=== PATIENT | female | born 1955 | race Caucasian/White ===

== ENCOUNTER 2016-12-06 12:59 | Inpatient (IN) | payer OTHER ==
[2016-12-06] VITALS (16 sets, daily range): BP systolic 76–108; BP diastolic 55–70; PULSE 87–106; TEMP 36.8; O2SAT 99–100; Ht 157.5 cm; Wt 57.9 kg
[~2016-12-06] VITALS: Ht 157.5 cm; Wt 57.9 kg
[2016-12-06] MEDS ORDERED: METHYLPREDNISOLONE 125 MG VIAL IV STA (13:23)
[2016-12-06] MEDS ORDERED: SODIUM CHLORIDE 0.9% 500ML 500 ML IV STA (13:23)
--- NOTE | 2016-12-06 13:28 | EMERGENCY ROOM VISIT NOTE ---
History Report prepared by [facility] Under the Supervision of: Dr. Darci Francis M.D. First contact with patient: 13:02 Chief Complaint: CHEST PAIN Stated Complaint: CHEST PAIN / DIZZY History of Present Illness The patient is a 61 year old female who presents to the Emergency Room via ambulance with complaints of constant chest pain and shortness of breath for the past week. The patient has a history of COPD, and she is currently on oxygen at home. Source of History: patient Onset: a week ago Position: chest Timing: constant Associated Symptoms: + SOB Review of Systems See HPI for pertinent positives & negatives. A total of 10 systems reviewed and were otherwise negative. Past Medical & Surgical Medical Problems: (1) Acute respiratory failure with hypoxia and hypercapnia (2) COPD (chronic obstructive pulmonary disease) (3) Depression (4) Dyslipidemia (5) Hypotension (6) Hypothyroidism (7) Leg cramps (8) Pleuritic chest pain (9) Pneumonia of both lower lobes (10) Respiratory failure with hypercapnia (11) Shortness of breath (12) Tobacco abuse (13) Tobacco abuse counseling Surgical Problems: (1) History of hysterectomy (2) History of tonsillectomy (3) Hx of tubal ligation Social History Smoking Status: Current Every Day Smoker Marital Status: Occupation Status: retired Current/Historical Medications Scheduled Albuterol Hfa (Ventolin Hfa), 2-4 PUFFS INH Q6H Budesonide (Inhalation) (Pulmicort Respules 0.5MG/2ML), 2 ML INH Q12H Buspirone Hcl (Buspirone Hcl), 5 MG PO BID Ferrous Sulfate (Kp Ferrous Sulfate), 325 MG PO BID Formoterol Fumarate (Perforomist), 1 VIAL NEB Q12H Home O2 Therapy (Oxygen), 4 LITER NA DIRECTED Mirtazapine (Mirtazapine), 45 MG PO QPM Paroxetine (Paxil), 30 MG PO DAILY Risperidone (Risperdal), 1 MG PO HS Roflumilast (Daliresp), 500 MCG PO DAILY Simvastatin (Zocor), 40 MG PO DAILY Umeclidinium [place] (Incruse Ellipta), 1 PUFF INH DAILY Scheduled PRN Albuterol Sulf (Proventil 0.083% 2.5MG/3ML), 2.5 MG NEB Q4 PRN for Shortness of Breath Allergies Coded Allergies: No Known Allergies (Unverified , 12/06/16) Physical Exam Vital Signs Date Time Temp Pulse Resp B/P (MAP) Pulse Ox O2 Delivery O2 Flow Rate FiO2 12/06/16 15:45 100 BiPAP 10.0 40 12/06/16 15:25 109 24 99/74 100 BiPAP 12/06/16 14:46 108 22 93/62 100 BiPAP 12/06/16 13:55 99 24 115/83 100 BiPAP 12/06/16 13:38 100 12/06/16 13:35 98 BiPAP 12/06/16 13:20 106 100 40 12/06/16 13:20 Non-Rebreather 10.0 12/06/16 13:20 106 19 100 BiPAP/CPAP 40 12/06/16 13:12 37.2 100 24 140/81 96 Non-Rebreather 10.0 12/06/16 13:12 100 Non-Rebreather 15.0 Physical Exam GENERAL: Patient is a healthy-appearing well-nourished female falling asleep on exam. HEAD: Normocephalic atraumatic EYES: Ocular movements intact pupils equal and react to light OROPHARYNX mucous membranes are moist no exudates present no erythema or edema present NECK: Supple no nuchal rigidity CHEST: Good equal expansion LUNGS: Wheezing bilaterally CARDIAC: Normal S1 and S2 ABDOMEN: Soft nontender no guarding BACK: No CVA tenderness EXTREMITIES: No pain upon palpation normal muscle strength in all groups no clubbing cyanosis or edema NEURO: Patient is following commands and answering questions appropriately. Alert and oriented x3 Cranial Nerves 2-12 grossly intact Medical Decision & Procedures ER Provider Diagnostic Interpretation: Radiology results as stated below per my review and radiologist interpretation: CHEST ONE VIEW PORTABLE CLINICAL HISTORY: Shortness of breath and wheezing. COMPARISON STUDY: No previous studies for comparison. FINDINGS: A 1.3 cm nodular density projects over the left lower lung. A 1 cm nodular density projects over the right lower lung. There is minimal left basilar opacity. There is a possible 2.2 cm irregular left upper lobe opacity. Pulmonary vascularity is normal. Cardiac size is normal. Mediastinal contours are normal. There is no pneumothorax or pleural effusion. IMPRESSION: 1. Possible 2.2 cm left upper lobe irregular opacity. This could reflect artifact, minimal airspace disease or a pulmonary nodule. A nonemergent chest CT is recommended. 2. Minimal left basilar opacity which favors atelectasis. 3. A few nodular densities within the lower lungs which favor calcified nodules but can be assessed on chest CT. Electronically signed by: Meliton Umanzor M.D. 12/06/2016 2:17 PM Dictated Date/Time: 12/06/2016 2:12 PM CHEST CTA for PULMONARY ARTERIES CT DOSE: 201.75 mGy.cm HISTORY: Hypoxia. Atypical chest pain. Elevated d-dimer. TECHNIQUE: Multiaxial CT images of the chest were performed following the intravenous administration of contrast to evaluate the pulmonary arteries. Maximal intensity projection images were also obtained. A dose lowering technique was utilized adhering to the principles of ALARA. COMPARISON STUDY: Chest 12/06/2016. FINDINGS: Complete occlusion of the proximal left subclavian artery with reconstitution to to the left vertebral artery. This is consistent with a subclavian steal. Mild calcified plaque within the aortic arch. The heart is normal in size. No pleural or pericardial effusions. No evidence for an aortic dissection. Mild to moderate plaque within the distal descending thoracic aorta and proximal abdominal aorta. There is a 1.2 cm saccular aneurysm along the lateral aspect of the aortic arch. No filling defects within the pulmonary arteries to suggest pulmonary embolus. Calcified nodule within the left breast. Therefore, this is likely benign. The visualized liver, spleen, and adrenal glands are unremarkable. Questionable gastric wall thickening is likely due to underdistention. No mediastinal or hilar lymphadenopathy. Lipomatous hypertrophy involving the superior aspect of the intra-atrial septum. This measures up to 2.5 cm in thickness and results in mild narrowing of the distal SVC. No suspicious lytic or blastic osseous lesions. Small amount of mucoid material within the bilateral mainstem bronchi and partial opacification of the bilateral lower lobe bronchi. Small areas of consolidation within the bilateral lower lobes posteriorly. Moderate emphysema. No pneumothorax. Small scarlike density within the left lung apex. There are 2 focal irregular densities within the left upper lobe best seen on images 256 and 245. These measure 9 and 10 mm in size, respectively. This may account for the finding on the prior radiograph. There is also a 14 mm irregular density within the left upper lobe posteriorly on image 208. IMPRESSION: 1. No evidence for pulmonary embolus. 2. Emphysema. 3. There are 3 similar-appearing irregular densities within the left upper lobe as described above with the largest measuring 14 mm. These could be due to scarring, inflammatory/infectious change, or possibly primary bronchogenic neoplasms. A [address] follow-up is recommended to assess for stability/resolution. 4. A 1.2 cm saccular aneurysm along the lateral aspect of the aortic arch. 5. Left-sided subclavian steal as described above. 6. Partial opacification of the bilateral lower lobe bronchi with areas of consolidation within the lower lobes posteriorly. This could be due to atelectasis or pneumonia. Electronically signed by: Frederick Flynn M.D. 12/06/2016 3:36 PM Dictated Date/Time: 12/06/2016 3:24 PM Laboratory Results Test 12/06/16 13:25 12/06/16 13:41 12/06/16 13:51 Total Bilirubin 0.4 mg/dl (0.2-1) Aspartate Amino Transf (AST/SGOT) 19 U/L (15-37) Alanine Aminotransferase (ALT/SGPT) 15 U/L (12-78) Alkaline Phosphatase 134 U/L (45-117) Pro-B-Type Natriuretic Peptide 1427 pg/ml (0-900) Total Protein 5.7 gm/dl (6.4-8.2) Albumin 2.1 gm/dl (3.4-5.0) Globulin 3.6 gm/dl (2.5-4.0) Albumin/Globulin Ratio 0.6 (0.9-2) Bedside Lactic Acid Venous 1.20 mmol/L (0.90-1.70) Arterial Blood pH 7.38 (7.35-7.45) Arterial Blood Partial Pressure CO2 53 mmHg (35-46) Arterial Blood Partial Pressure O2 236 mm/Hg (80-95) Arterial Blood HCO3 30 mmol/L (19-24) Arterial Blood Oxygen Saturation 99.5 % (90-95) Arterial Blood Base Excess 4.3 mEq/L (-9-1.8) Arterial Blood Gas Delivery 40% Wale Test POS (POS) Labs reviewed by ED physician. Medications Administered Medications (Trade) Dose Ordered Sig/Marcus Route Start Time Stop Time Status Last Admin Dose Admin Albuterol/ Ipratropium (Duoneb) 12 ml ONE ONCE INH 12/06/16 13:30 12/06/16 13:31 DC 12/06/16 13:20 12 ML Methylprednisolone Sodium Succinate (Solu-Medrol IV) 125 mg NOW STAT IV 12/06/16 13:23 12/06/16 13:24 DC 12/06/16 13:37 125 MG Sodium Chloride 500 ml @ 999 mls/hr Q31M STAT IV 12/06/16 13:23 12/06/16 13:53 DC 12/06/16 13:37 999 MLS/HR Hydromorphone HCl (Dilaudid Inj) 0.5 mg NOW STAT IV 12/06/16 14:37 12/06/16 14:39 DC 12/06/16 14:49 0.5 MG Magnesium Sulfate 1 gm/Prmx 100 ml @ 100 mls/hr NOW STAT IV 12/06/16 14:37 12/06/16 15:36 DC 12/06/16 14:53 100 MLS/HR Acetaminophen (Tylenol Tab) 650 mg Q4H PRN PO 12/06/16 15:45 01/05/17 15:44 12/07/16 10:29 650 MG Procedure Central Venous Catheter Indication: access, hypotension Catheter type: arrow triple lumen Location: right fem Verbal consent was obtained after the risks and benefits were explained, including but not limited to pneumothorax, hemothorax, vessel injury, bleeding, scarring, infection, pain, and bone/joint/nerve damage. At this time, the risks of the procedure are less than the risks of NOT performing the procedure. A time out was taken and the correct patient and site identified. The patient was placed in the Trendelenburg position and the skin was prepped in the standard fashion with chlorhexidine and full sterile drapes applied. The proper landmarks were identified with ultrasound, anesthetized with 1% lidocaine without epinephrine, and the needle was inserted through the skin in the standard fashion. The needle was carefully advanced into blood vessel lumen under ultrasound guidance. The guidewire was placed uneventfully. The vessel is dilated and the catheter was placed. It was sutured into position. There was good blood return from all ports. The patient tolerated the procedure well and there were no complications. Post procedure x-ray was normal. ECG Indication: chest pain Rate (beats per minute): 98 Rhythm: sinus rhythm Findings: T-wave inversion (Lateral), no acute ischemic change ED Course 1302: Past medical records reviewed. The patient was evaluated in room A10. A complete history and physical examination was performed. 1323: Sodium Chloride 500 ml @ 999 mls/hr IV, Solu-Medrol 125mg IV 1330: DuoNeb 12ml INH 1347: I reevaluated the patient, and she was doing better. 1437: Magnesium Sulfate 1gm/Prmx 100ml @ 100mls/hr IV, Dilaudid Inj 0.5mg IV 1526: I discussed the patient's case with Dr. Perez, he has agreed to evaluate the patient for further management and care. Medical Decision Differential diagnosis: Etiologies such as infections, reactive airway disease, pneumonia, pneumothorax , COPD, CHF, cardiac ischemia, pulmonary embolism, musculoskeletal, gastrointestinal, as well as others were entertained. This is a 61-year-old female who presents emergency department hypoxic. The patient has been falling asleep on examination therefore I'm concerned that she is in CO2 retention. She was merely placed on BiPAP and given an hour-long breathing treatment and started on Solu-Medrol. I did start the patient on antibiotics and discussed the case with the hospitalist service. While in the emergency department the patient became hypotensive therefore a central line was placed in the right femoral area. I did discuss the case with the radiosonde specialist. Medication Reconcilliation Current Medication List: was personally reviewed by me Blood Pressure Screening Patient's blood pressure: Elevated blood pressure Blood pressure disposition: Referred to PCP Consults Time Called: 1435 Consulting Physician: Dr. Brandon Returned Call: [phone] I discussed the patient's case with Dr. Perez, he has agreed to evaluate the patient for further management and care. Impression Primary Impression: Hypoxia Additional Impression: COPD exacerbation Critical Care I have personally spent greater than 90 minutes of critical care time in the direct management of this patient. This includes bedside care, interpretation of diagnostic studies, and testing, discussion with consultants, patient, and family members, and other required patient management activities. This 90 minutes is in excess of all separately billable procedures. Scribe Attestation The scribe's documentation has been prepared under my direction and personally reviewed by me in its entirety. I confirm that the note above accurately reflects all work, treatment, procedures, and medical decision making performed by me. Departure Information Dispostion Being Evaluated By Hospitalist Referrals Julio Cesar Harrell (PCP) Patient Instructions My [facility] Problem Qualifiers
[2016-12-06] MEDS ORDERED: ALBUT/IPRATROP 3MG/0.5MG NEB 3 ML VIAL INH ONE (13:30)
[2016-12-06] MEDS ORDERED: RISP1TAB68 PO (13:49)
[2016-12-06] MEDS ORDERED: PARO1TAB27 PO (13:49)
[2016-12-06] MEDS ORDERED: VNTHFA/IN INH (13:49)
[2016-12-06] MEDS ORDERED: FERR1TAB13 PO (13:49)
[2016-12-06] MEDS ORDERED: FORM1NEB NEB (13:49)
[2016-12-06] MEDS ORDERED: SIMV40TA2 PO (13:49)
[2016-12-06] MEDS ORDERED: UMEC1INH INH (13:49)
[2016-12-06] MEDS ORDERED: OXGN (13:49)
[2016-12-06] MEDS ORDERED: PLMINS INH (13:49)
[2016-12-06] MEDS ORDERED: ROFL1TAB5 PO (13:49)
[2016-12-06] MEDS ORDERED: MIRT45TA3 PO (13:49)
[2016-12-06] MEDS ORDERED: BUSP5TAB59 PO (13:49)
[2016-12-06] MEDS ORDERED: ALBINS/ NEB (13:50)
[2016-12-06 13:57] LABS: BASO % 0.2 %; BASO ABS # 0.01 K/uL (0-0.2); COMPLETE YES; EOS % 0.5 %; HEMATOCRIT 33.9 % (37-47); IG% 0.3 %; LYMPH % 13.2 %; LYMPH ABS # 0.86 K/uL (1.2-3.4); MEAN CELL VOLUME 108.3 fL (80-100); MEAN CORPUSCULAR HEMOGLOBIN 36.1 pg (25-34); MEAN CORPUSCULAR HGB CONC 33.3 g/dl (32-36); MEAN PLATELET VOLUME 11.1 fL (7.4-10.4); MONO % 8.9 %; NEUT % 76.9 %; PLATELET COUNT 147 K/uL (130-400); RED BLOOD COUNT 3.13 M/uL (4.2-5.4)
[2016-12-06 14:00] LABS: ALLEN TEST POS (POS); ARTERIAL BLD GAS O2 SATURATION 99.5 % (90-95); ARTERIAL BLOOD GAS BASE EXCESS 4.3 mEq/L (-9-1.8); ARTERIAL BLOOD GAS HCO3 30 mmol/L (19-24); ARTERIAL BLOOD GAS PO2 236 mm/Hg (80-95); ARTERIAL BLOOD GAS pH 7.38 (7.35-7.45); O2 ADMINISTRATION 40%
[2016-12-06 14:06] LABS: BUN/CREATININE RATIO 13.4 (10-20); CALCIUM 7.9 mg/dl (8.5-10.1); CREATININE 0.61 mg/dl (0.60-1.20); POTASSIUM 3.3 mmol/L (3.5-5.1)
[2016-12-06 14:11] LABS: ALB/GLOB RATIO 0.6 (0.9-2); CKMB/CK RATIO 6.1 (0-3.0)
--- NOTE | 2016-12-06 14:18 | DIAGNOSTIC IMAGING REPORT ---
CHEST ONE VIEW PORTABLE CLINICAL HISTORY: Shortness of breath and wheezing. COMPARISON STUDY: No previous studies for comparison. FINDINGS: A 1.3 cm nodular density projects over the left lower lung. A 1 cm nodular density projects over the right lower lung. There is minimal left basilar opacity. There is a possible 2.2 cm irregular left upper lobe opacity. Pulmonary vascularity is normal. Cardiac size is normal. Mediastinal contours are normal. There is no pneumothorax or pleural effusion. IMPRESSION: 1. Possible 2.2 cm left upper lobe irregular opacity. This could reflect artifact, minimal airspace disease or a pulmonary nodule. A nonemergent chest CT is recommended. 2. Minimal left basilar opacity which favors atelectasis. 3. A few nodular densities within the lower lungs which favor calcified nodules but can be assessed on chest CT. Electronically signed by: Meliton Umanzor M.D. 12/06/2016 2:17 PM Dictated Date/Time: 12/06/2016 2:12 PM
[2016-12-06] MEDS ORDERED: HYDROmorphone INJ 0.5 MG/0.5 ML SYR IV STA (14:37)
[2016-12-06] MEDS ORDERED: MAGNESIUM SULFATE 1GM / D5W 1 GM in PREMIXED IN D5W 100 ML IV STA (14:37)
[2016-12-06] MEDS ORDERED: OPTIRAY 320 IV PRN (14:45)
--- NOTE | 2016-12-06 15:37 | DIAGNOSTIC IMAGING REPORT ---
CHEST CTA for PULMONARY ARTERIES CT DOSE: 201.75 mGy.cm HISTORY: Hypoxia. Atypical chest pain. Elevated d-dimer. TECHNIQUE: Multiaxial CT images of the chest were performed following the intravenous administration of contrast to evaluate the pulmonary arteries. Maximal intensity projection images were also obtained. A dose lowering technique was utilized adhering to the principles of ALARA. COMPARISON STUDY: Chest 12/06/2016. FINDINGS: Complete occlusion of the proximal left subclavian artery with reconstitution to to the left vertebral artery. This is consistent with a subclavian steal. Mild calcified plaque within the aortic arch. The heart is normal in size. No pleural or pericardial effusions. No evidence for an aortic dissection. Mild to moderate plaque within the distal descending thoracic aorta and proximal abdominal aorta. There is a 1.2 cm saccular aneurysm along the lateral aspect of the aortic arch. No filling defects within the pulmonary arteries to suggest pulmonary embolus. Calcified nodule within the left breast. Therefore, this is likely benign. The visualized liver, spleen, and adrenal glands are unremarkable. Questionable gastric wall thickening is likely due to underdistention. No mediastinal or hilar lymphadenopathy. Lipomatous hypertrophy involving the superior aspect of the intra-atrial septum. This measures up to 2.5 cm in thickness and results in mild narrowing of the distal SVC. No suspicious lytic or blastic osseous lesions. Small amount of mucoid material within the bilateral mainstem bronchi and partial opacification of the bilateral lower lobe bronchi. Small areas of consolidation within the bilateral lower lobes posteriorly. Moderate emphysema. No pneumothorax. Small scarlike density within the left lung apex. There are 2 focal irregular densities within the left upper lobe best seen on images 256 and 245. These measure 9 and 10 mm in size, respectively. This may account for the finding on the prior radiograph. There is also a 14 mm irregular density within the left upper lobe posteriorly on image 208. IMPRESSION: 1. No evidence for pulmonary embolus. 2. Emphysema. 3. There are 3 similar-appearing irregular densities within the left upper lobe as described above with the largest measuring 14 mm. These could be due to scarring, inflammatory/infectious change, or possibly primary bronchogenic neoplasms. A [address] follow-up is recommended to assess for stability/resolution. 4. A 1.2 cm saccular aneurysm along the lateral aspect of the aortic arch. 5. Left-sided subclavian steal as described above. 6. Partial opacification of the bilateral lower lobe bronchi with areas of consolidation within the lower lobes posteriorly. This could be due to atelectasis or pneumonia. Electronically signed by: Frederick Flynn M.D. 12/06/2016 3:36 PM Dictated Date/Time: 12/06/2016 3:24 PM
[2016-12-06] MEDS ORDERED: GLUCAGON FOR INJ 1 MG VIAL SQ PRN (15:45)
[2016-12-06] MEDS ORDERED: GLUCOSE 10 TABS/TUBE PO PRN (15:45)
[2016-12-06] MEDS ORDERED: DEXTROSE 50% 50 ML SYR IV PRN (15:45)
[2016-12-06] MEDS ORDERED: GLUCOSE 40% GEL 15 GM TUBE PO PRN (15:45)
[2016-12-06] MEDS ORDERED: LEVOFLOXACIN / D5W 500 MG in PREMIXED IN D5W 100 ML IV SCH (15:45)
[2016-12-06] MEDS ORDERED: ONDANSETRON INJ 2 MG/ML 2 ML VIAL IV PRN (15:45)
[2016-12-06] MEDS ORDERED: ALBUMIN HUMAN 25% 12.5 GM/50 ML VIAL IV ONE ×2 (16:15→16:16)
[2016-12-06] MEDS ORDERED: NOREPINEPHRINE BIT INJ 8 MG in DEXTROSE 5% 500ML 500 ML IV PRN (16:15)
[2016-12-06] MEDS: DEXTROSE 5% IV PRN (16:36)
[2016-12-06] MEDS: NOREPINEPHRINE BIT IV PRN (16:36)
[2016-12-06] MEDS: FERROUS SULFATE 325 MG TAB PO SCH (18:00)
--- NOTE | 2016-12-06 18:22 | History and Physical ---
History & Physical Date & Time of Service: Dec 06, 2016 at 17:50 Chief Complaint: Chest Pain / Dizzy Primary Care Physician: See Starr M.D. History of Present Illness Source: patient, spouse The patient is a 61-year-old female who presents to the emergency department via ambulance due to constant chest pain, chronic cough that has worsened, and shortness of breath worsening over the past week. She has a history of severe COPD, is on nasal cannula oxygen up to 4 L at home, has been intubated in the past during a month-long stay in the ICU at [facility] several years ago, and has had multiple numbers of admissions for pneumonia there as well. She has not had any recent travels, she does not have any known sick exposures. She unfortunately does continue to smoke tobacco. Family History Noncontributory Social History Smoking Status: Current Every Day Smoker Smokeless Tobacco Use: No Alcohol Use: none Drug Use: none Marital Status: Housing status: lives with family Occupational Status: retired Immunizations History of Influenza Vaccine: Unknown History of Tetanus Vaccine?: Unknown History of Pneumococcal: Unknown History of Hepatitis B Vaccine: Unknown Multi-Drug Resistant Organisms History of MDRO: No Allergies Coded Allergies: No Known Allergies (Unverified , 12/06/16) Home Medications Scheduled Albuterol Hfa (Ventolin Hfa), 2-4 PUFFS INH Q6H Budesonide (Inhalation) (Pulmicort Respules 0.5MG/2ML), 2 ML INH Q12H Buspirone Hcl (Buspirone Hcl), 5 MG PO BID Ferrous Sulfate (Kp Ferrous Sulfate), 325 MG PO BID Formoterol Fumarate (Perforomist), 1 VIAL NEB Q12H Home O2 Therapy (Oxygen), 4 LITER NA DIRECTED Mirtazapine (Mirtazapine), 45 MG PO QPM Paroxetine (Paxil), 30 MG PO DAILY Risperidone (Risperdal), 1 MG PO HS Roflumilast (Daliresp), 500 MCG PO DAILY Simvastatin (Zocor), 40 MG PO DAILY Umeclidinium [place] (Incruse Ellipta), 1 PUFF INH DAILY Scheduled PRN Albuterol Sulf (Proventil 0.083% 2.5MG/3ML), 2.5 MG NEB Q4 PRN for Shortness of Breath Review of Systems The patient denies chest pain, palpitations, vision change, hearing change, sore throat, fevers, chills, sweats, nausea, vomiting, diarrhea or constipation , abdominal pain, pelvic pain, blood in urine or stool, dysuria, urinary frequency or urgency, lightheadedness, dizziness, headache, memory loss, rash, abnormal bruising or bleeding, imbalance, focal weakness, numbness or tingling in arms or legs, generalized arthralgias or myalgias, back or neck pain, night sweats. The review of systems is otherwise negative other than for that already noted above, and at least 10 systems have been reviewed. Physical Exam Vital Signs Date Time Temp Pulse Resp B/P (MAP) Pulse Ox O2 Delivery O2 Flow Rate FiO2 12/06/16 17:26 110 16 93/61 100 Room Air 12/06/16 17:15 103 16 89/59 99 Room Air 12/06/16 17:10 109 16 98/81 100 BiPAP 12/06/16 17:05 103 16 100/81 99 Room Air 12/06/16 17:00 72 16 97/89 99 BiPAP 12/06/16 16:56 72 16 93/69 98 Room Air 12/06/16 16:50 86 16 86/66 97 Room Air 12/06/16 16:45 101 14 92/68 98 Room Air 12/06/16 16:40 102 16 94/60 98 12/06/16 16:35 96 16 93/60 97 Room Air 12/06/16 16:30 106 20 85/62 97 Room Air 12/06/16 16:26 102 16 93/61 100 Room Air 12/06/16 16:24 101 16 93/56 97 Room Air 12/06/16 16:10 102 16 77/58 98 BiPAP 78/61 12/06/16 15:45 100 BiPAP 10.0 40 12/06/16 15:25 109 24 99/74 100 BiPAP 12/06/16 14:46 108 22 93/62 100 BiPAP 12/06/16 13:55 99 24 115/83 100 BiPAP 12/06/16 13:38 100 12/06/16 13:35 98 BiPAP 12/06/16 13:20 106 100 40 12/06/16 13:20 Non-Rebreather 10.0 12/06/16 13:20 106 19 100 BiPAP/CPAP 40 12/06/16 13:12 37.2 100 24 140/81 96 Non-Rebreather 10.0 12/06/16 13:12 100 Non-Rebreather 15.0 The patient is awake, well-developed and adequately nourished, alert and oriented 3, normocephalic and atraumatic, lying in bed and in mild to moderate acute respiratory distress, with BiPAP mask on. HEENT--PERRL, EOMI, mucous membranes and oropharynx dry. Neck--supple, no JVD or bruits, thyroid normal, trachea midline, no adenopathy. Heart--normal S1 and S2, no extra beats, no murmurs, rubs or gallops. Lungs--coarse breath sounds bilaterally, diffuse wheezing, mild to moderate respiratory distress with accessory muscle use. Abdomen--normal bowel sounds and soft, nontender and nondistended, no hernias or masses, no organomegaly. Extremities--right lower extremity no cyanosis, clubbing or edema. Left lower extremity generally enlarged circumference compared to right, and mild tenderness. There are good distal pulses b/l. Dermatologic--normal skin turgor, normal color, warm and dry, no abnormal lymph nodes, no rash. Neurologic--cranial nerves II through XII grossly intact. Rheumatologic--normal range of motion. Psychiatric--normal affect. Diagnostics Laboratory Results Results Past 24 Hours Test 12/06/16 13:25 12/06/16 13:41 12/06/16 13:51 12/06/16 16:06 Range/Units White Blood Count 6.50 4.8-10.8 K/uL Red Blood Count 3.13 4.2-5.4 M/uL Hemoglobin 11.3 12.0-16.0 g/dL Hematocrit 33.9 37-47 % Mean Corpuscular Volume 108.3 80-100 fL Mean Corpuscular Hemoglobin 36.1 25-34 pg Mean Corpuscular Hemoglobin Concent 33.3 32-36 g/dl Platelet Count 147 130-400 K/uL Mean Platelet Volume 11.1 7.4-10.4 fL Neutrophils (%) (Auto) 76.9 % Lymphocytes (%) (Auto) 13.2 % Monocytes (%) (Auto) 8.9 % Eosinophils (%) (Auto) 0.5 % Basophils (%) (Auto) 0.2 % Neutrophils # (Auto) 5.00 1.4-6.5 K/uL Lymphocytes # (Auto) 0.86 1.2-3.4 K/uL Monocytes # (Auto) 0.58 0.11-0.59 K/uL Eosinophils # (Auto) 0.03 0-0.5 K/uL Basophils # (Auto) 0.01 0-0.2 K/uL RDW Standard Deviation 71.0 36.4-46.3 fL RDW Coefficient of Variation 18.2 11.5-14.5 % Immature Granulocyte % (Auto) 0.3 % Immature Granulocyte # (Auto) 0.02 0.00-0.02 K/uL Sodium Level 141 136-145 mmol/L Potassium Level 3.3 3.5-5.1 mmol/L Chloride Level 102 98-107 mmol/L Carbon Dioxide Level 34 21-32 mmol/L Anion Gap 5.0 3-11 mmol/L Blood Urea Nitrogen 8 7-18 mg/dl Creatinine 0.61 0.60-1.20 mg/dl Est Creatinine Clear Calc Drug Dose 75.7 ml/min Estimated GFR () 112.6 Estimated GFR (Non- 97.2 BUN/Creatinine Ratio 13.4 10-20 Random Glucose 108 70-99 mg/dl Calcium Level 7.9 8.5-10.1 mg/dl Total Bilirubin 0.4 0.2-1 mg/dl Aspartate Amino Transf (AST/SGOT) 19 15-37 U/L Alanine Aminotransferase (ALT/SGPT) 15 12-78 U/L Alkaline Phosphatase 134 45-117 U/L Total Creatine Kinase 70 26-192 U/L Creatine Kinase MB 4.3 0.5-3.6 ng/ml Creatine Kinase MB Ratio 6.1 0-3.0 Troponin I 0.021 0-0.045 ng/ml Pro-B-Type Natriuretic Peptide 1427 0-900 pg/ml Total Protein 5.7 6.4-8.2 gm/dl Albumin 2.1 3.4-5.0 gm/dl Globulin 3.6 2.5-4.0 gm/dl Albumin/Globulin Ratio 0.6 0.9-2 Bedside Lactic Acid Venous 1.20 0.90-1.70 mmol/L Arterial Blood pH 7.38 7.35-7.45 Arterial Blood Partial Pressure CO2 53 35-46 mmHg Arterial Blood Partial Pressure O2 236 80-95 mm/Hg Arterial Blood HCO3 30 19-24 mmol/L Arterial Blood Oxygen Saturation 99.5 90-95 % Arterial Blood Base Excess 4.3 -9-1.8 mEq/L Arterial Blood Gas Delivery 40% Wale Test POS POS Diagnostic Radiology Patient Name: SHEELA MCMANUS Unit Number: [id number] Dictated: 12/06/161411 Transcribed: 12/06/161411 JA Printed Date/Time: [~ rep prt dt]/[~ rep prt tm] [~ rep ct labl] - [~ rep ct ivnm] [facility] [place] [address] Dictated: 12/06/161411 Transcribed: 12/06/161411 JA Printed Date/Time: [~ rep prt dt]/[~ rep prt tm] [~ rep ct labl] - [~ rep ct ivnm] [~ rep ct add3]] CHEST ONE VIEW PORTABLE CLINICAL HISTORY: Shortness of breath and wheezing. COMPARISON STUDY: No previous studies for comparison. FINDINGS: A 1.3 cm nodular density projects over the left lower lung. A 1 cm nodular density projects over the right lower lung. There is minimal left basilar opacity. There is a possible 2.2 cm irregular left upper lobe opacity. Pulmonary vascularity is normal. Cardiac size is normal. Mediastinal contours are normal. There is no pneumothorax or pleural effusion. IMPRESSION: 1. Possible 2.2 cm left upper lobe irregular opacity. This could reflect artifact, minimal airspace disease or a pulmonary nodule. A nonemergent chest CT is recommended. 2. Minimal left basilar opacity which favors atelectasis. 3. A few nodular densities within the lower lungs which favor calcified nodules but can be assessed on chest CT. Electronically signed by: Meliton Umanzor M.D. 12/06/2016 2:17 PM Dictated Date/Time: 12/06/2016 2:12 PM The status of this report is Signed. Draft = Not yet reviewed or approved by Radiologist. Signed = Reviewed and approved by Radiologist. <AttendingPhy></AttendingPhy> <FamilyPhy>Yanick Canales D.O.</FamilyPhy> < PrimaryPhy>See Starr M.D.</PrimaryPhy> <UnitNumber>[id number]</UnitNumber > <VisitNumber>[id number]</VisitNumber> <PatientName>SHEELA MCMANUS</ PatientName> <DateOfBirth>1955</DateOfBirth> <Location>[facility]</Location> < ServiceDate>12/06/16</ServiceDate> <MNE>ESINDI</MNE> <OrderingPhy>Darci Francis MD</OrderingPhy> <OrderingPhyMNE>f rep ord dr gonzalez</OrderingPhyMNE> < DictatingPhyMNE>f rep dict dr gonzalez</DictatingPhyMNE> <CCListMNE>f rep ct mne</ CCListMNE> <AdmittingPhyMNE>f pt admit dr gonzalez</AdmittingPhyMNE> <AttendingPhyMNE >f pt attend dr gonzalez</AttendingPhyMNE> <ConsultingPhyMNE>f pt consult dr gonzalez</ConsultingPhyMNE> <FamilyPhyMNE>f pt fam dr gonzalez</FamilyPhyMNE> <OtherPhyMNE>f pt other dr gonzalez</OtherPhyMNE> < PrimaryPhyMNE>f pt prim care dr gonzalez</PrimaryPhyMNE> <ReferringPhyMNE>f pt referring dr gonzalez</ReferringPhyMNE> Patient Name: SHEELA MCMANUS Unit Number: [id number] Dictated: 12/06/161523 Transcribed: 12/06/161523 [facility] Printed Date/Time: [~ rep prt dt]/[~ rep prt tm] [~ rep ct labl] - [~ rep ct ivnm] [facility] [place] [address] Dictated: 12/06/161523 Transcribed: 12/06/161523 PA Printed Date/Time: [~ rep prt dt]/[~ rep prt tm] [~ rep ct labl] - [~ rep ct ivnm] [~ rep ct add3]] CHEST CTA for PULMONARY ARTERIES CT DOSE: 201.75 mGy.cm HISTORY: Hypoxia. Atypical chest pain. Elevated d-dimer. TECHNIQUE: Multiaxial CT images of the chest were performed following the intravenous administration of contrast to evaluate the pulmonary arteries. Maximal intensity projection images were also obtained. A dose lowering technique was utilized adhering to the principles of ALARA. COMPARISON STUDY: Chest 12/06/2016. FINDINGS: Complete occlusion of the proximal left subclavian artery with reconstitution to to the left vertebral artery. This is consistent with a subclavian steal. Mild calcified plaque within the aortic arch. The heart is normal in size. No pleural or pericardial effusions. No evidence for an aortic dissection. Mild to moderate plaque within the distal descending thoracic aorta and proximal abdominal aorta. There is a 1.2 cm saccular aneurysm along the lateral aspect of the aortic arch. No filling defects within the pulmonary arteries to suggest pulmonary embolus. Calcified nodule within the left breast. Therefore, this is likely benign. The visualized liver, spleen, and adrenal glands are unremarkable. Questionable gastric wall thickening is likely due to underdistention. No mediastinal or hilar lymphadenopathy. Lipomatous hypertrophy involving the superior aspect of the intra-atrial septum. This measures up to 2.5 cm in thickness and results in mild narrowing of the distal SVC. No suspicious lytic or blastic osseous lesions. Small amount of mucoid material within the bilateral mainstem bronchi and partial opacification of the bilateral lower lobe bronchi. Small areas of consolidation within the bilateral lower lobes posteriorly. Moderate emphysema. No pneumothorax. Small scarlike density within the left lung apex. There are 2 focal irregular densities within the left upper lobe best seen on images 256 and 245. These measure 9 and 10 mm in size, respectively. This may account for the finding on the prior radiograph. There is also a 14 mm irregular density within the left upper lobe posteriorly on image 208. IMPRESSION: 1. No evidence for pulmonary embolus. 2. Emphysema. 3. There are 3 similar-appearing irregular densities within the left upper lobe as described above with the largest measuring 14 mm. These could be due to scarring, inflammatory/infectious change, or possibly primary bronchogenic neoplasms. A [address] follow-up is recommended to assess for stability/resolution. 4. A 1.2 cm saccular aneurysm along the lateral aspect of the aortic arch. 5. Left-sided subclavian steal as described above. 6. Partial opacification of the bilateral lower lobe bronchi with areas of consolidation within the lower lobes posteriorly. This could be due to atelectasis or pneumonia. Electronically signed by: Frederick Flynn M.D. 12/06/2016 3:36 PM Dictated Date/Time: 12/06/2016 3:24 PM The status of this report is Signed. Draft = Not yet reviewed or approved by Radiologist. Signed = Reviewed and approved by Radiologist. <AttendingPhy></AttendingPhy> <FamilyPhy>Yanick Canales D.O.</FamilyPhy> < PrimaryPhy>See Starr M.D.</PrimaryPhy> <UnitNumber>[id number]</UnitNumber > <VisitNumber>[id number]</VisitNumber> <PatientName>JAMELSHEELA ROCHA RUPALI</ PatientName> <DateOfBirth>1955</DateOfBirth> <Location>[facility]</Location> < ServiceDate>12/06/16</ServiceDate> <MNE>ESINDI</MNE> <OrderingPhy>Darci Francis MD</OrderingPhy> <OrderingPhyMNE>f rep ord dr gonzalez</OrderingPhyMNE> < DictatingPhyMNE>f rep dict dr gonzalez</DictatingPhyMNE> <CCListMNE>f rep ct lisa</ CCListMNE> <AdmittingPhyMNE>f pt admit dr gonzalez</AdmittingPhyMNE> <AttendingPhyMNE >f pt attend dr gonzalez</AttendingPhyMNE> <ConsultingPhyMNE>f pt consult dr gonzalez</ConsultingPhyMNE> <FamilyPhyMNE>f pt fam dr gonzalez</FamilyPhyMNE> <OtherPhyMNE>f pt other dr gonzalez</OtherPhyMNE> < PrimaryPhyMNE>f pt prim care dr gonzalez</PrimaryPhyMNE> <ReferringPhyMNE>f pt referring dr gonzalez</ReferringPhyMNE> EKG EKG shows normal sinus rhythm at 98 bpm, PVCs, nonspecific ST and T changes, baseline noise possibly affecting EKG interpretation. Impression Assessment and Plan Acute respiratory failure with hypoxia and hypercapnia/bilateral lower lobe pneumonia/septic shock-- The patient be admitted to the ICU. Started on levophed in the ED due to systolic blood pressure dropping to 64, with titration to MAP greater than or equal to 65. Place on vancomycin IV, Zosyn IV, Levaquin IV. Solu-Medrol 60 mg IV every 6 hours. Xopenex/Atrovent high flow nebulizer every 6 hours while awake and every 2 hours when necessary. Continue Daliresp 500 g by mouth daily Continue BiPAP with current settings. Repeat ABG in the morning. Consult nocturnist Dr. Esqueda for management while in the ICU. 3 Left upper lobe irregular densities with largest measuring 14 mm-- Differential is scarring, inflammatory/infectious change, or possibly primary bronchogenic neoplasm. She usually follows with in [place], and care in this regard may be coordinated with him. Left sided subclavian steal--noted on CT. 1.2 cm saccular aneurysm along the lateral aspect of aortic arch--noted on CT. Depression-- Buspirone 5 mg by mouth twice a day. Mirtazapine 45 mg by mouth at bedtime. Fluoxetine 30 mg by mouth daily. Risperdal 1 mg by mouth at bedtime. Hyperlipidemia-- Continue simvastatin 40 mg by mouth daily. Iron deficiency-- Continue ferrous sulfate 325 mg by mouth twice a day. Level of Care Critical Care Advanced Directives Existing Advance Directive: No Existing Living Will: No Existing Power of Senior Net Programmer: No Resuscitation Status FULL RESUSCITATION VTE Prophylaxis VTE Risk Assessment Done? Y/N: Yes Risk Level: High Given or contraindicated: Enoxaparin (Lovenox)SQ, SCD's
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
[2016-12-06] MEDS ORDERED: PIPERACILL/TAZOBAC IV 4.5 GM in DEXTROSE 5% 100ML 100 ML IV ONE (19:19)
[2016-12-06] MEDS ORDERED: VANCOMYCIN INJ 1,250 MG in SODIUM CHLORIDE 0.9% 250ML 250 ML IV STA (19:23)
[2016-12-06] MEDS ORDERED: ENOXAPARIN 60 MG/0.6 ML SYR SQ ONE (19:30)
[2016-12-06] MEDS ORDERED: CEFTRIAXONE SOD INJ 1 GM in DEXTROSE 5% ADD-VANTAGE 50ML 50 ML IV SCH (20:00)
[2016-12-06 20:05] LABS: PROTHROMBIN TIME (PATIENT) 10.5 SECONDS (9.0-12.0)
[2016-12-06] MEDS: METHYLPREDNISOLONE IV 60 MG in SYRINGE 0 ML IV SCH (20:25)
[2016-12-06] MEDS: NSS + 20MEQ KCL 1000ML 1,000 ML IV SCH (20:26)
[2016-12-06] MEDS: DOXYCYCLINE IV 100 MG in DEXTROSE 5% 100ML 100 ML IV SCH (20:27)
[2016-12-06] MEDS ORDERED: MoRPHine SULFATE 2 MG/ML CARP IV STA (20:29)
[2016-12-06] MEDS: BUDESONIDE 0.5 MG/2 ML VIAL (PULMICORT) INH SCH (20:45)
[2016-12-06] MEDS: LEVALBUTEROL 1.25MG/0.5ML NEB INH SCH (20:47)
[2016-12-06] MEDS: IPRATROPIUM BROMIDE NEB SOLN 0.02% 2.5 ML VIAL INH SCH (20:47)
[2016-12-06] MEDS: GUAIFENESIN 600 MG TABCR PO SCH (20:57)
[2016-12-06] MEDS: RISPERIDONE 1 MG TAB PO SCH (20:58)
[2016-12-06] MEDS: MIRTAZAPINE TAB 15 MG TAB PO SCH (20:58)
[2016-12-06] MEDS ORDERED: INSULIN ASPART 100 UNITS/ML 3 ML PEN SC SCH (21:00)
[2016-12-06] MEDS ORDERED: LEVALBUTEROL/IPRATROPIUM NEB INH SCH (21:00)
[2016-12-06 21:18] LABS: MANUAL MICROSCOPIC REQUIRED? NO; REVIEW REQ? NO; URINE APPEARANCE CLEAR (CLEAR); URINE BILIRUBIN NEG (NEG); URINE COLOR YELLOW; URINE NITRITE NEG (NEG); URINE SPECIFIC GRAVITY > 1.045 (1.000-1.030); UROBILINOGEN NEG (NEG)
[2016-12-06 22:50] LABS: INFLUENZA A PCR Neg for Influ A (NEG); INFLUENZA B PCR Neg for Influ B (NEG)
[2016-12-07] VITALS (125 sets, daily range): BP systolic 70–149; BP diastolic 41–235; PULSE 83–137; TEMP 36.4–36.5; O2SAT 81–100
[2016-12-07 00:56] LABS: CKMB/CK RATIO 4.7 (0-3.0)
[2016-12-07] MEDS: LEVALBUTEROL 1.25MG/0.5ML NEB INH SCH ×4 (02:16→19:13)
[2016-12-07] MEDS: IPRATROPIUM BROMIDE NEB SOLN 0.02% 2.5 ML VIAL INH SCH ×4 (02:16→19:13)
[2016-12-07] MEDS: METHYLPREDNISOLONE IV 60 MG in SYRINGE 0 ML IV SCH ×4 (02:57→22:09)
[2016-12-07] MEDS ORDERED: MoRPHine SULFATE 2 MG/ML CARP IV ONE (04:15)
[2016-12-07] MEDS ORDERED: NURSING VERBAL MED ORDER ONE ×2 (04:15→16:30)
[2016-12-07] MEDS: NOREPINEPHRINE BIT IV PRN (04:57)
[2016-12-07] MEDS: DEXTROSE 5% IV PRN (04:57)
[2016-12-07] MEDS: NSS + 20MEQ KCL 1000ML 1,000 ML IV SCH ×2 (04:58→15:22)
[2016-12-07 05:49] LABS: COMPLETE YES; HEMATOCRIT 30.5 % (37-47); IG% 0.4 %; LYMPH % 3.7 %; LYMPH ABS # 0.26 K/uL (1.2-3.4); MEAN CELL VOLUME 106.6 fL (80-100); MEAN CORPUSCULAR HEMOGLOBIN 35.3 pg (25-34); MEAN CORPUSCULAR HGB CONC 33.1 g/dl (32-36); MEAN PLATELET VOLUME 10.8 fL (7.4-10.4); MONO % 1.3 %; NEUT % 94.6 %; PLATELET COUNT 183 K/uL (130-400); RED BLOOD COUNT 2.86 M/uL (4.2-5.4); WHITE BLOOD COUNT 7.11 K/uL (4.8-10.8)
--- NOTE | 2016-12-07 06:01 | DIAGNOSTIC IMAGING REPORT ---
BILATERAL LOWER EXTREMITY VENOUS DOPPLER HISTORY: Acute left lower extremity pain and swelling. swelling and pain LLE COMPARISON STUDY: None. FINDINGS: There is normal compressibility, flow, and augmentation within the left lower extremity deep venous system. IMPRESSION: No sonographic evidence of deep venous thrombosis within the left lower extremity. Electronically signed by: Wolfgang Terry M.D. 12/07/2016 5:59 AM Dictated Date/Time: 12/07/2016 5:58 AM
[2016-12-07 06:09] LABS: BUN/CREATININE RATIO 10.1 (10-20); CALCIUM 7.8 mg/dl (8.5-10.1); CREATININE 0.54 mg/dl (0.60-1.20); PHOSPHORUS 2.7 mg/dl (2.5-4.9); POTASSIUM 3.8 mmol/L (3.5-5.1)
[2016-12-07 06:16] LABS: CKMB/CK RATIO 4.3 (0-3.0)
[2016-12-07] MEDS: FERROUS SULFATE 325 MG TAB PO SCH ×2 (07:47→16:23)
[2016-12-07] MEDS: ATORVASTATIN 40 MG TAB PO SCH (07:50)
[2016-12-07] MEDS: GUAIFENESIN 600 MG TABCR PO SCH ×2 (07:50→20:48)
[2016-12-07] MEDS: ROFLUMILAST 500 MCG TAB PO SCH (07:51)
[2016-12-07] MEDS: PAROXETINE 30 MG TAB PO SCH (07:51)
[2016-12-07] MEDS: BUDESONIDE 0.5 MG/2 ML VIAL (PULMICORT) INH SCH (07:55)
[2016-12-07] MEDS: INSULIN ASPART 100 UNITS/ML 3 ML PEN SC SCH ×4 (07:58→21:00)
--- NOTE | 2016-12-07 07:58 | DIAGNOSTIC IMAGING REPORT ---
CHEST ONE VIEW PORTABLE HISTORY: 61 years-old Female pneumonia acute shortness of breath and wheezing. Follow-up of possible pneumonia. COMPARISON: Chest radiograph 12/06/2016 TECHNIQUE: Portable upright AP view of the chest FINDINGS: Cardiac silhouette is within normal limits. Irregular lateral left upper lobe and patchy bibasilar airspace opacities are again noted on a background of emphysema and hyperinflation. There is no significant change from comparison. Biapical pleural-parenchymal scarring is noted without pneumothorax or pleural effusion. Mild bronchial wall thickening of the lung bases suggest bronchitis. There is atherosclerosis of the aorta. Bones are grossly intact. IMPRESSION: Stable exam with persistent irregular left upper lobe and bibasilar opacities. Please refer to chest CT 12/06/2016 for further details. The above report was generated using voice recognition software. It may contain grammatical, syntax or spelling errors. Electronically signed by: Wolfgang Terry M.D. 12/07/2016 7:57 AM Dictated Date/Time: 12/07/2016 7:53 AM
[2016-12-07] MEDS ORDERED: RANITIDINE IV 50 MG in DEXTROSE 5% 100ML 100 ML IV PRN (08:30)
[2016-12-07] MEDS ORDERED: SIMVASTATIN 40 MG TAB PO SCH (09:00)
[2016-12-07] MEDS: DOXYCYCLINE IV 100 MG in DEXTROSE 5% 100ML 100 ML IV SCH ×2 (09:30→20:46)
--- NOTE | 2016-12-07 10:17 | Critical Care Progress Note ---
Critical Care Progress Note Date of Service Dec 07, 2016. ICU Day ICU Day Number: [address] Matson Subjective Patient only feeling mildly short of breath at rest and is still coughing up white sputum Patient feeling nauseated this morning Describes some mild chest pain that she has had for the past week. She describes it as a heavy feeling. She rates it as a 7/10. Morphine helped before. She has seen a cardiology in the past and was told everything was fine. Patient denies any palpitations, dizziness or pre-syncope She denies any abdominal pain, vomiting, or diarrhea She denies any leg weakness, arm weakness or facial droop She denies any swelling, or pain of her legs She denies any visual changes, swallowing difficulty or difficulty hearing Objective Physical Exam: General - NAD, Talking in complete sentence, Appears disheveled and fatigued Eyes - No icterus ENT - Mucosa dry, no lesions or candidiasis Neck - Supple, trachea midline, no masses or lymphadenopathy, no JVD or bruits Lungs - Coarse breath sounds bilaterally, no wheezes crackles or rhonchi bilaterally. No accessory muscle use noted Heart -, No murmur, rubs, clicks, or gallops appreciated, Pain to palpation of chest wall and ribs Abdomen - BS present, soft, nontender, mildly distended, no organomegaly Extremities - No edema, pedal pulses intact, very dry skin bilaterally Neuro - A&O X 4 Current SOFA Score SOFA Score Response (Comments) Value Platelets (x10) > 150 0 Bilirubin (mg/dL) < 1.2 0 Edin Coma Score 15 0 Level of Hypotension Dopamine > 5 mcq or Epi < 0.1 mcq 3 Creatinine (mg/dL) < 1.2 0 Total 3 Assessment & Plan 61 year old female presented to [facility] with a COPD exacerbation and possible pneumonia. She has required vasopressors and therefore has been admitted to the ICU for further management. Resp: * Supplemental oxygen as required * ABG: PH 7.38/83/236/30 * COPD exacerbation complicated by possible bilateral lower lobe pneumonia * Procalcitonin <.05 and lactic acid 1.2 * Will discontinue rocephin and continue patient with doxycyline as patient with prolonged Qtc * Continue steroids 60mg q8 hrs * Respiratory regimen including levalbuterol and Atrovent * BiPAP will remain in room if patient's respiratory status declines. Otherwise patient has stated her CODE STATUS is do not include mechanical ventilation * Goal saturation 88-92% * Continue home Rofimulast, switch from budesonide to symbicort CV: * Hypotension * Goal map greater than 60; SBP greater than 90 * Decrease levophed to 0.05 and continue to watch pressures, considers stopping later today * Lactic acid as stated above * Monitor renal function * Monitor on telemetry * Patient with chest pain but tender to palpation on exam and troponins negative. Will continue to monitor Fluids/Renal: * Cr 0.54 Currently, Monitor for LOGAN 2/2 hypotension * PRP Daily * Fluids Currently NSS + 20 K @ 100mL/hr, will monitor fluid status----> will decrease to 50ml/hr * No lopez currently, will likely insert secondary to hypotension ID: * Abx * Started on broad spectrum antibiotics, will stop rocephin and keep on doxycycline due to Qtc prolongation * Lactic acid: 1.2 * Pro calcitonin <.05 * WBC: 6.5, Will trend daily GI/Nutrition: * Can start patient with regular diet * Patient feeling nauseated and will give zantac IV. hold off on zofran as patient with prolonged QtC * Will also start patient on pantoprazole Heme: * H&H: 11.7 Will Trend daily * Plts: 177 * Coags WNL Endocrine: * Accu-Cheks every 6 hours * No current diagnosis of diabetes; however patient is receiving large doses of steroids and levophed * We'll monitor closely * Accu-Checks per protocol, started insulin infusion for 2 blood sugars greater than 180 * Outpatient meds indicate hypothyroidism; however not currently treated * Will obtain TSH Neuro: * Will monitor pain level and treat as blood pressure allows * Monitor for neurologic changes * Continue home medications for depression, anxiety and sleep DVT prophylaxis with lovenox Access: Left AC PIV, Right Femoral Triple Lumen Central Line ------> will remove central line when latest tomorrow to make sure central line in for less than 48hrs I saw and evaluated the patient with Dr Davis and I agree with the stated findings and plan. In addition she seemed to drop her BP when the levophed was reduced. The patient has shock and has a low random cortisol. However, she is on solumedrol. The echocardiogram failed to show wall motion abnormality and the EF is >60%. This goes against cardiogenic shock. Although there was bronchiectasis and some infiltrates atelectasis on the basal lung crawford. The procalcitonin was totally normal. She has pleuritic chest pain but the CTA ruled out PE. She does report her son has URI symptoms. This could be a viral syndrome but we will repeat procalcitonin. There does not seem to be Right sided ventricular hypertension (pulm hypertension) per the echocardiogram. The nature of her shock is unusuall. Will perform an IVC sonography to check volume status. In addition we will control her pain. Consults & Procedures Consultants: Huyen Procedures: CTA CXR x2 Lower extremity US Data Medications: Current Inpatient Medications Medications (Trade) Dose Ordered Sig/Marcus Route Start Time Stop Time Status Last Admin Dose Admin Ioversol (Optiray 320) 125 ml UD PRN IV 12/06/16 14:45 12/10/16 14:44 Potassium Chloride/Sodium Chloride 1,000 ml @ 100 mls/hr Q10H IV 12/06/16 19:00 01/05/17 18:59 12/07/16 04:58 100 MLS/HR Acetaminophen (Tylenol Tab) 650 mg Q4H PRN PO 12/06/16 15:45 01/05/17 15:44 Budesonide (Pulmicort Respules 0.5MG/ 2ML Neb Soln) 1 mg Q12R INH 12/06/16 20:00 01/05/17 19:59 12/07/16 07:55 1 MG Buspirone HCl (Buspar Tab) 5 mg BID PO 12/06/16 21:00 01/05/17 20:59 12/07/16 07:50 5 MG Paroxetine HCl (pAXil) 30 mg DAILY PO 12/07/16 09:00 01/06/17 08:59 12/07/16 07:51 30 MG Risperidone (Risperdal Tab) 1 mg HS PO 12/06/16 21:00 01/05/17 20:59 12/06/16 20:58 1 MG Roflumilast (Daliresp Tab) 500 mcg DAILY PO 12/07/16 09:00 01/06/17 08:59 12/07/16 07:51 500 MCG Ferrous Sulfate (Feosol Tab) 325 mg BIDM PO 12/06/16 18:00 01/05/17 17:59 12/07/16 07:47 325 MG Mirtazapine (Remeron Tab) 45 mg HS PO 12/06/16 21:00 01/05/17 20:59 12/06/16 20:58 45 MG Methylprednisolone Sodium Succinate 60 mg/Syringe 0.96 ml @ 1.5 mls/min Q6H IV 12/06/16 20:00 01/05/17 19:59 12/07/16 07:51 1.5 MLS/MIN Guaifenesin (Mucinex Contr Rel Tab) 600 mg BID PO 12/06/16 21:00 01/05/17 20:59 12/07/16 07:50 600 MG Glucose (Glucose 40% Gel) UD PRN PO 12/06/16 15:45 01/05/17 15:44 Glucose (Glucose Chew Tab) 1 tabs UD PRN PO 12/06/16 15:45 01/05/17 15:44 Dextrose (Dextrose 50% 50ML Syringe) 50 ml UD PRN IV 12/06/16 15:45 01/05/17 15:44 Glucagon (Glucagon Inj) 1 mg UD PRN SQ 12/06/16 15:45 01/05/17 15:44 Ipratropium Yale (Atrovent 0.02% 0.5MG/2.5ML Neb) 0.5 mg Q6R INH 12/06/16 21:00 01/05/17 20:59 12/07/16 07:55 0.5 MG Levalbuterol (Xopenex 1.25MG/ 0.5ML Neb) 1.25 mg Q6R INH 12/06/16 21:00 01/05/17 20:59 12/07/16 07:54 1.25 MG Norepinephrine Bitartrate 8 mg/ Dextrose 500 ml @ 0 mls/hr Q0M PRN IV 12/06/16 16:30 01/05/17 16:29 12/07/16 04:57 47.3 MLS/HR Doxycycline Hyclate 100 mg/ Dextrose 110 ml @ 50 mls/hr BID IV 12/06/16 21:00 12/13/16 20:59 12/07/16 09:30 50 MLS/HR Atorvastatin Calcium (Lipitor Tab) 80 mg QAM PO 12/07/16 09:00 01/06/17 08:59 12/07/16 07:50 80 MG Insulin Aspart (novoLOG ASPART) SLIDING SCALE G... Q6 SC 12/07/16 06:45 01/06/17 06:44 12/07/16 07:58 1 UNITS Ranitidine HCl 50 mg/Dextrose 102 ml @ 200 mls/hr Q8H PRN IV 12/07/16 08:30 01/06/17 08:29 Vital Signs: Date Time Temp Pulse Resp B/P (MAP) Pulse Ox O2 Delivery O2 Flow Rate FiO2 12/07/16 09:01 113 22 96/56 (69) 93 Nasal Cannula 3.0 12/07/16 09:00 113 34 95 12/07/16 08:47 110 27 113/66 (82) 97 12/07/16 08:31 104 23 90/65 (73) 97 12/07/16 08:30 102 22 97 12/07/16 08:16 103 25 100/74 (83) 99 12/07/16 08:15 Nasal Cannula 3.0 12/07/16 08:02 104 19 107/45 (65) 100 12/07/16 08:00 101 28 100 12/07/16 07:57 101 18 98 Nasal Cannula 4.0 12/07/16 07:51 89 19 120/58 (78) 98 12/07/16 07:41 84 21 99/61 (74) 100 12/07/16 07:31 87 23 87/59 (68) 98 12/07/16 07:30 86 23 98 12/07/16 07:21 86 20 92/60 (71) 98 12/07/16 07:11 87 20 92/64 (73) 98 12/07/16 07:01 94 22 87/59 (68) 96 12/07/16 07:00 94 17 97 12/07/16 06:41 88 21 92/58 (69) 97 12/07/16 06:32 107 22 100/70 (80) 95 12/07/16 06:21 101 23 118/68 (85) 99 12/07/16 06:11 96 26 108/72 (84) 99 12/07/16 06:01 90 26 105/71 (82) 99 12/07/16 05:51 92 24 110/72 (85) 98 12/07/16 05:42 101 19 106/73 (84) 97 12/07/16 05:31 97 17 104/61 (75) 98 12/07/16 05:21 101 20 110/69 (83) 99 12/07/16 05:11 99 25 93/63 (73) 98 12/07/16 05:01 109 24 115/76 (89) 98 12/07/16 04:51 95 25 94/68 (77) 99 12/07/16 04:41 96 20 104/73 (83) 99 12/07/16 04:31 93 20 99/66 (77) 97 12/07/16 04:21 103 25 93/71 (78) 97 12/07/16 04:11 104 24 94/63 (73) 99 12/07/16 04:02 36.5 93 24 110/52 (71) 98 12/07/16 04:00 Nasal Cannula 3.0 12/07/16 03:51 96 21 90/57 (68) 99 12/07/16 03:41 101 22 95/69 (78) 96 12/07/16 03:32 105 22 90/48 (62) 97 12/07/16 03:22 96 22 90/59 (69) 96 12/07/16 03:11 96 23 94/66 (75) 98 12/07/16 03:01 108 26 94/65 (75) 96 12/07/16 02:51 100 21 100/73 (82) 94 12/07/16 02:42 104 22 97/62 (74) 97 12/07/16 02:31 113 23 87/66 (73) 97 12/07/16 02:22 100 23 101/42 (61) 100 12/07/16 02:16 103 18 96 Nasal Cannula 4.0 12/07/16 02:12 100 18 108/58 (75) 98 12/07/16 02:03 115 20 80/55 (63) 98 Nasal Cannula 3.0 12/07/16 00:51 93 22 108/71 (83) 100 12/07/16 00:41 91 29 94/63 (73) 100 12/07/16 00:31 90 24 89/63 (72) 100 12/07/16 00:21 88 24 95/65 (75) 99 12/07/16 00:11 92 23 98/63 (75) 100 12/07/16 00:01 36.4 94 25 91/65 (74) 100 Nasal Cannula 3.0 12/06/16 23:59 Nasal Cannula 3.0 12/06/16 23:51 87 28 88/65 (73) 100 12/06/16 23:41 87 30 86/65 (72) 100 12/06/16 23:31 89 21 88/55 (66) 100 12/06/16 23:21 101 21 108/69 (82) 100 12/06/16 23:11 97 23 99/68 (78) 100 12/06/16 23:01 89 28 93/61 (72) 100 12/06/16 22:51 97 28 93/70 (78) 100 12/06/16 22:41 91 25 91/64 (73) 100 12/06/16 22:31 92 27 97/65 (76) 100 12/06/16 22:21 102 27 77/60 (66) 100 12/06/16 22:11 97 29 93/62 (72) 100 12/06/16 22:01 93 29 83/65 (71) 100 Nasal Cannula 4.0 12/06/16 20:47 98 20 99 Nasal Cannula 4.0 12/06/16 20:01 36.8 95 21 76/58 (64) 99 Nasal Cannula 4.0 12/06/16 20:00 Nasal Cannula 4.0 12/06/16 17:50 104 16 83/61 100 BiPAP 12/06/16 17:45 105 16 70/57 100 BiPAP 12/06/16 17:41 101 16 85/68 100 BiPAP 12/06/16 17:37 110 18 104/53 100 BiPAP 12/06/16 17:30 112 16 80/68 100 BiPAP 12/06/16 17:26 110 16 93/61 100 Room Air 12/06/16 17:15 103 16 89/59 99 Room Air 12/06/16 17:10 109 16 98/81 100 BiPAP 12/06/16 17:05 103 16 100/81 99 Room Air 12/06/16 17:00 72 16 97/89 99 BiPAP 12/06/16 16:56 72 16 93/69 98 Room Air 12/06/16 16:50 86 16 86/66 97 Room Air 12/06/16 16:45 101 14 92/68 98 Room Air 12/06/16 16:40 102 16 94/60 98 12/06/16 16:35 96 16 93/60 97 Room Air 12/06/16 16:30 106 20 85/62 97 Room Air 12/06/16 16:26 102 16 93/61 100 Room Air 12/06/16 16:24 101 16 93/56 97 Room Air 12/06/16 16:10 102 16 77/58 98 BiPAP 78/61 12/06/16 15:45 100 BiPAP 10.0 40 12/06/16 15:25 109 24 99/74 100 BiPAP 12/06/16 14:46 108 22 93/62 100 BiPAP 12/06/16 13:55 99 24 115/83 100 BiPAP 12/06/16 13:38 100 12/06/16 13:35 98 BiPAP 12/06/16 13:20 106 100 40 12/06/16 13:20 Non-Rebreather 10.0 12/06/16 13:20 106 19 100 BiPAP/CPAP 40 12/06/16 13:12 37.2 100 24 140/81 96 Non-Rebreather 10.0 12/06/16 13:12 100 Non-Rebreather 15.0 Laboratory Results: Last 24 Hours Test 12/06/16 13:25 12/06/16 13:41 12/06/16 13:51 12/06/16 19:43 White Blood Count 6.50 K/uL Red Blood Count 3.13 M/uL Hemoglobin 11.3 g/dL Hematocrit 33.9 % Mean Corpuscular Volume 108.3 fL Mean Corpuscular Hemoglobin 36.1 pg Mean Corpuscular Hemoglobin Concent 33.3 g/dl Platelet Count 147 K/uL Mean Platelet Volume 11.1 fL Neutrophils (%) (Auto) 76.9 % Lymphocytes (%) (Auto) 13.2 % Monocytes (%) (Auto) 8.9 % Eosinophils (%) (Auto) 0.5 % Basophils (%) (Auto) 0.2 % Neutrophils # (Auto) 5.00 K/uL Lymphocytes # (Auto) 0.86 K/uL Monocytes # (Auto) 0.58 K/uL Eosinophils # (Auto) 0.03 K/uL Basophils # (Auto) 0.01 K/uL RDW Standard Deviation 71.0 fL RDW Coefficient of Variation 18.2 % Immature Granulocyte % (Auto) 0.3 % Immature Granulocyte # (Auto) 0.02 K/uL Sodium Level 141 mmol/L Potassium Level 3.3 mmol/L Chloride Level 102 mmol/L Carbon Dioxide Level 34 mmol/L Anion Gap 5.0 mmol/L Blood Urea Nitrogen 8 mg/dl Creatinine 0.61 mg/dl Est Creatinine Clear Calc Drug Dose 75.7 ml/min Estimated GFR () 112.6 Estimated GFR (Non- 97.2 BUN/Creatinine Ratio 13.4 Random Glucose 108 mg/dl Calcium Level 7.9 mg/dl Total Bilirubin 0.4 mg/dl Aspartate Amino Transf (AST/SGOT) 19 U/L Alanine Aminotransferase (ALT/SGPT) 15 U/L Alkaline Phosphatase 134 U/L Total Creatine Kinase 70 U/L Creatine Kinase MB 4.3 ng/ml Creatine Kinase MB Ratio 6.1 Troponin I 0.021 ng/ml Pro-B-Type Natriuretic Peptide 1427 pg/ml Total Protein 5.7 gm/dl Albumin 2.1 gm/dl Globulin 3.6 gm/dl Albumin/Globulin Ratio 0.6 Bedside Lactic Acid Venous 1.20 mmol/L Arterial Blood pH 7.38 Arterial Blood Partial Pressure CO2 53 mmHg Arterial Blood Partial Pressure O2 236 mm/Hg Arterial Blood HCO3 30 mmol/L Arterial Blood Oxygen Saturation 99.5 % Arterial Blood Base Excess 4.3 mEq/L Arterial Blood Gas Delivery 40% Wale Test POS Prothrombin Time 10.5 SECONDS Prothromb Time International Ratio 1.0 Vitamin B12 Level 526 pg/mL Folate 4.04 ng/mL Procalcitonin < 0.05 ng/ml Random Cortisol 15.76 mcg/dl Test 12/06/16 21:00 12/06/16 21:27 12/07/16 00:13 12/07/16 05:25 Urine Color YELLOW Urine Appearance CLEAR Urine pH 7.0 Urine Specific [place] > 1.045 Urine Protein NEG Urine Glucose (UA) NEG Urine Ketones TRACE Urine Occult Blood NEG Urine Nitrite NEG Urine Bilirubin NEG Urine Urobilinogen NEG Urine Leukocyte Esterase NEG Bedside Glucose 158 mg/dl Influenza Type A (RT-PCR) Neg for Influ A Influenza Type B (RT-PCR) Neg for Influ B Total Creatine Kinase 76 U/L 87 U/L Creatine Kinase MB 3.6 ng/ml 3.7 ng/ml Creatine Kinase MB Ratio 4.7 4.3 Troponin I 0.023 ng/ml 0.030 ng/ml White Blood Count 7.11 K/uL Red Blood Count 2.86 M/uL Hemoglobin 10.1 g/dL Hematocrit 30.5 % Mean Corpuscular Volume 106.6 fL Mean Corpuscular Hemoglobin 35.3 pg Mean Corpuscular Hemoglobin Concent 33.1 g/dl Platelet Count 183 K/uL Mean Platelet Volume 10.8 fL Neutrophils (%) (Auto) 94.6 % Lymphocytes (%) (Auto) 3.7 % Monocytes (%) (Auto) 1.3 % Eosinophils (%) (Auto) 0.0 % Basophils (%) (Auto) 0.0 % Neutrophils # (Auto) 6.73 K/uL Lymphocytes # (Auto) 0.26 K/uL Monocytes # (Auto) 0.09 K/uL Eosinophils # (Auto) 0.00 K/uL Basophils # (Auto) 0.00 K/uL RDW Standard Deviation 68.9 fL RDW Coefficient of Variation 17.8 % Immature Granulocyte % (Auto) 0.4 % Immature Granulocyte # (Auto) 0.03 K/uL Sodium Level 140 mmol/L Potassium Level 3.8 mmol/L Chloride Level 105 mmol/L Carbon Dioxide Level 29 mmol/L Anion Gap 6.0 mmol/L Blood Urea Nitrogen 5 mg/dl Creatinine 0.54 mg/dl Est Creatinine Clear Calc Drug Dose 85.5 ml/min Estimated GFR () 117.2 Estimated GFR (Non- 101.1 BUN/Creatinine Ratio 10.1 Random Glucose 160 mg/dl Calcium Level 7.8 mg/dl Phosphorus Level 2.7 mg/dl Magnesium Level 2.0 mg/dl Test 12/07/16 06:27 Bedside Glucose 166 mg/dl
[2016-12-07] MEDS: ACETAMINOPHEN 325 MG TAB PO PRN (10:29)
[2016-12-07] MEDS ORDERED: PANTOprazole SOD 40 MG TAB PO ONE (10:30)
--- NOTE | 2016-12-07 11:30 | ECHOCARDIOGRAM REPORT ---
*NOTICE TO RECEIVING DEMOCRAT AGENCY This information is strictly Confidential and protected under [place] law. [place] law prohibits you from making any further disclosure of this information unless further disclosure is expressly permitted by the written consent of the person to whom it pertains or is authorized by law. A general authorization for the release of medical or other information is not sufficient for this purpose. Hospital accepts no responsibility if the information is made available to any other person, INCLUDING THE PATIENT. Interpretation Summary * Name: SHEELA MCMANUS Study Date: 12/07/2016 07:02 AM BP: 90/57 mmHg * Patient Location: .MSICU\[id number]\E106\S\1 HR: 97 * : 1955 (M/d/yyyy) Gender: Female Height: 62 in * Age: 61 yrs Ethnicity: [place] Weight: 112 lb * Ordering Physician: Zenon Perez * Referring Physician: Self, Referred * Performed By: Stephanie Wylie RCS * * Reason For Study: CHEST PAIN * BSA: 1.5 m2 * -- Conclusions -- * 1. Normal LV size and wall thickness. * 2. Normal LV systolic function. LVEF 55-60%. No regional wall motion abnormalities. * 3. Borderline RV enlargement. Normal RV function. * 4. No significant valvular pathology. * 5. Large echodense mass involving the right atrial aspect of the interatrial septum. Suspect profound lipomatous hypertrophy, less likely myxoma or thrombus. * 6. Small posterior pericardial effusion. No signs of tamponade. * 7. No prior studies for comparison. Procedure Details * A complete two-dimensional transthoracic echocardiogram was performed (2D, M-mode, Doppler and color flow Doppler). Left Ventricle * The left ventricle is grossly normal size. * There is normal left ventricular wall thickness. * Ejection Fraction = 55-60%. * No regional wall motion abnormalities noted. Right Ventricle * Borderline right ventricular enlargement. * The right ventricular systolic function is normal as assessed by tricuspid annular plane systolic excursion (TAPSE) (normal >1.5 cm). Atria * The left atrial size is normal. * Borderline right atrial enlargement. * Large echodense mass involving the right atrial aspect of the interatrial septum. Suspect profound lipomatous hypertrophy, less likely myxoma or thrombus. Mitral Valve * The mitral valve is grossly normal. * There is no mitral valve stenosis. * Significant mitral regurgitation is absent. Tricuspid Valve * The tricuspid valve is not well visualized, but is grossly normal. * Significant tricuspid regurgitation is absent. Aortic Valve * The aortic valve is not well visualized. * No hemodynamically significant valvular aortic stenosis. * There is no significant aortic regurgitation. Pulmonic Valve * The pulmonic valve is not well seen, but is grossly normal. * There is no pulmonic valvular stenosis. * There is no pulmonic valvular regurgitation. Great Vessels * The aortic root and proximal ascending aorta are normal sized. Pericardium/Pleural * Small pericardial effusion. Great Vessels * IVC < 2.1, <50% change with respiration. Est RA 8 mmHg. MMode 2D Measurements and Calculations IVSd 1.1 cm IVSs 1.3 cm LVIDd 5.1 cm LVIDs 3.8 cm LVPWd 1.1 cm LVPWs 1.2 cm IVS/LVPW 1.0 FS 25.5 % EDV(Teich) 122.9 ml ESV(Teich) 61.5 ml EF(Teich) 49.9 % EDV(cubed) 131.4 ml ESV(cubed) 54.4 ml EF(cubed) 58.6 % % IVS thick 14.8 % % LVPW thick 11.1 % LV mass(C)d 214.9 grams LV mass(C)dI 143.8 grams/m\S\2 LV mass(C)s 162.5 grams LV mass(C)sI 108.8 grams/m\S\2 SV(Teich) 61.4 ml SI(Teich) 41.1 ml/m\S\2 SV(cubed) 77.0 ml SI(cubed) 51.5 ml/m\S\2 LVOT diam 2.0 cm LVOT area 3.0 cm\S\2 Doppler Measurements and Calculations MV E max prosper 65.2 cm/sec MV A max prosper 48.5 cm/sec MV E/A 1.3 MV P1/2t max prosper 103.6 cm/sec MV P1/2t 60.3 msec MVA(P1/2t) 3.6 cm\S\2 MV dec slope 502.7 cm/sec\S\2 MV dec time 0.22 sec Ao V2 max 118.9 cm/sec Ao max PG 5.7 mmHg Ao max PG (full) 3.6 mmHg FERMÍN(V,A) 1.8 cm\S\2 FERMÍN(V,D) 1.8 cm\S\2 LV V1 max PG 2.1 mmHg LV V1 max 72.3 cm/sec PA V2 max 97.7 cm/sec PA max PG 3.8 mmHg
[2016-12-07 12:55] LABS: ISTAT ARTERIAL BLOOD GAS HCO3 27 meq/L (19-24); ISTAT ARTERIAL BLOOD GAS PCO2 37 mmHg (35-46); ISTAT ARTERIAL BLOOD GAS PO2 64 mmHg (80-95); ISTAT ARTERIAL BLOOD GAS pH 7.46 (7.35-7.45); ISTAT CARBON DIOXIDE 28 mEq/l (24-31); ISTAT HEMATOCRIT 27 % (37-47); ISTAT HEMOGLOBIN 9.2 g/dl (12.0-16.0); ISTAT SODIUM 135 mEq/L (135-144)
[2016-12-07] MEDS: MoRPHine SULFATE 2 MG/ML CARP IV PRN ×3 (13:51→23:04)
[2016-12-07] MEDS: ALBUMIN HUMAN 25% 12.5 GM/50 ML VIAL IV SCH ×2 (13:59→22:08)
--- NOTE | 2016-12-07 16:36 | Progress Note ---
Subjective Date of Service: Dec 07, 2016. Subjective Pt evaluation today including: conversation w/ patient, physical exam, chart review, lab review, review of studies, review of inpatient medication list Resting comfortably in bed States sob improved No acute events overnight Problem List Medical Problems: (1) COPD exacerbation Status: Acute (2) Hypoxia Status: Acute Review of Systems Constitutional: No fever, No chills, No sweats, No weakness ENT: No hearing loss, No unusual epistaxis, No nasal symptoms, No sore throat Respiratory: + cough, + sputum, + dyspnea at rest, No wheezing, No shortness of breath Cardiac: No chest pain, No orthopnea, No PND, No edema Abdomen: No pain, No nausea, No vomiting, No diarrhea Musculoskeletal: No joint pain, No muscle pain, No swelling, No calf pain Female : No dysuria, No urinary frequency, No hematuria, No incontinence Neurologic: No memory loss, No paralysis, No weakness, No numbness/tingling Psychiatric: No depression symptoms, No anhedonism, No anxiety, No insomnia Endo: No fatigue, No excessive thirst Skin: No rash, No itch Objective Vital Signs Date Time Temp Pulse Resp B/P (MAP) Pulse Ox O2 Delivery O2 Flow Rate FiO2 12/07/16 14:37 106 20 92 Nasal Cannula 3.0 12/07/16 12:07 Nasal Cannula 3.0 12/07/16 09:01 113 22 96/56 (69) 93 Nasal Cannula 3.0 12/07/16 09:00 113 34 95 12/07/16 08:47 110 27 113/66 (82) 97 12/07/16 08:31 104 23 90/65 (73) 97 12/07/16 08:30 102 22 97 12/07/16 08:16 103 25 100/74 (83) 99 12/07/16 08:15 Nasal Cannula 3.0 12/07/16 08:02 104 19 107/45 (65) 100 12/07/16 08:00 101 28 100 12/07/16 07:57 101 18 98 Nasal Cannula 4.0 12/07/16 07:51 89 19 120/58 (78) 98 12/07/16 07:41 84 21 99/61 (74) 100 12/07/16 07:31 87 23 87/59 (68) 98 12/07/16 07:30 86 23 98 12/07/16 07:21 86 20 92/60 (71) 98 12/07/16 07:11 87 20 92/64 (73) 98 12/07/16 07:01 94 22 87/59 (68) 96 12/07/16 07:00 94 17 97 12/07/16 06:41 88 21 92/58 (69) 97 12/07/16 06:32 107 22 100/70 (80) 95 12/07/16 06:21 101 23 118/68 (85) 99 12/07/16 06:11 96 26 108/72 (84) 99 12/07/16 06:01 90 26 105/71 (82) 99 12/07/16 05:51 92 24 110/72 (85) 98 12/07/16 05:42 101 19 106/73 (84) 97 12/07/16 05:31 97 17 104/61 (75) 98 12/07/16 05:21 101 20 110/69 (83) 99 12/07/16 05:11 99 25 93/63 (73) 98 12/07/16 05:01 109 24 115/76 (89) 98 12/07/16 04:51 95 25 94/68 (77) 99 12/07/16 04:41 96 20 104/73 (83) 99 12/07/16 04:31 93 20 99/66 (77) 97 12/07/16 04:21 103 25 93/71 (78) 97 12/07/16 04:11 104 24 94/63 (73) 99 12/07/16 04:02 36.5 93 24 110/52 (71) 98 12/07/16 04:00 Nasal Cannula 3.0 12/07/16 03:51 96 21 90/57 (68) 99 12/07/16 03:41 101 22 95/69 (78) 96 12/07/16 03:32 105 22 90/48 (62) 97 12/07/16 03:22 96 22 90/59 (69) 96 12/07/16 03:11 96 23 94/66 (75) 98 12/07/16 03:01 108 26 94/65 (75) 96 12/07/16 02:51 100 21 100/73 (82) 94 12/07/16 02:42 104 22 97/62 (74) 97 12/07/16 02:31 113 23 87/66 (73) 97 12/07/16 02:22 100 23 101/42 (61) 100 12/07/16 02:16 103 18 96 Nasal Cannula 4.0 12/07/16 02:12 100 18 108/58 (75) 98 12/07/16 02:03 115 20 80/55 (63) 98 Nasal Cannula 3.0 12/07/16 00:51 93 22 108/71 (83) 100 12/07/16 00:41 91 29 94/63 (73) 100 12/07/16 00:31 90 24 89/63 (72) 100 12/07/16 00:21 88 24 95/65 (75) 99 12/07/16 00:11 92 23 98/63 (75) 100 12/07/16 00:01 36.4 94 25 91/65 (74) 100 Nasal Cannula 3.0 12/06/16 23:59 Nasal Cannula 3.0 12/06/16 23:51 87 28 88/65 (73) 100 12/06/16 23:41 87 30 86/65 (72) 100 12/06/16 23:31 89 21 88/55 (66) 100 12/06/16 23:21 101 21 108/69 (82) 100 12/06/16 23:11 97 23 99/68 (78) 100 12/06/16 23:01 89 28 93/61 (72) 100 12/06/16 22:51 97 28 93/70 (78) 100 12/06/16 22:41 91 25 91/64 (73) 100 12/06/16 22:31 92 27 97/65 (76) 100 12/06/16 22:21 102 27 77/60 (66) 100 12/06/16 22:11 97 29 93/62 (72) 100 12/06/16 22:01 93 29 83/65 (71) 100 Nasal Cannula 4.0 12/06/16 20:47 98 20 99 Nasal Cannula 4.0 12/06/16 20:01 36.8 95 21 76/58 (64) 99 Nasal Cannula 4.0 12/06/16 20:00 Nasal Cannula 4.0 12/06/16 17:50 104 16 83/61 100 BiPAP 12/06/16 17:45 105 16 70/57 100 BiPAP 12/06/16 17:41 101 16 85/68 100 BiPAP 12/06/16 17:37 110 18 104/53 100 BiPAP 12/06/16 17:30 112 16 80/68 100 BiPAP 12/06/16 17:26 110 16 93/61 100 Room Air 12/06/16 17:15 103 16 89/59 99 Room Air 12/06/16 17:10 109 16 98/81 100 BiPAP 12/06/16 17:05 103 16 100/81 99 Room Air 12/06/16 17:00 72 16 97/89 99 BiPAP 12/06/16 16:56 72 16 93/69 98 Room Air 12/06/16 16:50 86 16 86/66 97 Room Air 12/06/16 16:45 101 14 92/68 98 Room Air 12/06/16 16:40 102 16 94/60 98 12/06/16 16:35 96 16 93/60 97 Room Air Physical Exam General Appearance: WD/WN, no apparent distress Eyes: normal inspection, PERRL, EOMI, sclerae normal Neck: supple, no adenopathy, thyroid normal, no JVD Respiratory/Chest: chest non-tender, lungs clear, normal breath sounds, no respiratory distress Cardiovascular: regular rate, rhythm, no gallop, no JVD, no murmur Abdomen: normal bowel sounds, non tender, soft, no organomegaly Extremities: normal range of motion, non-tender, normal inspection, no pedal edema Neurologic/Psychiatric: no motor/sensory deficits, alert, normal mood/affect, oriented x 3 Laboratory Results Last 24 Hours Test 12/06/16 19:43 12/06/16 21:00 12/06/16 21:27 12/07/16 00:13 Prothrombin Time 10.5 SECONDS Prothromb Time International Ratio 1.0 Vitamin B12 Level 526 pg/mL Folate 4.04 ng/mL Procalcitonin < 0.05 ng/ml Random Cortisol 15.76 mcg/dl Urine Color YELLOW Urine Appearance CLEAR Urine pH 7.0 Urine Specific Trinity > 1.045 Urine Protein NEG Urine Glucose (UA) NEG Urine Ketones TRACE Urine Occult Blood NEG Urine Nitrite NEG Urine Bilirubin NEG Urine Urobilinogen NEG Urine Leukocyte Esterase NEG Bedside Glucose 158 mg/dl Influenza Type A (RT-PCR) Neg for Influ A Influenza Type B (RT-PCR) Neg for Influ B Total Creatine Kinase 76 U/L Creatine Kinase MB 3.6 ng/ml Creatine Kinase MB Ratio 4.7 Troponin I 0.023 ng/ml Test 12/07/16 05:25 12/07/16 06:27 12/07/16 11:43 12/07/16 12:25 White Blood Count 7.11 K/uL Red Blood Count 2.86 M/uL Hemoglobin 10.1 g/dL Hematocrit 30.5 % Mean Corpuscular Volume 106.6 fL Mean Corpuscular Hemoglobin 35.3 pg Mean Corpuscular Hemoglobin Concent 33.1 g/dl Platelet Count 183 K/uL Mean Platelet Volume 10.8 fL Neutrophils (%) (Auto) 94.6 % Lymphocytes (%) (Auto) 3.7 % Monocytes (%) (Auto) 1.3 % Eosinophils (%) (Auto) 0.0 % Basophils (%) (Auto) 0.0 % Neutrophils # (Auto) 6.73 K/uL Lymphocytes # (Auto) 0.26 K/uL Monocytes # (Auto) 0.09 K/uL Eosinophils # (Auto) 0.00 K/uL Basophils # (Auto) 0.00 K/uL RDW Standard Deviation 68.9 fL RDW Coefficient of Variation 17.8 % Immature Granulocyte % (Auto) 0.4 % Immature Granulocyte # (Auto) 0.03 K/uL Sodium Level 140 mmol/L Potassium Level 3.8 mmol/L Chloride Level 105 mmol/L Carbon Dioxide Level 29 mmol/L Anion Gap 6.0 mmol/L Blood Urea Nitrogen 5 mg/dl Creatinine 0.54 mg/dl Est Creatinine Clear Calc Drug Dose 85.5 ml/min Estimated GFR () 117.2 Estimated GFR (Non- 101.1 BUN/Creatinine Ratio 10.1 Random Glucose 160 mg/dl Calcium Level 7.8 mg/dl Phosphorus Level 2.7 mg/dl Magnesium Level 2.0 mg/dl Total Creatine Kinase 87 U/L Creatine Kinase MB 3.7 ng/ml Creatine Kinase MB Ratio 4.3 Troponin I 0.030 ng/ml Bedside Glucose 166 mg/dl 126 mg/dl Procalcitonin 0.07 ng/ml Test 12/07/16 12:43 Bedside Hemoglobin 9.2 g/dl Bedside Hematocrit 27 % Bedside Blood Gas pH (LAB) 7.46 Bedside Blood Gas pCO2 (LAB) 37 mmHg Bedside Blood Gas pO2 (LAB) 64 mmHg Bedside Blood Gas HCO3 (LAB) 27 meq/L Bedside Blood Gas Total CO2 28 mEq/l Bedside Blood Gas Base Excess (LAB) 3.0 meq/L Bedside Blood Gas O2 Saturation 93.0 % Bedside Sodium 135 mEq/L Bedside Potassium 4.0 mEq/L Assessment and Plan Acute respiratory failure with hypoxia and hypercapnia/bilateral lower lobe pneumonia/septic shock-- Admitted to the ICU. Started on levophed in the ED due to systolic blood pressure dropping to 64, with titration to MAP greater than or equal to 65, weaning at this time Place on vancomycin IV, Zosyn IV, Levaquin IV then transitioned to rocephin and osxyxyline Solu-Medrol 60 mg IV every 6 hours. Xopenex/Atrovent high flow nebulizer every 6 hours while awake and every 2 hours when necessary. ECHO EF 55-60%, no WMA Continue Daliresp 500 g by mouth daily Consult grinding machine operator portable Dr. Esqueda for management while in the ICU. 3 Left upper lobe irregular densities with largest measuring 14 mm-- Differential is scarring, inflammatory/infectious change, or possibly primary bronchogenic neoplasm. She usually follows with in [place], and care in this regard may be coordinated with him. Left sided subclavian steal--noted on CT. 1.2 cm saccular aneurysm along the lateral aspect of aortic arch--noted on CT. Depression-- Buspirone 5 mg by mouth twice a day. Mirtazapine 45 mg by mouth at bedtime. Fluoxetine 30 mg by mouth daily. Risperdal 1 mg by mouth at bedtime. Hyperlipidemia-- Continue simvastatin 40 mg by mouth daily. Iron deficiency-- Continue ferrous sulfate 325 mg by mouth twice a day.
[2016-12-07] MEDS: RANITIDINE IV 50 MG in DEXTROSE 5% 100ML 100 ML IV SCH (17:07)
[2016-12-07] MEDS ORDERED: CEFTRIAXONE SOD INJ 1000 MG in DEXTROSE 5% 50ML IV SCH (20:00)
[2016-12-07] MEDS: BUDESONIDE/FORMOTEROL FUMARATE 160/4.5 60 PUFFS/INHALER INH SCH (20:46)
[2016-12-07] MEDS: MIRTAZAPINE TAB 15 MG TAB PO SCH (20:47)
[2016-12-07] MEDS: RISPERIDONE 1 MG TAB PO SCH (20:49)
[2016-12-08] VITALS (39 sets, daily range): BP systolic 71–124; BP diastolic 51–81; PULSE 78–120; TEMP 36.4–36.9; O2SAT 92–100
[2016-12-08] MEDS: RANITIDINE IV 50 MG in DEXTROSE 5% 100ML 100 ML IV SCH (02:06)
[2016-12-08] MEDS: NSS + 20MEQ KCL 1000ML 1,000 ML IV SCH ×2 (03:15→11:32)
[2016-12-08] MEDS: MoRPHine SULFATE 2 MG/ML CARP IV PRN ×5 (03:16→20:18)
[2016-12-08] MEDS: METHYLPREDNISOLONE IV 60 MG in SYRINGE 0 ML IV SCH ×3 (06:00→22:01)
[2016-12-08] MEDS: ALBUMIN HUMAN 25% 12.5 GM/50 ML VIAL IV SCH (06:01)
[2016-12-08 06:04] LABS: IG% 0.5 %; LYMPH % 4.5 %; LYMPH ABS # 0.26 K/uL (1.2-3.4); MEAN CORPUSCULAR HEMOGLOBIN 34.4 pg (25-34); MEAN CORPUSCULAR HGB CONC 31.9 g/dl (32-36); MEAN PLATELET VOLUME 10.3 fL (7.4-10.4); MONO % 5.2 %; NEUT % 89.8 %; PLATELET COUNT 136 K/uL (130-400); WHITE BLOOD COUNT 5.75 K/uL (4.8-10.8)
[2016-12-08 06:34] LABS: ANISOCYTOSIS PRESENT; COMPLETE YES
[2016-12-08 06:40] LABS: BUN/CREATININE RATIO 9.7 (10-20); CALCIUM 8.5 mg/dl (8.5-10.1); CREATININE 0.73 mg/dl (0.60-1.20); MAGNESIUM 1.9 mg/dl (1.8-2.4); POTASSIUM 4.3 mmol/L (3.5-5.1)
[2016-12-08 06:50] LABS: THYROID STIMULATING HORMONE 0.702 uIu/ml (0.300-4.500)
[2016-12-08] MEDS: INSULIN ASPART 100 UNITS/ML 3 ML PEN SC SCH ×4 (07:23→21:00)
--- NOTE | 2016-12-08 07:23 | DIAGNOSTIC IMAGING REPORT ---
SINGLE VIEW CHEST CLINICAL HISTORY: Pneumonia. FINDINGS: An AP, portable, upright chest radiograph is compared to study dated 12/07/2016 and correlated with chest CT dated 12/06/2016. The examination is degraded by portable technique and patient rotation. The cardiomediastinal silhouette is unremarkable. There is atherosclerotic calcification of the thoracic aorta. Advanced emphysema and chronic interstitial thickening are similar to previous. There is bibasilar consolidation, right greater than left. Trace pleural effusions are suspected. No pneumothorax is seen. The skeletal structures are osteopenic. The bony thorax is grossly intact. IMPRESSION: 1. There is bibasilar airspace consolidation, right greater than left. This has increased from previous and radiographic follow-up to resolution is recommended. 2. Suspect trace pleural effusions. 3. Emphysema. Electronically signed by: Michael Torres M.D. 12/08/2016 7:22 AM Dictated Date/Time: 12/08/2016 7:20 AM
[2016-12-08] MEDS: PANTOprazole SOD 40 MG TAB PO SCH (07:27)
[2016-12-08] MEDS: GUAIFENESIN 600 MG TABCR PO SCH ×2 (07:27→21:07)
[2016-12-08] MEDS: PAROXETINE 30 MG TAB PO SCH (07:27)
[2016-12-08] MEDS: DOXYCYCLINE IV 100 MG in DEXTROSE 5% 100ML 100 ML IV SCH ×2 (07:28→21:07)
[2016-12-08] MEDS: BUDESONIDE/FORMOTEROL FUMARATE 160/4.5 60 PUFFS/INHALER INH SCH ×2 (07:28→21:07)
[2016-12-08] MEDS: ROFLUMILAST 500 MCG TAB PO SCH (07:28)
[2016-12-08] MEDS: FERROUS SULFATE 325 MG TAB PO SCH ×2 (07:28→16:45)
[2016-12-08] MEDS: ATORVASTATIN 40 MG TAB PO SCH (07:28)
[2016-12-08] MEDS: LEVALBUTEROL 1.25MG/0.5ML NEB INH SCH ×4 (07:43→19:51)
[2016-12-08] MEDS: IPRATROPIUM BROMIDE NEB SOLN 0.02% 2.5 ML VIAL INH SCH ×4 (07:43→19:51)
[2016-12-08] MEDS ORDERED: CEFTRIAXONE SOD INJ 1,000 MG in PEDIATRIC DILUENT 0 ML IV SCH (09:00)
[2016-12-08] MEDS: ENOXAPARIN 40 MG/0.4 ML SYR SQ SCH (10:01)
--- NOTE | 2016-12-08 10:41 | Critical Care Progress Note ---
Critical Care Progress Note Date of Service Dec 08, 2016. ICU Day ICU Day Number: [address] Matson Subjective Patient no longer feeling short of breath, but still with productive cough with white sputum. Still having pleuritic chest pain with deep breath, rates it a 7-8/10 in severity (similar to yesterday) Her blood pressure continues to remain low when decreasing her levophed She denies any fevers, chills or night sweats Denies any abdominal pain, nausea, vomiting or diarrhea Denies any palpitations, weakness in arms or legs Denies any new rashes or joint pain Denies any loss of appetite or muscular pain Melvin any dysuria, or hematuria Objective Physical Exam: General - NAD, Talking in complete sentence, Appears disheveled and fatigued Eyes - No icterus ENT - Mucosa dry, no lesions or candidiasis Neck - Supple, trachea midline, no masses or lymphadenopathy, no JVD or bruits Lungs - Coarse breath sounds bilaterally with mild expiratory wheezes, no crackles or rhonchi bilaterally. No accessory muscle use noted Heart -, No murmur, rubs, clicks, or gallops appreciated, Pain to palpation of chest wall and ribs Abdomen - BS present, soft, nontender, mildly distended, no organomegaly Extremities - No edema, pedal pulses intact, very dry skin bilaterally Neuro - A&O X 4 Current SOFA Score SOFA Score Response (Comments) Value Platelets (x10) < 150 1 Bilirubin (mg/dL) < 1.2 0 Edin Coma Score 15 0 Level of Hypotension Dopamine > 5 mcq or Epi < 0.1 mcq 3 Creatinine (mg/dL) < 1.2 0 Total 4 Assessment & Plan 61 year old female presented to [facility] with a COPD exacerbation and possible pneumonia. She has required vasopressors and therefore has been admitted to the ICU for further management. Patient is still requiring pressors after trial of decreasing pressors patients blood pressures systolically go into 70's. Patient had Ultrasound of IVC yesterday which showed IVC with collapsibility of 55%. Patient had her fluids increased yesterday to 100ml/hr and was started on albumin; however pressures still remain decreased. Her CXR showed interval progression of bibasilar consolidation; however patient has remained afebrile without elevated WCC. Echo did not show any increased right sided heart pressures so unlikely to have significant pulmonary pathology causing hypotension. Echo showed normal EF without any wall motion abnormalities so this is also unlikely to be causing increased need for pressure. Likely to be dehydration as well as pneumonia that is causing continued pressure support; however patient without overt sepsis picture as procalcitonin is only .07. We will order a lactate now and continue to assess patients blood pressure with albumin administration and the increase in fluid support. Of note patient continues to have decreasing Hgb without evidence of overt bleeding (no coughing of blood, no blood in stool). Will order CT of abdomen and pelvis to assess for retroperitoneal bleed. Resp: * Supplemental oxygen as required * COPD exacerbation complicated by possible bilateral lower lobe pneumonia * Procalcitonin with slight elevation today to .07 * Will continue rocephin and continue patient with doxycyline as patient with prolonged Qtc * Continue steroids 60mg q8 hrs * Respiratory regimen including levalbuterol and Atrovent * Goal saturation 88-92% * Continue home Rofimulast, switch from budesonide to symbicort CV: * Hypotension * Goal map greater than 60; SBP greater than 90 * Decrease levophed to 0.03 and pressures still continue remain in 80's systolic. patient mentating well with good cap refill, will order lactic acid to assess end organ perfusion * Monitor renal function * Monitor on telemetry * Patient with chest pain but tender to palpation on exam and troponins negative. Likely to be from osteoporosis (hx of steroid use for COPD vs costochondritis due to viral prodrome) * Echo with normal EF, mild R ventricular hypertrophy and without elevated right sided pressures. No wall motion abnormalities noted Fluids/Renal: * Cr 0.54 Currently, Monitor for LOGAN 2/2 hypotension * PRP Daily * Fluids Currently NSS + 20 K @ 100mL/hr, will monitor fluid status * Patricia in place and patient continues to be making urine ID: * Abx * Started on broad spectrum antibiotics, rocephin and doxy * Pro calcitonin was <.05 and now .07 (indicative of local infection but not sepsis) CXR with increase bibasilar consolidation in RLL. * WBC: 5.75, Will trend daily GI/Nutrition: * Patient with regular diet * Patient nausea improved and patient no longer needing zantac as it had helped originally * Will also start patient on pantoprazole Heme: * H&H: 8.6 today, patient with no evidence of bleeding from GI or coughing up blood * MCV elevated therefore folic acid or B12 deficiency may be likely culprits. B12 normal at last check and folate decreased. Will supplement PO and patient receiving ferrous sulfate * With decreased pressures and decreasing Hgb will order CT abdomen/pelvis to assess for retroperitoneal bleed * Plts: 177-->136 * Coags WNL Endocrine: * Accu-Cheks every 6 hours * No current diagnosis of diabetes; however patient is receiving large doses of steroids and levophed * We'll monitor closely * Accu-Checks per protocol, started insulin infusion for 2 blood sugars greater than 180 * Outpatient meds indicate hypothyroidism; however not currently treated * TSH wnl Neuro: * Will monitor pain level and is receiving morphine 2mg q2 prn * Monitor for neurologic changes * Continue home medications for depression, anxiety and sleep DVT prophylaxis with lovenox Access: Left AC PIV, Right Femoral Triple Lumen Central Line ------> will remove central line when latest tomorrow to make sure central line in for less than 48hrs Consults & Procedures Consultants: Huyen Procedures: CTA CXR x2 Lower extremity US Data Medications: Current Inpatient Medications Medications (Trade) Dose Ordered Sig/Marcus Route Start Time Stop Time Status Last Admin Dose Admin Ioversol (Optiray 320) 125 ml UD PRN IV 12/06/16 14:45 12/10/16 14:44 Potassium Chloride/Sodium Chloride 1,000 ml @ 100 mls/hr Q10H IV 12/06/16 19:00 01/05/17 18:59 12/08/16 03:15 100 MLS/HR Acetaminophen (Tylenol Tab) 650 mg Q4H PRN PO 12/06/16 15:45 01/05/17 15:44 12/07/16 10:29 650 MG Buspirone HCl (Buspar Tab) 5 mg BID PO 12/06/16 21:00 01/05/17 20:59 12/08/16 07:28 5 MG Paroxetine HCl (pAXil) 30 mg DAILY PO 12/07/16 09:00 01/06/17 08:59 12/08/16 07:27 30 MG Risperidone (Risperdal Tab) 1 mg HS PO 12/06/16 21:00 01/05/17 20:59 12/07/16 20:49 1 MG Roflumilast (Daliresp Tab) 500 mcg DAILY PO 12/07/16 09:00 01/06/17 08:59 12/08/16 07:28 500 MCG Ferrous Sulfate (Feosol Tab) 325 mg BIDM PO 12/06/16 18:00 01/05/17 17:59 12/08/16 07:28 325 MG Mirtazapine (Remeron Tab) 45 mg HS PO 12/06/16 21:00 01/05/17 20:59 12/07/16 20:47 45 MG Guaifenesin (Mucinex Contr Rel Tab) 600 mg BID PO 12/06/16 21:00 01/05/17 20:59 12/08/16 07:27 600 MG Glucose (Glucose 40% Gel) UD PRN PO 12/06/16 15:45 01/05/17 15:44 Glucose (Glucose Chew Tab) 1 tabs UD PRN PO 12/06/16 15:45 01/05/17 15:44 Dextrose (Dextrose 50% 50ML Syringe) 50 ml UD PRN IV 12/06/16 15:45 01/05/17 15:44 Glucagon (Glucagon Inj) 1 mg UD PRN SQ 12/06/16 15:45 01/05/17 15:44 Ipratropium Dennison (Atrovent 0.02% 0.5MG/2.5ML Neb) 0.5 mg Q6R INH 12/06/16 21:00 01/05/17 20:59 12/08/16 07:43 0.5 MG Levalbuterol (Xopenex 1.25MG/ 0.5ML Neb) 1.25 mg Q6R INH 12/06/16 21:00 01/05/17 20:59 12/08/16 07:43 1.25 MG Norepinephrine Bitartrate 8 mg/ Dextrose 500 ml @ 0 mls/hr Q0M PRN IV 12/06/16 16:30 01/05/17 16:29 12/07/16 04:57 47.3 MLS/HR Doxycycline Hyclate 100 mg/ Dextrose 110 ml @ 50 mls/hr BID IV 12/06/16 21:00 12/13/16 20:59 12/08/16 07:28 50 MLS/HR Atorvastatin Calcium (Lipitor Tab) 80 mg QAM PO 12/07/16 09:00 01/06/17 08:59 12/08/16 07:28 80 MG Budesonide/ Formoterol Fumarate (Symbicort 160/ 4.5 Inh) 2 puffs BID INH 12/07/16 21:00 01/06/17 20:59 12/08/16 07:28 2 PUFFS Methylprednisolone Sodium Succinate 60 mg/Syringe 0.96 ml @ 1.5 mls/min Q8 IV 12/07/16 14:00 01/05/17 19:59 12/08/16 06:00 1.5 MLS/MIN Pantoprazole Sodium (Protonix Tab) 40 mg QAM PO 12/08/16 09:00 01/07/17 08:59 12/08/16 07:27 40 MG Enoxaparin Sodium (Lovenox Inj) 40 mg QAM SQ 12/08/16 09:00 01/07/17 08:59 12/08/16 10:01 40 MG Morphine Sulfate (MoRPHine SULFATE INJ) 2 mg Q4H PRN IV 12/07/16 12:15 12/21/16 12:14 12/08/16 07:49 2 MG Albumin Human (Albumin 25%) 25 gm Q8 IV 12/07/16 14:00 12/08/16 13:00 12/08/16 06:01 25 GM Ceftriaxone Sodium 1000 mg/ Dextrose 60 ml @ 120 mls/hr Q24H IV 12/07/16 20:00 12/14/16 19:59 12/07/16 19:49 120 MLS/HR Insulin Aspart (novoLOG ASPART) SLIDING SCALE G... ACHS SC 12/07/16 21:00 01/06/17 20:59 12/08/16 07:23 2 UNITS Vital Signs: Date Time Temp Pulse Resp B/P (MAP) Pulse Ox O2 Delivery O2 Flow Rate FiO2 12/08/16 10:01 110 26 90/57 (68) 97 Nasal Cannula 3.0 12/08/16 08:00 105 31 85/55 (65) 96 Nasal Cannula 3.0 12/08/16 08:00 Nasal Cannula 3.0 12/08/16 07:43 103 31 94 Nasal Cannula 3.0 12/08/16 05:02 79 25 90/58 (69) 97 12/08/16 04:00 36.4 85 27 94 12/08/16 04:00 Nasal Cannula 3.0 12/08/16 03:47 89 24 89/51 (64) 95 12/08/16 03:33 99 23 107/71 (83) 95 12/08/16 03:02 111 23 106/57 (73) 92 12/08/16 02:32 117 26 93/70 (78) 95 12/08/16 02:16 116 24 120/81 (94) 92 12/08/16 02:02 90 28 94 Nasal Cannula 3.0 12/08/16 02:01 83 21 102/64 (77) 95 12/08/16 01:46 94 22 106/72 (83) 100 12/08/16 01:32 82 33 71/52 (58) 97 12/08/16 01:17 92 23 90/58 (69) 94 12/08/16 01:01 78 24 94/58 (70) 97 12/08/16 00:46 86 31 87/53 (64) 96 12/08/16 00:31 88 21 82/51 (61) 95 12/08/16 00:16 80 24 85/56 (66) 94 12/08/16 00:01 36.9 87 23 83/54 (64) 94 12/07/16 23:59 Nasal Cannula 3.0 12/07/16 23:47 118 39 90/56 (67) 93 12/07/16 23:32 90 23 78/53 (61) 94 12/07/16 23:17 109 22 149/113 (125) 95 12/07/16 23:01 83 29 81/55 (64) 97 12/07/16 22:46 92 22 81/55 (64) 95 12/07/16 22:31 97 26 83/59 (67) 95 12/07/16 22:17 95 24 90/60 (70) 96 12/07/16 22:03 117 22 139/89 (106) 81 12/07/16 22:01 116 37 /57 (38) 90 12/07/16 21:46 117 27 70/55 (60) 91 12/07/16 21:31 108 29 88/58 (68) 90 12/07/16 21:16 94 26 92/62 (72) 96 12/07/16 21:02 119 26 88/65 (73) 92 12/07/16 20:46 97 24 76/59 (65) 93 12/07/16 20:31 100 23 89/59 (69) 92 12/07/16 20:17 125 23 88/67 (74) 93 12/07/16 20:02 36.5 111 27 88 12/07/16 20:00 Nasal Cannula 2.0 12/07/16 19:15 97 20 94 Nasal Cannula 3.0 12/07/16 18:01 103 24 80/58 (65) 93 Nasal Cannula 3.0 12/07/16 18:00 98 25 93 12/07/16 17:47 106 31 78/49 (59) 91 12/07/16 17:31 105 25 88/58 (68) 92 12/07/16 17:30 107 25 92 12/07/16 17:16 108 28 85/58 (67) 92 12/07/16 17:01 107 21 111/70 (84) 85 12/07/16 17:00 113 23 89 12/07/16 16:46 120 25 102/49 (66) 93 Nasal Cannula 3.0 12/07/16 16:32 137 29 96/77 (83) 89 12/07/16 16:30 111 34 89 12/07/16 16:21 108 29 85/59 (68) 95 12/07/16 16:16 104 23 90/57 (68) 92 12/07/16 16:10 Nasal Cannula 4.0 12/07/16 16:01 104 23 93/55 (68) 94 12/07/16 16:00 99 22 93 12/07/16 15:31 36.5 101 23 90/59 (69) 94 Nasal Cannula 3.0 12/07/16 15:30 102 25 94 12/07/16 15:16 104 25 95/64 (74) 94 12/07/16 15:14 103 25 80/41 (54) 95 12/07/16 15:00 100 19 97 12/07/16 14:49 106 24 72/56 (61) 99 12/07/16 14:46 100 24 78/56 (63) 100 12/07/16 14:37 106 20 92 Nasal Cannula 3.0 12/07/16 14:31 99 24 107/59 (75) 95 12/07/16 14:30 98 24 92 12/07/16 14:17 102 25 92/58 (69) 96 12/07/16 14:02 105 23 88/46 (60) 98 12/07/16 14:00 102 22 97 12/07/16 13:46 115 28 89/59 (69) 96 12/07/16 13:31 106 24 78/49 (59) 96 12/07/16 13:30 99 28 97 12/07/16 13:27 108 32 70/56 (61) 95 12/07/16 13:16 100 28 76/51 (59) 96 12/07/16 13:02 101 22 81/68 (72) 96 12/07/16 13:00 102 20 96 12/07/16 12:33 115 25 /235 (157) 92 12/07/16 12:30 109 23 91 12/07/16 12:07 Nasal Cannula 3.0 12/07/16 12:01 36.5 106 27 79/61 (67) 96 Nasal Cannula 3.0 12/07/16 12:00 101 26 96 12/07/16 11:46 102 23 74/55 (61) 97 12/07/16 11:31 93 24 89/63 (72) 99 12/07/16 11:30 95 26 97 12/07/16 11:17 104 28 87/51 (63) 97 12/07/16 11:01 84 22 81/55 (64) 100 12/07/16 11:00 85 20 100 12/07/16 10:47 89 24 89/63 (72) 99 12/07/16 10:32 107 29 87/67 (74) 95 12/07/16 10:30 111 26 93 12/07/16 10:16 87 23 73/55 (61) 96 Laboratory Results: Last 24 Hours Test 12/07/16 11:43 12/07/16 12:25 12/07/16 12:43 12/07/16 16:26 Bedside Glucose 126 mg/dl 161 mg/dl Procalcitonin 0.07 ng/ml Bedside Hemoglobin 9.2 g/dl Bedside Hematocrit 27 % Bedside Blood Gas pH (LAB) 7.46 Bedside Blood Gas pCO2 (LAB) 37 mmHg Bedside Blood Gas pO2 (LAB) 64 mmHg Bedside Blood Gas HCO3 (LAB) 27 meq/L Bedside Blood Gas Total CO2 28 mEq/l Bedside Blood Gas Base Excess (LAB) 3.0 meq/L Bedside Blood Gas O2 Saturation 93.0 % Bedside Sodium 135 mEq/L Bedside Potassium 4.0 mEq/L Test 12/07/16 21:03 12/08/16 05:42 Bedside Glucose 130 mg/dl White Blood Count 5.75 K/uL Red Blood Count 2.50 M/uL Hemoglobin 8.6 g/dL Hematocrit 27.0 % Mean Corpuscular Volume 108.0 fL Mean Corpuscular Hemoglobin 34.4 pg Mean Corpuscular Hemoglobin Concent 31.9 g/dl Platelet Count 136 K/uL Mean Platelet Volume 10.3 fL Neutrophils (%) (Auto) 89.8 % Lymphocytes (%) (Auto) 4.5 % Monocytes (%) (Auto) 5.2 % Eosinophils (%) (Auto) 0.0 % Basophils (%) (Auto) 0.0 % Neutrophils # (Auto) 5.16 K/uL Lymphocytes # (Auto) 0.26 K/uL Monocytes # (Auto) 0.30 K/uL Eosinophils # (Auto) 0.00 K/uL Basophils # (Auto) 0.00 K/uL RDW Standard Deviation 72.1 fL RDW Coefficient of Variation 18.4 % Immature Granulocyte % (Auto) 0.5 % Immature Granulocyte # (Auto) 0.03 K/uL Anisocytosis PRESENT Macrocytosis PRESENT Sodium Level 144 mmol/L Potassium Level 4.3 mmol/L Chloride Level 112 mmol/L Carbon Dioxide Level 28 mmol/L Anion Gap 4.0 mmol/L Blood Urea Nitrogen 7 mg/dl Creatinine 0.73 mg/dl Est Creatinine Clear Calc Drug Dose 63.2 ml/min Estimated GFR () 102.3 Estimated GFR (Non- 88.3 BUN/Creatinine Ratio 9.7 Random Glucose 124 mg/dl Calcium Level 8.5 mg/dl Magnesium Level 1.9 mg/dl Thyroid Stimulating Hormone (TSH) 0.702 uIu/ml
[2016-12-08] MEDS ORDERED: OPTIRAY 320 IV PRN (11:15)
[2016-12-08] MEDS ORDERED: NURSING VERBAL MED ORDER ONE (11:45)
--- NOTE | 2016-12-08 13:03 | DIAGNOSTIC IMAGING REPORT ---
CT SCAN OF THE ABDOMEN AND PELVIS WITH IV CONTRAST CLINICAL HISTORY: Drop in hemoglobin. COMPARISON STUDY: No priors. TECHNIQUE: Following the IV administration of 91 cc of Optiray 320, CT scan of the abdomen and pelvis is performed from the lung bases to the proximal femora. Images are reviewed in the axial, sagittal, and coronal planes. IV contrast was administered without complication. The examination is degraded by streak artifact and the patient's arms which could not be elevated above the abdomen. The examination is also degraded by motion artifact. A dose lowering technique was utilized adhering to the principles of ALARA. CT DOSE: 680.94 mGycm FINDINGS: Lung bases: The heart is normal in size and without pericardial effusion. There is lipomatous hypertrophy of the interatrial septum. Coronary artery calcifications are identified. Advanced emphysema is noted at the lung bases. There is dependent bibasilar airspace consolidation and trace pleural effusions. Liver: The contrast-enhanced liver is normal in size, contour, and attenuation. There is no intrahepatic biliary ductal dilatation. The hepatic veins and portal veins are patent. Hepatic periportal edema is identified. Gallbladder: Calcified gallstones are observed. There is gallbladder wall thickening end edema. Adenomyomatosis is suggested in the fundal region. Spleen: Normal in size and attenuation. Pancreas: Moderately atrophic and grossly unremarkable. Adrenal glands: Unremarkable. Kidneys: The contrast enhanced kidneys demonstrate mild cortical atrophy and are without hydronephrosis. The kidneys enhance symmetrically. Numerous renal cortical hypodensities measure up to 2.2 cm. These likely represent cysts but cannot be definitively characterized due to streak and motion artifact. Abdominal vasculature: There is advanced atherosclerotic calcification and ectasia of the abdominal aorta. There is a right femoral central venous catheter. Bowel: No bowel obstruction is seen. There is sigmoid diverticulosis without CT evidence of acute diverticulitis. The appendix is not identified and reported surgically absent. Peritoneum: There is trace abdominopelvic ascites. No intraperitoneal free air is seen. There is no evidence of intraperitoneal or retroperitoneal hemorrhage. Lymphadenopathy: None. Pelvic viscera: The bladder is decompressed around a Patricia catheter. Foci of intraluminal gas are noted. The uterus is surgically absent. No adnexal lesion is seen. Findings suggest pelvic floor prolapse. Skeletal structures: The skeletal structures are osteopenic. There is mild lumbosacral spondylosis. No lytic or blastic lesions are seen. Soft tissues: There is edema of the body wall. IMPRESSION: 1. There are trace pleural effusions with dependent bibasilar airspace consolidation. This could represent atelectasis versus an infectious/inflammatory pneumonitis. Clinical correlation will be required. 2. There is evidence of fluid overload including hepatic periportal edema, body wall edema, and trace abdominopelvic ascites. 3. Cholelithiasis. Mild gallbladder wall thickening is likely related to adjacent hepatic edema and adenomyomatosis is suggested in the fundal region. If there is clinical concern for acute cholecystitis ultrasound could be considered. 4. Sigmoid diverticulosis without CT evidence of acute diverticulitis. 5. The bladder is partially decompressed around a Patricia catheter. Foci of intraluminal gas are likely related to instrumentation. Correlation with clinical findings and urinalysis will be required. 6. Additional findings as above. Electronically signed by: Michael Torres M.D. 12/08/2016 12:41 PM Dictated Date/Time: 12/08/2016 12:33 PM
[2016-12-08] MEDS ORDERED: VANCOMYCIN CONSULT ACTIVE PRN (14:45)
[2016-12-08] MEDS ORDERED: VANCOMYCIN INJ 1,250 MG in SODIUM CHLORIDE 0.9% 250ML 250 ML IV ONE (15:00)
--- NOTE | 2016-12-08 15:01 | Pharmacy Progress Note ---
Pharmacy Antibiotic Consult Date of Service: Dec 08, 2016. Pharmacy Dosing Scope Pharmacy is consulted to initiate Vancomycin IV dosing therapy, order appropriate labs and adjust drug dose/frequency. Subjective The patient is a 61 year old female admitted on Dec 06, 2016 at 16:03. Objective Height (Feet): 5 Height (Inches): 2.00 Weight (Kilograms): 50.900 Lab Results (24hrs): Test 12/07/16 21:03 12/08/16 05:42 12/08/16 10:22 12/08/16 11:19 Bedside Glucose 130 mg/dl (70-90) 169 mg/dl (70-90) White Blood Count 5.75 K/uL (4.8-10.8) Red Blood Count 2.50 M/uL (4.2-5.4) Hemoglobin 8.6 g/dL (12.0-16.0) Hematocrit 27.0 % (37-47) Mean Corpuscular Volume 108.0 fL (80-100) Mean Corpuscular Hemoglobin 34.4 pg (25-34) Mean Corpuscular Hemoglobin Concent 31.9 g/dl (32-36) Platelet Count 136 K/uL (130-400) Mean Platelet Volume 10.3 fL (7.4-10.4) Neutrophils (%) (Auto) 89.8 % Lymphocytes (%) (Auto) 4.5 % Monocytes (%) (Auto) 5.2 % Eosinophils (%) (Auto) 0.0 % Basophils (%) (Auto) 0.0 % Neutrophils # (Auto) 5.16 K/uL (1.4-6.5) Lymphocytes # (Auto) 0.26 K/uL (1.2-3.4) Monocytes # (Auto) 0.30 K/uL (0.11-0.59) Eosinophils # (Auto) 0.00 K/uL (0-0.5) Basophils # (Auto) 0.00 K/uL (0-0.2) RDW Standard Deviation 72.1 fL (36.4-46.3) RDW Coefficient of Variation 18.4 % (11.5-14.5) Immature Granulocyte % (Auto) 0.5 % Immature Granulocyte # (Auto) 0.03 K/uL (0.00-0.02) Anisocytosis PRESENT Macrocytosis PRESENT Sodium Level 144 mmol/L (136-145) Potassium Level 4.3 mmol/L (3.5-5.1) Chloride Level 112 mmol/L (98-107) Carbon Dioxide Level 28 mmol/L (21-32) Anion Gap 4.0 mmol/L (3-11) Blood Urea Nitrogen 7 mg/dl (7-18) Creatinine 0.73 mg/dl (0.60-1.20) Est Creatinine Clear Calc Drug Dose 63.2 ml/min Estimated GFR () 102.3 Estimated GFR (Non- 88.3 BUN/Creatinine Ratio 9.7 (10-20) Random Glucose 124 mg/dl (70-99) Calcium Level 8.5 mg/dl (8.5-10.1) Magnesium Level 1.9 mg/dl (1.8-2.4) Thyroid Stimulating Hormone (TSH) 0.702 uIu/ml (0.300-4.500) Lactic Acid Level 3.1 mmol/L (0.4-2.0) Test 12/08/16 14:08 Micro Results: Item Value Date Time MRSA DNA Surveillance Screen - Final Complete 12/06/16 1835 Nasal Specimen Negative for MRSA by DNA Probe Assessment & Plan ASSESSMENT: * Ms Ryder is a 61yo patient admitted w/ ?pneumonia. * PMH is significant for severe COPD and recurrent resp failure/pna. * MRSA swab negative on 12/06/16. Lactic Acid elevated today (3.1mmol/L). PLAN: Vancomycin * Loading dose: Vanc 1250 mg (~25mg/kg) IV X 1 dose then: * Vancomycin 750 mg IV every 14 hours. * Patient's estimated p'kinetic parameters (based on CrCl ~ 63mL/min): * Vd ~ 0.7L/kg Ke ~ 0.057/hr t 1/2 ~ 12.2hr * Goal trough level estimate: between 15 - 20 mcg/mL for respiratory infx. * Trough level has been ordered for: 12/10/16 prior to the 4th maintenance dose Ertapenem 1gm IV q24h Doxycycline 100mg IV q12h (day #3) patient rec'd Ceftriaxone 1gm IV daily 12/06-12/07 Pharmacy will continue to follow and will adjust dose/frequency as necessary. Thank you
--- NOTE | 2016-12-08 15:20 | Progress Note ---
Subjective Date of Service: Dec 08, 2016. Subjective Pt evaluation today including: conversation w/ patient, physical exam, chart review, lab review, review of studies, review of inpatient medication list Resting comfortably in bed No distress noted No acute events overnight Problem List Medical Problems: (1) COPD exacerbation Status: Acute (2) Hypoxia Status: Acute Review of Systems Constitutional: No fever, No chills, No sweats, No weakness Eyes: No worsening of vision, No eye pain, No redness, No discharge Respiratory: No cough, No sputum, No wheezing, No shortness of breath, No dyspnea on exertion Cardiac: No chest pain, No orthopnea, No PND, No edema Abdomen: No pain, No nausea, No vomiting, No diarrhea Musculoskeletal: No joint pain, No muscle pain, No swelling, No calf pain Female : No dysuria, No urinary frequency, No hematuria, No incontinence Neurologic: No memory loss, No paralysis, No weakness, No numbness/tingling Psychiatric: No depression symptoms, No anhedonism, No anxiety, No insomnia Endo: No fatigue, No excessive thirst Skin: No rash, No itch Objective Vital Signs Date Time Temp Pulse Resp B/P (MAP) Pulse Ox O2 Delivery O2 Flow Rate FiO2 12/08/16 14:04 108 24 95/58 (70) 97 Nasal Cannula 3.0 12/08/16 12:45 112 20 94/56 (69) 97 Nasal Cannula 3.0 12/08/16 12:00 Nasal Cannula 3.0 12/08/16 11:54 120 34 93 Nasal Cannula 3.0 12/08/16 10:01 36.5 110 26 90/57 (68) 97 Nasal Cannula 3.0 12/08/16 08:00 105 31 85/55 (65) 96 Nasal Cannula 3.0 12/08/16 08:00 Nasal Cannula 3.0 12/08/16 07:43 103 31 94 Nasal Cannula 3.0 12/08/16 05:02 79 25 90/58 (69) 97 12/08/16 04:00 36.4 85 27 94 12/08/16 04:00 Nasal Cannula 3.0 12/08/16 03:47 89 24 89/51 (64) 95 12/08/16 03:33 99 23 107/71 (83) 95 12/08/16 03:02 111 23 106/57 (73) 92 12/08/16 02:32 117 26 93/70 (78) 95 12/08/16 02:16 116 24 120/81 (94) 92 12/08/16 02:02 90 28 94 Nasal Cannula 3.0 12/08/16 02:01 83 21 102/64 (77) 95 12/08/16 01:46 94 22 106/72 (83) 100 12/08/16 01:32 82 33 71/52 (58) 97 12/08/16 01:17 92 23 90/58 (69) 94 12/08/16 01:01 78 24 94/58 (70) 97 12/08/16 00:46 86 31 87/53 (64) 96 12/08/16 00:31 88 21 82/51 (61) 95 12/08/16 00:16 80 24 85/56 (66) 94 12/08/16 00:01 36.9 87 23 83/54 (64) 94 12/07/16 23:59 Nasal Cannula 3.0 12/07/16 23:47 118 39 90/56 (67) 93 12/07/16 23:32 90 23 78/53 (61) 94 12/07/16 23:17 109 22 149/113 (125) 95 12/07/16 23:01 83 29 81/55 (64) 97 12/07/16 22:46 92 22 81/55 (64) 95 12/07/16 22:31 97 26 83/59 (67) 95 12/07/16 22:17 95 24 90/60 (70) 96 12/07/16 22:03 117 22 139/89 (106) 81 12/07/16 22:01 116 37 /57 (38) 90 12/07/16 21:46 117 27 70/55 (60) 91 12/07/16 21:31 108 29 88/58 (68) 90 12/07/16 21:16 94 26 92/62 (72) 96 12/07/16 21:02 119 26 88/65 (73) 92 12/07/16 20:46 97 24 76/59 (65) 93 12/07/16 20:31 100 23 89/59 (69) 92 12/07/16 20:17 125 23 88/67 (74) 93 12/07/16 20:02 36.5 111 27 88 12/07/16 20:00 Nasal Cannula 2.0 12/07/16 19:15 97 20 94 Nasal Cannula 3.0 12/07/16 18:01 103 24 80/58 (65) 93 Nasal Cannula 3.0 12/07/16 18:00 98 25 93 12/07/16 17:47 106 31 78/49 (59) 91 12/07/16 17:31 105 25 88/58 (68) 92 12/07/16 17:30 107 25 92 12/07/16 17:16 108 28 85/58 (67) 92 12/07/16 17:01 107 21 111/70 (84) 85 12/07/16 17:00 113 23 89 12/07/16 16:46 120 25 102/49 (66) 93 Nasal Cannula 3.0 12/07/16 16:32 137 29 96/77 (83) 89 12/07/16 16:30 111 34 89 12/07/16 16:21 108 29 85/59 (68) 95 12/07/16 16:16 104 23 90/57 (68) 92 12/07/16 16:10 Nasal Cannula 4.0 12/07/16 16:01 104 23 93/55 (68) 94 12/07/16 16:00 99 22 93 12/07/16 15:31 36.5 101 23 90/59 (69) 94 Nasal Cannula 3.0 12/07/16 15:30 102 25 94 Physical Exam General Appearance: WD/WN, no apparent distress Eyes: normal inspection, PERRL, EOMI, sclerae normal Neck: supple, no adenopathy, thyroid normal, no JVD Respiratory/Chest: chest non-tender, lungs clear, normal breath sounds, no respiratory distress Cardiovascular: no edema, no gallop, no JVD, + tachycardia Abdomen: normal bowel sounds, non tender, soft, no organomegaly Extremities: normal range of motion, non-tender, normal inspection, no pedal edema Neurologic/Psychiatric: no motor/sensory deficits, alert, normal mood/affect, oriented x 3 Laboratory Results Last 24 Hours Test 12/07/16 16:26 12/07/16 21:03 12/08/16 05:42 12/08/16 10:22 Bedside Glucose 161 mg/dl 130 mg/dl White Blood Count 5.75 K/uL Red Blood Count 2.50 M/uL Hemoglobin 8.6 g/dL Hematocrit 27.0 % Mean Corpuscular Volume 108.0 fL Mean Corpuscular Hemoglobin 34.4 pg Mean Corpuscular Hemoglobin Concent 31.9 g/dl Platelet Count 136 K/uL Mean Platelet Volume 10.3 fL Neutrophils (%) (Auto) 89.8 % Lymphocytes (%) (Auto) 4.5 % Monocytes (%) (Auto) 5.2 % Eosinophils (%) (Auto) 0.0 % Basophils (%) (Auto) 0.0 % Neutrophils # (Auto) 5.16 K/uL Lymphocytes # (Auto) 0.26 K/uL Monocytes # (Auto) 0.30 K/uL Eosinophils # (Auto) 0.00 K/uL Basophils # (Auto) 0.00 K/uL RDW Standard Deviation 72.1 fL RDW Coefficient of Variation 18.4 % Immature Granulocyte % (Auto) 0.5 % Immature Granulocyte # (Auto) 0.03 K/uL Anisocytosis PRESENT Macrocytosis PRESENT Sodium Level 144 mmol/L Potassium Level 4.3 mmol/L Chloride Level 112 mmol/L Carbon Dioxide Level 28 mmol/L Anion Gap 4.0 mmol/L Blood Urea Nitrogen 7 mg/dl Creatinine 0.73 mg/dl Est Creatinine Clear Calc Drug Dose 63.2 ml/min Estimated GFR () 102.3 Estimated GFR (Non- 88.3 BUN/Creatinine Ratio 9.7 Random Glucose 124 mg/dl Calcium Level 8.5 mg/dl Magnesium Level 1.9 mg/dl Thyroid Stimulating Hormone (TSH) 0.702 uIu/ml Lactic Acid Level 3.1 mmol/L Test 12/08/16 11:19 12/08/16 14:53 Bedside Glucose 169 mg/dl Assessment and Plan Acute respiratory failure with hypoxia and hypercapnia/bilateral lower lobe pneumonia/septic shock-- Admitted to the ICU. Started on levophed in the ED due to systolic blood pressure dropping to 64, with titration to MAP greater than or equal to 65, weaning at this time Cont aggressive IVF as bedside US 12/07 determined collapsable IVC Started on ertapenem at time in addition to continuation of vanc Solu-Medrol 60 mg IV every 6 hours, may be able to titrate soon Xopenex/Atrovent high flow nebulizer every 6 hours while awake and every 2 hours when necessary. ECHO EF 55-60%, no WMA Continue Daliresp 500 g by mouth daily 3 Left upper lobe irregular densities with largest measuring 14 mm-- Differential is scarring, inflammatory/infectious change, or possibly primary bronchogenic neoplasm. She usually follows with in [place], and care in this regard may be coordinated with him. Left sided subclavian steal--noted on CT. 1.2 cm saccular aneurysm along the lateral aspect of aortic arch--noted on CT. Depression-- Buspirone 5 mg by mouth twice a day. Mirtazapine 45 mg by mouth at bedtime. Fluoxetine 30 mg by mouth daily. Risperdal 1 mg by mouth at bedtime. Hyperlipidemia-- Continue simvastatin 40 mg by mouth daily. Iron deficiency-- Continue ferrous sulfate 325 mg by mouth twice a day.
[2016-12-08] MEDS: ERTAPENEM IV 1 GM in SODIUM CHLOR 0.9% AD-VAN 50ML 50 ML IV SCH (16:12)
--- NOTE | 2016-12-08 16:16 | Procedure Note ---
Procedure Note Procedure Date Dec 08, 2016. (Jeremy Colby PA-C) Central Line Procedure time out: side/site verified, patient ID confirmed, sterile procedure used Consent obtained: written Time of procedure: 15:30 Performed by: attending, physician associate professor of biblical studies Indications: poor venous access, central drug admin., long-term access Prep: chlorhexadine prep, sterile drape, sterile procedures used Anesthesia: lidocaine 1% without epi Volume anesthetic (ml's): 3 Central line lumen: triple Central line location: internal jugular (R) Additional details: percutaneous placement, ultrasound guidance, Selinger technique used, line sutured, good blood return CXR: appropriate position, no pneumothorax Complications: none Patient tolerated procedure: well Post-procedure vital signs: reviewed and stable Comments: Procedure: Procedural Ultrasound Procedure Date: 12/08/2016 Indication: Poor Access Attending: Dr. Matson Resident/Physician Project Asst: Jeremy Colby PA-C Artery AND Vein visualized: Yes Compressible Vein: Yes Guidewire or Short Catheter seen in vein prior to dilation: Yes Line confirmed in Vein with ultrasound: Yes Images obtained are saved for permanent record Initial attempt performed by myself utilizing the above-mentioned techniques demonstrated successful cannulation of the internal jugular vein on the RIGHT side. I was unsuccessful at threading the guidewire. At this point, attending physician did attempt from proximal location of vessel and successfully cannulated the vessel and was able to thread the guidewire. No complications were met. (Jeremy Colby PA-C)
--- NOTE | 2016-12-08 16:20 | DIAGNOSTIC IMAGING REPORT ---
CHEST ONE VIEW PORTABLE HISTORY: 61 years-old Female post RIGHT IJ placement status post right internal jugular central venous catheter placement. COMPARISON: Portable chest radiograph 12/08/2016 TECHNIQUE: Portable upright AP view of the chest FINDINGS: There is been placement of a right internal jugular central venous catheter with distal tip terminating in the region of the mid SVC. There is no definite postprocedural pneumothorax. Cardiac silhouette is within normal limits. There is atherosclerosis of the aorta. There is blunting of the bilateral costophrenic angles, unchanged. Patchy subsegmental bibasilar opacities are noted, with improved aeration on the right. Bones are grossly intact. IMPRESSION: 1. Status post placement of a right internal jugular central venous catheter terminating in the region of the mid SVC. No postprocedural pneumothorax. 2. Improved aeration of the right lung base. 3. Patchy subsegmental bibasilar opacities suggest atelectasis or pneumonia with trace pleural effusions. The above report was generated using voice recognition software. It may contain grammatical, syntax or spelling errors. Electronically signed by: Wolfgang Terry M.D. 12/08/2016 4:19 PM Dictated Date/Time: 12/08/2016 4:17 PM
[2016-12-08] MEDS: MIRTAZAPINE TAB 15 MG TAB PO SCH (21:08)
[2016-12-08] MEDS: RISPERIDONE 1 MG TAB PO SCH (22:01)
[2016-12-09] VITALS (30 sets, daily range): BP systolic 85–161; BP diastolic 53–88; PULSE 80–105; TEMP 36.5–36.6; O2SAT 90–100
[2016-12-09] MEDS: MoRPHine SULFATE 2 MG/ML CARP IV PRN ×2 (00:43→04:55)
[2016-12-09] MEDS: LEVALBUTEROL 1.25MG/0.5ML NEB INH SCH ×3 (02:08→19:56)
[2016-12-09] MEDS: IPRATROPIUM BROMIDE NEB SOLN 0.02% 2.5 ML VIAL INH SCH ×3 (02:08→19:56)
[2016-12-09] MEDS: VANCOMYCIN INJ 750 MG in SODIUM CHLORIDE 0.9% 250ML 250 ML IV SCH ×2 (04:56→17:22)
[2016-12-09 05:43] LABS: HEMATOCRIT 25.7 % (37-47); IG% 0.9 %; LYMPH % 3.3 %; LYMPH ABS # 0.18 K/uL (1.2-3.4); MEAN CORPUSCULAR HEMOGLOBIN 34.5 pg (25-34); MEAN CORPUSCULAR HGB CONC 31.9 g/dl (32-36); MEAN PLATELET VOLUME 10.7 fL (7.4-10.4); MONO % 4.8 %; PLATELET COUNT 126 K/uL (130-400); RED BLOOD COUNT 2.38 M/uL (4.2-5.4); WHITE BLOOD COUNT 5.41 K/uL (4.8-10.8)
[2016-12-09 06:09] LABS: BUN/CREATININE RATIO 14.9 (10-20); CALCIUM 8.2 mg/dl (8.5-10.1); CREATININE 0.53 mg/dl (0.60-1.20); MAGNESIUM 1.7 mg/dl (1.8-2.4)
[2016-12-09 06:19] LABS: COMPLETE YES
[2016-12-09] MEDS: METHYLPREDNISOLONE IV 60 MG in SYRINGE 0 ML IV SCH ×3 (06:41→21:04)
--- NOTE | 2016-12-09 07:02 | DIAGNOSTIC IMAGING REPORT ---
GALLBLADDER-ABD LIMITED HISTORY: 61 years-old Female per radiology cholelithiasis cholelithiasis with right upper quadrant abdominal pain. COMPARISON: CT 12/08/2016 TECHNIQUE: Multiple real-time sonographic images of the abdominal right upper quadrant were obtained assessing grayscale appearance and color flow FINDINGS: The imaged pancreas is unremarkable. There is a focal area of increased echogenicity involving the right lobe of the liver measuring up to 1.0 cm which does not demonstrate definite internal vascularity. The hepatic protocol is mildly heterogenous, nonspecific. Trace perihepatic ascites redemonstrated. Common bile duct is normal, 3.5 mm. Gallstones and layering sludge are seen within the gallbladder lumen and the gallbladder is mildly distended. Gallstones are seen within the region of the gallbladder neck. The wall is thickened measuring up to 1.2 cm with trace pericholecystic fluid. Sonographic Cormier sign cannot be assessed secondary to patient on pain medication. Multiple cysts are seen throughout the right kidney. Complex hypoechoic lesion measuring up to 2.1 cm involving the lateral interpolar right kidney suggests complex cyst. No internal vascularity. No right-sided hydronephrosis. Right pleural effusion is incidentally noted. IMPRESSION: 1. Cholelithiasis and gallbladder sludge with gallbladder wall thickening and pericholecystic fluid is noted which may reflect developing acute cholecystitis within the appropriate clinical setting. Sonographic Cormier sign could not be assessed secondary to patient on pain medication. 2. Nonspecific 1.0 cm area of increased echogenicity involving the right lobe of the liver is suspicious for lesion such as hemangioma. 3. Multiple renal cysts, some of which are mildly complex. 4. Small right pleural effusion redemonstrated as well as trace perihepatic ascites. The above report was generated using voice recognition software. It may contain grammatical, syntax or spelling errors. Electronically signed by: Wolfgang Terry M.D. 12/09/2016 7:01 AM Dictated Date/Time: 12/09/2016 6:54 AM
[2016-12-09] MEDS: FERROUS SULFATE 325 MG TAB PO SCH ×2 (07:42→15:54)
[2016-12-09] MEDS: INSULIN ASPART 100 UNITS/ML 3 ML PEN SC SCH ×4 (07:44→21:00)
[2016-12-09] MEDS: GUAIFENESIN 600 MG TABCR PO SCH ×2 (09:00→21:02)
[2016-12-09] MEDS: BUDESONIDE/FORMOTEROL FUMARATE 160/4.5 60 PUFFS/INHALER INH SCH ×2 (09:05→21:00)
[2016-12-09] MEDS: ENOXAPARIN 40 MG/0.4 ML SYR SQ SCH (09:05)
[2016-12-09] MEDS: DOXYCYCLINE IV 100 MG in DEXTROSE 5% 100ML 100 ML IV SCH ×2 (09:09→20:59)
[2016-12-09] MEDS ORDERED: FENTANYL CITRATE INJ 50 MCG/1 ML 2 ML VIAL IV ONE (09:15)
[2016-12-09] MEDS: MAGNESIUM SULFATE 1GM / D5W 1 GM in PREMIXED IN D5W 100 ML IV SCH ×2 (09:53→11:14)
--- NOTE | 2016-12-09 11:29 | Critical Care Progress Note ---
Critical Care Progress Note Date of Service Dec 09, 2016. ICU Day ICU Day Number: [address] Matson Subjective Patient with continued chest pain that is worse with deep inspiration. Rates it as a 7/10 in severity. Is also having abdominal pain and rates it a 5-6/10. She denies any nausea, vomiting, diarrhea Denies any palpitations, shortness of breath at rest, but she does have a productive cough Denies any new rashes or joint pain She denies any fevers, chills or night sweats Objective Physical Exam: General - NAD, Talking in complete sentence, Appears disheveled and fatigued Eyes - No icterus ENT - Mucosa dry, no lesions or candidiasis Neck - Supple, trachea midline, no masses or lymphadenopathy, no JVD or bruits Lungs - Coarse breath sounds bilaterally with mild expiratory wheezes, no crackles or rhonchi bilaterally. No accessory muscle use noted Heart -, No murmur, rubs, clicks, or gallops appreciated, Pain to palpation of chest wall and ribs Abdomen - BS present, tenderness throughout but most prominent in the RUQ. no rebound or guarding Extremities - No edema, pedal pulses intact, very dry skin bilaterally Neuro - A&O X 4 Current SOFA Score SOFA Score Response (Comments) Value Platelets (x10) < 150 1 Bilirubin (mg/dL) < 1.2 0 Edin Coma Score 15 0 Level of Hypotension No Hypotension 0 Creatinine (mg/dL) < 1.2 0 Total 1 Assessment & Plan 61 year old female presented to [facility] with a COPD exacerbation and possible pneumonia. She has required vasopressors and therefore has been admitted to the ICU for further management. On patients CT scan yesterday she had no retroperitoneal bleed. Her Hgb did drop again to 8.1 which can be attributed to blood loss during central line placement. She had an ultrasound of her gallbladder which showed gallbladder sludge, wall thickening and pericholecystic fluid. We widened antibiotic coverage to Ertapenem, Vanc and Doxycyline to cover ESBL and gram +cocci. She was able to come off of pressors overnight after this new antibiotic regimen was started and her blood pressure has remained in the 80's. General Surgery were consulted who suggested HIDA scan before deciding between surgery vs drain placement. Resp: * Supplemental oxygen as required * COPD exacerbation complicated by possible bilateral lower lobe pneumonia, CXR improving, patient has remained afebrile * Procalcitonin only mildly elevated at .07 * Antibiotic coverage widened to vanc, ertapenem and doxy * Continue steroids 60mg q8 hrs * Respiratory regimen including levalbuterol and Atrovent * Goal saturation 88-92% * Continue home Rofimulast, switch from budesonide to symbicort CV: * Hypotension * Goal map greater than 60; SBP greater than 90 * Levophed was stopped yesterday evening and patient has been able to remain off pressors * Monitor renal function * Monitor on telemetry * Patient with chest pain but tender to palpation on exam and troponins negative. Likely to be from osteoporosis (hx of steroid use for COPD vs costochondritis due to viral prodrome) * Echo with normal EF, mild R ventricular hypertrophy and without elevated right sided pressures. No wall motion abnormalities noted Fluids/Renal: * Cr 0.53 Currently, Monitor for LOGAN 2/2 hypotension * PRP Daily * Fluids and albumin stopped due to patients fluid overload on imaging * Patricia in place and patient continues to be making urine ID: * Abx * Widened coverage to ertapenem, doxy and vancomycin to cover ESBL and gram + cocci * Pro calcitonin was <.05 and now .07 (indicative of local infection but not sepsis) * US showed increased gallbladder wall thickening, sludge and pericholecystic fluid, general surgery consult ordered and they recommended HIDA scan with likely outcome of either surgery vs placing gallbladder drain and then surgery in 6 weeks if need be * WBC: 5.41, Will trend daily GI/Nutrition: * Patient NPO * Patient nausea improved and patient no longer needing zantac as it had helped originally * Will also start patient on pantoprazole Heme: * H&H: 8.2 today, patient with no evidence of bleeding from GI or coughing up blood * MCV elevated therefore folic acid or B12 deficiency may be likely culprits. B12 normal at last check and folate decreased. Will supplement PO and patient receiving ferrous sulfate * No evidence of retroperitoneal bleed on imaging * Patient had small amount of blood loss during IJ placement and femoral line placement which would account for decreased in Hgb overnight. Safe lock placed and will continue to monitor Hgb level * Plts: 177-->136--->126. Will continue to monitor * Coags WNL Endocrine: * Accu-Cheks every 6 hours * No current diagnosis of diabetes; however patient is receiving large doses of steroids and levophed * We'll monitor closely * Accu-Checks per protocol, started insulin infusion for 2 blood sugars greater than 180 * Outpatient meds indicate hypothyroidism; however not currently treated * TSH wnl Neuro: * Will monitor pain level and is receiving morphine 2mg q2 prn * Monitor for neurologic changes * Continue home medications for depression, anxiety and sleep DVT prophylaxis with lovenox Access: Left AC PIV, Right triple lumen IJ placed yesterday evening Consults & Procedures Consultants: Huyen Procedures: CTA CXR x2 Lower extremity US Data Medications: Current Inpatient Medications Medications (Trade) Dose Ordered Sig/Marcus Route Start Time Stop Time Status Last Admin Dose Admin Ioversol (Optiray 320) 125 ml UD PRN IV 12/06/16 14:45 12/10/16 14:44 Potassium Chloride/Sodium Chloride 1,000 ml @ 50 mls/hr Q20H IV 12/06/16 19:00 01/05/17 18:59 12/08/16 11:32 100 MLS/HR Acetaminophen (Tylenol Tab) 650 mg Q4H PRN PO 12/06/16 15:45 01/05/17 15:44 12/07/16 10:29 650 MG Buspirone HCl (Buspar Tab) 5 mg BID PO 12/06/16 21:00 01/05/17 20:59 12/08/16 21:08 5 MG Paroxetine HCl (pAXil) 30 mg DAILY PO 12/07/16 09:00 01/06/17 08:59 12/08/16 07:27 30 MG Risperidone (Risperdal Tab) 1 mg HS PO 12/06/16 21:00 01/05/17 20:59 12/08/16 22:01 1 MG Roflumilast (Daliresp Tab) 500 mcg DAILY PO 12/07/16 09:00 01/06/17 08:59 12/08/16 07:28 500 MCG Ferrous Sulfate (Feosol Tab) 325 mg BIDM PO 12/06/16 18:00 01/05/17 17:59 12/09/16 07:42 325 MG Mirtazapine (Remeron Tab) 45 mg HS PO 12/06/16 21:00 01/05/17 20:59 12/08/16 21:08 45 MG Guaifenesin (Mucinex Contr Rel Tab) 600 mg BID PO 12/06/16 21:00 01/05/17 20:59 12/08/16 21:07 600 MG Glucose (Glucose 40% Gel) UD PRN PO 12/06/16 15:45 01/05/17 15:44 Glucose (Glucose Chew Tab) 1 tabs UD PRN PO 12/06/16 15:45 01/05/17 15:44 Dextrose (Dextrose 50% 50ML Syringe) 50 ml UD PRN IV 12/06/16 15:45 01/05/17 15:44 Glucagon (Glucagon Inj) 1 mg UD PRN SQ 12/06/16 15:45 01/05/17 15:44 Ipratropium [place] (Atrovent 0.02% 0.5MG/2.5ML Neb) 0.5 mg Q6R INH 12/06/16 21:00 01/05/17 20:59 12/09/16 07:32 0.5 MG Levalbuterol (Xopenex 1.25MG/ 0.5ML Neb) 1.25 mg Q6R INH 12/06/16 21:00 01/05/17 20:59 12/09/16 07:32 1.25 MG Norepinephrine Bitartrate 8 mg/ Dextrose 500 ml @ 0 mls/hr Q0M PRN IV 12/06/16 16:30 01/05/17 16:29 12/07/16 04:57 47.3 MLS/HR Doxycycline Hyclate 100 mg/ Dextrose 110 ml @ 50 mls/hr BID IV 12/06/16 21:00 12/13/16 20:59 12/09/16 09:09 50 MLS/HR Atorvastatin Calcium (Lipitor Tab) 80 mg QAM PO 12/07/16 09:00 01/06/17 08:59 12/08/16 07:28 80 MG Budesonide/ Formoterol Fumarate (Symbicort 160/ 4.5 Inh) 2 puffs BID INH 12/07/16 21:00 01/06/17 20:59 12/09/16 09:05 2 PUFFS Methylprednisolone Sodium Succinate 60 mg/Syringe 0.96 ml @ 1.5 mls/min Q8 IV 12/07/16 14:00 01/05/17 19:59 12/09/16 06:41 1.5 MLS/MIN Pantoprazole Sodium (Protonix Tab) 40 mg QAM PO 12/08/16 09:00 01/07/17 08:59 12/08/16 07:27 40 MG Enoxaparin Sodium (Lovenox Inj) 40 mg QAM SQ 12/08/16 09:00 01/07/17 08:59 12/09/16 09:05 40 MG Morphine Sulfate (MoRPHine SULFATE INJ) 2 mg Q4H PRN IV 12/07/16 12:15 12/21/16 12:14 12/09/16 04:55 2 MG Insulin Aspart (novoLOG ASPART) SLIDING SCALE G... ACHS SC 12/07/16 21:00 01/06/17 20:59 12/09/16 07:44 2 UNITS Ioversol (Optiray 320) 100 ml UD PRN IV 12/08/16 11:15 12/12/16 11:14 Ertapenem 1 gm/ Sodium Chloride 50 ml @ 120 mls/hr Q24H IV 12/08/16 16:00 12/15/16 15:59 12/08/16 16:12 120 MLS/HR Vancomycin HCl (Consult) 1 ea UD PRN N/A 12/08/16 14:45 01/07/17 14:44 Vancomycin HCl 750 mg/Sodium Chloride 265 ml @ 125 mls/hr Q14H IV 12/09/16 04:00 12/16/16 03:59 12/09/16 04:56 125 MLS/HR Heparin Sodium (Porcine) (Heparin 10 Unit/ ml 5 ml Flush) 5 ml PRN PRN FLUSH 12/09/16 00:15 01/08/17 00:14 Folic Acid (Folvite Tab) 400 mcg QAM PO 12/09/16 09:00 01/08/17 08:59 Magnesium Sulfate 1 gm/Prmx 100 ml @ 100 mls/hr Q1H IV 12/09/16 10:00 12/09/16 11:59 12/09/16 09:53 100 MLS/HR Vital Signs: Date Time Temp Pulse Resp B/P (MAP) Pulse Ox O2 Delivery O2 Flow Rate FiO2 12/09/16 10:00 85 24 85/58 (67) 94 Nasal Cannula 3.0 12/09/16 08:00 96 Nasal Cannula 3.0 12/09/16 08:00 36.5 105 22 92/53 (66) 96 Nasal Cannula 3.0 12/09/16 07:32 81 24 100 Nasal Cannula 4.0 12/09/16 05:46 82 25 104/65 (78) 97 12/09/16 05:32 101 22 98/58 (71) 98 12/09/16 05:16 85 21 92/65 (74) 100 12/09/16 05:01 86 40 96/69 (78) 100 12/09/16 04:48 92 24 107/70 (82) 100 12/09/16 04:31 100 27 102/75 (84) 97 12/09/16 04:16 84 28 98/64 (75) 100 12/09/16 04:01 36.5 91 21 111/73 (86) 98 Nasal Cannula 3.0 12/09/16 04:00 Nasal Cannula 4.0 12/09/16 02:16 90 25 93/67 (76) 94 12/09/16 02:10 90 16 97 Nasal Cannula 4.0 12/09/16 02:02 80 25 105/66 (79) 94 12/09/16 01:46 80 33 85/59 (68) 100 12/09/16 01:31 80 25 85/57 (66) 100 12/09/16 01:16 86 26 96/60 (72) 100 12/09/16 01:01 90 23 118/56 (76) 100 12/09/16 00:46 105 34 101/67 (78) 93 12/09/16 00:32 84 20 95/57 (70) 100 12/09/16 00:17 89 25 99/68 (78) 100 12/09/16 00:01 36.5 101 23 114/79 (91) 90 12/08/16 23:59 Nasal Cannula 4.0 12/08/16 22:46 97 31 90/59 (69) 98 12/08/16 22:31 89 35 88/56 (67) 98 12/08/16 22:16 85 24 100/59 (73) 100 12/08/16 22:01 89 24 104/56 (72) 99 Nasal Cannula 4.0 12/08/16 21:46 95 24 90/58 (69) 97 12/08/16 21:31 93 22 84/60 (68) 100 12/08/16 21:17 103 17 81/59 (66) 97 12/08/16 21:01 86 22 99/58 (72) 100 12/08/16 20:46 93 20 91/60 (70) 100 12/08/16 20:31 95 24 81/59 (66) 98 12/08/16 20:17 100 25 99/63 (75) 98 12/08/16 20:02 36.5 102 28 96/73 (81) 100 Nasal Cannula 4.0 12/08/16 20:00 Nasal Cannula 4.0 12/08/16 19:54 100 18 98 Nasal Cannula 3.5 12/08/16 18:00 36.6 112 23 124/58 (80) 97 Nasal Cannula 4.0 12/08/16 16:00 96 Nasal Cannula 4.0 12/08/16 16:00 36.5 106 32 91/58 (69) 96 Nasal Cannula 4.0 12/08/16 15:27 91 22 94 Nasal Cannula 3.0 12/08/16 14:04 108 24 95/58 (70) 97 Nasal Cannula 3.0 12/08/16 12:45 112 20 94/56 (69) 97 Nasal Cannula 3.0 12/08/16 12:00 Nasal Cannula 3.0 12/08/16 11:54 120 34 93 Nasal Cannula 3.0 Laboratory Results: Last 24 Hours Test 12/08/16 11:19 12/08/16 14:53 12/08/16 16:00 12/08/16 16:10 Bedside Glucose 169 mg/dl 131 mg/dl Lipase 58 U/L Test 12/08/16 21:20 12/09/16 05:18 Bedside Glucose 132 mg/dl White Blood Count 5.41 K/uL Red Blood Count 2.38 M/uL Hemoglobin 8.2 g/dL Hematocrit 25.7 % Mean Corpuscular Volume 108.0 fL Mean Corpuscular Hemoglobin 34.5 pg Mean Corpuscular Hemoglobin Concent 31.9 g/dl Platelet Count 126 K/uL Mean Platelet Volume 10.7 fL Neutrophils (%) (Auto) 91.0 % Lymphocytes (%) (Auto) 3.3 % Monocytes (%) (Auto) 4.8 % Eosinophils (%) (Auto) 0.0 % Basophils (%) (Auto) 0.0 % Neutrophils # (Auto) 4.92 K/uL Lymphocytes # (Auto) 0.18 K/uL Monocytes # (Auto) 0.26 K/uL Eosinophils # (Auto) 0.00 K/uL Basophils # (Auto) 0.00 K/uL RDW Standard Deviation 72.2 fL RDW Coefficient of Variation 18.6 % Immature Granulocyte % (Auto) 0.9 % Immature Granulocyte # (Auto) 0.05 K/uL Nucleated RBC Absolute Count (auto) 0.03 K/uL Nucleated Red Blood Cells % 0.6 % Red Blood Cell Morphology Unremarkable Sodium Level 144 mmol/L Potassium Level 4.0 mmol/L Chloride Level 111 mmol/L Carbon Dioxide Level 29 mmol/L Anion Gap 4.0 mmol/L Blood Urea Nitrogen 8 mg/dl Creatinine 0.53 mg/dl Est Creatinine Clear Calc Drug Dose 87.1 ml/min Estimated GFR () 117.9 Estimated GFR (Non- 101.8 BUN/Creatinine Ratio 14.9 Random Glucose 124 mg/dl Calcium Level 8.2 mg/dl Magnesium Level 1.7 mg/dl
--- NOTE | 2016-12-09 12:16 | Medical Consult ---
Consultation Date of Consultation: Dec 09, 2016. Attending Physician: Yvan Holland D.O. History of Present Illness 61 y/o female with COPD presented to ED 3 days ago for cough, SOB, chest pain. Admitted to ICU with septic picture and treated with vasopressors for hypotension, and antibiotics for pneumonia. Work-up for anemia included CT scan which showed some periportal edema as well as gallbladder wall thickening and stones. U/S also suggests cholecystitis and we were therefore asked to see her. She c/o some lower chest pain and some mid abdominal pain. She had nausea at home but not currently. No history of biliary colic. She has been NPO today. Past Medical/Surgical History Medical Problems: (1) Acute respiratory failure with hypoxia and hypercapnia (2) COPD (chronic obstructive pulmonary disease) (3) Depression (4) Dyslipidemia (5) Hypotension (6) Hypothyroidism (7) Leg cramps (8) Pleuritic chest pain (9) Pneumonia of both lower lobes (10) Respiratory failure with hypercapnia (11) Shortness of breath (12) Tobacco abuse (13) Tobacco abuse counseling Surgical Problems: (1) History of hysterectomy (2) History of tonsillectomy (3) Hx of tubal ligation Social History Smoking Status: Current Every Day Smoker Smokeless Tobacco Use: No Alcohol Use: none Drug Use: none Marital Status: Occupation Status: retired Allergies Coded Allergies: No Known Allergies (Unverified , 12/06/16) Current Inpatient Medications Current Inpatient Medications Medications (Trade) Dose Ordered Sig/Marcus Route Start Time Stop Time Status Last Admin Dose Admin Ioversol (Optiray 320) 125 ml UD PRN IV 12/06/16 14:45 12/10/16 14:44 Potassium Chloride/Sodium Chloride 1,000 ml @ 50 mls/hr Q20H IV 12/06/16 19:00 01/05/17 18:59 12/08/16 11:32 100 MLS/HR Acetaminophen (Tylenol Tab) 650 mg Q4H PRN PO 12/06/16 15:45 01/05/17 15:44 12/07/16 10:29 650 MG Buspirone HCl (Buspar Tab) 5 mg BID PO 12/06/16 21:00 01/05/17 20:59 12/08/16 21:08 5 MG Paroxetine HCl (pAXil) 30 mg DAILY PO 12/07/16 09:00 01/06/17 08:59 12/08/16 07:27 30 MG Risperidone (Risperdal Tab) 1 mg HS PO 12/06/16 21:00 01/05/17 20:59 12/08/16 22:01 1 MG Roflumilast (Daliresp Tab) 500 mcg DAILY PO 12/07/16 09:00 01/06/17 08:59 12/08/16 07:28 500 MCG Ferrous Sulfate (Feosol Tab) 325 mg BIDM PO 12/06/16 18:00 01/05/17 17:59 12/09/16 07:42 325 MG Mirtazapine (Remeron Tab) 45 mg HS PO 12/06/16 21:00 01/05/17 20:59 12/08/16 21:08 45 MG Guaifenesin (Mucinex Contr Rel Tab) 600 mg BID PO 12/06/16 21:00 01/05/17 20:59 12/08/16 21:07 600 MG Glucose (Glucose 40% Gel) UD PRN PO 12/06/16 15:45 01/05/17 15:44 Glucose (Glucose Chew Tab) 1 tabs UD PRN PO 12/06/16 15:45 01/05/17 15:44 Dextrose (Dextrose 50% 50ML Syringe) 50 ml UD PRN IV 12/06/16 15:45 01/05/17 15:44 Glucagon (Glucagon Inj) 1 mg UD PRN SQ 12/06/16 15:45 01/05/17 15:44 Ipratropium Brilliant (Atrovent 0.02% 0.5MG/2.5ML Neb) 0.5 mg Q6R INH 12/06/16 21:00 01/05/17 20:59 12/09/16 07:32 0.5 MG Levalbuterol (Xopenex 1.25MG/ 0.5ML Neb) 1.25 mg Q6R INH 12/06/16 21:00 01/05/17 20:59 12/09/16 07:32 1.25 MG Norepinephrine Bitartrate 8 mg/ Dextrose 500 ml @ 0 mls/hr Q0M PRN IV 12/06/16 16:30 01/05/17 16:29 12/07/16 04:57 47.3 MLS/HR Doxycycline Hyclate 100 mg/ Dextrose 110 ml @ 50 mls/hr BID IV 12/06/16 21:00 12/13/16 20:59 12/09/16 09:09 50 MLS/HR Atorvastatin Calcium (Lipitor Tab) 80 mg QAM PO 12/07/16 09:00 01/06/17 08:59 12/08/16 07:28 80 MG Budesonide/ Formoterol Fumarate (Symbicort 160/ 4.5 Inh) 2 puffs BID INH 12/07/16 21:00 01/06/17 20:59 12/09/16 09:05 2 PUFFS Methylprednisolone Sodium Succinate 60 mg/Syringe 0.96 ml @ 1.5 mls/min Q8 IV 12/07/16 14:00 01/05/17 19:59 12/09/16 06:41 1.5 MLS/MIN Pantoprazole Sodium (Protonix Tab) 40 mg QAM PO 12/08/16 09:00 01/07/17 08:59 12/08/16 07:27 40 MG Enoxaparin Sodium (Lovenox Inj) 40 mg QAM SQ 12/08/16 09:00 01/07/17 08:59 12/09/16 09:05 40 MG Morphine Sulfate (MoRPHine SULFATE INJ) 2 mg Q4H PRN IV 12/07/16 12:15 12/21/16 12:14 12/09/16 04:55 2 MG Insulin Aspart (novoLOG ASPART) SLIDING SCALE G... ACHS SC 12/07/16 21:00 01/06/17 20:59 12/09/16 11:46 2 UNITS Ioversol (Optiray 320) 100 ml UD PRN IV 12/08/16 11:15 12/12/16 11:14 Ertapenem 1 gm/ Sodium Chloride 50 ml @ 120 mls/hr Q24H IV 12/08/16 16:00 12/15/16 15:59 12/08/16 16:12 120 MLS/HR Vancomycin HCl (Consult) 1 ea UD PRN N/A 12/08/16 14:45 01/07/17 14:44 Vancomycin HCl 750 mg/Sodium Chloride 265 ml @ 125 mls/hr Q14H IV 12/09/16 04:00 12/16/16 03:59 12/09/16 04:56 125 MLS/HR Heparin Sodium (Porcine) (Heparin 10 Unit/ ml 5 ml Flush) 5 ml PRN PRN FLUSH 12/09/16 00:15 01/08/17 00:14 Folic Acid (Folvite Tab) 400 mcg QAM PO 12/09/16 09:00 01/08/17 08:59 Magnesium Sulfate 1 gm/Prmx 100 ml @ 100 mls/hr Q1H IV 12/09/16 10:00 12/09/16 11:59 12/09/16 11:14 100 MLS/HR Review of Systems Constitutional: No fever, No chills Respiratory: + cough, + shortness of breath Cardiovascular: + chest pain Abdomen: + pain, + nausea, No vomiting Physical Exam Date Time Temp Pulse Resp B/P (MAP) Pulse Ox O2 Delivery O2 Flow Rate FiO2 12/09/16 10:00 85 24 85/58 (67) 94 Nasal Cannula 3.0 12/09/16 08:00 96 Nasal Cannula 3.0 12/09/16 08:00 36.5 105 22 92/53 (66) 96 Nasal Cannula 3.0 12/09/16 07:32 81 24 100 Nasal Cannula 4.0 12/09/16 05:46 82 25 104/65 (78) 97 12/09/16 05:32 101 22 98/58 (71) 98 12/09/16 05:16 85 21 92/65 (74) 100 12/09/16 05:01 86 40 96/69 (78) 100 12/09/16 04:48 92 24 107/70 (82) 100 12/09/16 04:31 100 27 102/75 (84) 97 12/09/16 04:16 84 28 98/64 (75) 100 12/09/16 04:01 36.5 91 21 111/73 (86) 98 Nasal Cannula 3.0 12/09/16 04:00 Nasal Cannula 4.0 12/09/16 02:16 90 25 93/67 (76) 94 12/09/16 02:10 90 16 97 Nasal Cannula 4.0 12/09/16 02:02 80 25 105/66 (79) 94 12/09/16 01:46 80 33 85/59 (68) 100 12/09/16 01:31 80 25 85/57 (66) 100 12/09/16 01:16 86 26 96/60 (72) 100 12/09/16 01:01 90 23 118/56 (76) 100 12/09/16 00:46 105 34 101/67 (78) 93 12/09/16 00:32 84 20 95/57 (70) 100 12/09/16 00:17 89 25 99/68 (78) 100 12/09/16 00:01 36.5 101 23 114/79 (91) 90 12/08/16 23:59 Nasal Cannula 4.0 12/08/16 22:46 97 31 90/59 (69) 98 12/08/16 22:31 89 35 88/56 (67) 98 12/08/16 22:16 85 24 100/59 (73) 100 12/08/16 22:01 89 24 104/56 (72) 99 Nasal Cannula 4.0 12/08/16 21:46 95 24 90/58 (69) 97 12/08/16 21:31 93 22 84/60 (68) 100 12/08/16 21:17 103 17 81/59 (66) 97 12/08/16 21:01 86 22 99/58 (72) 100 12/08/16 20:46 93 20 91/60 (70) 100 12/08/16 20:31 95 24 81/59 (66) 98 12/08/16 20:17 100 25 99/63 (75) 98 12/08/16 20:02 36.5 102 28 96/73 (81) 100 Nasal Cannula 4.0 12/08/16 20:00 Nasal Cannula 4.0 12/08/16 19:54 100 18 98 Nasal Cannula 3.5 12/08/16 18:00 36.6 112 23 124/58 (80) 97 Nasal Cannula 4.0 12/08/16 16:00 96 Nasal Cannula 4.0 12/08/16 16:00 36.5 106 32 91/58 (69) 96 Nasal Cannula 4.0 12/08/16 15:27 91 22 94 Nasal Cannula 3.0 12/08/16 14:04 108 24 95/58 (70) 97 Nasal Cannula 3.0 12/08/16 12:45 112 20 94/56 (69) 97 Nasal Cannula 3.0 12/08/16 12:00 Nasal Cannula 3.0 General Appearance: + mild distress, + thin ENT: normal ENT inspection Neck: supple Respiratory/Chest: + accessory muscle use, + wheezing, + pertinent finding ( some sternal tenderness) Cardiovascular: regular rate, rhythm, no edema Abdomen/GI: soft, no organomegaly, + tenderness (epigastric, RUQ/RMQ) Neurologic/Psych: alert, normal mood/affect Laboratory Results Last 24 Hours Test 12/08/16 14:53 12/08/16 16:00 12/08/16 16:10 12/08/16 21:20 Lipase 58 U/L Bedside Glucose 131 mg/dl 132 mg/dl Test 12/09/16 05:18 12/09/16 11:24 White Blood Count 5.41 K/uL Red Blood Count 2.38 M/uL Hemoglobin 8.2 g/dL Hematocrit 25.7 % Mean Corpuscular Volume 108.0 fL Mean Corpuscular Hemoglobin 34.5 pg Mean Corpuscular Hemoglobin Concent 31.9 g/dl Platelet Count 126 K/uL Mean Platelet Volume 10.7 fL Neutrophils (%) (Auto) 91.0 % Lymphocytes (%) (Auto) 3.3 % Monocytes (%) (Auto) 4.8 % Eosinophils (%) (Auto) 0.0 % Basophils (%) (Auto) 0.0 % Neutrophils # (Auto) 4.92 K/uL Lymphocytes # (Auto) 0.18 K/uL Monocytes # (Auto) 0.26 K/uL Eosinophils # (Auto) 0.00 K/uL Basophils # (Auto) 0.00 K/uL RDW Standard Deviation 72.2 fL RDW Coefficient of Variation 18.6 % Immature Granulocyte % (Auto) 0.9 % Immature Granulocyte # (Auto) 0.05 K/uL Nucleated RBC Absolute Count (auto) 0.03 K/uL Nucleated Red Blood Cells % 0.6 % Red Blood Cell Morphology Unremarkable Sodium Level 144 mmol/L Potassium Level 4.0 mmol/L Chloride Level 111 mmol/L Carbon Dioxide Level 29 mmol/L Anion Gap 4.0 mmol/L Blood Urea Nitrogen 8 mg/dl Creatinine 0.53 mg/dl Est Creatinine Clear Calc Drug Dose 87.1 ml/min Estimated GFR () 117.9 Estimated GFR (Non- 101.8 BUN/Creatinine Ratio 14.9 Random Glucose 124 mg/dl Calcium Level 8.2 mg/dl Magnesium Level 1.7 mg/dl Bedside Glucose 181 mg/dl U/S IMPRESSION: 1. Cholelithiasis and gallbladder sludge with gallbladder wall thickening and pericholecystic fluid is noted which may reflect developing acute cholecystitis within the appropriate clinical setting. Sonographic Cormier sign could not be assessed secondary to patient on pain medication. 2. Nonspecific 1.0 cm area of increased echogenicity involving the right lobe of the liver is suspicious for lesion such as hemangioma. 3. Multiple renal cysts, some of which are mildly complex. 4. Small right pleural effusion redemonstrated as well as trace perihepatic ascites. The above report was generated using voice recognition software. It may contain grammatical, syntax or spelling errors. Electronically signed by: Wolfgang Terry M.D. 12/09/2016 7:01 AM Dictated Date/Time: 12/09/2016 6:54 AM Assessment & Plan Cholelithiasis/possible cholecystitis Respiratory failure/Pneumonia/COPD Anemia, iron deficiency, + dilutional Seen with Dr. Rene. Will check HIDA, if positive we will then decide on cholecystectomy vs cholecystostomy. Discussed with Dr. Matson. Patient seen and examined, labs and imaging personally reviewed, agree with above. 61-year-old female with COPD admitted for respiratory failure, possible pneumonia and sepsis. She was treated with broad-spectrum antibiotics and vasopressors, and during her workup an Click ultrasound suggested cholecystitis. At this point I do not feel that cholecystitis was driving factor for sepsis and respiratory failure. We will obtain a HIDA, if this shows cholecystitis that most likely would recommend percutaneous cholecystostomy tube. Plan of care was discussed with the patient and the consulting service. Mercedes Rene, DO
[2016-12-09] MEDS ORDERED: NURSING VERBAL MED ORDER ONE ×2 (14:45→18:15)
--- NOTE | 2016-12-09 15:29 | DIAGNOSTIC IMAGING REPORT ---
NUCLEAR HEPATOBILIARY SCAN CLINICAL HISTORY: Right upper quadrant abdominal pain. COMPARISON STUDY: Abdominal ultrasound dated 12/08/2016. TECHNIQUE: Static images of the liver and anterior abdomen were obtained at 30 minutes, 60 minutes, and 75 minutes minutes following the IV administration of 5.5mCi of technetium 99m Choletec. The patient was unable to tolerate dynamic imaging. FINDINGS: The hepatobiliary scan shows prompt and homogeneous hepatic uptake. There is visualized activity within the intra and extrahepatic biliary tree as well as the gallbladder at 30 minutes. There is normal biliary to bowel transit, with small bowel visualized by 75 minutes. IMPRESSION: There is no scintigraphic evidence of acute cholecystitis. Electronically signed by: Michael Torres M.D. 12/09/2016 3:28 PM Dictated Date/Time: 12/09/2016 3:26 PM
[2016-12-09] MEDS: ERTAPENEM IV 1 GM in SODIUM CHLOR 0.9% AD-VAN 50ML 50 ML IV SCH (15:54)
[2016-12-09] MEDS: FENTANYL CITRATE INJ 50 MCG/1 ML 2 ML VIAL IV PRN ×3 (15:59→20:59)
--- NOTE | 2016-12-09 16:38 | Progress Note ---
Subjective Date of Service: Dec 09, 2016. Subjective Pt evaluation today including: conversation w/ patient, physical exam, chart review, lab review, review of studies, review of inpatient medication list Pt reports transient chest pain and abd pain with the chest pain being the worst No shortness of breath noted No other concerns at this time Levophed titrated off Problem List Medical Problems: (1) COPD exacerbation Status: Acute (2) Hypoxia Status: Acute Review of Systems Constitutional: + weakness, + fatigue, No fever, No chills, No sweats, No weight loss ENT: No hearing loss, No unusual epistaxis, No nasal symptoms Respiratory: + cough, + sputum, + shortness of breath, No wheezing, No dyspnea on exertion Cardiac: + chest pain, No orthopnea, No PND, No edema, No claudication Abdomen: + pain, No nausea, No vomiting, No diarrhea, No constipation Musculoskeletal: No joint pain, No muscle pain, No swelling, No calf pain Female : No dysuria, No urinary frequency, No hematuria, No incontinence Neurologic: No memory loss, No paralysis, No weakness, No numbness/tingling Psychiatric: No depression symptoms, No anhedonism, No anxiety, No insomnia Endo: No fatigue, No excessive thirst Skin: No rash, No itch Objective Vital Signs Date Time Temp Pulse Resp B/P (MAP) Pulse Ox O2 Delivery O2 Flow Rate FiO2 12/09/16 12:00 96 Nasal Cannula 3.0 12/09/16 12:00 36.5 80 22 95/59 (71) 96 Nasal Cannula 3.0 12/09/16 10:00 85 24 85/58 (67) 94 Nasal Cannula 3.0 12/09/16 08:00 96 Nasal Cannula 3.0 12/09/16 08:00 36.5 105 22 92/53 (66) 96 Nasal Cannula 3.0 12/09/16 07:32 81 24 100 Nasal Cannula 4.0 12/09/16 05:46 82 25 104/65 (78) 97 12/09/16 05:32 101 22 98/58 (71) 98 12/09/16 05:16 85 21 92/65 (74) 100 12/09/16 05:01 86 40 96/69 (78) 100 12/09/16 04:48 92 24 107/70 (82) 100 12/09/16 04:31 100 27 102/75 (84) 97 12/09/16 04:16 84 28 98/64 (75) 100 12/09/16 04:01 36.5 91 21 111/73 (86) 98 Nasal Cannula 3.0 12/09/16 04:00 Nasal Cannula 4.0 12/09/16 02:16 90 25 93/67 (76) 94 12/09/16 02:10 90 16 97 Nasal Cannula 4.0 12/09/16 02:02 80 25 105/66 (79) 94 12/09/16 01:46 80 33 85/59 (68) 100 12/09/16 01:31 80 25 85/57 (66) 100 12/09/16 01:16 86 26 96/60 (72) 100 12/09/16 01:01 90 23 118/56 (76) 100 12/09/16 00:46 105 34 101/67 (78) 93 12/09/16 00:32 84 20 95/57 (70) 100 12/09/16 00:17 89 25 99/68 (78) 100 12/09/16 00:01 36.5 101 23 114/79 (91) 90 12/08/16 23:59 Nasal Cannula 4.0 12/08/16 22:46 97 31 90/59 (69) 98 12/08/16 22:31 89 35 88/56 (67) 98 12/08/16 22:16 85 24 100/59 (73) 100 12/08/16 22:01 89 24 104/56 (72) 99 Nasal Cannula 4.0 12/08/16 21:46 95 24 90/58 (69) 97 12/08/16 21:31 93 22 84/60 (68) 100 12/08/16 21:17 103 17 81/59 (66) 97 12/08/16 21:01 86 22 99/58 (72) 100 12/08/16 20:46 93 20 91/60 (70) 100 12/08/16 20:31 95 24 81/59 (66) 98 12/08/16 20:17 100 25 99/63 (75) 98 12/08/16 20:02 36.5 102 28 96/73 (81) 100 Nasal Cannula 4.0 12/08/16 20:00 Nasal Cannula 4.0 12/08/16 19:54 100 18 98 Nasal Cannula 3.5 12/08/16 18:00 36.6 112 23 124/58 (80) 97 Nasal Cannula 4.0 Physical Exam General Appearance: WD/WN, + mild distress Eyes: normal inspection, PERRL, EOMI, sclerae normal Neck: supple, no adenopathy, thyroid normal, no JVD Respiratory/Chest: chest non-tender, no respiratory distress, no accessory muscle use, + decreased breath sounds Cardiovascular: no edema, no gallop, no JVD, no murmur, + tachycardia Abdomen: normal bowel sounds, soft, no organomegaly, + tenderness Extremities: normal range of motion, non-tender, normal inspection, no pedal edema Neurologic/Psychiatric: no motor/sensory deficits, alert, normal mood/affect, oriented x 3 Laboratory Results Last 24 Hours Test 12/08/16 21:20 12/09/16 05:18 12/09/16 11:24 Bedside Glucose 132 mg/dl 181 mg/dl White Blood Count 5.41 K/uL Red Blood Count 2.38 M/uL Hemoglobin 8.2 g/dL Hematocrit 25.7 % Mean Corpuscular Volume 108.0 fL Mean Corpuscular Hemoglobin 34.5 pg Mean Corpuscular Hemoglobin Concent 31.9 g/dl Platelet Count 126 K/uL Mean Platelet Volume 10.7 fL Neutrophils (%) (Auto) 91.0 % Lymphocytes (%) (Auto) 3.3 % Monocytes (%) (Auto) 4.8 % Eosinophils (%) (Auto) 0.0 % Basophils (%) (Auto) 0.0 % Neutrophils # (Auto) 4.92 K/uL Lymphocytes # (Auto) 0.18 K/uL Monocytes # (Auto) 0.26 K/uL Eosinophils # (Auto) 0.00 K/uL Basophils # (Auto) 0.00 K/uL RDW Standard Deviation 72.2 fL RDW Coefficient of Variation 18.6 % Immature Granulocyte % (Auto) 0.9 % Immature Granulocyte # (Auto) 0.05 K/uL Nucleated RBC Absolute Count (auto) 0.03 K/uL Nucleated Red Blood Cells % 0.6 % Red Blood Cell Morphology Unremarkable Sodium Level 144 mmol/L Potassium Level 4.0 mmol/L Chloride Level 111 mmol/L Carbon Dioxide Level 29 mmol/L Anion Gap 4.0 mmol/L Blood Urea Nitrogen 8 mg/dl Creatinine 0.53 mg/dl Est Creatinine Clear Calc Drug Dose 87.1 ml/min Estimated GFR () 117.9 Estimated GFR (Non- 101.8 BUN/Creatinine Ratio 14.9 Random Glucose 124 mg/dl Calcium Level 8.2 mg/dl Magnesium Level 1.7 mg/dl Assessment and Plan Acute respiratory failure with hypoxia and hypercapnia/bilateral lower lobe pneumonia/septic shock-- Admitted to the ICU. Started on levophed in the ED, tapered off on 12/09 Cont on ertapenem at time in addition to continuation of vanc Solu-Medrol 60 mg IV every 6 hours, may be able to titrate soon Xopenex/Atrovent high flow nebulizer every 6 hours while awake and every 2 hours when necessary. ECHO EF 55-60%, no WMA Continue Daliresp 500 g by mouth daily Abd pain, Gallbladder US suspicious for acute caro, HIDA determined this to be unlikely. Gen surg consulted, no intervention at this time 3 Left upper lobe irregular densities with largest measuring 14 mm-- Differential is scarring, inflammatory/infectious change, or possibly primary bronchogenic neoplasm. She usually follows with in [place], and care in this regard may be coordinated with him. Left sided subclavian steal--noted on CT. 1.2 cm saccular aneurysm along the lateral aspect of aortic arch--noted on CT. Depression-- Buspirone 5 mg by mouth twice a day. Mirtazapine 45 mg by mouth at bedtime. Fluoxetine 30 mg by mouth daily. Risperdal 1 mg by mouth at bedtime. Hyperlipidemia-- Continue simvastatin 40 mg by mouth daily. Iron deficiency-- Continue ferrous sulfate 325 mg by mouth twice a day.
[2016-12-09] MEDS: FoLIC ACID TAB 400 MCG TAB PO SCH (17:14)
[2016-12-09] MEDS: ROFLUMILAST 500 MCG TAB PO SCH (17:15)
[2016-12-09] MEDS: PANTOprazole SOD 40 MG TAB PO SCH (17:15)
[2016-12-09] MEDS: ATORVASTATIN 40 MG TAB PO SCH (17:15)
[2016-12-09] MEDS: PAROXETINE 30 MG TAB PO SCH (17:15)
[2016-12-09] MEDS ORDERED: FUROSEMIDE INJ 20 MG in SYRINGE 0 ML IV ONE (18:30)
[2016-12-09] MEDS: NSS + 20MEQ KCL 1000ML 1,000 ML IV SCH (21:01)
[2016-12-09] MEDS: RISPERIDONE 1 MG TAB PO SCH (21:02)
[2016-12-09] MEDS: MIRTAZAPINE TAB 15 MG TAB PO SCH (21:03)
[2016-12-10] VITALS (14 sets, daily range): BP systolic 101–134; BP diastolic 61–97; PULSE 70–104; TEMP 36.3–36.4; O2SAT 94–100
[2016-12-10] MEDS: FENTANYL CITRATE INJ 50 MCG/1 ML 2 ML VIAL IV PRN ×3 (00:15→06:24)
[2016-12-10] MEDS: IPRATROPIUM BROMIDE NEB SOLN 0.02% 2.5 ML VIAL INH SCH ×3 (01:49→20:17)
[2016-12-10] MEDS: LEVALBUTEROL 1.25MG/0.5ML NEB INH SCH ×3 (01:49→20:17)
[2016-12-10] MEDS: METHYLPREDNISOLONE IV 60 MG in SYRINGE 0 ML IV SCH ×3 (06:23→21:55)
[2016-12-10] MEDS ORDERED: NURSING VERBAL MED ORDER ONE (08:30)
--- NOTE | 2016-12-10 08:40 | Surgery Progress Note ---
Surgery Progress Note Date of Service Dec 10, 2016. Subjective 61-year-old female with COPD admitted with sepsis and respiratory distress secondary to COPD exacerbation and suspected pneumonia. During her workup she was diagnosed with cholelithiasis and there was a concern for cholecystitis as the driving factor for her sepsis. General surgery was consulted yesterday and HIDA scan was performed which was negative. This morning she denies any abdominal pain or nausea. Objective Vital Signs: Date Time Temp Pulse Resp B/P (MAP) Pulse Ox O2 Delivery O2 Flow Rate FiO2 12/10/16 06:01 82 22 134/80 (98) 97 12/10/16 04:01 36.3 70 18 101/61 (74) 100 Nasal Cannula 3.0 12/10/16 04:00 98 Nasal Cannula 3.0 12/10/16 02:01 79 26 132/81 (98) 100 12/10/16 01:51 80 20 100 Nasal Cannula 3.0 12/10/16 00:15 36.4 90 30 126/97 (107) 97 Nasal Cannula 3.0 12/09/16 23:59 98 Nasal Cannula 3.0 12/09/16 22:01 84 20 116/63 (80) 98 12/09/16 20:01 36.5 99 24 149/85 (106) 100 12/09/16 20:00 98 Nasal Cannula 3.0 12/09/16 19:57 89 24 98 Nasal Cannula 4.0 12/09/16 18:00 36.6 99 26 161/88 (112) 96 Nasal Cannula 3.0 12/09/16 16:00 96 Nasal Cannula 3.0 12/09/16 16:00 36.6 103 22 146/86 (106) 96 Nasal Cannula 3.0 12/09/16 12:00 96 Nasal Cannula 3.0 12/09/16 12:00 36.5 80 22 95/59 (71) 96 Nasal Cannula 3.0 12/09/16 10:00 85 24 85/58 (67) 94 Nasal Cannula 3.0 General Appearance: WD/WN, no apparent distress Head: normocephalic, atraumatic Neck: supple, no adenopathy, thyroid normal, no JVD, no carotid bruits, trachea midline Respiratory/Chest: no respiratory distress, no accessory muscle use Cardiovascular: regular rate, rhythm, no edema, no gallop, no JVD, no murmur Abdomen: normal bowel sounds, non tender, non distended, soft, no organomegaly , no pulsatile mass Extremities: normal range of motion, non-tender, normal inspection, no pedal edema, no calf tenderness, normal capillary refill, pelvis stable Laboratory Results: Results Past 24 Hours Test 12/09/16 11:24 12/09/16 16:26 12/09/16 20:57 12/10/16 08:05 Range/Units Bedside Glucose 181 103 122 70-90 mg/dl Diagnostic Interpretation: NUCLEAR HEPATOBILIARY SCAN CLINICAL HISTORY: Right upper quadrant abdominal pain. COMPARISON STUDY: Abdominal ultrasound dated 12/08/2016. TECHNIQUE: Static images of the liver and anterior abdomen were obtained at 30 minutes, 60 minutes, and 75 minutes minutes following the IV administration of 5.5mCi of technetium 99m Choletec. The patient was unable to tolerate dynamic imaging. FINDINGS: The hepatobiliary scan shows prompt and homogeneous hepatic uptake. There is visualized activity within the intra and extrahepatic biliary tree as well as the gallbladder at 30 minutes. There is normal biliary to bowel transit, with small bowel visualized by 75 minutes. IMPRESSION: There is no scintigraphic evidence of acute cholecystitis. Electronically signed by: Michael Torres M.D. 12/09/2016 3:28 PM Dictated Date/Time: 12/09/2016 3:26 PM Assessment & Plan 61-year-old female admitted with sepsis and respiratory failure secondary to COPD exacerbation and suspected pneumonia. General surgery was consulted for possible cholecystitis as an incidental finding during her workup. HIDA scan performed yesterday was negative for acute cholecystitis, and this morning she is nontender in the right upper quadrant. I do not feel that the gallbladder is the source recurrent condition, and do not recommend surgery at this time. The plan of care was discussed with the patient and with the primary team. General surgery will sign off, please call with any questions or concerns. [place] Rene D.O.
[2016-12-10 08:44] LABS: BASO % 0.1 %; BASO ABS # 0.01 K/uL (0-0.2); COMPLETE YES; HEMATOCRIT 27.5 % (37-47); IG% 1.3 %; LYMPH % 6.2 %; LYMPH ABS # 0.44 K/uL (1.2-3.4); MEAN CELL VOLUME 106.6 fL (80-100); MEAN CORPUSCULAR HEMOGLOBIN 35.7 pg (25-34); MEAN CORPUSCULAR HGB CONC 33.5 g/dl (32-36); NEUT % 87.4 %; PLATELET COUNT 146 K/uL (130-400); RED BLOOD COUNT 2.58 M/uL (4.2-5.4); WHITE BLOOD COUNT 7.05 K/uL (4.8-10.8)
[2016-12-10] MEDS: FoLIC ACID TAB 400 MCG TAB PO SCH (09:00)
[2016-12-10] MEDS: GUAIFENESIN 600 MG TABCR PO SCH ×2 (09:00→20:52)
[2016-12-10] MEDS: FERROUS SULFATE 325 MG TAB PO SCH ×2 (09:00→17:47)
[2016-12-10] MEDS: ENOXAPARIN 40 MG/0.4 ML SYR SQ SCH (09:01)
[2016-12-10] MEDS: BUDESONIDE/FORMOTEROL FUMARATE 160/4.5 60 PUFFS/INHALER INH SCH ×2 (09:01→20:51)
[2016-12-10] MEDS: OXYCODONE/ACETAMINOPHEN 5-325 TAB PO PRN ×4 (09:01→20:51)
[2016-12-10] MEDS: INSULIN ASPART 100 UNITS/ML 3 ML PEN SC SCH ×4 (09:04→20:50)
[2016-12-10] MEDS: DOXYCYCLINE IV 100 MG in DEXTROSE 5% 100ML 100 ML IV SCH ×2 (09:08→20:57)
[2016-12-10] MEDS: VANCOMYCIN INJ 750 MG in SODIUM CHLORIDE 0.9% 250ML 250 ML IV SCH ×2 (09:08→22:28)
[2016-12-10 09:13] LABS: BUN/CREATININE RATIO 14.8 (10-20); CREATININE 0.69 mg/dl (0.60-1.20); POTASSIUM 3.9 mmol/L (3.5-5.1)
[2016-12-10 09:16] LABS: ALB/GLOB RATIO 1.2 (0.9-2)
[2016-12-10] MEDS: PAROXETINE 30 MG TAB PO SCH (11:13)
[2016-12-10] MEDS: PANTOprazole SOD 40 MG TAB PO SCH (11:13)
[2016-12-10] MEDS: ATORVASTATIN 40 MG TAB PO SCH (11:13)
[2016-12-10] MEDS: ROFLUMILAST 500 MCG TAB PO SCH (11:13)
[2016-12-10 12:12] LABS: LEGIONELLA ANTIGEN NOT DETECTED (NOT DETECTED)
[2016-12-10] MEDS: NSS + 20MEQ KCL 1000ML 1,000 ML IV SCH ×2 (15:30→15:32)
[2016-12-10] MEDS: ERTAPENEM IV 1 GM in SODIUM CHLOR 0.9% AD-VAN 50ML 50 ML IV SCH (15:33)
--- NOTE | 2016-12-10 17:54 | Progress Note ---
Subjective Date of Service: Dec 10, 2016. Subjective Pt evaluation today including: conversation w/ patient, physical exam, chart review, lab review, review of studies, review of inpatient medication list REsting comfortably in bed States chest pain improved No concerns at this time Problem List Medical Problems: (1) COPD exacerbation Status: Acute (2) Hypoxia Status: Acute Review of Systems Constitutional: No fever, No chills, No sweats, No weakness ENT: No see HPI, No hearing loss, No unusual epistaxis, No nasal symptoms, No sore throat, No tinnitus, No dental problems, No trouble swallowing, No problem reported Respiratory: No see HPI, No cough, No sputum, No wheezing, No shortness of breath, No dyspnea on exertion, No dyspnea at rest, No hemoptysis, No problem reported Cardiac: No see HPI, No chest pain, No orthopnea, No PND, No edema, No claudication, No palpitations, No problem reported Abdomen: No see HPI, No pain, No nausea, No vomiting, No diarrhea, No constipation, No GI bleeding, No problem reported Musculoskeletal: + joint pain, + muscle pain Female : No see HPI, No dysuria, No urinary frequency, No hematuria, No incontinence, No abnormal vaginal bleeding, No vaginal discharge, No problem reported Psychiatric: No see HPI, No depression symptoms, No anhedonism, No anxiety, No insomnia, No substance abuse, No problem reported Skin: No see HPI, No rash, No itch, No new/changing skin lesions, No color change, No bleeding, No problem reported Objective Vital Signs Date Time Temp Pulse Resp B/P (MAP) Pulse Ox O2 Delivery O2 Flow Rate FiO2 12/10/16 16:00 98 Nasal Cannula 3.0 12/10/16 15:21 36.4 88 26 115/76 (89) 96 Nasal Cannula 3.0 12/10/16 13:58 36.4 96 20 110/67 (81) 94 Nasal Cannula 4.0 12/10/16 12:00 96 Nasal Cannula 3.0 12/10/16 12:00 36.3 102 24 131/75 (93) 99 Nasal Cannula 3.0 12/10/16 08:00 96 Nasal Cannula 3.0 12/10/16 08:00 36.3 104 18 129/89 (102) 96 Nasal Cannula 3.0 12/10/16 07:15 76 20 98 Nasal Cannula 3.0 12/10/16 06:01 82 22 134/80 (98) 97 12/10/16 04:01 36.3 70 18 101/61 (74) 100 Nasal Cannula 3.0 12/10/16 04:00 98 Nasal Cannula 3.0 12/10/16 02:01 79 26 132/81 (98) 100 12/10/16 01:51 80 20 100 Nasal Cannula 3.0 12/10/16 00:15 36.4 90 30 126/97 (107) 97 Nasal Cannula 3.0 12/09/16 23:59 98 Nasal Cannula 3.0 12/09/16 22:01 84 20 116/63 (80) 98 12/09/16 20:01 36.5 99 24 149/85 (106) 100 12/09/16 20:00 98 Nasal Cannula 3.0 12/09/16 19:57 89 24 98 Nasal Cannula 4.0 12/09/16 18:00 36.6 99 26 161/88 (112) 96 Nasal Cannula 3.0 Physical Exam General Appearance: WD/WN, no apparent distress Eyes: normal inspection, PERRL, EOMI, sclerae normal Neck: supple, no adenopathy, thyroid normal, no JVD Respiratory/Chest: chest non-tender, lungs clear, normal breath sounds, no respiratory distress Cardiovascular: no edema, no gallop, no JVD, no murmur Abdomen: normal bowel sounds, non tender, soft, no organomegaly Neurologic/Psychiatric: no motor/sensory deficits, alert, normal mood/affect, oriented x 3 Skin: normal color, warm/dry, no rash Lymphatic: no adenopathy Laboratory Results Last 24 Hours Test 12/09/16 20:57 12/10/16 06:32 12/10/16 08:05 12/10/16 11:40 Bedside Glucose 122 mg/dl 165 mg/dl 176 mg/dl White Blood Count 7.05 K/uL Red Blood Count 2.58 M/uL Hemoglobin 9.2 g/dL Hematocrit 27.5 % Mean Corpuscular Volume 106.6 fL Mean Corpuscular Hemoglobin 35.7 pg Mean Corpuscular Hemoglobin Concent 33.5 g/dl Platelet Count 146 K/uL Mean Platelet Volume 11.0 fL Neutrophils (%) (Auto) 87.4 % Lymphocytes (%) (Auto) 6.2 % Monocytes (%) (Auto) 5.0 % Eosinophils (%) (Auto) 0.0 % Basophils (%) (Auto) 0.1 % Neutrophils # (Auto) 6.16 K/uL Lymphocytes # (Auto) 0.44 K/uL Monocytes # (Auto) 0.35 K/uL Eosinophils # (Auto) 0.00 K/uL Basophils # (Auto) 0.01 K/uL RDW Standard Deviation 73.3 fL RDW Coefficient of Variation 18.8 % Immature Granulocyte % (Auto) 1.3 % Immature Granulocyte # (Auto) 0.09 K/uL Sodium Level 143 mmol/L Potassium Level 3.9 mmol/L Chloride Level 108 mmol/L Carbon Dioxide Level 29 mmol/L Anion Gap 6.0 mmol/L Blood Urea Nitrogen 10 mg/dl Creatinine 0.69 mg/dl Est Creatinine Clear Calc Drug Dose 66.9 ml/min Estimated GFR () 108.1 Estimated GFR (Non- 93.3 BUN/Creatinine Ratio 14.8 Random Glucose 152 mg/dl Calcium Level 8.0 mg/dl Total Bilirubin 0.3 mg/dl Aspartate Amino Transf (AST/SGOT) 17 U/L Alanine Aminotransferase (ALT/SGPT) 18 U/L Alkaline Phosphatase 74 U/L Total Protein 5.2 gm/dl Albumin 2.8 gm/dl Globulin 2.4 gm/dl Albumin/Globulin Ratio 1.2 Test 12/10/16 16:54 Bedside Glucose 160 mg/dl Assessment and Plan Acute respiratory failure with hypoxia and hypercapnia/bilateral lower lobe pneumonia/septic shock-- Admitted to the ICU. Started on levophed in the ED, tapered off on 12/09 Cont on ertapenem at time in addition to continuation of vanc Improving at this time Transfer to [facility] Solu-Medrol 60 mg IV every 6 hours, may be able to taper soon Xopenex/Atrovent high flow nebulizer every 6 hours while awake and every 2 hours when necessary. ECHO EF 55-60%, no WMA Continue Daliresp 500 g by mouth daily Abd pain, Gallbladder US suspicious for acute caro, HIDA determined this to be unlikely. Gen surg consulted, no intervention at this time 3 Left upper lobe irregular densities with largest measuring 14 mm-- Differential is scarring, inflammatory/infectious change, or possibly primary bronchogenic neoplasm. She usually follows with in [place], and care in this regard may be coordinated with him. Left sided subclavian steal--noted on CT. 1.2 cm saccular aneurysm along the lateral aspect of aortic arch--noted on CT. Depression-- Buspirone 5 mg by mouth twice a day. Mirtazapine 45 mg by mouth at bedtime. Fluoxetine 30 mg by mouth daily. Risperdal 1 mg by mouth at bedtime. Hyperlipidemia-- Continue simvastatin 40 mg by mouth daily. Iron deficiency-- Continue ferrous sulfate 325 mg by mouth twice a day.
[2016-12-10] MEDS: MIRTAZAPINE TAB 15 MG TAB PO SCH (20:52)
[2016-12-10] MEDS: RISPERIDONE 1 MG TAB PO SCH (20:52)
[2016-12-10] MEDS ORDERED: VANCOMYCIN TROUGH SCH (21:30)
[2016-12-10] MEDS: ACETAMINOPHEN 325 MG TAB PO PRN (23:22)
[2016-12-11] VITALS (15 sets, daily range): BP systolic 89–135; BP diastolic 54–67; PULSE 67–99; TEMP 36.4–36.7; O2SAT 90–99
[2016-12-11] MEDS: OXYCODONE/ACETAMINOPHEN 5-325 TAB PO PRN ×5 (00:50→20:09)
[2016-12-11] MEDS: IPRATROPIUM BROMIDE NEB SOLN 0.02% 2.5 ML VIAL INH SCH ×5 (01:35→19:39)
[2016-12-11] MEDS: LEVALBUTEROL 1.25MG/0.5ML NEB INH SCH ×5 (01:36→19:39)
[2016-12-11] MEDS: METHYLPREDNISOLONE IV 60 MG in SYRINGE 0 ML IV SCH ×2 (05:13→20:49)
[2016-12-11] MEDS: BUDESONIDE/FORMOTEROL FUMARATE 160/4.5 60 PUFFS/INHALER INH SCH ×2 (08:58→20:48)
[2016-12-11] MEDS: FERROUS SULFATE 325 MG TAB PO SCH ×2 (08:58→17:58)
[2016-12-11] MEDS: ROFLUMILAST 500 MCG TAB PO SCH (08:58)
[2016-12-11] MEDS: PAROXETINE 30 MG TAB PO SCH (08:58)
[2016-12-11] MEDS: FoLIC ACID TAB 400 MCG TAB PO SCH (08:59)
[2016-12-11] MEDS: ATORVASTATIN 40 MG TAB PO SCH (08:59)
[2016-12-11] MEDS: PANTOprazole SOD 40 MG TAB PO SCH (08:59)
[2016-12-11] MEDS: GUAIFENESIN 600 MG TABCR PO SCH ×2 (08:59→20:51)
[2016-12-11] MEDS: ENOXAPARIN 40 MG/0.4 ML SYR SQ SCH (09:00)
[2016-12-11] MEDS: INSULIN ASPART 100 UNITS/ML 3 ML PEN SC SCH ×4 (09:05→20:52)
[2016-12-11] MEDS: DOXYCYCLINE IV 100 MG in DEXTROSE 5% 100ML 100 ML IV SCH ×2 (09:06→20:49)
--- NOTE | 2016-12-11 11:04 | DIAGNOSTIC IMAGING REPORT ---
CHEST ONE VIEW PORTABLE HISTORY: 61 years-old Female shortness of breath acute shortness of breath with respiratory failure. COMPARISON: Chest radiograph 12/08/2016 TECHNIQUE: Portable upright AP view of the chest FINDINGS: Cardiac silhouette is within normal limits. Right internal jugular central venous catheter is again seen with distal tip in the region of the mid SVC. There is atherosclerosis of the aorta. There is no pneumothorax. Small right pleural effusion is noted. There are unchanged subsegmental left basilar opacities. Mildly progressive subsegmental right basilar and right perihilar opacities are present. Lungs are mildly hyperinflated. The bones are grossly intact. IMPRESSION: Small right pleural effusion with mildly worsened subsegmental bibasilar opacities suggesting associated atelectasis or pneumonia. The above report was generated using voice recognition software. It may contain grammatical, syntax or spelling errors. Electronically signed by: Wolfgang Terry M.D. 12/11/2016 11:02 AM Dictated Date/Time: 12/11/2016 10:15 AM
[2016-12-11 11:12] LABS: BUN/CREATININE RATIO 13.6 (10-20); CALCIUM 7.6 mg/dl (8.5-10.1); CREATININE 0.74 mg/dl (0.60-1.20); POTASSIUM 3.6 mmol/L (3.5-5.1)
--- NOTE | 2016-12-11 12:22 | Pharmacy Progress Note ---
Pharmacy Abx Dose Short Note Date of Service Dec 11, 2016. Assessment & Plan Assessment 61 year old female receiving vancomycin for treatment of pneumonia/sepsis with significant history of severe COPD and recurrent resp. failure/pna. MRSA swab negative. In ICU received levophed drip on 12/09 but was tapered off and patient transferred out of ICU 12/10. Day # 4 of antimicrobial therapy. PLAN: Vancomycin * Loading dose: Vanc 1250 mg (~25mg/kg) IV X 1 dose then: * Vancomycin 750 mg IV every 14 hours. * Patient's estimated p'kinetic parameters (based on CrCl ~ 63mL/min): * Vd ~ 0.7L/kg Ke ~ 0.057/hr t 1/2 ~ 12.2hr * Goal trough level estimate: between 15 - 20 mcg/mL for respiratory infx. * Trough level has been ordered for: 12/10/16 prior to the 4th maintenance dose Plan Vancomycin * Trough level of 17.6 mcg/mL is therapeutic * Continue dose of 750 mg q14H * Goal trough level 15-20 mcg/mL for respiratory infection * Patients pharmacokinetics Ke 0.059, T1/2~11.75 hours * Trough level ordered for 12/13 @ 0530 Ertapenem 1gm IV q24h Doxycycline 100mg IV q12h (day #6) patient rec'd Ceftriaxone 1gm IV daily 12/06-12/07 Pharmacy will continue to follow and will adjust dose/frequency as necessary. Thank you.
[2016-12-11] MEDS: VANCOMYCIN INJ 750 MG in SODIUM CHLORIDE 0.9% 250ML 250 ML IV SCH (12:24)
[2016-12-11] MEDS: NSS + 20MEQ KCL 1000ML 1,000 ML IV SCH ×2 (12:24→20:48)
[2016-12-11] MEDS: ERTAPENEM IV 1 GM in SODIUM CHLOR 0.9% AD-VAN 50ML 50 ML IV SCH (16:09)
--- NOTE | 2016-12-11 16:41 | Progress Note ---
Subjective Date of Service: Dec 11, 2016. Subjective Pt evaluation today including: conversation w/ patient, physical exam, chart review, lab review, review of studies, conversation w/ network security consultant, review of inpatient medication list Pt reports continued chest pain and abd pain Hypotensive with ambulation Mild distress noted Problem List Medical Problems: (1) COPD exacerbation Status: Acute (2) Hypoxia Status: Acute Review of Systems Constitutional: + weakness, + fatigue, No fever, No chills, No sweats, No weight loss Eyes: No worsening of vision, No eye pain, No redness, No discharge Respiratory: No cough, No sputum, No wheezing Cardiac: + chest pain, No orthopnea, No PND, No edema Abdomen: No pain, No nausea, No vomiting, No diarrhea, No constipation Musculoskeletal: No joint pain, No muscle pain, No swelling, No calf pain Female : No dysuria, No urinary frequency, No hematuria, No incontinence Neurologic: No memory loss, No paralysis, No weakness, No numbness/tingling Psychiatric: No depression symptoms, No anhedonism, No anxiety, No insomnia Endo: No fatigue, No excessive thirst Skin: No rash, No itch Objective Vital Signs Date Time Temp Pulse Resp B/P (MAP) Pulse Ox O2 Delivery O2 Flow Rate FiO2 12/11/16 16:17 67 91/61 (71) 12/11/16 15:14 36.4 88 18 89/54 (66) 90 Nasal Cannula 4.0 12/11/16 14:18 89 18 96 Room Air 12/11/16 12:00 99 Nasal Cannula 4.0 12/11/16 10:22 99 Nasal Cannula 4.0 12/11/16 07:48 36.7 87 20 135/66 (89) 99 12/11/16 07:35 85 20 99 Nasal Cannula 4.0 12/11/16 05:10 98 20 98 Nasal Cannula 4.0 12/11/16 04:00 Nasal Cannula 3.0 12/11/16 04:00 36.4 91 20 102/65 (77) 97 Nasal Cannula 3.0 12/11/16 01:36 78 20 97 Nasal Cannula 4.0 12/11/16 00:00 Nasal Cannula 3.0 12/11/16 00:00 36.5 91 18 93/58 (70) 99 3.0 12/10/16 20:18 88 24 96 Nasal Cannula 3.0 12/10/16 20:00 98 Nasal Cannula 3.0 Physical Exam General Appearance: WD/WN, + mild distress Neck: supple, no adenopathy, thyroid normal, no JVD Respiratory/Chest: chest non-tender, + decreased breath sounds, + wheezing Cardiovascular: no edema, no gallop, no JVD Abdomen: normal bowel sounds, non tender, soft, no organomegaly Extremities: normal range of motion, non-tender, normal inspection, no pedal edema Neurologic/Psychiatric: no motor/sensory deficits, alert, normal mood/affect, oriented x 3 Laboratory Results Last 24 Hours Test 12/10/16 16:54 12/10/16 19:56 12/10/16 21:31 12/11/16 05:57 Bedside Glucose 160 mg/dl 101 mg/dl Vancomycin Level Trough 17.6 mcg/ml Troponin I 0.030 ng/ml Test 12/11/16 06:57 12/11/16 10:31 12/11/16 11:01 12/11/16 16:14 Bedside Glucose 160 mg/dl 141 mg/dl 94 mg/dl Sodium Level 141 mmol/L Potassium Level 3.6 mmol/L Chloride Level 109 mmol/L Carbon Dioxide Level 26 mmol/L Anion Gap 6.0 mmol/L Blood Urea Nitrogen 10 mg/dl Creatinine 0.74 mg/dl Est Creatinine Clear Calc Drug Dose 62.4 ml/min Estimated GFR () 100.6 Estimated GFR (Non- 86.8 BUN/Creatinine Ratio 13.6 Random Glucose 159 mg/dl Calcium Level 7.6 mg/dl Assessment and Plan Acute respiratory failure with hypoxia and hypercapnia/bilateral lower lobe pneumonia/septic shock-- Admitted to the ICU. Started on levophed in the ED, tapered off on 12/09 Cont on ertapenem at time in addition to continuation of vanc Transfer to [facility] Solu-Medrol 60 mg IV BID Xopenex/Atrovent high flow nebulizer every 6 hours while awake and every 2 hours when necessary. ECHO EF 55-60%, no WMA Continue Daliresp 500 g by mouth daily Started on nystatin for thrush Pulm consulted for severe COPD, and persistent SOB Poor prognosis Abd pain, Gallbladder US suspicious for acute caro, HIDA determined this to be unlikely. Gen surg consulted, no intervention at this time 3 Left upper lobe irregular densities with largest measuring 14 mm-- Differential is scarring, inflammatory/infectious change, or possibly primary bronchogenic neoplasm. She usually follows with in [place], and care in this regard may be coordinated with him. Left sided subclavian steal--noted on CT. 1.2 cm saccular aneurysm along the lateral aspect of aortic arch--noted on CT. Depression-- Buspirone 5 mg by mouth twice a day. Mirtazapine 45 mg by mouth at bedtime. Fluoxetine 30 mg by mouth daily. Risperdal 1 mg by mouth at bedtime. Hyperlipidemia-- Continue simvastatin 40 mg by mouth daily. Iron deficiency-- Continue ferrous sulfate 325 mg by mouth twice a day.
[2016-12-11] MEDS ORDERED: NYSTATIN SUSP 500,000 U/5 ML UDC PO SCH (17:00)
[2016-12-11 18:37] LABS: 5-HIAA 6.5 mg/24 h (<=6.0)
--- NOTE | 2016-12-11 19:26 | PULMONARY CONSULTATION ---
DATE OF CONSULTATION: 12/11/2016 TIME: 4:05 p.m. HISTORY OF PRESENT ILLNESS: The patient was seen in room 276. She is a 61-year-old female with a longstanding history of severe COPD. She has been following with her regular varnish maker helper, Dr. Canales in [place]. She states she has moved closer to this area and the ambulance people brought her here rather than [place]. A few years ago, she had a 1 month stay in the intensive care unit and was on a ventilator for a period of time. She cannot recall the details of that admission. Her health status has been relatively poor. She does not get out of the house much at all except to go to doctor's appointment. She states she has not been going to a store or anything like that for about a year. She is too weak and too short of breath. She developed chest pain and shortness of breath approximately 1 week before admission. The chest pain was in the sternal region. It was worse with breathing. It would come and go for a while, but she states it is persistent now. No specific cause for the pain has been found. I believe, she has had this pain other times in the past. She states that her regular doctors did not know what it is. The patient wears oxygen 4 liters continuous at home. She is unable to do any significant exertion. She is quite short of breath, but she does not cough much. She does not bring up any sputum. She states she has had mild nausea. She has had no bowel movements for 5 days. As noted, she has been extremely weak. She states she was not able to walk in her house at all for about 4 days before coming to the hospital. Her appetite has markedly diminished. She thinks she has lost about 30 pounds in the past 1 year. The patient has been a long-term smoker. She admits to smoking 1 pack per day and she has smoked approximately 44 years. Alcohol use is denied. The patient states that she was last hospitalized for breathing about a year or two ago. She was not certain. PAST SURGICAL HISTORY: 1. Tonsillectomy. 2. Tubal ligation. 3. Hysterectomy. PAST MEDICAL HISTORY: 1. COPD. 2. Respiratory failure. 3. Hyperlipidemia. 4. Hypertension. 5. Hypothyroidism. 6. Depression. 7. Prior pneumonia. 8. Left subclavian steal syndrome. 9. Congestive heart failure. 10. Mini stroke. 11. Prolonged QTc. 12. Childbirth x3. ALLERGIES: PENICILLIN. FAMILY HISTORY: Mother at age 45, lymphoma. Father at age 58, alcohol induced heart disease. REVIEW OF SYSTEMS: Negative except for the above-mentioned complaints. Ten systems were reviewed. MEDICATIONS AT HOME: 1. Ventolin HFA p.r.n. 2. Nebs with albuterol which she usually takes 2 times per day. 3. Budesonide which she takes only once per day because she states that is all the insurance would pay. 4. Buspirone 5 mg b.i.d. 5. Ferrous sulfate 325 mg b.i.d. 6. Perforomist nebulizer solution once daily - She insists that is all the insurance would pay. 6. O2 4 liters continuous. 7. Mirtazapine 45 mg daily. 8. Paroxetine 30 mg daily. 9. Risperdal 1 mg at bedtime. 10. Roflumilast 500 mcg daily. 11. Simvastatin 40 mg daily. 12. Incruse Ellipta 1 puff daily. PHYSICAL EXAMINATION: GENERAL: The patient is a 61-year-old female who looks much older than her chronologic age. She appears weak and debilitated. She seems short of breath at rest. VITAL SIGNS: Temperature is 36.4. She has not had any fevers since admission. HEENT: Pupils were reactive to light. Nasal cannula is in place. Mouth exam showed some ulceration in the posterior soft palate and she appears to have oral candidiasis. She indicated she has had this in the past. NECK: Palpation of the neck reveals no lymph nodes. She has an internal jugular line on the right side. CHEST: Inspection of the chest reveals an area of ecchymosis in the right anterior chest fairly high up. She states it is from the chest leads that had been placed in that area. Her skin overall is extremely dry. HEART: Heart rate was 88 per minute. Blood pressure is only 89/54. This morning it had been 135/66. LUNGS: Lung crawford revealed musical rhonchi bilaterally posteriorly. Aeration was poor. Respiratory rate was 22 breaths per minute. Saturation was 90% on 4-liter nasal cannula. ABDOMEN: Soft. Bowel sounds were present and were normal. There was no focal tenderness to palpation. No masses were palpable. EXTREMITIES: Showed no cyanosis, clubbing or edema. SKIN: Very dry. IMAGING DATA: Chest x-ray on admission suggested a questionable left upper lobe irregular opacity. Left basilar opacity was noted. A CAT scan of the chest was done on December 06. This revealed emphysema. There was no evidence of pulmonary embolic disease. She had 3 irregular densities in the left upper lobe with the largest measuring 14 mm. She states that Dr. Canales was following these with frequent CAT scans. A 1.2 cm saccular aneurysm along the lateral aspect of the aortic arch was noted. Left subclavian steal was noted. There was partial opacification of the lower lung crawford bilaterally with consolidation suggesting atelectasis or pneumonia. Serial chest x-rays have been done. X-ray from today suggest a small right pleural effusion with mildly worsening subsegmental bibasilar opacities. CAT scan of the abdomen and pelvis showed trace pleural effusions. Cholelithiasis was seen. Sigmoid diverticulosis was seen without diverticulitis. Ultrasound of the gallbladder showed cholelithiasis and gallbladder sludge. Renal cysts were noted. HIDA scan did not show evidence of acute cholecystitis. EKG done on December 08 reported sinus rhythm with supraventricular premature contractions. Nonspecific ST and T-wave changes were seen. These have replaced the inverted T waves seen on a prior EKG. The EKG done on December 07 had shown prominent T-wave inversions in V1, V2, V3, V4 and V5. Anterior ischemia was suspected. Echocardiogram was done. This showed an ejection fraction of 55-60%. There was a large echo-dense mass involving the right atrial aspect of the interatrial septum. This was felt to be secondary to a lipomatous hypertrophy and less likely myxoma or thrombus. LABORATORY DATA: White count today is 7.05. This is similar to admission. Hemoglobin is 9.2. Platelets are 146,000. Urinalysis on admission was unremarkable. Blood gas arterially done on 12/06/2016 showed a pH of 7.38 with a pCO2 of 53 and a pO2 of 236 on 40% oxygen. Electrolytes show sodium 141, potassium 3.6, chloride 109, bicarbonate 26. BUN was 10 with a creatinine of 0.74. Blood sugar today was 159. Flu test was negative. Mycoplasma IgG was 1.48, which would be positive. This does not differentiate between acute and chronic infection; however. IgM. was normal. Blood cultures have been negative. IMPRESSION: 1. Respiratory failure - acute on chronic - with hypoxia and hypercarbia. 2. Chronic obstructive pulmonary disease exacerbation. 3. Emphysema. 4. Left upper lobe irregular densities x3 - etiology uncertain for oral candidiasis. 5. Bibasilar opacities - possible pneumonia. COMMENTS AND RECOMMENDATIONS: The patient's overall status seems poor. I believe many of her symptoms are chronic, but they have been worsened. She has a problem at home that she seemingly cannot get her nebulizer solutions in proper dosages. The Perforomist if continued, should be twice per day. She is not getting that here. She is getting Symbicort. However, she appears to have developed some thrush. I would treat the thrush with nystatin. She is still on methylprednisolone 60 mg b.i.d. She does not really seem well enough to taper it below that for right now. She is receiving vancomycin and ertapenem and I have no objections to them. She is on pantoprazole for any contributory reflux symptoms. She is still on doxycycline in addition to the other antibiotics. The patient's status seems very poor. I believe upon discharge, she will need some type of placement at least temporarily. Obviously, the patient needs to totally abstain from smoking. Clearly, she does not seem like she is going to do that considering she has already been on a ventilator and still continues to smoke a pack per day. We did speak about the need to totally abstain from smoking. Thank you for asking me to assist in her care. MAYA
[2016-12-11] MEDS: NYSTATIN SUSP 500,000 U/5 ML UDC PO SCH ×2 (20:09→23:32)
[2016-12-11] MEDS: MIRTAZAPINE TAB 15 MG TAB PO SCH (20:50)
[2016-12-11] MEDS: RISPERIDONE 1 MG TAB PO SCH (20:50)
[2016-12-12] VITALS (13 sets, daily range): BP systolic 90–130; BP diastolic 59–86; PULSE 72–99; TEMP 36.4–36.6; O2SAT 94–100
[2016-12-12] MEDS: OXYCODONE/ACETAMINOPHEN 5-325 TAB PO PRN ×6 (00:16→20:16)
[2016-12-12] MEDS: IPRATROPIUM BROMIDE NEB SOLN 0.02% 2.5 ML VIAL INH SCH ×5 (01:48→19:49)
[2016-12-12] MEDS: LEVALBUTEROL 1.25MG/0.5ML NEB INH SCH ×5 (01:48→19:49)
[2016-12-12] MEDS: VANCOMYCIN INJ 750 MG in SODIUM CHLORIDE 0.9% 250ML 250 ML IV SCH ×2 (02:17→16:37)
[2016-12-12 05:58] LABS: HEMATOCRIT 26.4 % (37-47); MEAN CELL VOLUME 106.5 fL (80-100); MEAN CORPUSCULAR HEMOGLOBIN 34.3 pg (25-34); MEAN CORPUSCULAR HGB CONC 32.2 g/dl (32-36); MEAN PLATELET VOLUME 10.7 fL (7.4-10.4); PLATELET COUNT 142 K/uL (130-400); RED BLOOD COUNT 2.48 M/uL (4.2-5.4)
[2016-12-12 06:24] LABS: CREATININE 0.66 mg/dl (0.60-1.20)
[2016-12-12] MEDS: NSS + 20MEQ KCL 1000ML 1,000 ML IV SCH ×2 (06:44→16:38)
[2016-12-12] MEDS: DOXYCYCLINE IV 100 MG in DEXTROSE 5% 100ML 100 ML IV SCH ×2 (07:55→21:18)
[2016-12-12] MEDS: METHYLPREDNISOLONE IV 60 MG in SYRINGE 0 ML IV SCH ×2 (07:56→21:01)
[2016-12-12] MEDS: ROFLUMILAST 500 MCG TAB PO SCH (07:56)
[2016-12-12] MEDS: BUDESONIDE/FORMOTEROL FUMARATE 160/4.5 60 PUFFS/INHALER INH SCH ×2 (07:56→21:01)
[2016-12-12] MEDS: NYSTATIN SUSP 500,000 U/5 ML UDC PO SCH ×4 (07:56→21:02)
[2016-12-12] MEDS: FERROUS SULFATE 325 MG TAB PO SCH ×2 (07:57→16:39)
[2016-12-12] MEDS: PAROXETINE 30 MG TAB PO SCH (07:57)
[2016-12-12] MEDS: ENOXAPARIN 30 MG/0.3 ML SYR SQ SCH (07:59)
[2016-12-12] MEDS: FoLIC ACID TAB 400 MCG TAB PO SCH (08:49)
[2016-12-12] MEDS: PANTOprazole SOD 40 MG TAB PO SCH (08:49)
[2016-12-12] MEDS: ATORVASTATIN 40 MG TAB PO SCH (08:50)
[2016-12-12] MEDS: GUAIFENESIN 600 MG TABCR PO SCH ×2 (08:50→21:04)
[2016-12-12] MEDS: INSULIN ASPART 100 UNITS/ML 3 ML PEN SC SCH ×4 (08:53→21:00)
--- NOTE | 2016-12-12 13:15 | Progress Note ---
Subjective Date of Service: Dec 12, 2016. Subjective Pt evaluation today including: conversation w/ patient, physical exam, chart review, lab review, review of studies, review of inpatient medication list Tremulous in bed States chest pain slightly improved No other concerns per pt Problem List Medical Problems: (1) COPD exacerbation Status: Acute (2) Hypoxia Status: Acute Review of Systems Constitutional: No fever, No chills, No sweats, No weight loss, No weakness Eyes: No worsening of vision, No eye pain, No redness, No discharge Respiratory: + dyspnea on exertion, No cough, No sputum, No wheezing, No shortness of breath Cardiac: + chest pain, No orthopnea, No PND, No edema Abdomen: No pain, No nausea, No vomiting, No diarrhea, No constipation Musculoskeletal: + joint pain, No muscle pain, No swelling, No calf pain Female : No dysuria, No urinary frequency, No hematuria, No incontinence Neurologic: No memory loss, No paralysis, No weakness, No numbness/tingling Psychiatric: No depression symptoms, No anhedonism, No anxiety, No insomnia Endo: No fatigue, No excessive thirst Skin: No rash, No itch Objective Vital Signs Date Time Temp Pulse Resp B/P (MAP) Pulse Ox O2 Delivery O2 Flow Rate FiO2 12/12/16 11:37 36.5 96 22 130/86 (101) 99 5.0 12/12/16 07:40 81 18 98 Nasal Cannula 4.0 12/12/16 07:11 36.6 86 18 115/76 (89) 100 4.0 12/12/16 04:31 36.5 99 18 108/73 (85) 96 Nasal Cannula 4.0 12/12/16 04:00 97 Nasal Cannula 4.0 12/12/16 01:48 99 14 99 Nasal Cannula 4.0 12/12/16 00:00 97 Nasal Cannula 4.0 12/11/16 23:43 36.5 98 18 97/65 (76) 97 Nasal Cannula 4.0 12/11/16 20:51 36.6 99 18 100/67 (78) 98 Nasal Cannula 4.0 12/11/16 20:00 Nasal Cannula 4.0 12/11/16 19:40 76 14 96 Nasal Cannula 4.0 12/11/16 16:17 67 91/61 (71) 12/11/16 16:00 90 Nasal Cannula 4.0 12/11/16 15:14 36.4 88 18 89/54 (66) 90 Nasal Cannula 4.0 12/11/16 14:18 89 18 96 Room Air Physical Exam General Appearance: WD/WN, + mild distress Eyes: PERRL, EOMI Neck: supple, no adenopathy, thyroid normal, no JVD Respiratory/Chest: chest non-tender, no respiratory distress, no accessory muscle use, + decreased breath sounds Cardiovascular: no edema, no gallop, no JVD, no murmur Abdomen: normal bowel sounds, non tender, soft, no organomegaly Extremities: normal range of motion, non-tender, normal inspection, no pedal edema Neurologic/Psychiatric: no motor/sensory deficits, alert, normal mood/affect, oriented x 3 Laboratory Results Last 24 Hours Test 12/11/16 16:14 12/11/16 20:12 12/12/16 05:20 12/12/16 07:23 Bedside Glucose 94 mg/dl 72 mg/dl 117 mg/dl White Blood Count 8.50 K/uL Red Blood Count 2.48 M/uL Hemoglobin 8.5 g/dL Hematocrit 26.4 % Mean Corpuscular Volume 106.5 fL Mean Corpuscular Hemoglobin 34.3 pg Mean Corpuscular Hemoglobin Concent 32.2 g/dl RDW Standard Deviation 71.9 fL RDW Coefficient of Variation 18.6 % Platelet Count 142 K/uL Mean Platelet Volume 10.7 fL Nucleated RBC Absolute Count (auto) 0.05 K/uL Nucleated Red Blood Cells % 0.5 % Creatinine 0.66 mg/dl Est Creatinine Clear Calc Drug Dose 69.9 ml/min Estimated GFR () 109.7 Estimated GFR (Non- 94.7 Test 12/12/16 11:20 Bedside Glucose 149 mg/dl Assessment and Plan Acute respiratory failure with hypoxia and hypercapnia/bilateral lower lobe pneumonia/septic shock-- Admitted to the ICU. Started on levophed in the ED, tapered off on 12/09 Cont on ertapenem at time in addition to continuation of vanc Transfer to [facility] Solu-Medrol 60 mg IV BID Xopenex/Atrovent high flow nebulizer every 6 hours while awake and every 2 hours when necessary. ECHO EF 55-60%, no WMA Continue Daliresp 500 g by mouth daily Started on nystatin for thrush Pulm consulted for severe COPD, and persistent SOB, likely progressing chronic issues Poor prognosis, PT/OT, likely will need SNF Abd pain, Gallbladder US suspicious for acute caro, STEVENA determined this to be unlikely. Gen surg consulted, no intervention at this time 3 Left upper lobe irregular densities with largest measuring 14 mm-- Differential is scarring, inflammatory/infectious change, or possibly primary bronchogenic neoplasm. She usually follows with in [place], and care in this regard may be coordinated with him. Left sided subclavian steal--noted on CT. 1.2 cm saccular aneurysm along the lateral aspect of aortic arch--noted on CT. Depression-- Buspirone 5 mg by mouth twice a day. Mirtazapine 45 mg by mouth at bedtime. Fluoxetine 30 mg by mouth daily. Risperdal 1 mg by mouth at bedtime. Hyperlipidemia-- Continue simvastatin 40 mg by mouth daily. Iron deficiency-- Continue ferrous sulfate 325 mg by mouth twice a day.
[2016-12-12] MEDS: ERTAPENEM IV 1 GM in SODIUM CHLOR 0.9% AD-VAN 50ML 50 ML IV SCH (16:37)
--- NOTE | 2016-12-12 17:06 | Pulmonology Progress Note ---
Pulmonary Progress Note Date of Service Dec 12, 2016. Attending Dr. Fonseca Subjective The patient notes her respiratory status is stable with no acute change in last 24 hours but still notes intermittent shortness of breath and chest pain: Objective Patient is able to speak to me but did become tachypneic during our conversation and did note chest pain which by history/clinically with suggestive of costochondritis/pleurisy: VS: I/O: +4.3L RR: 14-22 SaO2: 96-100% FiO2: 4-5L RESP: Decreased breath sounds bilaterally at the bases clear to auscultation at the apices/pain with palpation to the right sternum inferior costochondral region CARD: S1-S2 distant heart sounds unable to auscultate for murmurs rubs or gallops ABD: Positive bowel sounds soft no rebound noted EXT: 1+ pitting edema in the dependent regions Labs: WBC: 9K PLT: 142K Radiology: Chest x-ray 12/11/2016: Shows progressive right upper right lower lobe infiltrative pattern CT a 12/06/2016: No pulmonary emboli, emphysematous changes, 3 left upper lobe nodules largest 14 mm 1.2 saccular aneurysm along the lateral aspect of the aortic arch Bilateral lower lobe posterior subsegment bronchiectasis Pulmonary Medications: 1. Lovenox 30 mg subcu daily 2. Methylprednisolone 60 mg b.i.d. 3. Nystatin 5 mm 4 times daily (total of 10 days) 4. Vancomycin 7. Ertrapenem 8. Pantoprazole 9. Symbicort 160/4.52 puffs b.i.d. 10. Daliresp 500 mcg daily 11. Mucinex 600 mg p.o. b.i.d. 12. Xopenex/Atrovent nebulizers Q 6 13. Doxycycline 100 mg b.i.d. Assessment & Plan 61-year-old female with severe COPD admitted with acute on chronic respiratory insufficiency: 1. COPD: Patient is currently being treated with methylprednisolone 60 mg b.i.d. of continue at this time and if stable will slowly taper, Symbicort, Daliresp Mucinex and Xopenex/Atrovent nebulizer. At this time the patient is COPD does seem to be stable and she should continue on his current regimen as will slowly taper down her steroids. 2. Id: Patient currently treated with nystatin for oral thrush will require 10 day course, she is also on IV antibiotics with vancomycin and ertapenem. The patient is clinically improving at this time so I do not suggest we change her current antibiotic regimen but if she does note decompensation we are not covering for Pseudomonas and would add a pseudomonal antibiotic at that time. 3. Pulmonary nodules: Patient does have 3 left upper lobe spiculated nodules which per the records have been followed by her tower foreman in [place] Dr. Canales. 4. Tobacco: Per the records patient continues to smoke tobacco and is not interested in discontinuing. Today she was not interested in having this conversation with me. 5. Discharge: At the time of discharge patient will require 1-2 week follow-up with her primary tower foreman down in [place] Dr. Canales. Data Medications: Current Inpatient Medications Medications (Trade) Dose Ordered Sig/Marcus Route Start Time Stop Time Status Last Admin Dose Admin Potassium Chloride/Sodium Chloride 1,000 ml @ 100 mls/hr Q10H IV 12/06/16 19:00 01/05/17 18:59 12/12/16 16:38 100 MLS/HR Acetaminophen (Tylenol Tab) 650 mg Q4H PRN PO 12/06/16 15:45 01/05/17 15:44 12/10/16 23:22 650 MG Buspirone HCl (Buspar Tab) 5 mg BID PO 12/06/16 21:00 01/05/17 20:59 12/12/16 07:56 5 MG Paroxetine HCl (pAXil) 30 mg DAILY PO 12/07/16 09:00 01/06/17 08:59 12/12/16 07:57 30 MG Risperidone (Risperdal Tab) 1 mg HS PO 12/06/16 21:00 01/05/17 20:59 12/11/16 20:50 1 MG Roflumilast (Daliresp Tab) 500 mcg DAILY PO 12/07/16 09:00 01/06/17 08:59 12/12/16 07:56 500 MCG Ferrous Sulfate (Feosol Tab) 325 mg BIDM PO 12/06/16 18:00 01/05/17 17:59 12/12/16 16:39 325 MG Mirtazapine (Remeron Tab) 45 mg HS PO 12/06/16 21:00 01/05/17 20:59 12/11/16 20:50 45 MG Guaifenesin (Mucinex Contr Rel Tab) 600 mg BID PO 12/06/16 21:00 01/05/17 20:59 12/12/16 08:50 600 MG Glucose (Glucose 40% Gel) UD PRN PO 12/06/16 15:45 01/05/17 15:44 Glucose (Glucose Chew Tab) 1 tabs UD PRN PO 12/06/16 15:45 01/05/17 15:44 Dextrose (Dextrose 50% 50ML Syringe) 50 ml UD PRN IV 12/06/16 15:45 01/05/17 15:44 Glucagon (Glucagon Inj) 1 mg UD PRN SQ 12/06/16 15:45 01/05/17 15:44 Ipratropium Tyler (Atrovent 0.02% 0.5MG/2.5ML Neb) 0.5 mg Q6R INH 12/06/16 21:00 01/05/17 20:59 12/12/16 16:29 0.5 MG Levalbuterol (Xopenex 1.25MG/ 0.5ML Neb) 1.25 mg Q6R INH 12/06/16 21:00 01/05/17 20:59 12/12/16 16:29 1.25 MG Norepinephrine Bitartrate 8 mg/ Dextrose 500 ml @ 0 mls/hr Q0M PRN IV 12/06/16 16:30 01/05/17 16:29 12/07/16 04:57 47.3 MLS/HR Doxycycline Hyclate 100 mg/ Dextrose 110 ml @ 50 mls/hr BID IV 12/06/16 21:00 12/13/16 20:59 12/12/16 07:55 50 MLS/HR Atorvastatin Calcium (Lipitor Tab) 80 mg QAM PO 12/07/16 09:00 01/06/17 08:59 12/12/16 08:50 80 MG Budesonide/ Formoterol Fumarate (Symbicort 160/ 4.5 Inh) 2 puffs BID INH 12/07/16 21:00 01/06/17 20:59 12/12/16 07:56 2 PUFFS Pantoprazole Sodium (Protonix Tab) 40 mg QAM PO 12/08/16 09:00 01/07/17 08:59 12/12/16 08:49 40 MG Insulin Aspart (novoLOG ASPART) SLIDING SCALE G... ACHS SC 12/07/16 21:00 01/06/17 20:59 12/12/16 12:57 3 UNITS Ertapenem 1 gm/ Sodium Chloride 50 ml @ 120 mls/hr Q24H IV 12/08/16 16:00 12/15/16 15:59 12/12/16 16:37 120 MLS/HR Vancomycin HCl (Consult) 1 ea UD PRN N/A 12/08/16 14:45 01/07/17 14:44 Vancomycin HCl 750 mg/Sodium Chloride 265 ml @ 125 mls/hr Q14H IV 12/09/16 04:00 12/16/16 03:59 12/12/16 16:37 125 MLS/HR Heparin Sodium (Porcine) (Heparin 10 Unit/ ml 5 ml Flush) 5 ml PRN PRN FLUSH 12/09/16 00:15 01/08/17 00:14 12/12/16 05:18 10 ML Folic Acid (Folvite Tab) 400 mcg QAM PO 12/09/16 09:00 01/08/17 08:59 12/12/16 08:49 400 MCG Oxycodone/ Acetaminophen (Percocet 5-325mg Tab) 1 tab Q4H PRN PO 12/10/16 09:00 12/24/16 08:59 12/12/16 16:38 1 TAB Methylprednisolone Sodium Succinate 60 mg/Syringe 0.96 ml @ 1.5 mls/min BID IV 12/11/16 21:00 01/05/17 19:59 12/12/16 07:56 1.5 MLS/MIN Enoxaparin Sodium (Lovenox Inj) 30 mg QAM SQ 12/12/16 09:00 01/11/17 08:59 12/12/16 07:59 30 MG Nystatin (Mycostatin Susp) 5 ml QID PO 12/11/16 19:00 12/21/16 18:59 12/12/16 16:38 5 ML I & O: 24-Hour Column 12/13/16 08:00 Intake Total 1097 ml Output Total 650 ml Balance 447 ml Vital Signs: Date Time Temp Pulse Resp B/P (MAP) Pulse Ox O2 Delivery O2 Flow Rate FiO2 12/12/16 16:30 72 18 96 Nasal Cannula 4.0 12/12/16 15:40 36.4 96 20 115/65 (82) 98 4.0 12/12/16 14:27 85 18 97 Nasal Cannula 4.0 12/12/16 12:00 Nasal Cannula 4.0 12/12/16 11:37 36.5 96 22 130/86 (101) 99 5.0 12/12/16 08:00 Nasal Cannula 4.0 12/12/16 07:40 81 18 98 Nasal Cannula 4.0 12/12/16 07:11 36.6 86 18 115/76 (89) 100 4.0 12/12/16 04:31 36.5 99 18 108/73 (85) 96 Nasal Cannula 4.0 12/12/16 04:00 97 Nasal Cannula 4.0 12/12/16 01:48 99 14 99 Nasal Cannula 4.0 12/12/16 00:00 97 Nasal Cannula 4.0 12/11/16 23:43 36.5 98 18 97/65 (76) 97 Nasal Cannula 4.0 12/11/16 20:51 36.6 99 18 100/67 (78) 98 Nasal Cannula 4.0 12/11/16 20:00 Nasal Cannula 4.0 12/11/16 19:40 76 14 96 Nasal Cannula 4.0 Laboratory Results: Last 24 Hours Test 12/11/16 20:12 12/12/16 05:20 12/12/16 07:23 12/12/16 11:20 Bedside Glucose 72 mg/dl 117 mg/dl 149 mg/dl White Blood Count 8.50 K/uL Red Blood Count 2.48 M/uL Hemoglobin 8.5 g/dL Hematocrit 26.4 % Mean Corpuscular Volume 106.5 fL Mean Corpuscular Hemoglobin 34.3 pg Mean Corpuscular Hemoglobin Concent 32.2 g/dl RDW Standard Deviation 71.9 fL RDW Coefficient of Variation 18.6 % Platelet Count 142 K/uL Mean Platelet Volume 10.7 fL Nucleated RBC Absolute Count (auto) 0.05 K/uL Nucleated Red Blood Cells % 0.5 % Creatinine 0.66 mg/dl Est Creatinine Clear Calc Drug Dose 69.9 ml/min Estimated GFR () 109.7 Estimated GFR (Non- 94.7 Test 12/12/16 16:31 Bedside Glucose 111 mg/dl
[2016-12-12] MEDS: RISPERIDONE 1 MG TAB PO SCH (21:02)
[2016-12-12] MEDS: MIRTAZAPINE TAB 15 MG TAB PO SCH (21:02)
[2016-12-13] VITALS (9 sets, daily range): BP systolic 82–127; BP diastolic 50–73; PULSE 81–99; TEMP 36.4–36.8; O2SAT 85–100
[2016-12-13] MEDS: OXYCODONE/ACETAMINOPHEN 5-325 TAB PO PRN ×6 (00:12→21:29)
[2016-12-13] MEDS: LEVALBUTEROL 1.25MG/0.5ML NEB INH SCH ×4 (02:16→20:12)
[2016-12-13] MEDS: IPRATROPIUM BROMIDE NEB SOLN 0.02% 2.5 ML VIAL INH SCH ×4 (02:16→20:12)
[2016-12-13] MEDS: NSS + 20MEQ KCL 1000ML 1,000 ML IV SCH ×3 (03:26→22:47)
[2016-12-13] MEDS ORDERED: VANCOMYCIN TROUGH ONE (05:30)
[2016-12-13] MEDS: VANCOMYCIN INJ 750 MG in SODIUM CHLORIDE 0.9% 250ML 250 ML IV SCH ×2 (06:44→21:37)
[2016-12-13] MEDS: METHYLPREDNISOLONE IV 60 MG in SYRINGE 0 ML IV SCH ×2 (08:04→21:28)
[2016-12-13] MEDS: FERROUS SULFATE 325 MG TAB PO SCH ×2 (08:04→17:06)
[2016-12-13] MEDS: ROFLUMILAST 500 MCG TAB PO SCH (08:04)
[2016-12-13] MEDS: NYSTATIN SUSP 500,000 U/5 ML UDC PO SCH ×4 (08:04→21:29)
[2016-12-13] MEDS: ATORVASTATIN 40 MG TAB PO SCH (08:04)
[2016-12-13] MEDS: FoLIC ACID TAB 400 MCG TAB PO SCH (08:05)
[2016-12-13] MEDS: GUAIFENESIN 600 MG TABCR PO SCH ×2 (08:05→21:30)
[2016-12-13] MEDS: BUDESONIDE/FORMOTEROL FUMARATE 160/4.5 60 PUFFS/INHALER INH SCH ×2 (08:05→21:29)
[2016-12-13] MEDS: PANTOprazole SOD 40 MG TAB PO SCH (08:05)
[2016-12-13] MEDS: ENOXAPARIN 30 MG/0.3 ML SYR SQ SCH (08:05)
[2016-12-13] MEDS: PAROXETINE 30 MG TAB PO SCH (08:06)
[2016-12-13] MEDS: INSULIN ASPART 100 UNITS/ML 3 ML PEN SC SCH ×4 (08:12→21:32)
[2016-12-13] MEDS: DOXYCYCLINE IV 100 MG in DEXTROSE 5% 100ML 100 ML IV SCH (08:19)
--- NOTE | 2016-12-13 08:56 | Pharmacy Progress Note ---
Pharmacy Abx Dose Short Note Date of Service Dec 13, 2016. Assessment & Plan 61 year old female receiving vancomycin for treatment of pneumonia/sepsis with significant history of severe COPD and recurrent resp. failure/pna. MRSA swab negative. In ICU received levophed drip on 12/09 but was tapered off and patient transferred out of ICU 12/10. Day # 6 of antimicrobial therapy. Per physician notes- plan to keep current antibiotics as patient showing some improvements- add pseudomonal coverage if worsens Vancomycin * Trough level of 20.0 mcg/mL is therapeutic * Will adjust interval slightly as trough at upper limit * Change to 750 mg q16H * Goal trough level 15-20 mcg/mL * Trough ordered for 12/15 @ 2130 Ertapenem 1gm IV q24h Doxycycline 100mg IV q12h (day #8) patient rec'd Ceftriaxone 1gm IV daily 12/06-12/07 Pharmacy will continue to follow and will adjust dose/frequency as necessary. Thank you
--- NOTE | 2016-12-13 15:16 | Progress Note ---
Subjective Date of Service: Dec 13, 2016. Subjective Pt evaluation today including: conversation w/ patient, physical exam, chart review, lab review, review of studies, review of inpatient medication list Laying in bed States feeling weak Did not tolerate PT Still complaining of generalized chest pain No acute events overnight Problem List Medical Problems: (1) COPD exacerbation Status: Acute (2) Hypoxia Status: Acute Review of Systems Constitutional: No fever, No chills, No sweats, No weight loss Respiratory: No cough, No sputum, No wheezing, No shortness of breath, No dyspnea on exertion Cardiac: + chest pain, No orthopnea, No PND, No edema, No claudication Abdomen: No pain, No nausea, No vomiting, No diarrhea, No constipation Musculoskeletal: No joint pain, No muscle pain, No swelling, No calf pain Female : No dysuria, No urinary frequency, No hematuria, No incontinence Neurologic: No memory loss, No paralysis, No weakness, No numbness/tingling Psychiatric: No depression symptoms, No anhedonism, No anxiety, No insomnia Endo: No fatigue, No excessive thirst Skin: No rash, No itch Objective Vital Signs Date Time Temp Pulse Resp B/P (MAP) Pulse Ox O2 Delivery O2 Flow Rate FiO2 12/13/16 14:54 36.6 90 18 106/73 (84) 99 4.0 12/13/16 14:10 81 18 98 Nasal Cannula 4.0 12/13/16 12:00 Room Air 4.0 12/13/16 11:17 36.6 99 20 103/66 (78) 100 4.0 12/13/16 08:00 Room Air 4.0 12/13/16 07:12 36.5 91 18 122/70 (87) 90 4.0 12/13/16 07:10 81 18 85 Room Air 12/13/16 04:48 36.6 88 18 127/68 (87) 100 Nasal Cannula 4.0 12/13/16 04:00 Nasal Cannula 4.0 12/13/16 00:00 Nasal Cannula 4.0 12/12/16 22:56 36.5 98 18 90/59 (69) 94 4.0 12/12/16 20:00 Nasal Cannula 4.0 12/12/16 19:49 90 18 97 Nasal Cannula 4.0 12/12/16 19:06 36.4 99 20 100/73 (82) 97 Nasal Cannula 4.0 12/12/16 16:30 72 18 96 Nasal Cannula 4.0 12/12/16 16:00 Nasal Cannula 4.0 12/12/16 15:40 36.4 96 20 115/65 (82) 98 4.0 Physical Exam General Appearance: WD/WN, no apparent distress Eyes: normal inspection, PERRL, EOMI, sclerae normal Neck: supple, no adenopathy, thyroid normal, no JVD Respiratory/Chest: chest non-tender, + decreased breath sounds Cardiovascular: no edema, no gallop, no JVD, no murmur, + tachycardia Abdomen: normal bowel sounds, non tender, soft, no organomegaly Neurologic/Psychiatric: no motor/sensory deficits, alert, normal mood/affect, oriented x 3 Skin: normal color, warm/dry, no rash Lymphatic: no adenopathy Laboratory Results Last 24 Hours Test 12/12/16 16:31 12/12/16 19:49 12/13/16 05:37 12/13/16 07:02 Bedside Glucose 111 mg/dl 101 mg/dl 104 mg/dl Vancomycin Level Trough 20.0 mcg/ml Test 12/13/16 11:23 Bedside Glucose 126 mg/dl Assessment and Plan Acute respiratory failure with hypoxia and hypercapnia/bilateral lower lobe pneumonia/septic shock-- Admitted to the ICU. Started on levophed in the ED, tapered off on 12/09 Cont ertapenem and vancomycin Transfer to [facility] Solu-Medrol 60 mg IV BID Xopenex/Atrovent high flow nebulizer every 6 hours while awake and every 2 hours when necessary. ECHO EF 55-60%, no WMA Continue Daliresp 500 g by mouth daily Started on nystatin for thrush Pulm consulted for severe COPD, and persistent SOB, likely progressing chronic issues Poor prognosis, PT/OT, likely will need SNF, pt agreeable to this Abd pain, Gallbladder US suspicious for acute caro, HIDA determined this to be unlikely. Gen surg consulted, no intervention at this time 3 Left upper lobe irregular densities with largest measuring 14 mm-- Differential is scarring, inflammatory/infectious change, or possibly primary bronchogenic neoplasm. She usually follows with in [place], and care in this regard may be coordinated with him. Left sided subclavian steal--noted on CT. 1.2 cm saccular aneurysm along the lateral aspect of aortic arch--noted on CT. Depression-- Buspirone 5 mg by mouth twice a day. Mirtazapine 45 mg by mouth at bedtime. Fluoxetine 30 mg by mouth daily. Risperdal 1 mg by mouth at bedtime. Hyperlipidemia-- Continue simvastatin 40 mg by mouth daily. Iron deficiency-- Continue ferrous sulfate 325 mg by mouth twice a day.
[2016-12-13] MEDS: ERTAPENEM IV 1 GM in SODIUM CHLOR 0.9% AD-VAN 50ML 50 ML IV SCH (15:48)
[2016-12-13] MEDS: MIRTAZAPINE TAB 15 MG TAB PO SCH (21:29)
[2016-12-13] MEDS: RISPERIDONE 1 MG TAB PO SCH (21:31)
[2016-12-14] VITALS (17 sets, daily range): BP systolic 73–134; BP diastolic 45–71; PULSE 82–95; TEMP 36.4–36.9; O2SAT 92–100
[2016-12-14] MEDS: OXYCODONE/ACETAMINOPHEN 5-325 TAB PO PRN ×5 (01:37→22:37)
[2016-12-14] MEDS: LEVALBUTEROL 1.25MG/0.5ML NEB INH SCH ×4 (02:01→20:32)
[2016-12-14] MEDS: IPRATROPIUM BROMIDE NEB SOLN 0.02% 2.5 ML VIAL INH SCH ×4 (02:01→20:32)
[2016-12-14 04:56] LABS: BASO % 0.1 %; BASO ABS # 0.01 K/uL (0-0.2); HEMATOCRIT 26.4 % (37-47); LYMPH % 4.2 %; LYMPH ABS # 0.36 K/uL (1.2-3.4); MEAN CELL VOLUME 105.6 fL (80-100); MEAN CORPUSCULAR HEMOGLOBIN 35.6 pg (25-34); MEAN CORPUSCULAR HGB CONC 33.7 g/dl (32-36); MEAN PLATELET VOLUME 11.2 fL (7.4-10.4); MONO % 3.2 %; NEUT % 90.5 %; PLATELET COUNT 116 K/uL (130-400); WHITE BLOOD COUNT 8.54 K/uL (4.8-10.8)
[2016-12-14 05:14] LABS: BUN/CREATININE RATIO 20.6 (10-20); CALCIUM 7.1 mg/dl (8.5-10.1); CREATININE 0.51 mg/dl (0.60-1.20); POTASSIUM 4.2 mmol/L (3.5-5.1)
[2016-12-14 05:34] LABS: COMPLETE YES; HYPERSEGMENTED POLYS 1+
[2016-12-14] MEDS: ENOXAPARIN 30 MG/0.3 ML SYR SQ SCH (08:59)
[2016-12-14] MEDS: NSS + 20MEQ KCL 1000ML 1,000 ML IV SCH (08:59)
[2016-12-14] MEDS: INSULIN ASPART 100 UNITS/ML 3 ML PEN SC SCH ×4 (08:59→21:00)
[2016-12-14] MEDS: PAROXETINE 30 MG TAB PO SCH (08:59)
[2016-12-14] MEDS: FERROUS SULFATE 325 MG TAB PO SCH ×2 (09:00→16:33)
[2016-12-14] MEDS: ATORVASTATIN 40 MG TAB PO SCH (09:00)
[2016-12-14] MEDS: FoLIC ACID TAB 400 MCG TAB PO SCH (09:00)
[2016-12-14] MEDS: BUDESONIDE/FORMOTEROL FUMARATE 160/4.5 60 PUFFS/INHALER INH SCH ×2 (09:00→21:04)
[2016-12-14] MEDS: METHYLPREDNISOLONE IV 60 MG in SYRINGE 0 ML IV SCH ×2 (09:00→21:03)
[2016-12-14] MEDS: NYSTATIN SUSP 500,000 U/5 ML UDC PO SCH ×4 (09:01→21:04)
[2016-12-14] MEDS: ROFLUMILAST 500 MCG TAB PO SCH (09:01)
[2016-12-14] MEDS: PANTOprazole SOD 40 MG TAB PO SCH ×2 (09:01→21:05)
[2016-12-14] MEDS: GUAIFENESIN 600 MG TABCR PO SCH ×2 (09:01→21:05)
[2016-12-14] MEDS: VANCOMYCIN INJ 750 MG in SODIUM CHLORIDE 0.9% 250ML 250 ML IV SCH (13:37)
[2016-12-14] MEDS ORDERED: FLUCONAZOLE 100 MG TAB PO ONE (13:45)
[2016-12-14 15:14] LABS: CKMB/CK RATIO 1.7 (0-3.0)
[2016-12-14] MEDS ORDERED: SODIUM CHLORIDE 0.9% 500ML 500 ML IV SCH (16:00)
--- NOTE | 2016-12-14 16:06 | DIAGNOSTIC IMAGING REPORT ---
CHEST ONE VIEW PORTABLE CLINICAL HISTORY: Acute respiratory failure COMPARISON STUDY: 12/11/2016 FINDINGS: There is underlying emphysema. There is a right internal jugular central venous catheter unchanged in position. There is a small right pleural effusion with associated right basilar atelectasis. The left lung appears clear with stable left basilar calcifications likely postinflammatory[ IMPRESSION: Small right pleural effusion. Improving right basilar airspace opacities. Suspected underlying emphysema. No evidence of failure. Electronically signed by: Aman Tracy M.D. 12/14/2016 4:04 PM Dictated Date/Time: 12/14/2016 4:01 PM
[2016-12-14] MEDS: ERTAPENEM IV 1 GM in SODIUM CHLOR 0.9% AD-VAN 50ML 50 ML IV SCH (16:26)
[2016-12-14] MEDS: SUCRALFATE 1 GM/10 ML UDC PO SCH ×2 (16:31→21:03)
--- NOTE | 2016-12-14 20:20 | Progress Note ---
Subjective Date of Service: Dec 14, 2016. Subjective Pt evaluation today including: conversation w/ patient, conversation w/ family ( by phone), physical exam, chart review, lab review, review of studies ( cxr), review of inpatient medication list Pain: pleuritic chest pain - has had it "for years"; takes codeine prn at home PO Intake: fair at best Voiding: lopez catheter in place today has developed swelling of her arms, worse on left she reports "I feel lousy" mentions she has been depressed for a long time also mentions that for about 3-4 weeks before this admission she got so weak she "was being carried around the house" and could hardly walk he mentioned [facility] in [place] for rehab continues with cough and dyspnea had low BP this afternoon - resolved with 500cc of NS bolus patient also mentioned throat pain and dysphagia/odynophagia "since coming to the hospital" Problem List Medical Problems: (1) COPD exacerbation Status: Acute (2) Hypoxia Status: Acute Review of Systems Constitutional: No fever, No chills Respiratory: No shortness of breath Cardiac: + see HPI, + chest pain, No orthopnea, No PND Abdomen: + pain (upper abdomen) Neurologic: + weakness Objective Vital Signs Date Time Temp Pulse Resp B/P (MAP) Pulse Ox O2 Delivery O2 Flow Rate FiO2 12/14/16 19:02 36.7 82 20 90/56 (67) 98 Nasal Cannula 4.0 12/14/16 17:09 104/70 (81) 12/14/16 16:25 75/45 (55) 12/14/16 16:00 92 Nasal Cannula 4.0 12/14/16 15:38 36.8 86 18 73/53 (60) 98 73/53 (60) 12/14/16 13:49 90 18 98 Nasal Cannula 4.0 12/14/16 12:00 Nasal Cannula 4.0 12/14/16 11:32 36.4 90 16 95/57 (70) 100 Room Air 12/14/16 08:00 Nasal Cannula 4.0 12/14/16 07:21 36.6 89 16 93/70 (78) 100 Nasal Cannula 4.0 12/14/16 07:08 84 18 99 Nasal Cannula 4.0 12/14/16 04:13 36.5 92 20 89/50 (63) 95 Nasal Cannula 4.0 12/14/16 04:00 Nasal Cannula 4.0 12/14/16 02:01 89 18 99 Nasal Cannula 4.0 12/14/16 00:20 36.9 95 20 98/60 (73) 94 Nasal Cannula 4.0 12/14/16 00:00 Nasal Cannula 4.0 12/13/16 22:42 36.8 86 16 89/61 (70) 98 Nasal Cannula 4.0 12/13/16 20:12 89 20 98 Nasal Cannula 4.0 Physical Exam General Appearance: no apparent distress, + pertinent finding (looks much older than stated age) ENT: + pertinent finding (thrush in posterior throat, with erythema) Neck: no JVD Respiratory/Chest: + pertinent finding (course BS b/l with significant wheezing and rhonchi, scattered basilar rales; chest very tender to palpation along costal-sternal junction) Cardiovascular: regular rate, rhythm, no gallop, no murmur, + pertinent finding (heart tones distant) Abdomen: normal bowel sounds, soft, no organomegaly, + tenderness (high epigastric region ) Extremities: + swelling (left arm > right arm), + pertinent finding (no pedal edema) Neurologic/Psychiatric: alert, oriented x 3, + depressed affect Comments: central line, right neck - clean, no erythema Laboratory Results Last 24 Hours Test 12/13/16 20:11 12/14/16 04:36 12/14/16 06:54 12/14/16 11:02 Bedside Glucose 82 mg/dl 104 mg/dl 101 mg/dl White Blood Count 8.54 K/uL Red Blood Count 2.50 M/uL Hemoglobin 8.9 g/dL Hematocrit 26.4 % Mean Corpuscular Volume 105.6 fL Mean Corpuscular Hemoglobin 35.6 pg Mean Corpuscular Hemoglobin Concent 33.7 g/dl Platelet Count 116 K/uL Mean Platelet Volume 11.2 fL Neutrophils (%) (Auto) 90.5 % Lymphocytes (%) (Auto) 4.2 % Monocytes (%) (Auto) 3.2 % Eosinophils (%) (Auto) 0.0 % Basophils (%) (Auto) 0.1 % Neutrophils # (Auto) 7.73 K/uL Lymphocytes # (Auto) 0.36 K/uL Monocytes # (Auto) 0.27 K/uL Eosinophils # (Auto) 0.00 K/uL Basophils # (Auto) 0.01 K/uL RDW Standard Deviation 72.2 fL RDW Coefficient of Variation 18.8 % Immature Granulocyte % (Auto) 2.0 % Immature Granulocyte # (Auto) 0.17 K/uL Nucleated RBC Absolute Count (auto) 0.04 K/uL Nucleated Red Blood Cells % 0.4 % Hypersegmented Polys 1+ Sodium Level 141 mmol/L Potassium Level 4.2 mmol/L Chloride Level 110 mmol/L Carbon Dioxide Level 28 mmol/L Anion Gap 3.0 mmol/L Blood Urea Nitrogen 11 mg/dl Creatinine 0.51 mg/dl Est Creatinine Clear Calc Drug Dose 98.8 ml/min Estimated GFR () 119.4 Estimated GFR (Non- 103.1 BUN/Creatinine Ratio 20.6 Random Glucose 113 mg/dl Calcium Level 7.1 mg/dl Test 12/14/16 14:22 12/14/16 16:27 Total Creatine Kinase 172 U/L Creatine Kinase MB 2.9 ng/ml Creatine Kinase MB Ratio 1.7 Troponin I 0.031 ng/ml Bedside Glucose 133 mg/dl Assessment and Plan 61yo female: 1. acute/chronic hypoxic respiratory failure - acute component 2nd to COPD exacerbation & b/l pneumonia. Cont steroids/abx/supportive care/NC O2/nebs. 2. COPD exacerbation - ongoing. NO wean on steroids today; cont solumedrol 60mg q12h. CXR today w/o complicating pulmonary edema. 3. b/l basilar pneumonia - day #9 of abx. Cont 10 days in total. Has completed 9 days of vanco & ertapenem - simply finish those in light of how ill she was. 4. septic shock 2nd to #3 above - had transient low BP today. Responded quickly to 500cc of NS bolus. Most recent cortisol was satisfactory. She did not appear septic today by way of exam. CXR actually improved. Cause? due to pain meds? hypovolemic from poor oral intake? will need to follow her BPs carefully tonight. 5. b/l lung nodules - in light of significant smoking history will need CT surveillance as outpatient. 6. anemia 2nd to folic acid def - folic acid 1mg daily. 7. pleuritic chest pain - EKGs have been abnormal with inverted T waves in anterior leads. echo w/o wall motion abnormalities. poor candidate for ischemic work-up. she reports this complaint is chronic. etiology? CTA chest - neg for PE. has small pericardial effusion and "mass" in right atrium - pericardial ? due to mass? pulmonary? other? Troponin this afternoon negative. 8. depression - ongoing; increase paxil to 40mg daily. Cont remeron. 9. thrush with concern of esophageal candidiasis - nystatin george QID + diflucan 200mg daily. Speech consult for swallow eval. Increase PPI to twice daily. Add carafate qid. 10. severe deconditioning - PT, OT - will need rehab. 11. DVT proph - lovenox once daily. 12. atrial mass - etiology ?? will d/w cardiology. Continued [facility] stay due to: inadequate oral pain control, ambulation difficulties, multiple IV medications needed Discharge planning: other (rehab - probably at SNF )
[2016-12-14] MEDS: MIRTAZAPINE TAB 15 MG TAB PO SCH (21:05)
[2016-12-14] MEDS: RISPERIDONE 1 MG TAB PO SCH (21:08)
[2016-12-15] VITALS (13 sets, daily range): BP systolic 92–120; BP diastolic 47–70; PULSE 70–87; TEMP 36.2–36.7; O2SAT 95–100
[2016-12-15] MEDS: IPRATROPIUM BROMIDE NEB SOLN 0.02% 2.5 ML VIAL INH SCH ×4 (01:58→20:10)
[2016-12-15] MEDS: LEVALBUTEROL 1.25MG/0.5ML NEB INH SCH ×4 (01:59→20:10)
[2016-12-15] MEDS: OXYCODONE/ACETAMINOPHEN 5-325 TAB PO PRN ×4 (03:06→16:35)
[2016-12-15 05:37] LABS: HEMATOCRIT 25.6 % (37-47); MEAN CELL VOLUME 105.3 fL (80-100); MEAN CORPUSCULAR HEMOGLOBIN 35.8 pg (25-34); RED BLOOD COUNT 2.43 M/uL (4.2-5.4); WHITE BLOOD COUNT 5.79 K/uL (4.8-10.8)
[2016-12-15 06:02] LABS: MEAN PLATELET VOLUME 10.7 fL (7.4-10.4); PLATELET COUNT 97 K/uL (130-400)
[2016-12-15 06:03] LABS: COMPLETE YES; HYPERSEGMENTED POLYS 1+; IG% 1.7 %; LYMPH % 4.8 %; LYMPH ABS # 0.28 K/uL (1.2-3.4); MONO % 4.3 %; NEUT % 89.2 %; PLT ESTIMATE DECREASED
[2016-12-15 06:14] LABS: BUN/CREATININE RATIO 20.7 (10-20); CALCIUM 7.1 mg/dl (8.5-10.1); CREATININE 0.47 mg/dl (0.60-1.20); POTASSIUM 4.1 mmol/L (3.5-5.1)
[2016-12-15] MEDS: VANCOMYCIN INJ 750 MG in SODIUM CHLORIDE 0.9% 250ML 250 ML IV SCH (06:18)
[2016-12-15] MEDS: FERROUS SULFATE 325 MG TAB PO SCH ×2 (07:43→16:36)
[2016-12-15] MEDS: ATORVASTATIN 40 MG TAB PO SCH (07:44)
[2016-12-15] MEDS: PANTOprazole SOD 40 MG TAB PO SCH ×2 (07:44→20:57)
[2016-12-15] MEDS: PAROXETINE 20 MG TAB PO SCH (07:44)
[2016-12-15] MEDS: BUDESONIDE/FORMOTEROL FUMARATE 160/4.5 60 PUFFS/INHALER INH SCH ×2 (07:45→20:56)
[2016-12-15] MEDS: NYSTATIN SUSP 500,000 U/5 ML UDC PO SCH ×4 (07:45→20:59)
[2016-12-15] MEDS: METHYLPREDNISOLONE IV 60 MG in SYRINGE 0 ML IV SCH (07:45)
[2016-12-15] MEDS: FLUCONAZOLE 100 MG TAB PO SCH (07:45)
[2016-12-15] MEDS: SUCRALFATE 1 GM/10 ML UDC PO SCH ×4 (07:45→21:00)
[2016-12-15] MEDS: ROFLUMILAST 500 MCG TAB PO SCH (07:46)
[2016-12-15] MEDS: GUAIFENESIN 600 MG TABCR PO SCH ×2 (07:46→20:57)
[2016-12-15] MEDS: ENOXAPARIN 40 MG/0.4 ML SYR SQ SCH (08:09)
[2016-12-15] MEDS: INSULIN ASPART 100 UNITS/ML 3 ML PEN SC SCH ×4 (08:09→21:00)
[2016-12-15] MEDS: ERTAPENEM IV 1 GM in SODIUM CHLOR 0.9% AD-VAN 50ML 50 ML IV SCH (16:35)
[2016-12-15] MEDS: RISPERIDONE 1 MG TAB PO SCH (20:58)
[2016-12-15] MEDS: MIRTAZAPINE TAB 15 MG TAB PO SCH (20:59)
[2016-12-15] MEDS ORDERED: VANCOMYCIN TROUGH ONE (21:30)
--- NOTE | 2016-12-15 21:54 | Progress Note ---
Subjective Date of Service: Dec 15, 2016. Subjective Pt evaluation today including: conversation w/ patient, physical exam, chart review, lab review, review of inpatient medication list Pain: pleuritic pain - ongoing PO Intake: fair Voiding: lopez catheter in place no issues overnight BPs normalized she feels "a little better" less cough admits to depression very weak still Problem List Medical Problems: (1) COPD exacerbation Status: Acute (2) Hypoxia Status: Acute Review of Systems Constitutional: No fever Respiratory: + cough, + wheezing, No dyspnea at rest Cardiac: + see HPI, + chest pain, No orthopnea Abdomen: No pain Objective Vital Signs Date Time Temp Pulse Resp B/P (MAP) Pulse Ox O2 Delivery O2 Flow Rate FiO2 12/15/16 20:10 87 22 95 Nasal Cannula 4.0 12/15/16 19:36 36.6 82 20 112/62 (79) 97 Nasal Cannula 4.0 12/15/16 18:49 76 101/67 (78) 12/15/16 16:00 Nasal Cannula 4.0 12/15/16 15:07 36.7 74 18 93/55 (68) 98 Nasal Cannula 4.0 12/15/16 14:30 85 96 12/15/16 12:00 Nasal Cannula 4.0 12/15/16 11:33 103/65 (78) 12/15/16 11:11 36.2 86 18 107/47 (67) 100 Nasal Cannula 4.0 12/15/16 10:02 100 Nasal Cannula 4.0 12/15/16 08:00 Nasal Cannula 4.0 12/15/16 07:18 36.3 77 24 120/70 (87) 100 12/15/16 07:10 70 20 100 Nasal Cannula 4.0 12/15/16 04:00 Nasal Cannula 4.0 12/15/16 03:42 36.6 84 20 120/62 (81) 100 4.0 12/15/16 02:02 86 20 97 Nasal Cannula 4.0 12/15/16 00:00 Nasal Cannula 4.0 12/14/16 23:45 36.5 84 22 114/71 (85) 98 Nasal Cannula 4.0 12/14/16 23:06 76/56 (63) 134/68 (90) 12/14/16 22:32 76/46 (56) 134/68 (90) Physical Exam General Appearance: no apparent distress, + pertinent finding (looks much older than stated age ) ENT: + pertinent finding (thrush already improved; MMM) Neck: no JVD Respiratory/Chest: no respiratory distress, no accessory muscle use, + rales ( bases), + pertinent finding (wheezes present but much improved today) Cardiovascular: regular rate, rhythm, no gallop, no murmur Abdomen: normal bowel sounds, non tender, soft, no organomegaly Extremities: no pedal edema Neurologic/Psychiatric: alert, oriented x 3, + depressed affect, + pertinent finding (b/l foot drop; strength in legs - 5/5 on right, about 4/5 on left; LUE 4/5, RUE 5/5 ) Skin: + pallor Laboratory Results Last 24 Hours Test 12/15/16 05:30 12/15/16 07:39 12/15/16 11:29 12/15/16 16:17 White Blood Count 5.79 K/uL Red Blood Count 2.43 M/uL Hemoglobin 8.7 g/dL Hematocrit 25.6 % Mean Corpuscular Volume 105.3 fL Mean Corpuscular Hemoglobin 35.8 pg Mean Corpuscular Hemoglobin Concent 34.0 g/dl Platelet Count 97 K/uL Mean Platelet Volume 10.7 fL Neutrophils (%) (Auto) 89.2 % Lymphocytes (%) (Auto) 4.8 % Monocytes (%) (Auto) 4.3 % Eosinophils (%) (Auto) 0.0 % Basophils (%) (Auto) 0.0 % Neutrophils # (Auto) 5.16 K/uL Lymphocytes # (Auto) 0.28 K/uL Monocytes # (Auto) 0.25 K/uL Eosinophils # (Auto) 0.00 K/uL Basophils # (Auto) 0.00 K/uL RDW Standard Deviation 71.1 fL RDW Coefficient of Variation 18.7 % Immature Granulocyte % (Auto) 1.7 % Immature Granulocyte # (Auto) 0.10 K/uL Nucleated RBC Absolute Count (auto) 0.02 K/uL Nucleated Red Blood Cells % 0.3 % Hypersegmented Polys 1+ Platelet Estimate DECREASED Basophilic Stippling OCCASIONAL Sodium Level 142 mmol/L Potassium Level 4.1 mmol/L Chloride Level 108 mmol/L Carbon Dioxide Level 30 mmol/L Anion Gap 4.0 mmol/L Blood Urea Nitrogen 10 mg/dl Creatinine 0.47 mg/dl Est Creatinine Clear Calc Drug Dose 108.2 ml/min Estimated GFR () 122.7 Estimated GFR (Non- 105.9 BUN/Creatinine Ratio 20.7 Random Glucose 139 mg/dl Calcium Level 7.1 mg/dl Bedside Glucose 125 mg/dl 140 mg/dl 149 mg/dl Test 12/15/16 20:17 12/15/16 21:21 Bedside Glucose 124 mg/dl Assessment and Plan 61yo female: 1. acute/chronic hypoxic respiratory failure - improving albeit slowly. acute component 2nd to COPD exacerbation & b/l pneumonia. Cont steroids/supportive care/NC O2/nebs. d/c abx today wean steroids 2. COPD exacerbation - ongoing but improved. Wean solumedrol to 30mg q12h. 3. b/l basilar pneumonia - day #10 of abx. Stop abx after today's doses. 4. septic shock 2nd to #3 above - \\resolved. 5. b/l lung nodules - in light of significant smoking history will need CT surveillance as outpatient. High risk of malignancy. 6. anemia 2nd to folic acid def - folic acid 1mg daily. CBC stable today. 7. pleuritic chest pain - EKGs have been abnormal with inverted T waves in anterior leads. echo w/o wall motion abnormalities. Troponins have been negative. poor candidate for ischemic work-up. she reports this complaint is chronic. etiology? CTA chest - neg for PE. has small pericardial effusion and "mass" in right atrium - pericardial ? due to mass? pulmonary? other? if this was pericarditis there would be improvement with steroids. I am unclear of the etiology. will speak with cardiology about right atrial "mass" 8. depression - ongoing; increased paxil to 40mg daily. Cont remeron. 9. thrush with concern of esophageal candidiasis - nystatin george QID + diflucan 200mg daily. Day #2. Speech consult for swallow eval appreciated; diet changed to pureed. Increased PPI to twice daily. Added carafate qid. 10. severe deconditioning - PT, OT - will need rehab. [facility] in [place] perhaps. 11. DVT proph - lovenox once daily. 12. atrial mass - etiology ?? will d/w cardiology. stable today and slightly improved Continued [facility] stay due to: inadequate oral pain control, ambulation difficulties, multiple IV medications needed Discharge planning: long-term facility
[2016-12-15] MEDS: METHYLPREDNISOLONE IV 30 MG in SYRINGE 0 ML IV SCH (22:30)
[2016-12-16] VITALS (13 sets, daily range): BP systolic 82–130; BP diastolic 54–87; PULSE 74–97; TEMP 36.3–36.9; O2SAT 92–100
[2016-12-16] MEDS: OXYCODONE/ACETAMINOPHEN 5-325 TAB PO PRN ×6 (00:47→23:41)
[2016-12-16] MEDS: LEVALBUTEROL 1.25MG/0.5ML NEB INH SCH ×4 (02:02→19:50)
[2016-12-16] MEDS: IPRATROPIUM BROMIDE NEB SOLN 0.02% 2.5 ML VIAL INH SCH ×4 (02:02→19:50)
[2016-12-16 07:21] LABS: BASO % 0.1 %; BASO ABS # 0.01 K/uL (0-0.2); COMPLETE YES; HEMATOCRIT 30.9 % (37-47); IG% 1.3 %; LYMPH % 4.4 %; LYMPH ABS # 0.31 K/uL (1.2-3.4); MEAN CELL VOLUME 105.5 fL (80-100); MEAN CORPUSCULAR HEMOGLOBIN 34.8 pg (25-34); MEAN PLATELET VOLUME 11.7 fL (7.4-10.4); MONO % 6.5 %; NEUT % 87.7 %; PLATELET COUNT 104 K/uL (130-400); RED BLOOD COUNT 2.93 M/uL (4.2-5.4); WHITE BLOOD COUNT 7.08 K/uL (4.8-10.8)
[2016-12-16 07:58] LABS: BUN/CREATININE RATIO 18.4 (10-20); CALCIUM 7.9 mg/dl (8.5-10.1); CREATININE 0.55 mg/dl (0.60-1.20); POTASSIUM 4.3 mmol/L (3.5-5.1)
[2016-12-16] MEDS: INSULIN ASPART 100 UNITS/ML 3 ML PEN SC SCH ×4 (08:10→21:00)
[2016-12-16] MEDS: ROFLUMILAST 500 MCG TAB PO SCH (08:22)
[2016-12-16] MEDS: NYSTATIN SUSP 500,000 U/5 ML UDC PO SCH ×4 (08:22→21:14)
[2016-12-16] MEDS: FLUCONAZOLE 100 MG TAB PO SCH (08:22)
[2016-12-16] MEDS: ENOXAPARIN 40 MG/0.4 ML SYR SQ SCH (08:23)
[2016-12-16] MEDS: SUCRALFATE 1 GM/10 ML UDC PO SCH ×4 (08:23→21:12)
[2016-12-16] MEDS: FERROUS SULFATE 325 MG TAB PO SCH ×2 (08:23→18:10)
[2016-12-16] MEDS: GUAIFENESIN 600 MG TABCR PO SCH ×2 (08:23→21:14)
[2016-12-16] MEDS: PAROXETINE 20 MG TAB PO SCH (08:23)
[2016-12-16] MEDS: PANTOprazole SOD 40 MG TAB PO SCH ×2 (08:23→21:14)
[2016-12-16] MEDS: ATORVASTATIN 40 MG TAB PO SCH (08:23)
[2016-12-16] MEDS: BUDESONIDE/FORMOTEROL FUMARATE 160/4.5 60 PUFFS/INHALER INH SCH ×2 (08:24→21:13)
[2016-12-16] MEDS ORDERED: BISACODYL 5 MG TABEC PO ONE (09:30)
[2016-12-16] MEDS: POLYETHYLENE (MIRALAX) 17 GM PACK PO SCH (10:10)
[2016-12-16] MEDS: METHYLPREDNISOLONE IV 30 MG in SYRINGE 0 ML IV SCH (10:10)
--- NOTE | 2016-12-16 16:46 | DIAGNOSTIC IMAGING REPORT ---
ORBITS FOR MRI HISTORY: Pre-MRI pre-MRI screening. COMPARISON: None FINDINGS: Possible metallic foreign bodies overlying the left and to a lesser extent right orbits primarily in the AP projections. Lateral projection appear to be generally unremarkable. Although it is possible that this is artifact, I cannot exclude intraorbital metallic foreign bodies. IMPRESSION: Possible intraorbital metallic foreign bodies. The above report was generated using voice recognition software. It may contain grammatical, syntax or spelling errors. Electronically signed by: Mauro Martinez M.D. 12/16/2016 4:44 PM Dictated Date/Time: 12/16/2016 4:43 PM
--- NOTE | 2016-12-16 17:51 | DIAGNOSTIC IMAGING REPORT ---
CT OF THE HEAD WITHOUT CONTRAST CLINICAL HISTORY: Profound weakness. Evaluate for cerebrovascular accident. COMPARISON STUDY: No previous studies for comparison. CT DOSE: 537.48 mGy.cm TECHNIQUE: Helical axial images of the head were obtained without IV contrast. Automated exposure control was utilized for the study. A dose lowering technique was utilized adhering to the principles of ALARA. FINDINGS: No acute intracranial hemorrhage, midline shift or mass effect is present. Ventricular system is normal. Basilar cisterns are patent. There is a suspected small age indeterminate lacunar infarct within the right cerebellar hemisphere shown image 6 of 28. There are no CT findings to suggest acute dural sinus thrombosis or acute territorial infarct. There are postsurgical findings within the sinuses. There is mild mucosal thickening of the sinuses and a small amount of fluid within the left mastoid air cells. There are no significant calvarial abnormalities. IMPRESSION: 1. No acute intracranial hemorrhage or mass effect. 2. Suspected age indeterminate lacunar infarct within the right cerebellar hemisphere. Electronically signed by: Meliton Umanzor M.D. 12/16/2016 5:49 PM Dictated Date/Time: 12/16/2016 5:43 PM
[2016-12-16] MEDS ORDERED: ONDANSETRON INJ 2 MG/ML 2 ML VIAL ONE (18:09)
[2016-12-16] MEDS ORDERED: ONDANSETRON INJ 2 MG/ML 2 ML VIAL IV PRN (18:15)
[2016-12-16] MEDS ORDERED: NURSING VERBAL MED ORDER ONE ×2 (18:15→19:45)
[2016-12-16] MEDS ORDERED: BISACODYL 10 MG SUPP PR ONE (20:00)
[2016-12-16] MEDS ORDERED: ASPIRIN 81 MG ECTAB PO STA (20:20)
[2016-12-16] MEDS: MIRTAZAPINE TAB 15 MG TAB PO SCH (21:15)
[2016-12-16] MEDS: RISPERIDONE 1 MG TAB PO SCH (21:15)
--- NOTE | 2016-12-16 22:00 | Progress Note ---
Subjective Date of Service: Dec 16, 2016. Subjective Pt evaluation today including: conversation w/ patient, physical exam, chart review, lab review, review of studies (CT head), review of inpatient medication list Pain: chest pain - pleuritic - as previous PO Intake: poor Voiding: lopez catheter in place continues to remain quite weak has not been out of bed in days OT noticed today during her session with Ms. Ryder that her proprioceptive abilities were very poor particularly in the right arm patient verifies that when she was getting weak 3-4 weeks ago at home her right arm became clumbsy at the same time denies ANY visual field cuts denies any vertigo breathing is "about the same" as it is when she is at her home Problem List Medical Problems: (1) COPD exacerbation Status: Acute (2) Hypoxia Status: Acute Review of Systems Constitutional: + fatigue, No fever ENT: + sore throat Respiratory: + cough, No dyspnea at rest Cardiac: + see HPI, + chest pain, No orthopnea Abdomen: No pain Neurologic: + weakness Objective Vital Signs Date Time Temp Pulse Resp B/P (MAP) Pulse Ox O2 Delivery O2 Flow Rate FiO2 12/16/16 19:57 36.9 85 20 112/75 (87) 96 Nasal Cannula 4.0 12/16/16 19:55 36.9 85 20 112/75 (87) 96 Nasal Cannula 4.0 12/16/16 19:50 76 20 96 Nasal Cannula 4.0 12/16/16 16:00 97 Nasal Cannula 4.0 12/16/16 15:17 36.9 87 16 82/54 (63) 97 Nasal Cannula 4.0 12/16/16 14:12 88 20 92 Nasal Cannula 4.0 12/16/16 12:00 Nasal Cannula 4.0 12/16/16 11:29 36.4 82 16 90/58 (69) 100 Nasal Cannula 4.0 12/16/16 08:07 97 20 97 Nasal Cannula 4.0 12/16/16 07:41 Nasal Cannula 4.0 12/16/16 07:33 36.6 82 16 130/65 (86) 100 Nasal Cannula 12/16/16 04:05 Nasal Cannula 4.0 12/16/16 03:37 36.3 74 20 110/64 (79) 93 12/16/16 02:02 83 20 98 Nasal Cannula 4.0 12/16/16 00:05 Nasal Cannula 4.0 12/15/16 23:08 36.5 81 18 100/56 (71) 100 Nasal Cannula 4.0 Physical Exam General Appearance: no apparent distress, + pertinent finding (looks older than stated age and sickly) Eyes: + pertinent finding (visual crawford full by direct confrontation ) ENT: + pertinent finding (thrush posterior throat improved, MM slightly dry) Neck: no JVD Respiratory/Chest: no respiratory distress, no accessory muscle use, + wheezing (mild b/l) Cardiovascular: regular rate, rhythm, no gallop, no murmur Abdomen: normal bowel sounds, non tender, soft, no organomegaly, + distended ( mild) Extremities: no pedal edema, + pertinent finding (swelling in arms much improved) Neurologic/Psychiatric: alert, oriented x 3, + abnormal cerebellar tests ( right and left hands, finger/nose/finger), + pertinent finding (overall she is weak in all 4 extremities; her distal strength (ankle flexion/extension, handgrip) however is 5/5 b/l; mild proximal muscle weakness of shoulders/hips) Laboratory Results Last 24 Hours Test 12/16/16 06:38 12/16/16 07:00 12/16/16 11:12 12/16/16 17:17 White Blood Count 7.08 K/uL Red Blood Count 2.93 M/uL Hemoglobin 10.2 g/dL Hematocrit 30.9 % Mean Corpuscular Volume 105.5 fL Mean Corpuscular Hemoglobin 34.8 pg Mean Corpuscular Hemoglobin Concent 33.0 g/dl Platelet Count 104 K/uL Mean Platelet Volume 11.7 fL Neutrophils (%) (Auto) 87.7 % Lymphocytes (%) (Auto) 4.4 % Monocytes (%) (Auto) 6.5 % Eosinophils (%) (Auto) 0.0 % Basophils (%) (Auto) 0.1 % Neutrophils # (Auto) 6.21 K/uL Lymphocytes # (Auto) 0.31 K/uL Monocytes # (Auto) 0.46 K/uL Eosinophils # (Auto) 0.00 K/uL Basophils # (Auto) 0.01 K/uL RDW Standard Deviation 72.6 fL RDW Coefficient of Variation 18.8 % Immature Granulocyte % (Auto) 1.3 % Immature Granulocyte # (Auto) 0.09 K/uL Sodium Level 143 mmol/L Potassium Level 4.3 mmol/L Chloride Level 108 mmol/L Carbon Dioxide Level 29 mmol/L Anion Gap 6.0 mmol/L Blood Urea Nitrogen 10 mg/dl Creatinine 0.55 mg/dl Est Creatinine Clear Calc Drug Dose 92.0 ml/min Estimated GFR () 116.5 Estimated GFR (Non- 100.5 BUN/Creatinine Ratio 18.4 Random Glucose 122 mg/dl Calcium Level 7.9 mg/dl Chemistry Specimen Hemolysis Bedside Glucose 135 mg/dl 140 mg/dl 144 mg/dl Test 12/16/16 20:21 Bedside Glucose 138 mg/dl Assessment and Plan 61yo female: 1. acute/chronic hypoxic respiratory failure - improving. Is on baseline NC O2 amount. acute component 2nd to COPD exacerbation & b/l pneumonia. Cont steroids/supportive care/NC O2/nebs. wean steroids again today. 2. COPD exacerbation - improved. D/c solumedrol, change to prednisone 40mg once daily starting tomorrow. 3. b/l basilar pneumonia - resolved, all abx have been stopped. 4. septic shock 2nd to #3 above - resolved. 5. b/l lung nodules - in light of significant smoking history will need CT surveillance as outpatient. High risk of malignancy. 6. anemia 2nd to folic acid def - folic acid 1mg daily. CBC stable again. 7. pleuritic chest pain - EKGs have been abnormal with inverted T waves in anterior leads. echo w/o wall motion abnormalities. Troponins have been negative. poor candidate for ischemic work-up. she reports this complaint is chronic. etiology? CTA chest - neg for PE. has small pericardial effusion and "mass" in right atrium - pericardial ? due to mass? pulmonary? other? if this was pericarditis there would be improvement with steroids. I am unclear of the etiology. will speak with cardiology about right atrial "mass" 8. depression - ongoing; increased paxil to 40mg daily. Cont remeron. 9. thrush with concern of esophageal candidiasis - nystatin george QID + diflucan 200mg daily. Day #3. Speech consult for swallow eval appreciated; diet changed to pureed. Increased PPI to twice daily. Added carafate qid. 10. severe deconditioning - PT, OT - will need rehab. [facility] in [place]. 11. DVT proph - lovenox once daily. 12. atrial mass - etiology ?? will d/w cardiology. 13. dysmetria, proprioceptive loss - unable to obtain MRI as she has metal fragments on face. b12 level normal. CT head with probable right cerebellar lacune. this lacune is c/w with some of her neuro exam findings. I cannot exclude other areas of stroke. She was NOT taking aspirin prior to this hospital stay. Will start asa 81mg daily for secondary prevention. Check carotid duplex in am to look at posterior circulation. Check c-spine CT to exclude cord lesion causing significant weakness. consider neuro consult. prognosis is poor even with optimal recovery from this illness update when able dispo - [place] Continued [facility] stay due to: inadequate po fluid intake, inadequate oral pain control, voiding difficulties, ambulation difficulties, home environment unsafe for pt Discharge planning: senior care facility
[2016-12-17] VITALS (11 sets, daily range): BP systolic 71–154; BP diastolic 44–66; PULSE 42–91; TEMP 36.3–36.8; O2SAT 94–100
[2016-12-17] MEDS: LEVALBUTEROL 1.25MG/0.5ML NEB INH SCH ×4 (01:42→21:00)
[2016-12-17] MEDS: IPRATROPIUM BROMIDE NEB SOLN 0.02% 2.5 ML VIAL INH SCH ×4 (01:42→21:00)
[2016-12-17] MEDS ORDERED: MoRPHine SULFATE 2 MG/ML CARP IV STA (02:00)
[2016-12-17] MEDS: INSULIN ASPART 100 UNITS/ML 3 ML PEN SC SCH ×4 (06:30→20:56)
[2016-12-17] MEDS: SUCRALFATE 1 GM/10 ML UDC PO SCH ×4 (08:30→19:29)
[2016-12-17] MEDS: GUAIFENESIN 600 MG TABCR PO SCH ×2 (08:30→19:29)
[2016-12-17] MEDS: FERROUS SULFATE 325 MG TAB PO SCH ×2 (08:30→17:00)
[2016-12-17] MEDS: BUDESONIDE/FORMOTEROL FUMARATE 160/4.5 60 PUFFS/INHALER INH SCH ×2 (08:30→19:28)
[2016-12-17] MEDS: NYSTATIN SUSP 500,000 U/5 ML UDC PO SCH ×4 (08:31→19:30)
[2016-12-17] MEDS: PAROXETINE 20 MG TAB PO SCH (08:32)
[2016-12-17] MEDS: ATORVASTATIN 40 MG TAB PO SCH (08:32)
[2016-12-17] MEDS: ROFLUMILAST 500 MCG TAB PO SCH (08:32)
[2016-12-17] MEDS: ASPIRIN 81 MG ECTAB PO SCH (08:32)
[2016-12-17] MEDS: ENOXAPARIN 40 MG/0.4 ML SYR SQ SCH (08:33)
[2016-12-17] MEDS: FLUCONAZOLE 100 MG TAB PO SCH (08:33)
[2016-12-17] MEDS: PANTOprazole SOD 40 MG TAB PO SCH (08:33)
[2016-12-17] MEDS: OXYCODONE/ACETAMINOPHEN 5-325 TAB PO PRN ×4 (08:34→21:32)
[2016-12-17 08:37] LABS: COMPLETE YES; HEMATOCRIT 28.9 % (37-47); IG% 1.1 %; LYMPH % 12.5 %; LYMPH ABS # 1.27 K/uL (1.2-3.4); MEAN CELL VOLUME 106.6 fL (80-100); MEAN CORPUSCULAR HEMOGLOBIN 35.8 pg (25-34); MEAN CORPUSCULAR HGB CONC 33.6 g/dl (32-36); MEAN PLATELET VOLUME 11.4 fL (7.4-10.4); MONO % 9.3 %; NEUT % 77.1 %; PLATELET COUNT 112 K/uL (130-400); RED BLOOD COUNT 2.71 M/uL (4.2-5.4)
[2016-12-17] MEDS: POLYETHYLENE (MIRALAX) 17 GM PACK PO SCH (08:57)
[2016-12-17 09:09] LABS: BUN/CREATININE RATIO 25.1 (10-20); CALCIUM 8.2 mg/dl (8.5-10.1); CREATININE 0.41 mg/dl (0.60-1.20); MAGNESIUM 2.1 mg/dl (1.8-2.4); PHOSPHORUS 2.1 mg/dl (2.5-4.9); POTASSIUM 3.7 mmol/L (3.5-5.1)
--- NOTE | 2016-12-17 10:20 | DIAGNOSTIC IMAGING REPORT ---
BILATERAL CAROTID DOPPLER STUDY HISTORY: Weakness. suspected R cerebellar stroke; eval posterior circulation COMPARISON: None. TECHNIQUE: Real-time, grayscale, and color Doppler sonography of the carotid arteries was performed. Imaging reviewed in the transverse and longitudinal planes. All measurements were calculated based on NASCET criteria. FINDINGS: Antegrade flow is seen in the right vertebral artery with retrograde flow in the left vertebral artery. The left subclavian artery was unable to visualized on this study.. The brachial pressures are low measuring 80/60 on the right and 50/nonpalpable on the left. Mild calcified plaque within the bilateral carotid bifurcations. The peak systolic velocity within the right ICA is 90 cm/s. The right systolic ratio is 1.1. The peak systolic velocity within the left ICA is 98 cm/s. The left systolic ratio is 1.0. Elevated velocities within the bilateral external carotid arteries consistent with moderate stenosis. IMPRESSION: 1. No hemodynamically significant stenosis seen within the bilateral common or internal carotid arteries. 2. Retrograde flow within the left vertebral artery. 3. Low blood pressures as described above. Clinical correlation recommended to assess for hypotension. This was discussed discussed with Dr. Mattson at 10:25 AM on 12/17/2016. 4. Moderate stenosis within the bilateral external carotid arteries. Electronically signed by: Frederick Flynn M.D. 12/17/2016 10:18 AM Dictated Date/Time: 12/17/2016 10:13 AM
--- NOTE | 2016-12-17 10:30 | DIAGNOSTIC IMAGING REPORT ---
CERVICAL SPINE W/O CLINICAL HISTORY: 61 years-old Female presenting with weakness of all 4 extremities; eval for any c-spine pathology. TECHNIQUE: Multidetector CT of the cervical spine was performed without the use of intravenous contrast. IV contrast: None. A dose lowering technique was used consistent with the principles of ALARA (as low as reasonably achievable). COMPARISON: None. CT DOSE (mGy.cm): The estimated cumulative dose is 234.53 mGy.cm. FINDINGS: [employer] topogram: Unremarkable. Normal cervical lordosis. Vertebral body heights maintained. Intervertebral disc height loss at C5-6, where there is focal degenerative change. Multilevel facet arthropathy most prominently in the mid cervical region. Uncovertebral hypertrophy also noted at C5-6. Osseous neural foraminal narrowing noted bilaterally at C4-5 and more significantly at C5-6. No osseous spinal canal narrowing. No acute fracture or subluxation. Limited intracranial evaluation within normal limits. Paraspinal soft tissues normal. Lung apices demonstrate emphysema. IMPRESSION: 1. Multilevel degenerative changes most severe at C5-6 with osseous neural foraminal narrowing at C4-5 and C5-6. No osseous spinal canal narrowing. 2. Emphysema. Electronically signed by: Herson Renteria M.D. 12/17/2016 10:28 AM Dictated Date/Time: 12/17/2016 10:18 AM
--- NOTE | 2016-12-17 11:51 | Neurology Consultation ---
Neurology Consultation Date of Consultation: Dec 17, 2016. Attending Physician: Henrique Chavarria MD Primary Care Physician: See Starr M.D. Reason for Consultation: Patient is a 61-year-old, who was asked to see the request of Dr. Chavarria, for neurologic consultation regarding clumsiness and weakness. History of Present Illness Source: patient, caregiver, hospital records Patient tells me that she's had depression for many years. [facility]. She has a long-standing history of COPD. In 2000 she tells me that she had a "mini stroke" as noted by trouble talking. She has had no further strokes as far she is aware and this resolved. She believes she's had trouble walking for the last year. With closer questioning, after she goes a minute or 2 she gets very short of breath and that limits her walking ability. Traditionally she has not been weak or falling until more recently. Patient arrived to the emergency room on December 06 with chest pain and shortness of breath. She had bibasilar pneumonia diagnosis as well as acute respiratory failure with hypoxemia and exacerbation of COPD. She was given antibiotics and steroids. Patient tells me that prior to admission, for the previous 3-4 weeks, she has been weaker and not able to ambulate as well. She fell going to the bathroom 3 weeks ago and blames this on weakness in her legs. She doesn't think her arms became weak and so she's been in the hospital. She's never had incontinence of urine. Although she may get some calf pain from time to time she has not had any new pain. She denies clumsiness of her limbs. In the hospital, CK was 172, TSH 0.7, and B-12 526. She is very anemic and easily fatigued. She denies incontinence of urine, headache, new vision problems, or confusion. Past Medical/Surgical History Medical Problems: (1) COPD exacerbation Status: Acute (2) Hypoxia Status: Acute COPD Depression Dyslipidemia Hypotension Hypothyroidism Post hysterectomy, appendectomy, tonsillectomy Family History Mother age 54 of thyroid cancer Father age 58 of alcoholism and cardiac issues Social History Patient smokes a pack of cigarettes per day for over 40 years. She does not consume alcohol. 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 Smoking Status: Current every day smoker Smokeless Tobacco Use: No Alcohol Use: none Drug Use: none Marital Status: Housing Status: lives with significant other Occupation Status: retired Allergies Coded Allergies: No Known Allergies (Unverified , 12/06/16) Current Inpatient Medications Current Inpatient Medications Medications (Trade) Dose Ordered Sig/Marcus Route Start Time Stop Time Status Last Admin Dose Admin Acetaminophen (Tylenol Tab) 650 mg Q4H PRN PO 12/06/16 15:45 01/05/17 15:44 12/10/16 23:22 650 MG Buspirone HCl (Buspar Tab) 5 mg BID PO 12/06/16 21:00 01/05/17 20:59 12/17/16 08:31 5 MG Risperidone (Risperdal Tab) 1 mg HS PO 12/06/16 21:00 01/05/17 20:59 12/16/16 21:15 1 MG Roflumilast (Daliresp Tab) 500 mcg DAILY PO 12/07/16 09:00 01/06/17 08:59 12/17/16 08:32 500 MCG Ferrous Sulfate (Feosol Tab) 325 mg BIDM PO 12/06/16 18:00 01/05/17 17:59 12/17/16 08:30 325 MG Mirtazapine (Remeron Tab) 45 mg HS PO 12/06/16 21:00 01/05/17 20:59 12/16/16 21:15 45 MG Guaifenesin (Mucinex Contr Rel Tab) 600 mg BID PO 12/06/16 21:00 01/05/17 20:59 12/17/16 08:30 600 MG Glucose (Glucose 40% Gel) UD PRN PO 12/06/16 15:45 01/05/17 15:44 Glucose (Glucose Chew Tab) 1 tabs UD PRN PO 12/06/16 15:45 01/05/17 15:44 Dextrose (Dextrose 50% 50ML Syringe) 50 ml UD PRN IV 12/06/16 15:45 01/05/17 15:44 Glucagon (Glucagon Inj) 1 mg UD PRN SQ 12/06/16 15:45 01/05/17 15:44 Ipratropium [place] (Atrovent 0.02% 0.5MG/2.5ML Neb) 0.5 mg Q6R INH 12/06/16 21:00 01/05/17 20:59 12/17/16 08:14 0.5 MG Levalbuterol (Xopenex 1.25MG/ 0.5ML Neb) 1.25 mg Q6R INH 12/06/16 21:00 01/05/17 20:59 12/17/16 08:14 1.25 MG Atorvastatin Calcium (Lipitor Tab) 80 mg QAM PO 12/07/16 09:00 01/06/17 08:59 12/17/16 08:32 80 MG Budesonide/ Formoterol Fumarate (Symbicort 160/ 4.5 Inh) 2 puffs BID INH 12/07/16 21:00 01/06/17 20:59 12/17/16 08:30 2 PUFFS Insulin Aspart (novoLOG ASPART) SLIDING SCALE G... ACHS SC 12/07/16 21:00 01/06/17 20:59 12/16/16 18:17 1 UNITS Heparin Sodium (Porcine) (Heparin 10 Unit/ ml 5 ml Flush) 5 ml PRN PRN FLUSH 12/09/16 00:15 01/08/17 00:14 12/15/16 16:35 5 ML Oxycodone/ Acetaminophen (Percocet 5-325mg Tab) 1 tab Q4H PRN PO 12/10/16 09:00 12/24/16 08:59 12/17/16 08:34 1 TAB Nystatin (Mycostatin Susp) 5 ml QID PO 12/11/16 19:00 12/21/16 18:59 12/17/16 08:31 5 ML Folic Acid (Folvite Tab) 1 mg QAM PO 12/14/16 10:00 01/13/17 09:59 12/17/16 08:31 1 MG Enoxaparin Sodium (Lovenox Inj) 40 mg QAM SQ 12/15/16 09:00 01/14/17 08:59 12/17/16 08:33 40 MG Fluconazole (Diflucan Tab) 200 mg QAM PO 12/15/16 09:00 12/25/16 08:59 12/17/16 08:33 200 MG Sucralfate (Carafate Susp) 1 gm QID PO 12/14/16 17:00 01/13/17 16:59 12/17/16 08:30 1 GM Paroxetine HCl (pAXil TAB) 40 mg DAILY PO 12/15/16 09:00 01/06/17 08:59 12/17/16 08:32 40 MG Polyethylene (Miralax Powder Packet) 17 gm DAILY PO 12/16/16 10:00 01/15/17 09:59 12/17/16 08:57 17 GM Ondansetron HCl (Zofran Inj) 4 mg Q6H PRN IV 12/16/16 18:15 01/15/17 18:14 Prednisone (PredniSONE TAB) 40 mg QAM PO 12/17/16 09:00 01/16/17 08:59 12/17/16 08:32 40 MG Aspirin (Ecotrin Tab) 81 mg QAM PO 12/17/16 09:00 01/16/17 08:59 12/17/16 08:32 81 MG Pantoprazole Sodium (Protonix Tab) 40 mg QAM PO 12/17/16 09:00 01/07/17 08:59 12/17/16 08:33 40 MG Potassium/ Phosphorus/Sodium (Phospha 250 Neutral 155-852-130 Mg) 1 tab QID PO 12/17/16 10:30 01/16/17 10:29 Review of Systems Constitutional: + weakness, + fatigue Eyes: No worsening of vision, No diplopia ENT: No tinnitus, No trouble swallowing Respiratory: + shortness of breath, No cough Cardiovascular: + chest pain, No palpitations Abdomen: No pain, No nausea Musculoskeletal: No joint pain, No muscle pain Genitourinary - Female: No dysuria, No urinary incontinence Neurologic: + weakness, + numbness/tingling, + balance problems, No memory loss Psychiatric: + depression symptoms, No anxiety Endocrine: + fatigue Hematologic / Lymphatic: No abnormal bleeding/bruising Integumentary: No rash Allergic / Immunologic: No hives Physical Exam Vital Signs (Past 24 Hrs): Date Time Temp Pulse Resp B/P (MAP) Pulse Ox O2 Delivery O2 Flow Rate FiO2 12/17/16 11:23 36.6 91 20 91/55 (67) 98 Nasal Cannula 4.0 12/17/16 08:15 87 16 98 Nasal Cannula 4.0 12/17/16 07:35 36.7 81 18 71/44 (53) 97 Nasal Cannula 4.0 12/17/16 05:40 36.5 78 19 107/63 (78) 99 Nasal Cannula 4.0 12/17/16 04:00 Nasal Cannula 4.0 Humidified Air 12/17/16 01:44 87 16 98 Nasal Cannula 4.0 12/17/16 00:18 36.8 88 18 154/66 (95) 98 Nasal Cannula 4.0 12/17/16 00:00 Nasal Cannula 4.0 Humidified Air 12/16/16 20:00 97 Nasal Cannula 4.0 12/16/16 19:57 36.9 85 20 112/75 (87) 96 Nasal Cannula 4.0 12/16/16 19:55 36.9 85 20 112/75 (87) 96 Nasal Cannula 4.0 12/16/16 19:50 76 20 96 Nasal Cannula 4.0 12/16/16 16:00 97 Nasal Cannula 4.0 12/16/16 15:17 36.9 87 16 82/54 (63) 97 Nasal Cannula 4.0 12/16/16 14:12 88 20 92 Nasal Cannula 4.0 12/16/16 12:00 Nasal Cannula 4.0 Patient is right-handed. The patient is awake and alert. Speech is normal without aphasia or dysarthria. Mentation and thought processes seem intact with orientation and normal fund of knowledge. Mood and affect are normal and appropriate. Appearance and grooming are normal. The discs are sharp with positive venous pulsations. There are no exudates, hemorrhages, or blood vessel changes seen. Pupils are 3mm bilaterally and reactive to light. Extraocular eye muscles are intact without nystagmus. Visual acuity and visual crawford seem normal grossly to confrontation. There are no deficits to sensation of the face bilaterally. Corneal reflexes are positive bilaterally. Facial strength and symmetry is normal bilaterally. Hearing seems intact grossly to voice and finger rub. Palate moves well without asymmetry. There is normal sternocleidomastoid and trapezius strength bilaterally. Tongue is midline with good strength bilaterally. Neck is with full range of motion without discomfort. There are no cervical bruits. There are no cranial or ocular bruits. Heart is without murmur. Cervical, thoracic, and lumbar spine are nontender to palpation. Gait cannot be tested due to weakness and she cannot sit up in bed due to weakness. With outstretched arms there is no obvious drift. There are no resting, postural, or action tremors, however, there seems to be dysmetria/ataxia of both arms symmetrically, but this is compounded by proximal weakness. There is decreased facility in the hands, bilaterally and symmetrically. There are no abnormal involuntary movements noted. The patient has ataxia of the legs as well, but again, this is compounded by weakness Motor strength is 4-/5 proximally in the arms and closer to 4/5 distally in the arms. This is bilateral and symmetrical. Her tone is normal to slightly decreased. Leg strength is 4/5 proximally in the legs and closer to 5/5 distally in the legs. Again this is symmetrical in her tone is normal to slightly decreased. The limbs have good tone without rigidity or spasticity, and she is quite thin throughout particularly distally in the limbs. Sensory examination reveals decreased sensation to pin and touch in a stocking glove distribution being better more proximally. Reflexes are 1/4 in the biceps and triceps tendons bilaterally. Reflexes are 0/ 4 in the brachial radialis, quadriceps, and Achilles tendons bilaterally. Toes are downgoing with plantar stimulation bilaterally. Peripheral pulses are present and of normal quality distally in all four limbs. There is no peripheral edema noted. Laboratory Results Past 24 Hours: 12/17/16 07:50 Red Blood Count 2.71, Mean Corpuscular Volume 106.6, Mean Corpuscular Hemoglobin 35.8, Mean Corpuscular Hemoglobin Concent 33.6, Mean Platelet Volume 11.4, Neutrophils (%) (Auto) 77.1, Lymphocytes (%) (Auto) 12.5, Monocytes (%) ( Auto) 9.3, Eosinophils (%) (Auto) 0.0, Basophils (%) (Auto) 0.0, Neutrophils # ( Auto) 7.87, Lymphocytes # (Auto) 1.27, Monocytes # (Auto) 0.95, Eosinophils # ( Auto) 0.00, Basophils # (Auto) 0.00 12/17/16 07:50 Test 12/17/16 07:45 12/17/16 07:50 Bedside Glucose 86 mg/dl (70-90) White Blood Count 10.20 K/uL (4.8-10.8) Red Blood Count 2.71 M/uL (4.2-5.4) Hemoglobin 9.7 g/dL (12.0-16.0) Hematocrit 28.9 % (37-47) Mean Corpuscular Volume 106.6 fL (80-100) Mean Corpuscular Hemoglobin 35.8 pg (25-34) Mean Corpuscular Hemoglobin Concent 33.6 g/dl (32-36) Platelet Count 112 K/uL (130-400) Mean Platelet Volume 11.4 fL (7.4-10.4) Neutrophils (%) (Auto) 77.1 % Lymphocytes (%) (Auto) 12.5 % Monocytes (%) (Auto) 9.3 % Eosinophils (%) (Auto) 0.0 % Basophils (%) (Auto) 0.0 % Neutrophils # (Auto) 7.87 K/uL (1.4-6.5) Lymphocytes # (Auto) 1.27 K/uL (1.2-3.4) Monocytes # (Auto) 0.95 K/uL (0.11-0.59) Eosinophils # (Auto) 0.00 K/uL (0-0.5) Basophils # (Auto) 0.00 K/uL (0-0.2) RDW Standard Deviation 73.0 fL (36.4-46.3) RDW Coefficient of Variation 18.7 % (11.5-14.5) Immature Granulocyte % (Auto) 1.1 % Immature Granulocyte # (Auto) 0.11 K/uL (0.00-0.02) Anion Gap 4.0 mmol/L (3-11) Est Creatinine Clear Calc Drug Dose 122.2 ml/min Estimated GFR () 128.3 Estimated GFR (Non- 110.7 BUN/Creatinine Ratio 25.1 (10-20) Calcium Level 8.2 mg/dl (8.5-10.1) Phosphorus Level 2.1 mg/dl (2.5-4.9) Magnesium Level 2.1 mg/dl (1.8-2.4) Imaging CT OF THE HEAD WITHOUT CONTRAST CLINICAL HISTORY: Profound weakness. Evaluate for cerebrovascular accident. COMPARISON STUDY: No previous studies for comparison. CT DOSE: 537.48 mGy.cm TECHNIQUE: Helical axial images of the head were obtained without IV contrast. Automated exposure control was utilized for the study. A dose lowering technique was utilized adhering to the principles of ALARA. FINDINGS: No acute intracranial hemorrhage, midline shift or mass effect is present. Ventricular system is normal. Basilar cisterns are patent. There is a suspected small age indeterminate lacunar infarct within the right cerebellar hemisphere shown image 6 of 28. There are no CT findings to suggest acute dural sinus thrombosis or acute territorial infarct. There are postsurgical findings within the sinuses. There is mild mucosal thickening of the sinuses and a small amount of fluid within the left mastoid air cells. There are no significant calvarial abnormalities. IMPRESSION: 1. No acute intracranial hemorrhage or mass effect. 2. Suspected age indeterminate lacunar infarct within the right cerebellar hemisphere. Electronically signed by: Meliton Umanzor M.D. 12/16/2016 5:49 PM Impression 1. Diffuse weakness and clumsiness. She has proximal greater than distal weakness in all 4 limbs symmetrically most consistent with a myopathy. I note the clumsiness and possible ataxia of all 4 limbs, but the proximal weakness interferes with testing somewhat. Again, it is bilateral and symmetrical. She has diminished to absent reflexes and a stocking glove distribution sensory loss in the hands and feet. This would be consistent with a polyneuropathy. Etiology of these is not readily apparent but I suspect her overall condition is responsible. 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 However, steroid usage may be responsible for a steroid myopathy. Significant anemia could add to the sense of weakness and fatigue as well. The ataxia is too diffuse to be a stroke and the lesion seen on CT scan is tiny , old, and focal to the right cerebellar hemisphere. 2. Severe respiratory compromise/hypoxia/COPD with bibasilar pneumonia, improving. 3. History of depression, stable Plan 1. I would like to reevaluate this patient as outpatient after she has recovered from her acute hospital illness 2. Consider EMG and nerve conduction studies of the arms and legs as an outpatient again, once improved and able to be discharged from the hospital. 3. Consider rehabilitation hospital transfer, when stable, for intensive rehabilitation/strengthening I no further neurologic testing or treatment recommendations to make otherwise, at this time. I've spoken with Dr. Chavarria regarding differential diagnosis and treatment options.
[2016-12-17] MEDS: POT PHOSPHATE MONOBASIC W/ SOD TAB PO SCH ×4 (13:05→19:27)
[2016-12-17] MEDS: NSS + 20MEQ KCL 1000ML 1,000 ML IV SCH (17:30)
[2016-12-17] MEDS: MIRTAZAPINE TAB 15 MG TAB PO SCH (19:28)
[2016-12-17] MEDS: RISPERIDONE 1 MG TAB PO SCH (19:31)
--- NOTE | 2016-12-17 22:11 | Progress Note ---
Subjective Date of Service: Dec 17, 2016. Subjective Pt evaluation today including: conversation w/ patient, conversation w/ family ( by phone), physical exam, chart review, lab review, review of studies ( carotid duplex, CT neck), conversation w/ financial sales consultant (cardiology, neurology), review of inpatient medication list Pain: throat - "everything is swollen" PO Intake: no appetite and when she tries to eat there is difficulty & pain Voiding: lopez catheter in place continues to be very weak declines to get into the chair because she "can't sit in one" main complaints are appetite, dysphagia, and odynophagia does report she had some mild dysphagia at home pre-hospital but "not like this " no significant pulmonary complaints today Problem List Medical Problems: (1) COPD exacerbation Status: Acute (2) Hypoxia Status: Acute Review of Systems Constitutional: No fever Respiratory: + cough, No dyspnea at rest Cardiac: + chest pain (chronic, ongoing, pleuritic) Abdomen: + constipation, No pain, No nausea, No vomiting Neurologic: + weakness, + balance problems Objective Vital Signs Date Time Temp Pulse Resp B/P (MAP) Pulse Ox O2 Delivery O2 Flow Rate FiO2 12/17/16 21:41 89 16 98 Nasal Cannula 4.0 12/17/16 20:00 Nasal Cannula 4.0 12/17/16 19:48 36.5 42 22 97/63 (74) 98 Nasal Cannula 4.0 12/17/16 15:39 36.6 80 22 72/46 (55) 98 4.0 12/17/16 14:11 88 16 94 Nasal Cannula 4.0 12/17/16 11:23 36.6 91 20 91/55 (67) 98 Nasal Cannula 4.0 12/17/16 08:15 87 16 98 Nasal Cannula 4.0 12/17/16 07:35 36.7 81 18 71/44 (53) 97 Nasal Cannula 4.0 12/17/16 05:40 36.5 78 19 107/63 (78) 99 Nasal Cannula 4.0 12/17/16 04:00 Nasal Cannula 4.0 Humidified Air 12/17/16 01:44 87 16 98 Nasal Cannula 4.0 12/17/16 00:18 36.8 88 18 154/66 (95) 98 Nasal Cannula 4.0 12/17/16 00:00 Nasal Cannula 4.0 Humidified Air Physical Exam General Appearance: no apparent distress, + pertinent finding (looks ill and very weak) ENT: + pertinent finding (MM slightly dry; no thrush buccal mucosa, tongue, or posterior pharynx; angular cheilitis present) Neck: no JVD Respiratory/Chest: no respiratory distress, no accessory muscle use, + wheezing Cardiovascular: regular rate, rhythm, no gallop, no murmur Abdomen: normal bowel sounds, soft, no organomegaly, + distended Extremities: no pedal edema Neurologic/Psychiatric: alert, oriented x 3, + motor weakness (proximal muscles of shoulders/hips - continues), + depressed affect Laboratory Results Last 24 Hours Test 12/17/16 07:45 12/17/16 07:50 12/17/16 11:35 12/17/16 16:09 Bedside Glucose 86 mg/dl 112 mg/dl 118 mg/dl White Blood Count 10.20 K/uL Red Blood Count 2.71 M/uL Hemoglobin 9.7 g/dL Hematocrit 28.9 % Mean Corpuscular Volume 106.6 fL Mean Corpuscular Hemoglobin 35.8 pg Mean Corpuscular Hemoglobin Concent 33.6 g/dl Platelet Count 112 K/uL Mean Platelet Volume 11.4 fL Neutrophils (%) (Auto) 77.1 % Lymphocytes (%) (Auto) 12.5 % Monocytes (%) (Auto) 9.3 % Eosinophils (%) (Auto) 0.0 % Basophils (%) (Auto) 0.0 % Neutrophils # (Auto) 7.87 K/uL Lymphocytes # (Auto) 1.27 K/uL Monocytes # (Auto) 0.95 K/uL Eosinophils # (Auto) 0.00 K/uL Basophils # (Auto) 0.00 K/uL RDW Standard Deviation 73.0 fL RDW Coefficient of Variation 18.7 % Immature Granulocyte % (Auto) 1.1 % Immature Granulocyte # (Auto) 0.11 K/uL Sodium Level 142 mmol/L Potassium Level 3.7 mmol/L Chloride Level 106 mmol/L Carbon Dioxide Level 32 mmol/L Anion Gap 4.0 mmol/L Blood Urea Nitrogen 10 mg/dl Creatinine 0.41 mg/dl Est Creatinine Clear Calc Drug Dose 122.2 ml/min Estimated GFR () 128.3 Estimated GFR (Non- 110.7 BUN/Creatinine Ratio 25.1 Random Glucose 79 mg/dl Calcium Level 8.2 mg/dl Phosphorus Level 2.1 mg/dl Magnesium Level 2.1 mg/dl Test 12/17/16 20:38 Bedside Glucose 107 mg/dl Assessment and Plan 61yo female: 1. acute/chronic hypoxic respiratory failure - acute component resolved. Stable. Is on baseline NC O2 amount. acute component 2nd to COPD exacerbation & b/l pneumonia. Cont steroids/supportive care/NC O2/nebs. 2. COPD exacerbation - resolved. Day #1 of prednisone 40mg. Wean every 2-3 days. 3. b/l basilar pneumonia - resolved, all abx have been stopped. 4. septic shock 2nd to #3 above - resolved. 5. b/l lung nodules - in light of significant smoking history will need CT surveillance as outpatient. High risk of malignancy. 6. anemia 2nd to folic acid def - folic acid 1mg daily. CBC stable again. 7. pleuritic chest pain - EKGs have been abnormal with inverted T waves in anterior leads. echo w/o wall motion abnormalities. Troponins have been negative. poor candidate for ischemic work-up. she reports this complaint is chronic. etiology? CTA chest - neg for PE. has small pericardial effusion and "mass" in right atrium - pericardial ? due to mass? pulmonary? other? if this was pericarditis there would be improvement with steroids. I am unclear of the etiology. see below 8. depression - ongoing; increased paxil to 40mg daily. Cont remeron. 9. thrush with concern of esophageal candidiasis - nystatin george QID + diflucan 200mg daily. Day #4. Speech consult for swallow eval appreciated; diet changed to pureed. Despite carafate and increasing PPI she has had no improvement in dysphagia/ odynophagia. will obtain barium swallow defer to speech about video swallow if nondiagnostic - ENT? GI? 10. severe deconditioning - PT, OT - will need rehab. [facility] in [place]. 11. DVT proph - lovenox once daily. 12. atrial mass - spoke with cardiology today. The echo and CT chest are both c/w lipomatous hypertrophy. this is NOT a risk factor for stroke. does not require anticoagulation. does NOT cause pain. 13. ?myopathy +/- polyneuropathy - appreciate neuro consultation may have critical illness myopathy or polyneuropathy wean steroids B12, TSH, etc - normal no further testing for now will need outpatient EMGs, etc rehab CT neck without cord lesion carotid duplex w/o high grade stenosis 14. FEN - in light of severe anorexia restart IVF 15. old cerebellar stroke, right - on aspirin for secondary prevention Dr. Parks feels this is not the cause of her current neuro symptoms & signs - I agree hold off on discharge due to severe anorexia and dysphagia prognosis is poor even with optimal recovery from this illness updated this evening dispo - [place] [facility] [place] total time today about 60 minutes including reviewing multiple studies, speaking with neuro/cardiology/speech, speaking with Continued [facility] stay due to: inadequate po fluid intake, inadequate oral pain control, voiding difficulties, ambulation difficulties, multiple IV medications needed, home environment unsafe for pt Discharge planning: senior living facility
[2016-12-18] VITALS (17 sets, daily range): BP systolic 70–148; BP diastolic 50–80; PULSE 63–103; TEMP 36.1–36.8; O2SAT 94–100
[2016-12-18] MEDS: NSS + 20MEQ KCL 1000ML 1,000 ML IV SCH (01:44)
[2016-12-18] MEDS: OXYCODONE/ACETAMINOPHEN 5-325 TAB PO PRN (01:44)
[2016-12-18] MEDS: LEVALBUTEROL 1.25MG/0.5ML NEB INH SCH ×4 (01:51→20:06)
[2016-12-18] MEDS: IPRATROPIUM BROMIDE NEB SOLN 0.02% 2.5 ML VIAL INH SCH ×4 (01:51→20:06)
[2016-12-18] MEDS ORDERED: MoRPHine SULFATE 2 MG/ML CARP IV PRN (04:45)
[2016-12-18 07:17] LABS: MEAN CELL VOLUME 107.1 fL (80-100); MEAN CORPUSCULAR HEMOGLOBIN 35.4 pg (25-34); WHITE BLOOD COUNT 12.34 K/uL (4.8-10.8)
[2016-12-18 07:29] LABS: MEAN PLATELET VOLUME 11.4 fL (7.4-10.4); PLATELET COUNT 98 K/uL (130-400)
[2016-12-18 07:48] LABS: ANISOCYTOSIS PRESENT; COMPLETE YES; EOS % 0.2 %; HYPERSEGMENTED POLYS 1+; IG% 0.7 %; LYMPH % 9.2 %; LYMPH ABS # 1.14 K/uL (1.2-3.4); MONO % 8.2 %; NEUT % 81.7 %
[2016-12-18 07:52] LABS: BUN/CREATININE RATIO 24.9 (10-20); CALCIUM 7.7 mg/dl (8.5-10.1); CREATININE 0.39 mg/dl (0.60-1.20); POTASSIUM 3.5 mmol/L (3.5-5.1)
[2016-12-18] MEDS: FERROUS SULFATE 325 MG TAB PO SCH ×2 (08:00→17:31)
--- NOTE | 2016-12-18 08:10 | DIAGNOSTIC IMAGING REPORT ---
(BARIUM SWALLOW) ESOPHAGUS CLINICAL HISTORY: dysphagia, odynophagiadysphagia COMPARISON STUDY: None FLUOROSCOPY TIME: 1.2 minutes. FINDINGS: Patient initiated swallowing function well. There is persistent prominence of the cricopharyngeus. There is moderate esophageal irritability and/or spasm. Gastroesophageal junction is unremarkable. IMPRESSION: 1. Moderate cricopharyngeal achalasia. 2. Moderate generalized esophageal spasm and/or irritability. The above report was generated using voice recognition software. It may contain grammatical, syntax or spelling errors. Electronically signed by: Mauro Martinez M.D. 12/18/2016 8:08 AM Dictated Date/Time: 12/18/2016 8:07 AM
[2016-12-18] MEDS: ENOXAPARIN 40 MG/0.4 ML SYR SQ SCH (08:23)
[2016-12-18] MEDS: BUDESONIDE/FORMOTEROL FUMARATE 160/4.5 60 PUFFS/INHALER INH SCH ×2 (08:23→20:55)
[2016-12-18] MEDS: INSULIN ASPART 100 UNITS/ML 3 ML PEN SC SCH ×4 (08:34→21:44)
[2016-12-18] MEDS: SUCRALFATE 1 GM/10 ML UDC PO SCH ×4 (10:04→20:49)
[2016-12-18] MEDS: ROFLUMILAST 500 MCG TAB PO SCH (10:04)
[2016-12-18] MEDS: ASPIRIN 81 MG ECTAB PO SCH (10:05)
[2016-12-18] MEDS: POLYETHYLENE (MIRALAX) 17 GM PACK PO SCH (10:05)
[2016-12-18] MEDS: FLUCONAZOLE 100 MG TAB PO SCH (10:05)
[2016-12-18] MEDS: ATORVASTATIN 40 MG TAB PO SCH (10:05)
[2016-12-18] MEDS: PAROXETINE 20 MG TAB PO SCH (10:06)
[2016-12-18] MEDS: POT PHOSPHATE MONOBASIC W/ SOD TAB PO SCH ×4 (10:06→20:50)
[2016-12-18] MEDS: NYSTATIN SUSP 500,000 U/5 ML UDC PO SCH ×4 (10:06→20:50)
[2016-12-18] MEDS: PANTOprazole SOD 40 MG TAB PO SCH (10:06)
[2016-12-18] MEDS: GUAIFENESIN 600 MG TABCR PO SCH ×2 (10:06→20:49)
[2016-12-18] MEDS: D5NSS + 20MEQ KCL 1,000 ML IV SCH ×2 (10:30→20:51)
--- NOTE | 2016-12-18 10:45 | Gastrointestinal Consultation ---
Gastrointestinal Consultation Date of Consultation: Dec 18, 2016 Attending Physician: Dr. Mattson Consulting Physician: Dr. Dee/SUSAN Oruorke Reason for Consultation: Odynophagia History of Present Illness Patient is a 61 year old female with a history of COPD admitted with respiratory failure as well as pneumonia with sepsis with a prolonged hospital course which has been worsened due to worsening symptoms of dysphagia and poor oral intake. The patient does have a history of dysphagia prior to hospitalization but symptoms have been progressively worsening and she is now having reports of odynophagia as well. She is tolerating liquids but having difficulty with swallowing solids. She is now NPO. Patient did undergo a barium swallow study which demonstrated oropharyngeal achalasia as well as moderate esophageal dysmotility. She has been empirically treated with Nystatin, Carafate and Diflucan with minimal symptom improvement. The only associated symptom is of mild nausea. Denies any vomiting, hematemesis, abdominal pain, melena or hematochezia. Past Medical/Surgical History Medical Problems: (1) COPD exacerbation Status: Acute (2) Hypoxia Status: Acute Past Medical History: (1) Acute respiratory failure with hypoxia and hypercapnia (2) COPD (chronic obstructive pulmonary disease) (3) Depression (4) Dyslipidemia (5) Hypotension (6) Hypothyroidism (7) Leg cramps (8) Pleuritic chest pain (9) Pneumonia of both lower lobes (10) Respiratory failure with hypercapnia (11) Shortness of breath (12) Tobacco abuse (13) Tobacco abuse counseling Past Surgical History: 1. Tonsillectomy 2. Tubal ligation 3. Hysterectomy Family History Negative for GI malignancy Social History Smoking Status: Current Every Day Smoker Drug Use: none Marital Status: Housing Status: lives with significant other Occupation Status: retired Allergies Coded Allergies: No Known Allergies (Unverified , 12/06/16) Current Medications Home Meds and Scripts Medications Dose Route/Sig Max Daily Dose Days Date Category Dose Instructions Proventil 0.083% 2.5MG/3ML (Albuterol Sulf) 2.5 Mg/3 Ml Nebu 2.5 Mg NEB Q4 PRN 12/06/16 Reported Ventolin Hfa (Albuterol) 200 Puffs/41662 Mcg Aers 2-4 Puffs INH Q6H 12/06/16 Reported Daliresp (Roflumilast) 500 Mcg Tab 500 Mcg PO DAILY 30 12/06/16 Reported Incruse Ellipta (Umeclidinium Herculaneum) 62.5 Mcg/Inh Inh 1 Puff INH DAILY 12/06/16 Reported Pulmicort Respules 0.5MG/2ML (Budesonide (Inhalation)) 0.5 Mg/2 Ml Leia 2 Ml INH Q12H 12/06/16 Reported Perforomist (Formoterol Fumarate) 20 Mcg/2 Ml Neb 1 Vial NEB Q12H 12/06/16 Reported Kp Ferrous Sulfate (Ferrous Sulfate) 325 Mg Tab 325 Mg PO BID 30 12/06/16 Reported Oxygen Gas 4 Liter NA DIRECTED 12/06/16 Reported 18-24 HOURS DAILY Buspirone Hcl 5 Mg Tab 5 Mg PO BID 30 12/06/16 Reported Risperdal (Risperidone) 1 Mg Tab 1 Mg PO HS 12/06/16 Reported Zocor (Simvastatin) 40 Mg Tab 40 Mg PO DAILY 12/06/16 Reported Paxil (Paroxetine HCl) 20 Mg Tab 30 Mg PO DAILY 12/06/16 Reported Mirtazapine 45 Mg Tab 45 Mg PO QPM 30 12/06/16 Reported Review of Systems Constitutional: + fatigue, No fever, No chills Eyes: No problem reported ENT: + see HPI Respiratory: + cough, + wheezing, + shortness of breath, + dyspnea on exertion Cardiac: No chest pain, No palpitations Abdomen: + see HPI Musculoskeletal: No problem reported Neuro: + weakness Psych: No problem reported Physical Exam Date Time Temp Pulse Resp B/P (MAP) Pulse Ox O2 Delivery O2 Flow Rate FiO2 12/18/16 08:00 96 Nasal Cannula 4.0 12/18/16 07:38 70 18 96 Nasal Cannula 4.0 12/18/16 07:35 36.7 88 16 103/80 (88) 100 4.0 12/18/16 04:28 36.1 103 17 107/68 (81) 99 Nasal Cannula 4.0 12/18/16 04:00 Nasal Cannula 4.0 12/18/16 01:51 89 16 97 Nasal Cannula 4.0 12/18/16 00:00 Nasal Cannula 4.0 12/17/16 23:38 36.3 81 18 118/59 (78) 100 Nasal Cannula 4.0 12/17/16 21:41 89 16 98 Nasal Cannula 4.0 12/17/16 20:00 Nasal Cannula 4.0 12/17/16 19:48 36.5 42 22 97/63 (74) 98 Nasal Cannula 4.0 12/17/16 15:39 36.6 80 22 72/46 (55) 98 4.0 12/17/16 14:11 88 16 94 Nasal Cannula 4.0 12/17/16 11:23 36.6 91 20 91/55 (67) 98 Nasal Cannula 4.0 General Appearance: no apparent distress Eyes: EOMI ENT: hearing grossly normal Neck: supple Respiratory/Chest: + decreased breath sounds (bases), + wheezing Cardiovascular: regular rate, rhythm, no gallop, no murmur Abdomen: normal bowel sounds, soft, + tenderness (mild upper abdomen) Extremities: no pedal edema Neurologic/Psych: alert, normal mood/affect, oriented x 3 Skin: warm/dry Laboratory Results Last 24 Hours Test 12/17/16 11:35 12/17/16 16:09 12/17/16 20:38 12/18/16 00:09 Bedside Glucose 112 mg/dl 118 mg/dl 107 mg/dl 92 mg/dl Test 12/18/16 06:04 12/18/16 06:49 Bedside Glucose 84 mg/dl White Blood Count 12.34 K/uL Red Blood Count 2.80 M/uL Hemoglobin 9.9 g/dL Hematocrit 30.0 % Mean Corpuscular Volume 107.1 fL Mean Corpuscular Hemoglobin 35.4 pg Mean Corpuscular Hemoglobin Concent 33.0 g/dl Platelet Count 98 K/uL Mean Platelet Volume 11.4 fL Neutrophils (%) (Auto) 81.7 % Lymphocytes (%) (Auto) 9.2 % Monocytes (%) (Auto) 8.2 % Eosinophils (%) (Auto) 0.2 % Basophils (%) (Auto) 0.0 % Neutrophils # (Auto) 10.08 K/uL Lymphocytes # (Auto) 1.14 K/uL Monocytes # (Auto) 1.01 K/uL Eosinophils # (Auto) 0.02 K/uL Basophils # (Auto) 0.00 K/uL RDW Standard Deviation 74.4 fL RDW Coefficient of Variation 19.2 % Immature Granulocyte % (Auto) 0.7 % Immature Granulocyte # (Auto) 0.09 K/uL Hypersegmented Polys 1+ Anisocytosis PRESENT Macrocytosis PRESENT Sodium Level 142 mmol/L Potassium Level 3.5 mmol/L Chloride Level 107 mmol/L Carbon Dioxide Level 30 mmol/L Anion Gap 5.0 mmol/L Blood Urea Nitrogen 10 mg/dl Creatinine 0.39 mg/dl Est Creatinine Clear Calc Drug Dose 118.3 ml/min Estimated GFR () 130.5 Estimated GFR (Non- 112.6 BUN/Creatinine Ratio 24.9 Random Glucose 76 mg/dl Calcium Level 7.7 mg/dl Impression Patient is a 61 year old female with a history of COPD admitted with pneumonia and sepsis now with progressive dysphagia and now with odynophagia and poor oral intake. Plan 1. Keep NPO for now. 2. EGD for further evaluation of symptoms. 3. Continue Nystatin, Diflucan and Carafate as prescribed. 4. Patient may need to be seen by ENT in regard to cricopharyngeal achalasia. 5. Additional recommendations pending results of testing. Thank you for allowing us to participate in the care of this pleasant patient. If you have any questions or concerns, please do not hesitate to contact us. Agree with SUSAN Orourke as above Patient unstable for EGD at this time, as she just received fluid bolus for BP of 70/50 with adequate response Gen: Chronic ill-appearing, Mild distress Lungs: Coarse Breath sounds throughout Abd: Soft, NT Consider EGD as outpatient for further evaluation of symptoms, when acute medical issues resolved Continue current therapy
[2016-12-18] MEDS ORDERED: NURSING VERBAL MED ORDER ONE (12:50)
[2016-12-18] MEDS ORDERED: SODIUM CHLORIDE 0.9% 1000ML 500 ML IV SCH (13:15)
--- NOTE | 2016-12-18 15:39 | DIAGNOSTIC IMAGING REPORT ---
CHEST ONE VIEW PORTABLE CLINICAL HISTORY: Severe COPD. Pneumonia. COMPARISON STUDY: 12/14/2016 FINDINGS: The heart is normal in size. There is radiographic evidence of emphysema. The right internal jugular central venous catheter has been removed. There is a small right pleural effusion with associated right basilar opacities likely atelectatic. Minor left basilar atelectatic changes are also evident.[ IMPRESSION: 1. Interval removal of the right internal jugular central venous catheter. No evidence of pneumothorax 2. Emphysema 3. Persistent small right pleural effusion 4. Linear bibasilar opacities likely atelectatic Electronically signed by: Aman Tracy M.D. 12/18/2016 3:38 PM Dictated Date/Time: 12/18/2016 3:37 PM
[2016-12-18] MEDS: NITROGLYCERIN 0.4 MG SL PER TAB CHARGE SL PRN ×2 (16:05→21:42)
[2016-12-18] MEDS: METHYLPREDNISOLONE IV 40 MG in SYRINGE 0 ML IV SCH ×2 (16:13→23:30)
[2016-12-18 20:37] LABS: CKMB/CK RATIO 3.8 (0-3.0)
[2016-12-18] MEDS: MIRTAZAPINE TAB 15 MG TAB PO SCH (20:50)
[2016-12-18] MEDS: RISPERIDONE 1 MG TAB PO SCH (20:50)
--- NOTE | 2016-12-18 22:05 | Progress Note ---
Subjective Date of Service: Dec 18, 2016. Subjective Pt evaluation today including: conversation w/ patient, physical exam, chart review, lab review, review of studies (cxr, EKG), conversation w/ [employer]ci security consultant ( speech, GI), review of inpatient medication list Pain: again pleuritic chest pain, unresponsive to nitro SL PO Intake: essentially npo Voiding: lopez catheter in place feels "terrible" c/o dyspnea, pleuritic chest pain and cough no appetite very weak had 1-2 hour long episode of pleuritic chest pain once again today - did not respond to SL nitro waxing/waning BPs seen by GI - EGD recommended Problem List Medical Problems: (1) COPD exacerbation Status: Acute (2) Hypoxia Status: Acute Review of Systems Constitutional: No fever Cardiac: + see HPI, No orthopnea Abdomen: + constipation, No pain, No nausea, No vomiting Psychiatric: + depression symptoms Objective Vital Signs Date Time Temp Pulse Resp B/P (MAP) Pulse Ox O2 Delivery O2 Flow Rate FiO2 12/18/16 21:42 84 20 105/50 (68) 12/18/16 20:14 94 Nasal Cannula 4.0 12/18/16 20:07 83 20 98 Nasal Cannula 4.0 12/18/16 19:21 36.8 92 18 117/76 (90) 96 Nasal Cannula 2.0 12/18/16 17:08 126/73 (90) 12/18/16 16:04 63 20 90/50 (63) 94 Nasal Cannula 4.5 12/18/16 16:00 94 Nasal Cannula 4.0 12/18/16 14:26 95 18 98 Nasal Cannula 4.0 12/18/16 13:35 90 90/50 (63) 12/18/16 13:19 BiPAP 12/18/16 12:02 36.6 93 16 70/50 (57) 100 4.0 12/18/16 12:00 Nasal Cannula 4.0 12/18/16 08:33 90 148/69 (95) 12/18/16 08:00 96 Nasal Cannula 4.0 12/18/16 07:38 70 18 96 Nasal Cannula 4.0 12/18/16 07:35 36.7 88 16 103/80 (88) 100 4.0 12/18/16 04:28 36.1 103 17 107/68 (81) 99 Nasal Cannula 4.0 12/18/16 04:00 Nasal Cannula 4.0 12/18/16 01:51 89 16 97 Nasal Cannula 4.0 12/18/16 00:00 Nasal Cannula 4.0 12/17/16 23:38 36.3 81 18 118/59 (78) 100 Nasal Cannula 4.0 Physical Exam General Appearance: no apparent distress ENT: + pertinent finding (MM dry) Neck: no JVD Respiratory/Chest: no respiratory distress, no accessory muscle use, + rales ( slight - bases), + wheezing, + pertinent finding (course BS b/l - worse than yesterday) Cardiovascular: regular rate, rhythm, no gallop, no murmur, + pertinent finding (heart tones distant) Abdomen: normal bowel sounds, non tender, soft, no organomegaly Extremities: no pedal edema Neurologic/Psychiatric: alert, + pertinent finding (very weak x 4 extremities) Laboratory Results Last 24 Hours Test 12/18/16 00:09 12/18/16 06:04 12/18/16 06:49 12/18/16 10:27 Bedside Glucose 92 mg/dl 84 mg/dl 92 mg/dl White Blood Count 12.34 K/uL Red Blood Count 2.80 M/uL Hemoglobin 9.9 g/dL Hematocrit 30.0 % Mean Corpuscular Volume 107.1 fL Mean Corpuscular Hemoglobin 35.4 pg Mean Corpuscular Hemoglobin Concent 33.0 g/dl Platelet Count 98 K/uL Mean Platelet Volume 11.4 fL Neutrophils (%) (Auto) 81.7 % Lymphocytes (%) (Auto) 9.2 % Monocytes (%) (Auto) 8.2 % Eosinophils (%) (Auto) 0.2 % Basophils (%) (Auto) 0.0 % Neutrophils # (Auto) 10.08 K/uL Lymphocytes # (Auto) 1.14 K/uL Monocytes # (Auto) 1.01 K/uL Eosinophils # (Auto) 0.02 K/uL Basophils # (Auto) 0.00 K/uL RDW Standard Deviation 74.4 fL RDW Coefficient of Variation 19.2 % Immature Granulocyte % (Auto) 0.7 % Immature Granulocyte # (Auto) 0.09 K/uL Hypersegmented Polys 1+ Anisocytosis PRESENT Macrocytosis PRESENT Sodium Level 142 mmol/L Potassium Level 3.5 mmol/L Chloride Level 107 mmol/L Carbon Dioxide Level 30 mmol/L Anion Gap 5.0 mmol/L Blood Urea Nitrogen 10 mg/dl Creatinine 0.39 mg/dl Est Creatinine Clear Calc Drug Dose 118.3 ml/min Estimated GFR () 130.5 Estimated GFR (Non- 112.6 BUN/Creatinine Ratio 24.9 Random Glucose 76 mg/dl Calcium Level 7.7 mg/dl Test 12/18/16 12:51 12/18/16 17:29 12/18/16 19:30 Bedside Glucose 103 mg/dl 85 mg/dl Total Creatine Kinase 73 U/L Creatine Kinase MB 2.8 ng/ml Creatine Kinase MB Ratio 3.8 Troponin I 0.030 ng/ml Assessment and Plan 61yo female: 1. acute/chronic hypoxic respiratory failure - acute component had resolved - now worse today. Aspiration event during barium swallow evaluation? Restart IV steroids. d/c prednisone. defer on abx for now. cxr w/o pulmonary edema or new infiltrates. cont support care and o2, nebs, etc 2. COPD exacerbation - was resolved but recurrent today - see above. 3. b/l basilar pneumonia - resolved, all abx have been stopped. cxr free of infiltrates. 4. septic shock 2nd to #3 above - resolved. 5. b/l lung nodules - in light of significant smoking history will need CT surveillance as outpatient. High risk of malignancy. 6. anemia 2nd to folic acid def - folic acid 1mg daily. CBC stable. 7. pleuritic chest pain - numerous EKGs with anterior T wave inversions. Numerous troponins negative. Echo w/o wall motion abnormalities. she reports this complaint is chronic. etiology? CTA chest - neg for PE. has small pericardial effusion but if this was pericarditis there would be improvement with steroids. I am unclear of the etiology. did not respond to nitro SL today much of her pain is reproducible on exam some of her pain could be esophageal spasm continue to try and treat her pain may need narcotics 8. depression - ongoing; increased paxil to 40mg daily. Cont remeron. 9. thrush with concern of esophageal candidiasis - nystatin george QID + diflucan 200mg daily. Day #5. Speech consult for swallow eval appreciated; diet changed to pureed. Despite carafate and increasing PPI she has had no improvement in dysphagia/ odynophagia. barium swallow with dysmotility and cricopharyngeal achalasi GI consult obtained; EGD recommended, but then canceled today due to low BP cont supportive care in meantime 10. severe deconditioning - PT, OT - will need rehab. [facility] in [place]. 11. DVT proph - lovenox once daily. 12. atrial mass - spoke with cardiology. The echo and CT chest are both c/w lipomatous hypertrophy. this is NOT a risk factor for stroke. does not require anticoagulation. does NOT cause pain. 13. ?myopathy +/- polyneuropathy - appreciate neuro consultation may have critical illness myopathy or polyneuropathy wean steroids B12, TSH, etc - normal no further testing for now will need outpatient EMGs, etc rehab CT neck without cord lesion carotid duplex w/o high grade stenosis 14. FEN - lytes stable 15. old cerebellar stroke, right - on aspirin for secondary prevention Dr. Parks feels this is not the cause of her current neuro symptoms & signs - I agree prognosis is poor even with optimal recovery from this illness I tried calling today - I could not reach him need to speak to him about code status and plan of care as she is not improving and, if anything, has continued to worsen palliative care/hospice? Continued [facility] stay due to: abnormal vital signs, inadequate po fluid intake, inadequate oral pain control, voiding difficulties, ambulation difficulties, multiple IV medications needed, home environment unsafe for pt Discharge planning: correction facility
[2016-12-19] VITALS (15 sets, daily range): BP systolic 81–115; BP diastolic 53–73; PULSE 56–93; TEMP 36.4–37.3; O2SAT 90–98
[2016-12-19] MEDS: IPRATROPIUM BROMIDE NEB SOLN 0.02% 2.5 ML VIAL INH SCH ×4 (01:52→19:30)
[2016-12-19] MEDS: LEVALBUTEROL 1.25MG/0.5ML NEB INH SCH ×4 (01:52→19:30)
[2016-12-19] MEDS: METHYLPREDNISOLONE IV 40 MG in SYRINGE 0 ML IV SCH ×2 (07:53→16:37)
[2016-12-19] MEDS: FERROUS SULFATE 325 MG TAB PO SCH ×3 (07:55→16:40)
[2016-12-19] MEDS: INSULIN ASPART 100 UNITS/ML 3 ML PEN SC SCH ×4 (07:55→21:20)
[2016-12-19] MEDS: ASPIRIN 81 MG ECTAB PO SCH ×2 (08:37→09:51)
[2016-12-19] MEDS: ROFLUMILAST 500 MCG TAB PO SCH ×2 (08:37→09:55)
[2016-12-19] MEDS: POLYETHYLENE (MIRALAX) 17 GM PACK PO SCH ×3 (08:37→21:17)
[2016-12-19] MEDS: ATORVASTATIN 40 MG TAB PO SCH ×2 (08:37→09:51)
[2016-12-19] MEDS: GUAIFENESIN 600 MG TABCR PO SCH ×3 (08:37→21:16)
[2016-12-19] MEDS: FLUCONAZOLE 100 MG TAB PO SCH ×2 (08:37→09:54)
[2016-12-19] MEDS: SUCRALFATE 1 GM/10 ML UDC PO SCH ×5 (08:37→21:15)
[2016-12-19] MEDS: BUDESONIDE/FORMOTEROL FUMARATE 160/4.5 60 PUFFS/INHALER INH SCH ×2 (08:37→21:14)
[2016-12-19] MEDS: POT PHOSPHATE MONOBASIC W/ SOD TAB PO SCH ×5 (08:38→21:16)
[2016-12-19] MEDS: ENOXAPARIN 40 MG/0.4 ML SYR SQ SCH (08:38)
[2016-12-19] MEDS: NYSTATIN SUSP 500,000 U/5 ML UDC PO SCH ×5 (08:38→21:15)
[2016-12-19] MEDS: PAROXETINE 20 MG TAB PO SCH ×2 (08:38→09:53)
[2016-12-19] MEDS: PANTOprazole SOD 40 MG TAB PO SCH ×2 (08:38→09:52)
[2016-12-19 09:44] LABS: BUN/CREATININE RATIO 31.3 (10-20); CALCIUM 8.2 mg/dl (8.5-10.1); CREATININE 0.39 mg/dl (0.60-1.20); PHOSPHORUS 3.4 mg/dl (2.5-4.9); POTASSIUM 4.2 mmol/L (3.5-5.1)
[2016-12-19] MEDS: D5NSS + 20MEQ KCL 1,000 ML IV SCH ×2 (09:44→22:31)
[2016-12-19] MEDS: OXYCODONE/ACETAMINOPHEN 5-325 TAB PO PRN ×2 (10:25→16:43)
[2016-12-19] MEDS ORDERED: BISACODYL 5 MG TABEC PO ONE (14:00)
[2016-12-19] MEDS ORDERED: NURSING VERBAL MED ORDER ONE (14:45)
[2016-12-19] MEDS: ACETAMINOPHEN 325 MG TAB PO PRN (14:51)
[2016-12-19] MEDS: MIRTAZAPINE TAB 15 MG TAB PO SCH (21:17)
[2016-12-19] MEDS: RISPERIDONE 1 MG TAB PO SCH (21:18)
[2016-12-20] VITALS (12 sets, daily range): BP systolic 90–129; BP diastolic 50–72; PULSE 78–108; TEMP 36.3–36.9; O2SAT 94–100
[2016-12-20] MEDS: METHYLPREDNISOLONE IV 40 MG in SYRINGE 0 ML IV SCH ×3 (00:07→15:05)
[2016-12-20] MEDS: LEVALBUTEROL 1.25MG/0.5ML NEB INH SCH ×4 (02:09→19:55)
[2016-12-20] MEDS: IPRATROPIUM BROMIDE NEB SOLN 0.02% 2.5 ML VIAL INH SCH ×4 (02:09→19:55)
[2016-12-20] MEDS: OXYCODONE/ACETAMINOPHEN 5-325 TAB PO PRN ×4 (02:34→19:23)
[2016-12-20 07:02] LABS: HEMATOCRIT 26.9 % (37-47); MEAN CELL VOLUME 106.3 fL (80-100); MEAN CORPUSCULAR HEMOGLOBIN 35.6 pg (25-34); MEAN CORPUSCULAR HGB CONC 33.5 g/dl (32-36); MEAN PLATELET VOLUME 12.3 fL (7.4-10.4); PLATELET COUNT 136 K/uL (130-400); RED BLOOD COUNT 2.53 M/uL (4.2-5.4); WHITE BLOOD COUNT 12.29 K/uL (4.8-10.8)
[2016-12-20] MEDS: FERROUS SULFATE 325 MG TAB PO SCH ×2 (07:15→18:06)
[2016-12-20 07:35] LABS: COMPLETE YES; HYPERSEGMENTED POLYS 1+
[2016-12-20 07:39] LABS: BUN/CREATININE RATIO 21.6 (10-20); CALCIUM 7.8 mg/dl (8.5-10.1); CREATININE 0.44 mg/dl (0.60-1.20); POTASSIUM 3.8 mmol/L (3.5-5.1)
[2016-12-20] MEDS: ATORVASTATIN 40 MG TAB PO SCH (08:06)
[2016-12-20] MEDS: ASPIRIN 81 MG ECTAB PO SCH (08:06)
[2016-12-20] MEDS: ROFLUMILAST 500 MCG TAB PO SCH (08:07)
[2016-12-20] MEDS: NYSTATIN SUSP 500,000 U/5 ML UDC PO SCH ×4 (08:07→20:49)
[2016-12-20] MEDS: PANTOprazole SOD 40 MG TAB PO SCH (08:07)
[2016-12-20] MEDS: GUAIFENESIN 600 MG TABCR PO SCH ×2 (08:07→20:50)
[2016-12-20] MEDS: POT PHOSPHATE MONOBASIC W/ SOD TAB PO SCH ×4 (08:07→20:51)
[2016-12-20] MEDS: FLUCONAZOLE 100 MG TAB PO SCH (08:07)
[2016-12-20] MEDS: SUCRALFATE 1 GM/10 ML UDC PO SCH ×4 (08:08→20:49)
[2016-12-20] MEDS: PAROXETINE 20 MG TAB PO SCH (08:08)
[2016-12-20] MEDS: BUDESONIDE/FORMOTEROL FUMARATE 160/4.5 60 PUFFS/INHALER INH SCH ×2 (08:09→20:49)
[2016-12-20] MEDS: ENOXAPARIN 40 MG/0.4 ML SYR SQ SCH (08:09)
[2016-12-20] MEDS: POLYETHYLENE (MIRALAX) 17 GM PACK PO SCH ×2 (08:09→20:49)
[2016-12-20] MEDS: INSULIN ASPART 100 UNITS/ML 3 ML PEN SC SCH ×4 (08:13→20:53)
--- NOTE | 2016-12-20 08:27 | Progress Note ---
Subjective Date of Service: Dec 19, 2016. Subjective Pt evaluation today including: conversation w/ patient, physical exam, chart review, lab review, review of inpatient medication list Pain: chest pain - intermittent, ongoing PO Intake: improved today Voiding: lopez catheter in place she states "I feel better" breathing is about the same still no bowel movement does have some abdominal bloating/distension Problem List Medical Problems: (1) COPD exacerbation Status: Acute (2) Hypoxia Status: Acute Review of Systems Constitutional: No fever Respiratory: + cough, + wheezing, + dyspnea on exertion, No sputum Cardiac: + chest pain Abdomen: No pain Objective Vital Signs Date Time Temp Pulse Resp B/P (MAP) Pulse Ox O2 Delivery O2 Flow Rate FiO2 12/19/16 19:30 93 20 95 Nasal Cannula 4.0 12/19/16 19:22 36.9 90 22 115/64 (81) 98 Nasal Cannula 4.0 12/19/16 16:00 Nasal Cannula 4.0 12/19/16 15:19 37.3 92 24 81/53 (62) 97 Nasal Cannula 4.0 12/19/16 14:50 56 100/64 (76) 12/19/16 14:35 92 18 95 Nasal Cannula 4.0 12/19/16 12:00 Nasal Cannula 4.0 12/19/16 11:06 36.6 93 18 100/62 (75) 90 4.0 12/19/16 10:20 91 110/65 (80) 12/19/16 08:00 97 Nasal Cannula 4.0 12/19/16 07:31 86 18 96 Nasal Cannula 4.0 12/19/16 07:25 36.6 70 18 114/73 (87) 93 Nasal Cannula 4.0 12/19/16 04:22 36.8 82 22 106/60 (75) 96 Nasal Cannula 4.0 12/19/16 04:00 96 Nasal Cannula 4.5 12/19/16 01:53 85 18 98 Nasal Cannula 4.0 12/19/16 00:00 36.4 84 20 113/70 (84) 96 Nasal Cannula 4.5 12/19/16 00:00 96 Nasal Cannula 4.5 12/18/16 22:38 94/65 (75) 12/18/16 21:42 84 20 105/50 (68) Physical Exam General Appearance: no apparent distress, + pertinent finding (looks better today than yesterday) ENT: pharynx normal, + pertinent finding (MMM, no thrush) Neck: no JVD Respiratory/Chest: no respiratory distress, no accessory muscle use, + crackles , + rhonchi, + wheezing Cardiovascular: regular rate, rhythm, no gallop, no murmur, + pertinent finding (heart tones distant) Abdomen: normal bowel sounds, non tender, no organomegaly, + distended, + pertinent finding (rectal exam (chaperoned by staff) - no impaction, stool appears melena, no masses or tenderness) Extremities: no pedal edema Neurologic/Psychiatric: alert, oriented x 3, + pertinent finding (weak x 4 extremities) Skin: no rash Laboratory Results Last 24 Hours Test 12/18/16 21:43 12/19/16 07:29 12/19/16 08:37 12/19/16 11:44 Bedside Glucose 90 mg/dl 91 mg/dl 192 mg/dl Erythrocyte Sedimentation Rate 2 mm/hr Sodium Level 139 mmol/L Potassium Level 4.2 mmol/L Chloride Level 104 mmol/L Carbon Dioxide Level 26 mmol/L Anion Gap 9.0 mmol/L Blood Urea Nitrogen 12 mg/dl Creatinine 0.39 mg/dl Est Creatinine Clear Calc Drug Dose 127.8 ml/min Estimated GFR () 130.5 Estimated GFR (Non- 112.6 BUN/Creatinine Ratio 31.3 Random Glucose 79 mg/dl Calcium Level 8.2 mg/dl Phosphorus Level 3.4 mg/dl Troponin I 0.030 ng/ml Test 12/19/16 13:05 12/19/16 16:40 12/19/16 20:24 Stool Occult Blood NEGATIVE Bedside Glucose 193 mg/dl 163 mg/dl Assessment and Plan 61yo female: 1. acute/chronic hypoxic respiratory failure - ongoing. Restarted IV steroids. No wean today. defer on abx for now. cxr 12/18/16 w/o pulmonary edema or new infiltrates. cont support care and o2, nebs, etc 2. COPD exacerbation - as above. 3. b/l basilar pneumonia - resolved, all abx have been stopped. repeat cxr free of infiltrates. 4. septic shock 2nd to #3 above - resolved. 5. b/l lung nodules - in light of significant smoking history will need CT surveillance as outpatient. High risk of malignancy. 6. anemia 2nd to folic acid def - folic acid 1mg daily. CBC stable. 7. pleuritic chest pain - numerous EKGs with anterior T wave inversions. Numerous troponins negative. Echo w/o wall motion abnormalities. she reports this complaint is chronic. etiology? CTA chest - neg for PE. has small pericardial effusion but if this was pericarditis there would be improvement with steroids. I am unclear of the etiology. has not responded to nitro SL during this stay. much of her pain is reproducible on exam some of her pain could be esophageal spasm continue to try and treat her pain may need narcotics 8. depression - ongoing; increased paxil to 40mg daily. Cont remeron. 9. thrush with concern of esophageal candidiasis - nystatin george QID + diflucan 200mg daily. Day #6. Speech consult for swallow eval appreciated; diet changed to pureed. Despite carafate and increasing PPI she has had no improvement in dysphagia/ odynophagia. 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 10. severe deconditioning - PT, OT - will need rehab. [facility] in [place]. 11. DVT proph - lovenox once daily. 12. atrial mass - spoke with cardiology. The echo and CT chest are both c/w lipomatous hypertrophy. this is NOT a risk factor for stroke. does not require anticoagulation. does NOT cause pain. 13. ?myopathy +/- polyneuropathy - appreciate neuro consultation may have critical illness myopathy or polyneuropathy wean steroids B12, TSH, etc - normal no further testing for now will need outpatient EMGs, etc rehab CT neck without cord lesion carotid duplex w/o high grade stenosis 14. FEN - lytes stable 15. old cerebellar stroke, right - on aspirin for secondary prevention Dr. Parks feels this is not the cause of her current neuro symptoms & signs - I agree prognosis is poor even with optimal recovery from this illness update when able need to discuss code status Continued [facility] stay due to: inadequate po fluid intake, inadequate oral pain control, voiding difficulties, ambulation difficulties, multiple IV medications needed, home environment unsafe for pt Discharge planning: jail facility
[2016-12-20] MEDS ORDERED: MAGNESIUM CITRATE 296 ML/BTL PO ONE (09:30)
[2016-12-20] MEDS: D5NSS + 20MEQ KCL 1,000 ML IV SCH (11:00)
[2016-12-20] MEDS: INSULIN GLARGINE SOLOSTAR 100 UNITS/ML 3 ML PEN SC SCH (11:00)
[2016-12-20] MEDS: NITROGLYCERIN 0.1 MG/HR PATCH TD SCH (12:33)
[2016-12-20] MEDS ORDERED: MAGNESIUM OXIDE 400 MG TAB PO STA (14:18)
[2016-12-20] MEDS ORDERED: FUROSEMIDE 20 MG TAB PO STA (14:26)
[2016-12-20] MEDS ORDERED: POTASSIUM CHLORIDE 20 MEQ/15 ML UDC PO STA (14:27)
[2016-12-20] MEDS: MIRTAZAPINE TAB 15 MG TAB PO SCH (20:50)
[2016-12-20] MEDS: RISPERIDONE 1 MG TAB PO SCH (20:51)
--- NOTE | 2016-12-20 20:58 | Progress Note ---
Subjective Date of Service: Dec 20, 2016. Subjective Pt evaluation today including: conversation w/ patient, conversation w/ family ( by phone), physical exam, chart review, lab review Pain: chest pain - "I'm hurting" PO Intake: improved; ate 100% breakfast, 50% lunch! Voiding: lopez catheter in place tele overnight - one run of PAT, another run of what appears to be paroxysmal a. fib feels better today - still dyspneic but improved swallowing is BETTER with less dysphagia and odynophagia (not 100% improved but better) still VERY weak in all limbs confirmed by phone that she was able to feed herself prior to this hospital stay but could not walk she now cannot feed herself - needs assistance by staff still no bowel movement but, she goes only 1x/week at home when asked about code status she states she would NOT want intubation/CPR/shocks Problem List Medical Problems: (1) COPD exacerbation Status: Acute (2) Hypoxia Status: Acute Review of Systems Constitutional: No fever Respiratory: + cough, + wheezing, + shortness of breath Cardiac: + chest pain Abdomen: + constipation, No pain Objective Vital Signs Date Time Temp Pulse Resp B/P (MAP) Pulse Ox O2 Delivery O2 Flow Rate FiO2 12/20/16 20:03 88 20 95 Nasal Cannula 4.0 12/20/16 20:00 96 Nasal Cannula 4.0 12/20/16 19:45 36.9 102 22 123/52 (75) 95 Nasal Cannula 4.0 12/20/16 16:00 Nasal Cannula 4.0 12/20/16 14:18 108 20 95 Nasal Cannula 4.0 12/20/16 12:45 36.5 89 20 102/62 (75) 98 12/20/16 12:00 Nasal Cannula 4.0 12/20/16 08:00 Nasal Cannula 4.0 12/20/16 07:36 78 16 99 Nasal Cannula 4.0 12/20/16 07:07 36.4 81 20 129/72 (91) 97 Nasal Cannula 4.0 12/20/16 04:00 96 Nasal Cannula 4.5 12/20/16 04:00 36.5 84 18 105/65 (78) 97 Nasal Cannula 4.5 12/20/16 02:09 82 16 96 Nasal Cannula 4.0 12/20/16 00:50 101/63 (76) 12/20/16 00:00 36.8 92 18 90/50 (63) 100 Nasal Cannula 4.5 12/20/16 00:00 96 Nasal Cannula 4.5 Physical Exam General Appearance: + mild distress (tachypnea, distress when she tries to move ), + pertinent finding (chronically ill appearing, looks older than stated age) ENT: pharynx normal (no thrush, posterior pharynx clear) Neck: + JVD Respiratory/Chest: + respiratory distress, + decreased breath sounds, + crackles (bases), + rhonchi, + wheezing Cardiovascular: regular rate, rhythm, no gallop, no murmur, + pertinent finding (heart tones distant) Abdomen: normal bowel sounds, non tender, soft, no organomegaly, + distended ( mild) Extremities: no pedal edema Neurologic/Psychiatric: alert, oriented x 3, + motor weakness (proximal muscle weakness - severe; distal - handgrip and flexion/extension of feet - normal. ) , + pertinent finding (patient preferentially keeps arms extended and has hard time flexing them. there appears to be a "flailing" type behavior of the arms that doesn't seem volitional) Laboratory Results Last 24 Hours Test 12/20/16 00:02 12/20/16 06:48 12/20/16 07:07 12/20/16 11:41 Bedside Glucose 230 mg/dl 229 mg/dl 178 mg/dl White Blood Count 12.29 K/uL Red Blood Count 2.53 M/uL Hemoglobin 9.0 g/dL Hematocrit 26.9 % Mean Corpuscular Volume 106.3 fL Mean Corpuscular Hemoglobin 35.6 pg Mean Corpuscular Hemoglobin Concent 33.5 g/dl Platelet Count 136 K/uL Mean Platelet Volume 12.3 fL RDW Standard Deviation 72.9 fL RDW Coefficient of Variation 19.0 % Neutrophils % (Manual) 100.0 % Lymphocytes % (Manual) 0.0 % Neutrophils # (Manual) 12.29 K/uL Total Absolute Neutrophils 12.29 K/uL Total Absolute Lymphocytes 0.00 K/uL Hypersegmented Polys 1+ Macrocytosis PRESENT Sodium Level 143 mmol/L Potassium Level 3.8 mmol/L Chloride Level 108 mmol/L Carbon Dioxide Level 30 mmol/L Anion Gap 5.0 mmol/L Blood Urea Nitrogen 10 mg/dl Creatinine 0.44 mg/dl Est Creatinine Clear Calc Drug Dose 104.8 ml/min Estimated GFR () 125.4 Estimated GFR (Non- 108.2 BUN/Creatinine Ratio 21.6 Random Glucose 201 mg/dl Calcium Level 7.8 mg/dl Test 12/20/16 16:14 12/20/16 20:08 Bedside Glucose 139 mg/dl 144 mg/dl Assessment and Plan 61yo female: 1. acute/chronic hypoxic respiratory failure - ongoing. Restarted IV steroids 2 days ago due to worsening distress. No wean on steroids today although she did sound modestly better. Maybe wean tomorrow. defer on abx (just completed 10 days of broad-spectrum abx). cxr 12/18/16 w/o pulmonary edema or new infiltrates. cont support care and o2, nebs, etc 2. COPD exacerbation - as above. 3. b/l basilar pneumonia - resolved, all abx have been stopped. repeat cxr free of infiltrates. 4. septic shock 2nd to #3 above - resolved. 5. b/l lung nodules - in light of significant smoking history will need CT surveillance as outpatient. High risk of malignancy. 6. anemia 2nd to folic acid def - folic acid 1mg daily. CBC stable. 7. pleuritic chest pain - numerous EKGs with anterior T wave inversions. Numerous troponins negative. Echo w/o wall motion abnormalities. she reports this complaint is chronic. etiology uncertain. CTA chest - neg for PE. has small pericardial effusion but if this was pericarditis there would have been improvement with steroids. some of the pain is reproducible on exam some of her pain could be esophageal spasm will empirically place on nitropatch to see if this helps her pain VERY, VERY poor candidate for cardiac w/u (stress test, etc) 8. depression - ongoing; increased paxil to 40mg daily this admission. Cont remeron. 9. thrush with concern of esophageal candidiasis - nystatin george QID + diflucan 200mg daily. Day #7. Improved on exam and dysphagia/odynophagia improved. Speech consult for swallow eval appreciated; diet changed to pureed. 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 severe deconditioning - PT, OT - will need rehab. [facility] in [place]. 11. DVT proph - lovenox once daily. 12. atrial mass - spoke with cardiology. The echo and CT chest are both c/w lipomatous hypertrophy. this is NOT a risk factor for stroke. does not require anticoagulation. does NOT cause pain. 13. ?myopathy +/- polyneuropathy - appreciate neuro consultation may have critical illness myopathy or polyneuropathy wean steroids B12, TSH, etc - normal no further testing for now will need outpatient EMGs, etc rehab CT neck without cord lesion carotid duplex w/o high grade stenosis 14. FEN - lytes stable 15. old cerebellar stroke, right - on aspirin for secondary prevention Dr. Parks feels this is not the cause of her current neuro symptoms & signs - I agree 16. ?mild acute diastolic CHF - has JVD today - will give lasix x 1 and re- eval. 17. constipation - slow transit by history - mag citrate po x 1 today. We have tried suppositories & enemas earlier this stay w/o relief along with dulcolax. 18. ? brief run of paroxysmal a. fib - her overall health is very poor. Her prognosis is guarded for many reasons (respiratory issues, neurological issues, swallowing issues, etc). I am not sure if adding systemic anticoagulation will be beneficial. Will need to discuss w/ her. I am quite concerned about the status of her physical condition; namely, her severe weakness of all limbs. Dr. Parks felt she may have a myopathic process. This seems to have worsened over the last 7 days. Severe deconditioning also playing a role. We cannot r/o a primary neurological condition causing her profound weakness. Will need ongoing f/u with Dr. Parks. updated by phone 12/21/16. Code status - DNR per patient wishes. Continued [facility] stay due to: inadequate oral pain control, voiding difficulties , ambulation difficulties, multiple IV medications needed, home environment unsafe for pt Discharge planning: correction facility
[2016-12-21] VITALS (15 sets, daily range): BP systolic 110–158; BP diastolic 66–80; PULSE 72–100; TEMP 36.5–36.8; O2SAT 90–96
[2016-12-21] MEDS: METHYLPREDNISOLONE IV 40 MG in SYRINGE 0 ML IV SCH ×3 (00:39→20:38)
[2016-12-21] MEDS: OXYCODONE/ACETAMINOPHEN 5-325 TAB PO PRN ×6 (01:35→22:49)
[2016-12-21] MEDS: IPRATROPIUM BROMIDE NEB SOLN 0.02% 2.5 ML VIAL INH SCH ×4 (01:43→19:44)
[2016-12-21] MEDS: LEVALBUTEROL 1.25MG/0.5ML NEB INH SCH ×4 (01:43→19:44)
[2016-12-21 07:13] LABS: BUN/CREATININE RATIO 17.1 (10-20); CALCIUM 7.5 mg/dl (8.5-10.1); CREATININE 0.49 mg/dl (0.60-1.20)
[2016-12-21 07:14] LABS: POTASSIUM 4.5 mmol/L (3.5-5.1)
[2016-12-21] MEDS: ROFLUMILAST 500 MCG TAB PO SCH (08:08)
[2016-12-21] MEDS: FERROUS SULFATE 325 MG TAB PO SCH ×2 (08:08→17:17)
[2016-12-21] MEDS: GUAIFENESIN 600 MG TABCR PO SCH ×2 (08:09→20:41)
[2016-12-21] MEDS: ASPIRIN 81 MG ECTAB PO SCH (08:09)
[2016-12-21] MEDS: ATORVASTATIN 40 MG TAB PO SCH (08:09)
[2016-12-21] MEDS: PAROXETINE 20 MG TAB PO SCH (08:09)
[2016-12-21] MEDS: PANTOprazole SOD 40 MG TAB PO SCH (08:09)
[2016-12-21] MEDS: FLUCONAZOLE 100 MG TAB PO SCH (08:09)
[2016-12-21] MEDS: POT PHOSPHATE MONOBASIC W/ SOD TAB PO SCH ×4 (08:10→20:40)
[2016-12-21] MEDS: BUDESONIDE/FORMOTEROL FUMARATE 160/4.5 60 PUFFS/INHALER INH SCH ×2 (08:10→20:38)
[2016-12-21] MEDS: SUCRALFATE 1 GM/10 ML UDC PO SCH ×4 (08:11→20:42)
[2016-12-21] MEDS: NYSTATIN SUSP 500,000 U/5 ML UDC PO SCH ×3 (08:11→17:17)
[2016-12-21] MEDS: ENOXAPARIN 40 MG/0.4 ML SYR SQ SCH (08:13)
[2016-12-21] MEDS: INSULIN GLARGINE SOLOSTAR 100 UNITS/ML 3 ML PEN SC SCH (08:33)
[2016-12-21] MEDS: NITROGLYCERIN 0.1 MG/HR PATCH TD SCH (08:35)
[2016-12-21] MEDS: INSULIN ASPART 100 UNITS/ML 3 ML PEN SC SCH ×4 (08:35→20:30)
[2016-12-21] MEDS: POLYETHYLENE (MIRALAX) 17 GM PACK PO SCH ×2 (09:00→20:39)
[2016-12-21] MEDS: DICLOFENAC SOD 1% GEL 100 GM TUBE EXT SCH ×3 (14:17→20:38)
--- NOTE | 2016-12-21 14:40 | Progress Note ---
Subjective Date of Service: Dec 21, 2016. Subjective Pt evaluation today including: conversation w/ patient, physical exam, chart review, lab review, review of inpatient medication list chest pain R sided mostly notes ongoing for a long time even before admission notes breathing is getting better feels alright feels like she can get enough air no cough no sputum notes weakness was progressing for a long time before she got admitted. relates to me that she was getting to where she needed total help about 3wks prior to admission, and could only really get to and from bathroom before that, and doesn't really think she was independent for any of this past year. Problem List Medical Problems: (1) COPD exacerbation Status: Acute (2) Hypoxia Status: Acute Review of Systems all other ROS otherwise negative except for as above Objective Vital Signs Date Time Temp Pulse Resp B/P (MAP) Pulse Ox O2 Delivery O2 Flow Rate FiO2 12/21/16 11:30 36.5 100 18 110/72 (85) 94 4.0 12/21/16 08:00 90 Nasal Cannula 4.0 12/21/16 07:20 36.6 72 18 115/66 (82) 90 3.0 12/21/16 07:13 90 16 95 Nasal Cannula 4.0 12/21/16 04:47 36.6 95 20 129/67 (87) 96 Nasal Cannula 4.0 12/21/16 04:00 94 Nasal Cannula 4.0 12/21/16 01:43 84 20 96 Nasal Cannula 4.0 12/21/16 00:00 94 Nasal Cannula 4.0 12/20/16 23:56 36.3 97 20 113/59 (77) 94 Nasal Cannula 4.0 12/20/16 20:03 88 20 95 Nasal Cannula 4.0 12/20/16 20:00 96 Nasal Cannula 4.0 12/20/16 19:45 36.9 102 22 123/52 (75) 95 Nasal Cannula 4.0 12/20/16 16:00 Nasal Cannula 4.0 Physical Exam General Appearance: no apparent distress Eyes: EOMI ENT: hearing grossly normal Neck: trachea midline Respiratory/Chest: no respiratory distress, no accessory muscle use, + decreased breath sounds (but cta b/l no r/r/w moderate effort) Cardiovascular: regular rate, rhythm Abdomen: non tender, soft Extremities: + pertinent finding (muscle wasting and contractures, mostly flexed at wrists. weakness diffusely) Neurologic/Psychiatric: optical assistant II-XII nml as tested, alert, normal mood/affect Skin: normal color, warm/dry Comments: R anterior ribs ~5-7 somewhat anterior and inhaled w directly reproducible tenderness - balanced ligamentous tension - improved some w soft tissue. pt tolerated well. Laboratory Results Last 24 Hours Test 12/20/16 16:14 12/20/16 20:08 12/21/16 06:35 12/21/16 08:39 Bedside Glucose 139 mg/dl 144 mg/dl 176 mg/dl Sodium Level 142 mmol/L Potassium Level 4.5 mmol/L Chloride Level 107 mmol/L Carbon Dioxide Level 29 mmol/L Anion Gap 6.0 mmol/L Blood Urea Nitrogen 8 mg/dl Creatinine 0.49 mg/dl Est Creatinine Clear Calc Drug Dose 94.2 ml/min Estimated GFR () 121.0 Estimated GFR (Non- 104.4 BUN/Creatinine Ratio 17.1 Random Glucose 134 mg/dl Calcium Level 7.5 mg/dl Magnesium Level 2.0 mg/dl Chemistry Specimen Hemolysis Test 12/21/16 11:28 Bedside Glucose 114 mg/dl Assessment and Plan 61yo female: 1. acute/chronic hypoxic respiratory failure - ongoing. Restarted IV steroids 3 days ago due to worsening distress. will reduce to 40bid (from tid) today defer on abx (just completed 10 days of broad-spectrum abx). cxr 12/18/16 w/o pulmonary edema or new infiltrates. cont support care and o2, nebs, etc feeling better 2. COPD exacerbation - as above. on symbicort and ipratroprium otherwise 3. b/l basilar pneumonia - resolved, all abx have been stopped. repeat cxr free of infiltrates. 4. septic shock 2nd to #3 above - resolved. 5. b/l lung nodules - in light of significant smoking history will need CT surveillance as outpatient. High risk of malignancy. 6. anemia 2nd to folic acid def - folic acid 1mg daily. CBC stable, continue to follow periodically 7. pleuritic chest pain - rib chest pain / rib somatic dysfunction -OMT as above -voltaren gel QID 8. depression - ongoing; increased paxil to 40mg daily this admission. Cont remeron. 9. thrush with concern of esophageal candidiasis - nystatin george QID + diflucan 200mg daily. Day #8. Improved on exam and dysphagia/odynophagia improved. Speech consult for swallow eval appreciated; diet changed to pureed. 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 severe deconditioning - PT, OT - will need rehab. [facility] in [place]. appears to be acute (from acute illness/myopathy/deconditioning) on chronic ( neuromuscular illness that appears to have been part of her current baseline of comorbidities) 11. DVT proph - lovenox once daily. 12. atrial mass - prior hospitalist spoke with cardiology. The echo and CT chest are both c/w lipomatous hypertrophy. this is NOT a risk factor for stroke. does not require anticoagulation. does NOT cause pain. 13. ?myopathy +/- polyneuropathy - appreciate neuro consultation may have critical illness myopathy or polyneuropathy wean steroids again as above B12, TSH, etc - normal no further testing for now but will need ongoing outpt f/u will need outpatient EMGs, etc rehab CT neck without cord lesion carotid duplex w/o high grade stenosis 14. FEN - lytes stable 15. old cerebellar stroke, right - on aspirin for secondary prevention -does not appear responsible for her baseline weakness 16. ?mild acute diastolic CHF - currently compensated 17. constipation - on bid miralax, add senna 18. ? brief run of paroxysmal a. fib - continue to follow. may need to start anticoagulation. 19. DVT proph - lovenox Continued [facility] stay due to: inadequate oral pain control, voiding difficulties , ambulation difficulties, multiple IV medications needed, home environment unsafe for pt Discharge planning: jail facility
[2016-12-21] MEDS: RISPERIDONE 1 MG TAB PO SCH (20:39)
[2016-12-21] MEDS: MIRTAZAPINE TAB 15 MG TAB PO SCH (20:40)
[2016-12-22] VITALS (16 sets, daily range): BP systolic 111–146; BP diastolic 56–83; PULSE 77–94; TEMP 36.1–36.8; O2SAT 92–98
[2016-12-22] MEDS: IPRATROPIUM BROMIDE NEB SOLN 0.02% 2.5 ML VIAL INH SCH ×4 (02:00→21:00)
[2016-12-22] MEDS: LEVALBUTEROL 1.25MG/0.5ML NEB INH SCH ×4 (02:00→21:00)
[2016-12-22] MEDS: OXYCODONE/ACETAMINOPHEN 5-325 TAB PO PRN ×5 (03:05→19:45)
[2016-12-22 07:02] LABS: COMPLETE YES; HEMATOCRIT 31.4 % (37-47); IG% 0.7 %; LYMPH % 2.6 %; LYMPH ABS # 0.43 K/uL (1.2-3.4); MEAN CELL VOLUME 108.3 fL (80-100); MEAN CORPUSCULAR HEMOGLOBIN 34.5 pg (25-34); MEAN CORPUSCULAR HGB CONC 31.8 g/dl (32-36); MEAN PLATELET VOLUME 11.5 fL (7.4-10.4); MONO % 2.6 %; NEUT % 94.1 %; PLATELET COUNT 194 K/uL (130-400); WHITE BLOOD COUNT 16.76 K/uL (4.8-10.8)
[2016-12-22] MEDS: SUCRALFATE 1 GM/10 ML UDC PO SCH ×4 (08:59→20:43)
[2016-12-22] MEDS: ASPIRIN 81 MG ECTAB PO SCH (08:59)
[2016-12-22] MEDS: ROFLUMILAST 500 MCG TAB PO SCH (08:59)
[2016-12-22] MEDS: POLYETHYLENE (MIRALAX) 17 GM PACK PO SCH ×2 (09:00→20:43)
[2016-12-22] MEDS: NITROGLYCERIN 0.1 MG/HR PATCH TD SCH (09:00)
[2016-12-22] MEDS: SENNA 8.6 MG TAB PO SCH (09:00)
[2016-12-22] MEDS: ATORVASTATIN 40 MG TAB PO SCH (09:01)
[2016-12-22] MEDS: POT PHOSPHATE MONOBASIC W/ SOD TAB PO SCH ×4 (09:01→20:45)
[2016-12-22] MEDS: PAROXETINE 20 MG TAB PO SCH (09:02)
[2016-12-22] MEDS: GUAIFENESIN 600 MG TABCR PO SCH ×2 (09:02→20:45)
[2016-12-22] MEDS: FLUCONAZOLE 100 MG TAB PO SCH (09:02)
[2016-12-22] MEDS: PANTOprazole SOD 40 MG TAB PO SCH (09:02)
[2016-12-22] MEDS: METHYLPREDNISOLONE IV 40 MG in SYRINGE 0 ML IV SCH ×2 (09:03→20:43)
[2016-12-22] MEDS: FERROUS SULFATE 325 MG TAB PO SCH ×2 (09:03→16:49)
[2016-12-22] MEDS: ENOXAPARIN 40 MG/0.4 ML SYR SQ SCH (09:04)
[2016-12-22] MEDS: BUDESONIDE/FORMOTEROL FUMARATE 160/4.5 60 PUFFS/INHALER INH SCH ×2 (09:05→20:44)
[2016-12-22] MEDS: DICLOFENAC SOD 1% GEL 100 GM TUBE EXT SCH ×4 (09:05→20:44)
[2016-12-22] MEDS: INSULIN GLARGINE SOLOSTAR 100 UNITS/ML 3 ML PEN SC SCH (09:07)
[2016-12-22] MEDS: INSULIN ASPART 100 UNITS/ML 3 ML PEN SC SCH ×4 (09:07→20:47)
[2016-12-22 12:08] LABS: URINE APPEARANCE CLOUDY (CLEAR); URINE BILIRUBIN NEG (NEG); URINE COLOR YELLOW; URINE NITRITE POS (NEG); URINE PH 8.5 (4.5-7.5); UROBILINOGEN NEG (NEG)
[2016-12-22 12:14] LABS: MANUAL MICROSCOPIC REQUIRED? NO; REVIEW REQ? YES
--- NOTE | 2016-12-22 14:16 | DIAGNOSTIC IMAGING REPORT ---
CHEST ONE VIEW PORTABLE CLINICAL HISTORY: 61 years-old Female presenting with R rhonchi, ?eval for worsening pneumonia. TECHNIQUE: Portable upright AP view of the chest was obtained. COMPARISON: 12/18/2016. FINDINGS: Atherosclerosis of aortic arch. Cardiac silhouette normal in size. Persistent bibasilar opacities, right greater than left. No large effusion or pneumothorax. Heterogeneous radiolucency in the upper lobes suggests emphysema. No new focal infiltrate. Osteopenia suggested. Residual oral contrast in the left colon. IMPRESSION: 1. Bibasilar opacities, right greater than left, not significantly changed from prior. Electronically signed by: Herson Renteria M.D. 12/22/2016 2:15 PM Dictated Date/Time: 12/22/2016 2:13 PM
--- NOTE | 2016-12-22 14:30 | Progress Note ---
Subjective Date of Service: Dec 22, 2016. Subjective Pt evaluation today including: conversation w/ patient, physical exam, chart review, lab review, review of studies, review of inpatient medication list nursing notes that urine smells very foul, and newly so. patient denies any new complaints - no change in cp no sob. no f/c/s. no other sx. weakness the same not better not worse. d/w case management as well breathing the same per pt Problem List Medical Problems: (1) COPD exacerbation Status: Acute (2) Hypoxia Status: Acute Review of Systems all other ROS otherwise negative except for as above Objective Vital Signs Date Time Temp Pulse Resp B/P (MAP) Pulse Ox O2 Delivery O2 Flow Rate FiO2 12/22/16 12:00 98 Nasal Cannula 4.0 12/22/16 11:23 36.1 83 20 146/83 (104) 98 Nasal Cannula 4.0 12/22/16 08:00 98 Nasal Cannula 4.0 12/22/16 07:35 36.6 88 20 131/80 (97) 98 Nasal Cannula 4.0 12/22/16 07:25 79 16 98 Nasal Cannula 4.0 12/22/16 04:00 94 Nasal Cannula 4.0 12/22/16 03:50 36.5 93 18 122/65 (84) 92 Nasal Cannula 4.0 12/22/16 02:00 87 16 96 Nasal Cannula 4.0 12/22/16 00:00 36.8 91 20 111/63 (79) 98 Nasal Cannula 4.0 12/22/16 00:00 94 Nasal Cannula 4.0 12/21/16 20:06 93 Nasal Cannula 4.0 12/21/16 19:51 36.8 97 19 158/80 (106) 90 Nasal Cannula 4.0 12/21/16 19:45 90 16 96 Nasal Cannula 4.0 12/21/16 16:00 93 Nasal Cannula 4.0 12/21/16 15:07 36.5 100 18 110/72 (85) 94 12/21/16 14:32 92 16 95 Nasal Cannula 4.0 Physical Exam General Appearance: no apparent distress Eyes: EOMI ENT: hearing grossly normal Neck: trachea midline Respiratory/Chest: no respiratory distress, no accessory muscle use, + decreased breath sounds (faintly base R> L faint scattered rhonchi R>L) Cardiovascular: regular rate, rhythm Extremities: + pertinent finding (muscle wasting and contractures as before) 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, alert, normal mood/affect Skin: normal color, warm/dry Laboratory Results Last 24 Hours Test 12/21/16 17:52 12/21/16 20:29 12/22/16 06:29 12/22/16 07:23 Bedside Glucose 148 mg/dl 141 mg/dl 115 mg/dl White Blood Count 16.76 K/uL Red Blood Count 2.90 M/uL Hemoglobin 10.0 g/dL Hematocrit 31.4 % Mean Corpuscular Volume 108.3 fL Mean Corpuscular Hemoglobin 34.5 pg Mean Corpuscular Hemoglobin Concent 31.8 g/dl Platelet Count 194 K/uL Mean Platelet Volume 11.5 fL Neutrophils (%) (Auto) 94.1 % Lymphocytes (%) (Auto) 2.6 % Monocytes (%) (Auto) 2.6 % Eosinophils (%) (Auto) 0.0 % Basophils (%) (Auto) 0.0 % Neutrophils # (Auto) 15.78 K/uL Lymphocytes # (Auto) 0.43 K/uL Monocytes # (Auto) 0.43 K/uL Eosinophils # (Auto) 0.00 K/uL Basophils # (Auto) 0.00 K/uL RDW Standard Deviation 76.1 fL RDW Coefficient of Variation 19.1 % Immature Granulocyte % (Auto) 0.7 % Immature Granulocyte # (Auto) 0.12 K/uL Test 12/22/16 11:21 12/22/16 11:30 Bedside Glucose 129 mg/dl Urine Color YELLOW Urine Appearance CLOUDY Urine pH 8.5 Urine Specific [place] 1.020 Urine Protein NEG Urine Glucose (UA) NEG Urine Ketones NEG Urine Occult Blood 3+ Urine Nitrite POS Urine Bilirubin NEG Urine Urobilinogen NEG Urine Leukocyte Esterase LARGE Urine WBC (Auto) >30 /hpf Urine RBC (Auto) >30 /hpf Urine Hyaline Casts (Auto) 1-5 /lpf Urine Epithelial Cells (Auto) 10-20 /lpf Urine Bacteria (Auto) 4+ Urine Pathogenic Casts /lpf Assessment and Plan 61yo female: 1. acute/chronic hypoxic respiratory failure - ongoing. Restarted IV steroids days ago due to worsening distress. continue to slowly wean - tomorrow predisone 40mg daily defer on abx (just completed 10 days of broad-spectrum abx). w increase in white count concern on new pneumonia empirically - but she shows no new resp sx , and CXR appearing overall unchanged. cxr 12/18/ w/o pulmonary edema or new infiltrates. cont support care and o2, nebs, etc 2. COPD exacerbation - as above. on symbicort and ipratroprium otherwise, taper steroids 3. b/l basilar pneumonia - resolved, see above 4. septic shock 2nd to #3 above - resolved. 5. b/l lung nodules - in light of significant smoking history will need CT surveillance as outpatient. High risk of malignancy. 6. anemia 2nd to folic acid def - folic acid 1mg daily. CBC stable, continue to follow periodically 7. pleuritic chest pain - rib chest pain / rib somatic dysfunction -OMT done yesterday -voltaren gel QID -complains less of this to me today 8. depression - ongoing; increased paxil to 40mg daily this admission. Cont remeron. 9. thrush with concern of esophageal candidiasis - nystatin george QID + diflucan 200mg daily. Day #9. Improved on exam and dysphagia/odynophagia improved. Speech consult for swallow eval appreciated; diet changed to pureed. 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 severe deconditioning - PT, OT - will need rehab. [facility] in [place]. appears to be acute (from acute illness/myopathy/deconditioning) on chronic ( neuromuscular illness that appears to have been part of her current baseline of comorbidities) 11. DVT proph - lovenox once daily. 12. atrial mass - prior hospitalist spoke with cardiology. The echo and CT chest are both c/w lipomatous hypertrophy. this is NOT a risk factor for stroke. does not require anticoagulation. does NOT cause pain. 13. ?myopathy +/- polyneuropathy - appreciate neuro consultation may have critical illness myopathy or polyneuropathy wean steroids again as above B12, TSH, etc - normal no further testing for now but will need ongoing outpt f/u will need outpatient EMGs, etc rehab CT neck without cord lesion carotid duplex w/o high grade stenosis 14. leukocytosis - new/worse - weaning steroids so doubt steroid related, concern on recurrent pneumonia as above but fortunately not any significant evidence that this is the case; with lopez, frailty, and foul smelling urine, this appears most likely source --> UA and Cx sent - UA markedly positive - will cover w ceftriaxone pending further growth 15. old cerebellar stroke, right - on aspirin for secondary prevention -does not appear responsible for her baseline weakness 16. ?mild acute diastolic CHF - currently compensated 17. constipation - on bid miralax, added senna 18. ? brief run of paroxysmal a. fib - continue to follow. may need to start anticoagulation. 19. DVT proph - lovenox Continued [facility] stay due to: home environment unsafe for pt Discharge planning: [facility] facility
[2016-12-22] MEDS: CEFTRIAXONE SOD INJ 1,000 MG in DEXTROSE 5% 50ML 50 ML IV SCH (15:46)
[2016-12-22] MEDS: LACTOBACILLUS ACIDOPHILUS (FLORANEX) TAB PO SCH (16:50)
[2016-12-22] MEDS: RISPERIDONE 1 MG TAB PO SCH (20:44)
[2016-12-22] MEDS: MIRTAZAPINE TAB 15 MG TAB PO SCH (20:45)
[2016-12-23] VITALS (16 sets, daily range): BP systolic 114–138; BP diastolic 66–76; PULSE 54–92; TEMP 36.3–36.9; O2SAT 92–99
[2016-12-23] MEDS: OXYCODONE/ACETAMINOPHEN 5-325 TAB PO PRN ×6 (00:35→22:25)
[2016-12-23 06:23] LABS: BUN/CREATININE RATIO 26.8 (10-20); CALCIUM 7.2 mg/dl (8.5-10.1); CREATININE 0.44 mg/dl (0.60-1.20); POTASSIUM 3.7 mmol/L (3.5-5.1)
[2016-12-23] MEDS: INSULIN ASPART 100 UNITS/ML 3 ML PEN SC SCH ×4 (06:30→21:00)
[2016-12-23] MEDS: LEVALBUTEROL 1.25MG/0.5ML NEB INH SCH ×3 (07:32→19:41)
[2016-12-23] MEDS: IPRATROPIUM BROMIDE NEB SOLN 0.02% 2.5 ML VIAL INH SCH ×3 (07:32→19:41)
[2016-12-23] MEDS: BUDESONIDE/FORMOTEROL FUMARATE 160/4.5 60 PUFFS/INHALER INH SCH ×2 (07:53→21:12)
[2016-12-23] MEDS: FERROUS SULFATE 325 MG TAB PO SCH ×2 (07:54→17:47)
[2016-12-23] MEDS: LACTOBACILLUS ACIDOPHILUS (FLORANEX) TAB PO SCH ×3 (07:54→17:48)
[2016-12-23] MEDS: DICLOFENAC SOD 1% GEL 100 GM TUBE EXT SCH ×4 (07:55→21:12)
[2016-12-23] MEDS: METHYLPREDNISOLONE IV 40 MG in SYRINGE 0 ML IV SCH (07:56)
[2016-12-23] MEDS: SUCRALFATE 1 GM/10 ML UDC PO SCH ×4 (07:58→21:14)
[2016-12-23] MEDS: ROFLUMILAST 500 MCG TAB PO SCH (07:59)
[2016-12-23] MEDS: FLUCONAZOLE 100 MG TAB PO SCH (08:00)
[2016-12-23] MEDS: ASPIRIN 81 MG ECTAB PO SCH (08:01)
[2016-12-23] MEDS: ATORVASTATIN 40 MG TAB PO SCH (08:02)
[2016-12-23] MEDS: PANTOprazole SOD 40 MG TAB PO SCH (08:03)
[2016-12-23] MEDS: POT PHOSPHATE MONOBASIC W/ SOD TAB PO SCH ×4 (08:03→21:15)
[2016-12-23] MEDS: SENNA 8.6 MG TAB PO SCH (08:03)
[2016-12-23] MEDS: PAROXETINE 20 MG TAB PO SCH (08:04)
[2016-12-23] MEDS: POLYETHYLENE (MIRALAX) 17 GM PACK PO SCH ×2 (08:04→21:14)
[2016-12-23] MEDS: ENOXAPARIN 40 MG/0.4 ML SYR SQ SCH (08:05)
[2016-12-23] MEDS: GUAIFENESIN 600 MG TABCR PO SCH ×2 (08:05→21:15)
[2016-12-23] MEDS: NITROGLYCERIN 0.1 MG/HR PATCH TD SCH (08:06)
[2016-12-23] MEDS: INSULIN GLARGINE SOLOSTAR 100 UNITS/ML 3 ML PEN SC SCH (08:14)
[2016-12-23] MEDS: CEFTRIAXONE SOD INJ 1,000 MG in DEXTROSE 5% 50ML 50 ML IV SCH (14:26)
--- NOTE | 2016-12-23 16:32 | Progress Note ---
Subjective Date of Service: Dec 23, 2016. Subjective Pt evaluation today including: conversation w/ patient, physical exam, chart review, lab review, review of inpatient medication list feeling about the same no f/c/s breathing about the same not at all worse weakness the same Problem List Medical Problems: (1) COPD exacerbation Status: Acute (2) Hypoxia Status: Acute Review of Systems all other ROS otherwise negative except for as above Objective Vital Signs Date Time Temp Pulse Resp B/P (MAP) Pulse Ox O2 Delivery O2 Flow Rate FiO2 12/23/16 14:33 36.5 54 20 128/76 (93) 95 4.0 12/23/16 14:11 76 20 92 Nasal Cannula 4.0 12/23/16 12:00 98 Nasal Cannula 4.0 12/23/16 11:30 36.6 92 20 131/73 (92) 95 12/23/16 08:00 98 Nasal Cannula 4.0 12/23/16 07:32 75 20 98 Nasal Cannula 4.0 12/23/16 07:07 36.3 81 20 131/66 (87) 98 4.0 12/23/16 04:06 36.9 68 18 138/68 (91) 94 4.0 12/23/16 04:00 94 Nasal Cannula 4.0 12/23/16 02:30 88 22 96 Nasal Cannula 4.0 12/23/16 00:00 94 Nasal Cannula 4.0 12/22/16 23:53 36.2 90 20 136/60 (85) 96 4.0 12/22/16 21:00 77 16 96 Nasal Cannula 4.0 12/22/16 20:23 95 Nasal Cannula 4.0 12/22/16 19:36 36.4 87 16 136/56 (82) 96 Nasal Cannula 4.0 Physical Exam General Appearance: no apparent distress Eyes: EOMI ENT: hearing grossly normal Neck: trachea midline Respiratory/Chest: no respiratory distress, no accessory muscle use, + decreased breath sounds (less rhonchorus) Cardiovascular: regular rate, rhythm Extremities: + pertinent finding (ongoing muscle wasting and contractures) 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 acute/chronic hypoxic respiratory failure - ongoing. continue to slowly wean steroids pneumonia appears resolving (just completed 10 days of broad-spectrum abx). CXR from yesterday noted -strongly suspect infection was related to respiratory muscle weakness from underlying [id number]-clearly-defined neurodegenerative condition 2. COPD exacerbation - as above. on symbicort and ipratroprium otherwise, taper steroids 3. b/l basilar pneumonia - resolved, see above 4. septic shock 2nd to #3 above - resolved. 5. b/l lung nodules - in light of significant smoking history will need CT surveillance as outpatient. High risk of malignancy. 6. anemia 2nd to folic acid def - folic acid 1mg daily. CBC stable, continue to follow periodically 7. pleuritic chest pain - rib chest pain / rib somatic dysfunction -OMT done wednesday -voltaren gel QID -no complaints of this 8. depression - ongoing; increased paxil to 40mg daily this admission. Cont remeron. 9. thrush with concern of esophageal candidiasis - nystatin george QID + diflucan 200mg daily. Day #10 (probably to need 21 days for esophagus). Improved on exam and dysphagia/odynophagia improved. Speech consult for swallow eval appreciated; diet changed to pureed. 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 severe deconditioning - PT, OT - will need rehab. [facility] in [place]. appears to be acute (from acute illness/myopathy/deconditioning) on chronic ( neuromuscular illness that appears to have been part of her current baseline of comorbidities) 11. DVT proph - lovenox once daily. 12. atrial mass - prior hospitalist spoke with cardiology. The echo and CT chest are both c/w lipomatous hypertrophy. this is NOT a risk factor for stroke. does not require anticoagulation. does NOT cause pain. 13. ?myopathy +/- polyneuropathy - appreciate neuro consultation may have critical illness myopathy or polyneuropathy wean steroids again as above B12, TSH, etc - normal no further testing for now but will need ongoing outpt f/u will need outpatient EMGs, etc -- appears she does have an underlying neurodegenerative condition. my gravest concern is that she has had this for so long before presentation (not able to get around at all for weeks, barely for weeks, not truly functional for longer than she can remember) that even if a dx is clearly made it may be too progressed for meaningful treatment/recovery rehab 14. leukocytosis/UTI -relates to frailty and prolonged hospital stay, lopez -rocephin pending further ID&S 15. old cerebellar stroke, right - on aspirin for secondary prevention -does not appear responsible for her baseline weakness 16. ?mild acute diastolic CHF - currently compensated 17. constipation - on bid miralax, added senna 18. ? brief run of paroxysmal a. fib - continue to follow, outpt monitoring. may need to start anticoagulation if clearly present. 19. DVT proph - lovenox Continued [facility] stay due to: home environment unsafe for pt Discharge planning: long term facility
[2016-12-23] MEDS: MIRTAZAPINE TAB 15 MG TAB PO SCH (21:16)
[2016-12-23] MEDS: RISPERIDONE 1 MG TAB PO SCH (21:16)
[2016-12-23] MEDS ORDERED: NURSING VERBAL MED ORDER ONE (21:30)
[2016-12-23] MEDS ORDERED: MICONAZOLE NITRATE POWDER 43 GM EXT PRN (21:30)
[2016-12-24] VITALS (10 sets, daily range): BP systolic 118–133; BP diastolic 61–78; PULSE 73–102; TEMP 36.4–36.7; O2SAT 92–96
[2016-12-24] MEDS: IPRATROPIUM BROMIDE NEB SOLN 0.02% 2.5 ML VIAL INH SCH ×4 (01:58→18:58)
[2016-12-24] MEDS: LEVALBUTEROL 1.25MG/0.5ML NEB INH SCH ×4 (01:58→18:58)
[2016-12-24] MEDS: OXYCODONE/ACETAMINOPHEN 5-325 TAB PO PRN ×2 (02:24→07:51)
[2016-12-24] MEDS: LACTOBACILLUS ACIDOPHILUS (FLORANEX) TAB PO SCH ×3 (07:52→17:21)
[2016-12-24] MEDS: SENNA 8.6 MG TAB PO SCH (07:53)
[2016-12-24] MEDS: PANTOprazole SOD 40 MG TAB PO SCH (07:53)
[2016-12-24] MEDS: GUAIFENESIN 600 MG TABCR PO SCH (07:58)
[2016-12-24] MEDS: FLUCONAZOLE 100 MG TAB PO SCH (07:58)
[2016-12-24] MEDS: BUDESONIDE/FORMOTEROL FUMARATE 160/4.5 60 PUFFS/INHALER INH SCH (07:59)
[2016-12-24] MEDS: ROFLUMILAST 500 MCG TAB PO SCH (07:59)
[2016-12-24] MEDS: DICLOFENAC SOD 1% GEL 100 GM TUBE EXT SCH ×3 (07:59→17:19)
[2016-12-24] MEDS: ASPIRIN 81 MG ECTAB PO SCH (08:00)
[2016-12-24] MEDS: ATORVASTATIN 40 MG TAB PO SCH (08:00)
[2016-12-24] MEDS: SUCRALFATE 1 GM/10 ML UDC PO SCH ×3 (08:00→17:19)
[2016-12-24] MEDS: POLYETHYLENE (MIRALAX) 17 GM PACK PO SCH (08:01)
[2016-12-24] MEDS: POT PHOSPHATE MONOBASIC W/ SOD TAB PO SCH ×3 (08:01→17:19)
[2016-12-24] MEDS: PAROXETINE 20 MG TAB PO SCH (08:03)
[2016-12-24] MEDS: FERROUS SULFATE 325 MG TAB PO SCH ×2 (08:03→17:21)
[2016-12-24] MEDS: ENOXAPARIN 40 MG/0.4 ML SYR SQ SCH (08:04)
[2016-12-24] MEDS: NITROGLYCERIN 0.1 MG/HR PATCH TD SCH (08:04)
[2016-12-24] MEDS ORDERED: LACTULOSE SYRUP 20 GM/30 ML UDC PO STA (08:13)
[2016-12-24] MEDS ORDERED: LACTULOSE SYRUP 20 GM/30 ML UDC PO PRN (08:15)
[2016-12-24] MEDS ORDERED: LACTULOSE SYRUP 30 GM/45 ML UDP PO STA (08:23)
[2016-12-24] MEDS ORDERED: LACTULOSE SYRUP 30 GM/45 ML UDP PO PRN (08:30)
[2016-12-24 08:46] LABS: BASO % 0.1 %; BASO ABS # 0.01 K/uL (0-0.2); COMPLETE YES; EOS % 0.1 %; HEMATOCRIT 32.7 % (37-47); IG% 0.6 %; LYMPH % 5.7 %; LYMPH ABS # 1.12 K/uL (1.2-3.4); MEAN CORPUSCULAR HGB CONC 31.2 g/dl (32-36); MEAN PLATELET VOLUME 11.2 fL (7.4-10.4); MONO % 5.5 %; PLATELET COUNT 223 K/uL (130-400); WHITE BLOOD COUNT 19.69 K/uL (4.8-10.8)
[2016-12-24] MEDS: INSULIN ASPART 100 UNITS/ML 3 ML PEN SC SCH ×3 (08:54→17:19)
[2016-12-24] MEDS: INSULIN GLARGINE SOLOSTAR 100 UNITS/ML 3 ML PEN SC SCH (08:55)
[2016-12-24] MEDS ORDERED: NITROFURANTOIN MONOHYDRATE 100 MG CAP PO SCH (09:00)
[2016-12-24] MEDS ORDERED: SOD PHOSPHATE/SOD BIPHOSPHATE ENEMA 132 ML BTL PR STA (11:14)
[2016-12-24] MEDS ORDERED: VLTG EXT (11:43)
[2016-12-24] MEDS ORDERED: ASPEC81 PO (11:43)
[2016-12-24] MEDS ORDERED: LCTL45 PO ×2 (11:43→17:54)
[2016-12-24] MEDS ORDERED: GFNSR600 PO (11:43)
[2016-12-24] MEDS ORDERED: NTRTP TD ×2 (11:43→17:54)
[2016-12-24] MEDS ORDERED: CRFUDL PO (11:43)
[2016-12-24] MEDS ORDERED: DFL100 PO (11:43)
[2016-12-24] MEDS ORDERED: PXL20 PO (11:43)
[2016-12-24] MEDS ORDERED: MCRB100 PO (11:43)
[2016-12-24] MEDS ORDERED: SNK PO (11:43)
[2016-12-24] MEDS ORDERED: INSDGIPEN SC (11:43)
[2016-12-24] MEDS ORDERED: MRLP17 PO (11:43)
[2016-12-24] MEDS ORDERED: FLV1 PO (11:43)
[2016-12-24] MEDS ORDERED: PLMINSR5 INH (11:43)
[2016-12-24] MEDS ORDERED: IPRASOL4 INH (11:43)
[2016-12-24] MEDS ORDERED: PRD20 PO (11:43)
[2016-12-24] MEDS ORDERED: LPT40 PO (11:43)
[2016-12-24] MEDS ORDERED: ALBINS/ INH (11:43)
[2016-12-24] MEDS ORDERED: PRT40 PO (11:43)
--- NOTE | 2016-12-24 11:49 | Discharge Instructions ---
Discharge Instructions Date of Service Dec 24, 2016. Admission Reason for Admission: Acute Respiratory Failure Discharge Discharge Diagnosis / Problem: respiratory failure due to muscular weakness Discharge Goals Goal(s): Diagnostic testing, Therapeutic intervention Activity Recommendations Activity Level: Assistance Required Therapies: Physical Therapy, Occupational Therapy, Speech Therapy . Additional Information Patient informed of condition: Yes Advance Directives: Yes DNR: Yes Level of Care: Skilled Communicable Disease: No Prognosis: Stable Oxygen at (LPM): 4 Instructions / Follow-Up Instructions / Follow-Up a) neuromuscular weakness -history/exam/muscle wasting consistent with a pattern of neuromuscular weakness -- to have ongoing follow up with [facility] as soon as can be scheduled to further delineate illness and (hopefully) treatment options -because of the weakness, she appears quite prone to respiratory infections, is easily constipated, and of course prone to skin breakdown b) respiratory failure -baseline COPD + respiratory muscle weakness -was treated for pneumonia while inpatient and improved -inhaler regimen changed entirely to nebs due to muscular weakness -slowly weaning steroids - if she appears to have worsening distress at lower doses, unlikely but may need ongoing steroid treatment c) thrush -with concern on esophageal michelle -- was unable to get EGD done due to GI concerns on her status, but treating empirically for esophageal michelle d) MDR UTI - see attached culture. asymptomatic - but frail -- treating with macrobid x 7 days e) constipation - likely related to poor intake, poor mobility, and possibly underlying neuromuscular disease - has had extremely slow bowel transit -- nearly asymptomatic colon distention to just under 10cm prior to enema - responded nicely. low threshold to check KUB, stay aggressive with bowel regimen please check biweekly labs (CBC, BMP as well as anything else clinically warranted) and have frequent and ongoing clinical evaluations (more frequent vitals and clinical assessments by nursing, more frequent physician/CONTRACTS DIRECTOR visits) given current overall frail state PT/OT and nutrition support as possible Current Hospital Diet Patient's current hospital diet: Regular Diet Discharge Diet Recommended Diet: Regular Diet Pending Studies Studies pending at discharge: no Medical Emergencies . Who to Call and When: Medical Emergencies: If at any time you feel your situation is an emergency, please call 911 immediately. . Non-Emergent Contact Non-Emergency issues call your: Primary Care Provider, Neurologist . . "Provider Documentation" section prepared by Tejas Moser. . Core Measure Problem Core Measures: None
--- NOTE | 2016-12-24 14:54 | DIAGNOSTIC IMAGING REPORT ---
KUB CLINICAL HISTORY: No bowel movement for several days. Generalized abdominal pain. Clinical concern for obstruction. FINDINGS: 2 AP supine abdominal radiographs are correlated with abdominal CT dated 12/08/2016. Enteric contrast fills the colon to the level of the rectum. This outlines sigmoid diverticula. The colon is diffusely distended, and the cecum measures up to 10 cm. Significant colonic fecal retention is observed. There is also distention of the small bowel loops. No evidence of intraperitoneal free air is seen on these supine views. The skeletal structures are osteopenic. Opacities are present at both lung bases. IMPRESSION: 1. There is gaseous distention of the small bowel and colon, without evidence of small bowel obstruction. 2. Enteric contrast is present to the level of the rectum. If there is obstruction it would be at the level of the rectum. No obstructing lesion was seen on the 12/08/2016 CT scan. Correlation with clinical findings and physical examination will be required. 3. Enteric contrast outlines sigmoid diverticula. Electronically signed by: Michael Torres M.D. 12/24/2016 2:52 PM Dictated Date/Time: 12/24/2016 2:48 PM
[2016-12-24] MEDS: ACETAMINOPHEN 325 MG TAB PO PRN (15:00)
[2016-12-24] MEDS ORDERED: TAP WATER ENEMA PR ONE (15:15)
--- NOTE | 2016-12-24 18:53 | Discharge Summary ---
Discharge Summary Date of Service Dec 24, 2016. Discharge Summary Admission Date: Dec 06, 2016 at 16:03 Discharge Date: Dec 24, 2016 Discharge Disposition: residential facility Principal Diagnosis: neuromuscular weakness Immunizations: Have You Had Influenza Vaccine: Unknown History of Tetanus Vaccine?: Unknown History of Pneumococcal: Unknown History of Hepatitis B Vaccine: Unknown Procedures: echo: Interpretation Summary Name: SHEELA MCMANUS Study Date: 12/07/2016 07:02 AM BP: 90/57 mmHg Patient Location: [facility] [place]\S\[facility]\S\1 HR: 97 : 1955 (M/d/yyyy) Gender: Female Height: 62 in Age: 61 yrs Ethnicity: [place] Weight: 112 lb Ordering Physician: Zenon Perez Referring Physician: Self, Referred Performed By: Stephanie Wylie RCS Reason For Study: CHEST PAIN BSA: 1.5 m2 -- Conclusions -- 1. Normal LV size and wall thickness. 2. Normal LV systolic function. LVEF 55-60%. No regional wall motion abnormalities. 3. Borderline RV enlargement. Normal RV function. 4. No significant valvular pathology. 5. Large echodense mass involving the right atrial aspect of the interatrial septum. Suspect profound lipomatous hypertrophy, less likely myxoma or thrombus. 6. Small posterior pericardial effusion. No signs of tamponade. 7. No prior studies for comparison. Procedure Details A complete two-dimensional transthoracic echocardiogram was performed (2D, M- mode, Doppler and color flow Doppler). Left Ventricle The left ventricle is grossly normal size. There is normal left ventricular wall thickness. Ejection Fraction = 55-60%. No regional wall motion abnormalities noted. Right Ventricle Borderline right ventricular enlargement. The right ventricular systolic function is normal as assessed by tricuspid annular plane systolic excursion (TAPSE) (normal >1.5 cm). Atria The left atrial size is normal. Borderline right atrial enlargement. Large echodense mass involving the right atrial aspect of the interatrial septum. Suspect profound lipomatous hypertrophy, less likely myxoma or thrombus. Mitral Valve The mitral valve is grossly normal. There is no mitral valve stenosis. Significant mitral regurgitation is absent. Tricuspid Valve The tricuspid valve is not well visualized, but is grossly normal. Significant tricuspid regurgitation is absent. Aortic Valve The aortic valve is not well visualized. No hemodynamically significant valvular aortic stenosis. There is no significant aortic regurgitation. Pulmonic Valve The pulmonic valve is not well seen, but is grossly normal. There is no pulmonic valvular stenosis. There is no pulmonic valvular regurgitation. Great Vessels The aortic root and proximal ascending aorta are normal sized. Pericardium/Pleural Small pericardial effusion. Great Vessels IVC < 2.1, <50% change with respiration. Est RA 8 mmHg. [~ rep ct add3]] CHEST CTA for PULMONARY ARTERIES CT DOSE: 201.75 mGy.cm HISTORY: Hypoxia. Atypical chest pain. Elevated d-dimer. TECHNIQUE: Multiaxial CT images of the chest were performed following the intravenous administration of contrast to evaluate the pulmonary arteries. Maximal intensity projection images were also obtained. A dose lowering technique was utilized adhering to the principles of ALARA. COMPARISON STUDY: Chest 12/06/2016. FINDINGS: Complete occlusion of the proximal left subclavian artery with reconstitution to to the left vertebral artery. This is consistent with a subclavian steal. Mild calcified plaque within the aortic arch. The heart is normal in size. No pleural or pericardial effusions. No evidence for an aortic dissection. Mild to moderate plaque within the distal descending thoracic aorta and proximal abdominal aorta. There is a 1.2 cm saccular aneurysm along the lateral aspect of the aortic arch. No filling defects within the pulmonary arteries to suggest pulmonary embolus. Calcified nodule within the left breast. Therefore, this is likely benign. The visualized liver, spleen, and adrenal glands are unremarkable. Questionable gastric wall thickening is likely due to underdistention. No mediastinal or hilar lymphadenopathy. Lipomatous hypertrophy involving the superior aspect of the intra-atrial septum. This measures up to 2.5 cm in thickness and results in mild narrowing of the distal SVC. No suspicious lytic or blastic osseous lesions. Small amount of mucoid material within the bilateral mainstem bronchi and partial opacification of the bilateral lower lobe bronchi. Small areas of consolidation within the bilateral lower lobes posteriorly. Moderate emphysema. No pneumothorax. Small scarlike density within the left lung apex. There are 2 focal irregular densities within the left upper lobe best seen on images 256 and 245. These measure 9 and 10 mm in size, respectively. This may account for the finding on the prior radiograph. There is also a 14 mm irregular density within the left upper lobe posteriorly on image 208. IMPRESSION: 1. No evidence for pulmonary embolus. 2. Emphysema. 3. There are 3 similar-appearing irregular densities within the left upper lobe as described above with the largest measuring 14 mm. These could be due to scarring, inflammatory/infectious change, or possibly primary bronchogenic neoplasms. A [address] follow-up is recommended to assess for stability/resolution. 4. A 1.2 cm saccular aneurysm along the lateral aspect of the aortic arch. 5. Left-sided subclavian steal as described above. 6. Partial opacification of the bilateral lower lobe bronchi with areas of consolidation within the lower lobes posteriorly. This could be due to atelectasis or pneumonia. Electronically signed by: Frederick Flynn M.D. 12/06/2016 3:36 PM Dictated Date/Time: 12/06/2016 3:24 PM BILATERAL LOWER EXTREMITY VENOUS DOPPLER HISTORY: Acute left lower extremity pain and swelling. swelling and pain LLE COMPARISON STUDY: None. FINDINGS: There is normal compressibility, flow, and augmentation within the left lower extremity deep venous system. IMPRESSION: No sonographic evidence of deep venous thrombosis within the left lower extremity. Electronically signed by: Wolfgang Terry M.D. 12/07/2016 5:59 AM Dictated Date/Time: 12/07/2016 5:58 AM GALLBLADDER-ABD LIMITED HISTORY: 61 years-old Female per radiology cholelithiasis cholelithiasis with right upper quadrant abdominal pain. COMPARISON: CT 12/08/2016 TECHNIQUE: Multiple real-time sonographic images of the abdominal right upper quadrant were obtained assessing grayscale appearance and color flow FINDINGS: The imaged pancreas is unremarkable. There is a focal area of increased echogenicity involving the right lobe of the liver measuring up to 1.0 cm which does not demonstrate definite internal vascularity. The hepatic protocol is mildly heterogenous, nonspecific. Trace perihepatic ascites redemonstrated. Common bile duct is normal, 3.5 mm. Gallstones and layering sludge are seen within the gallbladder lumen and the gallbladder is mildly distended. Gallstones are seen within the region of the gallbladder neck. The wall is thickened measuring up to 1.2 cm with trace pericholecystic fluid. Sonographic Cormier sign cannot be assessed secondary to patient on pain medication. Multiple cysts are seen throughout the right kidney. Complex hypoechoic lesion measuring up to 2.1 cm involving the lateral interpolar right kidney suggests complex cyst. No internal vascularity. No right-sided hydronephrosis. Right pleural effusion is incidentally noted. IMPRESSION: 1. Cholelithiasis and gallbladder sludge with gallbladder wall thickening and pericholecystic fluid is noted which may reflect developing acute cholecystitis within the appropriate clinical setting. Sonographic Cormier sign could not be assessed secondary to patient on pain medication. 2. Nonspecific 1.0 cm area of increased echogenicity involving the right lobe of the liver is suspicious for lesion such as hemangioma. 3. Multiple renal cysts, some of which are mildly complex. 4. Small right pleural effusion redemonstrated as well as trace perihepatic ascites. The above report was generated using voice recognition software. It may contain grammatical, syntax or spelling errors. NUCLEAR HEPATOBILIARY SCAN CLINICAL HISTORY: Right upper quadrant abdominal pain. COMPARISON STUDY: Abdominal ultrasound dated 12/08/2016. TECHNIQUE: Static images of the liver and anterior abdomen were obtained at 30 minutes, 60 minutes, and 75 minutes minutes following the IV administration of 5.5mCi of technetium 99m Choletec. The patient was unable to tolerate dynamic imaging. FINDINGS: The hepatobiliary scan shows prompt and homogeneous hepatic uptake. There is visualized activity within the intra and extrahepatic biliary tree as well as the gallbladder at 30 minutes. There is normal biliary to bowel transit, with small bowel visualized by 75 minutes. IMPRESSION: There is no scintigraphic evidence of acute cholecystitis. Electronically signed by: Michael Torres M.D. 12/09/2016 3:[address] OF THE HEAD WITHOUT CONTRAST CLINICAL HISTORY: Profound weakness. Evaluate for cerebrovascular accident. COMPARISON STUDY: No previous studies for comparison. CT DOSE: 537.48 mGy.cm TECHNIQUE: Helical axial images of the head were obtained without IV contrast. Automated exposure control was utilized for the study. A dose lowering technique was utilized adhering to the principles of ALARA. FINDINGS: No acute intracranial hemorrhage, midline shift or mass effect is present. Ventricular system is normal. Basilar cisterns are patent. There is a suspected small age indeterminate lacunar infarct within the right cerebellar hemisphere shown image 6 of 28. There are no CT findings to suggest acute dural sinus thrombosis or acute territorial infarct. There are postsurgical findings within the sinuses. There is mild mucosal thickening of the sinuses and a small amount of fluid within the left mastoid air cells. There are no significant calvarial abnormalities. IMPRESSION: 1. No acute intracranial hemorrhage or mass effect. 2. Suspected age indeterminate lacunar infarct within the right cerebellar hemisphere. Electronically signed by: Meliton Umanzor M.D. 12/16/2016 5:49 PM CERVICAL SPINE W/O CLINICAL HISTORY: 61 years-old Female presenting with weakness of all 4 extremities; eval for any c-spine pathology. TECHNIQUE: Multidetector CT of the cervical spine was performed without the use of intravenous contrast. IV contrast: None. A dose lowering technique was used consistent with the principles of ALARA (as low as reasonably achievable). COMPARISON: None. CT DOSE (mGy.cm): The estimated cumulative dose is 234.53 mGy.cm. FINDINGS: [employer] topogram: Unremarkable. Normal cervical lordosis. Vertebral body heights maintained. Intervertebral disc height loss at C5-6, where there is focal degenerative change. Multilevel facet arthropathy most prominently in the mid cervical region. Uncovertebral hypertrophy also noted at C5-6. Osseous neural foraminal narrowing noted bilaterally at C4-5 and more significantly at C5-6. No osseous spinal canal narrowing. No acute fracture or subluxation. Limited intracranial evaluation within normal limits. Paraspinal soft tissues normal. Lung apices demonstrate emphysema. IMPRESSION: 1. Multilevel degenerative changes most severe at C5-6 with osseous neural foraminal narrowing at C4-5 and C5-6. No osseous spinal canal narrowing. 2. Emphysema. Electronically signed by: Herson Renteria M.D. 12/17/2016 10:28 AM [~ rep ct add3]] BILATERAL CAROTID DOPPLER STUDY HISTORY: Weakness. suspected R cerebellar stroke; eval posterior circulation COMPARISON: None. TECHNIQUE: Real-time, grayscale, and color Doppler sonography of the carotid arteries was performed. Imaging reviewed in the transverse and longitudinal planes. All measurements were calculated based on NASCET criteria. FINDINGS: Antegrade flow is seen in the right vertebral artery with retrograde flow in the left vertebral artery. The left subclavian artery was unable to visualized on this study.. The brachial pressures are low measuring 80/60 on the right and 50/nonpalpable on the left. Mild calcified plaque within the bilateral carotid bifurcations. The peak systolic velocity within the right ICA is 90 cm/s. The right systolic ratio is 1.1. The peak systolic velocity within the left ICA is 98 cm/s. The left systolic ratio is 1.0. Elevated velocities within the bilateral external carotid arteries consistent with moderate stenosis. IMPRESSION: 1. No hemodynamically significant stenosis seen within the bilateral common or internal carotid arteries. 2. Retrograde flow within the left vertebral artery. 3. Low blood pressures as described above. Clinical correlation recommended to assess for hypotension. This was discussed discussed with Dr. Mattson at 10:25 AM on 12/17/2016. 4. Moderate stenosis within the bilateral external carotid arteries. Electronically signed by: Frederick Flynn M.D. 12/17/2016 10:18 AM DIAGNOSTIC IMAGING [~ rep ct add3]] (BARIUM SWALLOW) ESOPHAGUS CLINICAL HISTORY: dysphagia, odynophagiadysphagia COMPARISON STUDY: None FLUOROSCOPY TIME: 1.2 minutes. FINDINGS: Patient initiated swallowing function well. There is persistent prominence of the cricopharyngeus. There is moderate esophageal irritability and/or spasm. Gastroesophageal junction is unremarkable. IMPRESSION: 1. Moderate cricopharyngeal achalasia. 2. Moderate generalized esophageal spasm and/or irritability. The above report was generated using voice recognition software. It may contain grammatical, syntax or spelling errors. CHEST ONE VIEW PORTABLE CLINICAL HISTORY: 61 years-old Female presenting with R rhonchi, ?eval for worsening pneumonia. TECHNIQUE: Portable upright AP view of the chest was obtained. COMPARISON: 12/18/2016. FINDINGS: Atherosclerosis of aortic arch. Cardiac silhouette normal in size. Persistent bibasilar opacities, right greater than left. No large effusion or pneumothorax. Heterogeneous radiolucency in the upper lobes suggests emphysema. No new focal infiltrate. Osteopenia suggested. Residual oral contrast in the left colon. IMPRESSION: 1. Bibasilar opacities, right greater than left, not significantly changed from prior. Electronically signed by: Herson Renteria M.D. 12/22/2016 2:15 PM Dictated Date/Time: 12/22/2016 2:13 PM KUB CLINICAL HISTORY: No bowel movement for several days. Generalized abdominal pain. Clinical concern for obstruction. FINDINGS: 2 AP supine abdominal radiographs are correlated with abdominal CT dated 12/08/2016. Enteric contrast fills the colon to the level of the rectum. This outlines sigmoid diverticula. The colon is diffusely distended, and the cecum measures up to 10 cm. Significant colonic fecal retention is observed. There is also distention of the small bowel loops. No evidence of intraperitoneal free air is seen on these supine views. The skeletal structures are osteopenic. Opacities are present at both lung bases. IMPRESSION: 1. There is gaseous distention of the small bowel and colon, without evidence of small bowel obstruction. 2. Enteric contrast is present to the level of the rectum. If there is obstruction it would be at the level of the rectum. No obstructing lesion was seen on the 12/08/2016 CT scan. Correlation with clinical findings and physical examination will be required. 3. Enteric contrast outlines sigmoid diverticula. Electronically signed by: Michael Torres M.D. 12/24/2016 2:52 PM Last 24 Hours Test 12/24/16 07:22 12/24/16 08:23 12/24/16 11:49 12/24/16 16:22 Bedside Glucose 78 mg/dl 146 mg/dl 125 mg/dl White Blood Count 19.69 K/uL Red Blood Count 3.00 M/uL Hemoglobin 10.2 g/dL Hematocrit 32.7 % Mean Corpuscular Volume 109.0 fL Mean Corpuscular Hemoglobin 34.0 pg Mean Corpuscular Hemoglobin Concent 31.2 g/dl Platelet Count 223 K/uL Mean Platelet Volume 11.2 fL Neutrophils (%) (Auto) 88.0 % Lymphocytes (%) (Auto) 5.7 % Monocytes (%) (Auto) 5.5 % Eosinophils (%) (Auto) 0.1 % Basophils (%) (Auto) 0.1 % Neutrophils # (Auto) 17.35 K/uL Lymphocytes # (Auto) 1.12 K/uL Monocytes # (Auto) 1.09 K/uL Eosinophils # (Auto) 0.01 K/uL Basophils # (Auto) 0.01 K/uL RDW Standard Deviation 76.0 fL RDW Coefficient of Variation 19.0 % Immature Granulocyte % (Auto) 0.6 % Immature Granulocyte # (Auto) 0.11 K/uL Last Resulted CBC 12/24/16 08:23 Red Blood Count 3.00, Mean Corpuscular Volume 109.0, Mean Corpuscular Hemoglobin 34.0, Mean Corpuscular Hemoglobin Concent 31.2, Mean Platelet Volume 11.2, Neutrophils (%) (Auto) 88.0, Lymphocytes (%) (Auto) 5.7, Monocytes (%) ( Auto) 5.5, Eosinophils (%) (Auto) 0.1, Basophils (%) (Auto) 0.1, Neutrophils # ( Auto) 17.35, Lymphocytes # (Auto) 1.12, Monocytes # (Auto) 1.09, Eosinophils # ( Auto) 0.01, Basophils # (Auto) 0.01 Last Resulted BMP 12/23/16 05:13 Consultations: GI surgery pulmonary critical care Medication Reconciliation New Medications: Albuterol Sulf (Proventil 0.083% 2.5MG/3ML) 2.5 Mg/3 Ml Nebu 2.5 MG INH Q4 PRN for SOB/Wheezing, #120 EA Budesonide (Pulmicort Respules 0.5MG/2ML) 0.5 Mg/2 Ml Nebu 2 ML INH BID, #60 EA rinse mouth after use Ipratropium-Albuterol (Duoneb) 3 Ml Nebu 1 TREATMENT INH QID, #120 INHA Aspirin (Aspirin EC Low Dose) 81 Mg Ectab 81 MG PO QAM, #30 Atorvastatin (Atorvastatin Calcium) 40 Mg Tab 80 MG PO QAM, #30 TAB Diclofenac Sod (Voltaren) 100 Appln/100 Gm Gel 1 APPLN EXT QID, #100 GM Fluconazole (Fluconazole) 100 Mg Tab 200 MG PO QAM for 10 Days, #20 TAB Folic Acid (Folic Acid) 1 Mg Tab 1 MG PO QAM, #30 TAB Guaifenesin Ext Rel (Mucinex Ext Rel) 600 Mg Tabcr 600 MG PO BID, #60 Insulin Glargine (Lantus Solostar) 100 Unit/Ml Inj 10 UNITS SC QAM, #30 Lactulose (Lactulose) 30 Gm/45 Ml Syrp 30 GM PO QID PRN for Constipation, #30 Nitrofurantoin Monohyd Macrocr (Nitrofurantoin Monohydrat) 100 Mg Cap 100 MG PO BID, #12 CAP Nitroglycerin (Nitroglycerin Transdermal) 1 Patch Tdsy 1 PATCH TD QAM, #30 0.1mg/hr patch Pantoprazole (Pantoprazole Sodium) 40 Mg Tab 40 MG PO QAM, #30 TAB Paroxetine (Paroxetine HCl) 20 Mg Tab 40 MG PO DAILY for 30 Days, #60 TAB Polyethylene (Miralax) 17 Gm Pow 17 GM PO BID, #60 Prednisone (Prednisone) 20 Mg Tab 40 MG PO DAILY, #20 TAB 40mg x 3 days then 30mg x 3 days then 20mg x 3 days then 10mg x 3 days then stop unless otherwise directed Senna (Senna Lax) 8.6 Mg Tab 17.2 MG PO QAM, #60 TAB Sucralfate (Sucralfate) 1 Gm/10 Ml Susp 1 GM PO QID for 30 Days Continued Medications: Buspirone Hcl (Buspirone Hcl) 5 Mg Tab 5 MG PO BID for 30 Days, #60 TAB Ferrous Sulfate (Kp Ferrous Sulfate) 325 Mg Tab 325 MG PO BID for 30 Days, #60 TAB 3 Refills Home O2 Therapy (Oxygen) Gas 4 LITER NA DIRECTED, BTL 18-24 HOURS DAILY Mirtazapine (Mirtazapine) 45 Mg Tab 45 MG PO QPM for 30 Days, #30 TAB 2 Refills Risperidone (Risperdal) 1 Mg Tab 1 MG PO HS, TAB Roflumilast (Daliresp) 500 Mcg Tab 500 MCG PO DAILY for 30 Days, #30 TAB 5 Refills Discontinued Medications: Albuterol Hfa (Ventolin Hfa) 200 Puffs/50484 Mcg Aers 2-4 PUFFS INH Q6H, #1 INHALER Albuterol Sulf (Proventil 0.083% 2.5MG/3ML) 2.5 Mg/3 Ml Nebu 2.5 MG NEB Q4 PRN for Shortness of Breath, EA Budesonide (Inhalation) (Pulmicort Respules 0.5MG/2ML) 0.5 Mg/2 Ml Leia 2 ML INH Q12H, EA Formoterol Fumarate (Perforomist) 20 Mcg/2 Ml Neb 1 VIAL NEB Q12H Paroxetine (Paxil) 20 Mg Tab 30 MG PO DAILY, TAB Simvastatin (Zocor) 40 Mg Tab 40 MG PO DAILY, TAB Umeclidinium [place] (Incruse Ellipta) 62.5 Mcg/Inh Inh 1 PUFF INH DAILY Discharge Exam Physical Exam: General Appearance: no apparent distress Eyes: EOMI ENT: hearing grossly normal Neck: trachea midline Respiratory/Chest: no respiratory distress, no accessory muscle use, + rhonchi (faint rhonchi R worse than L but clearing) Cardiovascular: regular rate, rhythm Abdomen / GI: non tender (nondistended), soft Extremities: normal inspection Neurologic/Psychiatric: reference assistant II-XII nml as tested, alert, normal mood/affect Skin: normal color, warm/dry Hospital Course 61yo female: 1. acute/chronic hypoxic respiratory failure - ongoing. continue to slowly wean steroids pneumonia appears resolving (just completed 10 days of broad-spectrum abx). CXR stable -strongly suspect infection was related to respiratory muscle weakness from underlying oaa-[id number]-pw-clearly-defined neurodegenerative condition 2. COPD exacerbation - as above, also using nebulizers (should be chronic) as per med rec 3. b/l basilar pneumonia - resolved, see above 4. septic shock 2nd to #3 above - resolved. 5. b/l lung nodules - in light of significant smoking history will need CT surveillance as outpatient. High risk of malignancy. 6. anemia 2nd to folic acid def - folic acid 1mg daily. CBC stable, continue to follow biweekly for now 7. pleuritic chest pain - rib chest pain / rib somatic dysfunction -OMT done wednesday -voltaren gel QID -no complaints of this 8. depression - ongoing; increased paxil to 40mg daily this admission. Cont remeron. 9. thrush with concern of esophageal candidiasis - nystatin george QID + diflucan 200mg daily. Day #11 (probably to need 21 days for esophagus). Improved on exam and dysphagia/odynophagia improved. Speech consult for swallow eval appreciated; diet changed to pureed. 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 severe deconditioning - PT, OT - [facility] [place] for rehab appears to be acute (from acute illness/myopathy/deconditioning) on chronic ( neuromuscular illness that appears to have been part of her current baseline of comorbidities) 11. DVT proph - lovenox once daily utilized while inpatient - give consideration to risks/benefits of ongoing in SNF setting 12. atrial mass - prior hospitalist spoke with cardiology. The echo and CT chest are both c/w lipomatous hypertrophy. this is NOT a risk factor for stroke. does not require anticoagulation. does NOT cause pain. 13. ?myopathy +/- polyneuropathy - appreciate neuro consultation may have critical illness myopathy or polyneuropathy wean steroids again as above B12, TSH, etc - normal no further testing for now but will need ongoing outpt f/u will need outpatient EMGs, etc -- appears she does have an underlying neurodegenerative condition. my gravest concern is that she has had this for so long before presentation (not able to get around at all for weeks, barely for weeks, not truly functional for longer than she can remember) that even if a dx is clearly made it may be too progressed for meaningful treatment/recovery rehab 14. leukocytosis/UTI -relates to frailty and prolonged hospital stay, lopez -macrobid 15. old cerebellar stroke, right - on aspirin for secondary prevention -does not appear responsible for her baseline weakness 16. ?mild acute diastolic CHF - currently compensated 17. constipation - fairly severe but suspect chronic since colon was so distended on imaging but she was barely symptomatic with a completely benign exam. follow bowels closely, aggressive bowel regimen, low threshold for repeat imaging. suspect relates to underlying neuromuscular illness 18. ? brief run of paroxysmal a. fib - continue to follow, outpt monitoring. may need to start anticoagulation if clearly present. Total Time Spent: Greater than 30 minutes This includes examination of the patient, discharge planning, medication reconciliation, and communication with other providers. Discharge Instructions Please refer to the electronic Patient Visit Report (Discharge Instructions) for additional information.
== END 2016-12-24 19:28 | DRG 871 ==
LOC: EDBD 12:59 → C.EDA 13:01 → C.MSICU 16:03 → CANRESERV 16:09 → ENRESERV 16:09 → CANBEDREQ 16:15 → ENRESERV 17:48 → C.MED 12-10 12:43
PROVIDERS: ADMIT Hospitalist; ATTEND Family Medicine
PROC: 04HK33Z Insertion of Infusion Device into Right Femoral Artery, Percutaneous Approach (ICD-10-PCS; principal; 2016-12-06)
PROC: 02HV33Z Insertion of Infusion Device into Superior Vena Cava, Percutaneous Approach (ICD-10-PCS; 2016-12-08)
DX: A41.9 Sepsis, unspecified organism (principal); J96.22 Acute and chronic respiratory failure with hypercapnia; J18.9 Pneumonia, unspecified organism; R65.21 Severe sepsis with septic shock; J96.21 Acute and chronic respiratory failure with hypoxia; G45.8 Other transient cerebral ischemic attacks and related syndromes; J44.1 Chronic obstructive pulmonary disease with (acute) exacerbation; B37.0 Candidal stomatitis; N39.0 Urinary tract infection, site not specified; E78.5 Hyperlipidemia, unspecified; E03.9 Hypothyroidism, unspecified; F32.9 Major depressive disorder, single episode, unspecified; D50.9 Iron deficiency anemia, unspecified; K59.00 Constipation, unspecified; Z79.899 Other long term (current) drug therapy; F17.200 Nicotine dependence, unspecified, uncomplicated; Z86.73 Personal history of transient ischemic attack (TIA), and cerebral infarction without residual deficits

== ENCOUNTER 2016-12-25 08:44 | Inpatient (IN) | payer OTHER ==
[2016-12-25] VITALS (8 sets, daily range): BP systolic 93–121; BP diastolic 55–65; PULSE 92–105; TEMP 36.3–36.8; O2SAT 94–100; Ht 157.5 cm; Wt 57.6 kg
[~2016-12-25] VITALS: Ht 157.5 cm; Wt 57.6 kg
[~2016-12-25 08:44] MED LIST: ALBINS/ INH; ASPEC81 PO; BUSP5TAB59 PO; CRFUDL PO; DFL100 PO; FERR1TAB13 PO; FLV1 PO; GFNSR600 PO; INSDGIPEN SC; IPRASOL4 INH; LCTL45 PO; LPT40 PO; MCRB100 PO; MIRT45TA3 PO; MRLP17 PO; NTRTP TD; OXGN; PLMINSR5 INH; PRD20 PO; PRT40 PO; PXL20 PO; RISP1TAB68 PO; ROFL1TAB5 PO; SNK PO; VLTG EXT
[2016-12-25] MEDS ORDERED: ALBUTEROL 0.083% NEBU SOLN 3 ML VIAL INH PRN (11:45)
[2016-12-25] MEDS ORDERED: MAGNESIUM HYDROXIDE SUSP 30 ML UDC PO PRN (11:45)
[2016-12-25] MEDS ORDERED: ONDANSETRON INJ 2 MG/ML 2 ML VIAL IV PRN (11:45)
[2016-12-25] MEDS ORDERED: POLYETHYLENE (MIRALAX) 17 GM PACK PO PRN (11:45)
[2016-12-25] MEDS ORDERED: NON-FORMULARY MEDICATION (Home O2 Therapy (Oxygen) 4 LITER) SCH (11:45)
[2016-12-25] MEDS ORDERED: LACTULOSE SYRUP 30 GM/45 ML UDP PO PRN (11:45)
[2016-12-25] MEDS ORDERED: ALUMINUM/MAGNESIUM/SIMETH (MAALOX MAX) 30 ML UDC PO PRN (11:45)
[2016-12-25] MEDS ORDERED: OPTIRAY 320 IV PRN (11:45)
[2016-12-25] MEDS ORDERED: DEXTROSE 50% 50 ML SYR IV PRN (13:00)
[2016-12-25] MEDS ORDERED: GLUCOSE 10 TABS/TUBE PO PRN (13:00)
[2016-12-25] MEDS ORDERED: GLUCOSE 40% GEL 15 GM TUBE PO PRN (13:00)
[2016-12-25] MEDS ORDERED: GLUCAGON FOR INJ 1 MG VIAL SQ PRN (13:00)
[2016-12-25] MEDS ORDERED: ALBUT/IPRATROP 3MG/0.5MG NEB 3 ML VIAL INH SCH (13:00)
[2016-12-25] MEDS: ACETAMINOPHEN 325 MG TAB PO PRN (13:35)
[2016-12-25] MEDS ORDERED: IV FLUIDS COMPLETED PRN (14:15)
--- NOTE | 2016-12-25 14:42 | DIAGNOSTIC IMAGING REPORT ---
(CHEST FOR PE) ANGIO WITH CLINICAL HISTORY: 61 years-old Female presenting with hypoxia, resolving pneumonia, clinical concern for pulmonary embolus. TECHNIQUE: Multidetector CT angiography of the chest was performed after administration of intravenous contrast. 3-D volumetric and/or maximum intensity projection (MIP) images were subsequently reconstructed for review. IV contrast: 93 mL of Optiray 320. A dose lowering technique was used consistent with the principles of ALARA (as low as reasonably achievable). COMPARISON: 12/06/2016. CT DOSE (mGy.cm): The estimated cumulative dose is 251.79 mGy.cm. FINDINGS: Chief Cook topogram: Unremarkable. Pulmonary vasculature: The study is adequate for assessment of the pulmonary vascular tree. No filling defect within the pulmonary arteries to suggest embolus. Main pulmonary artery is not enlarged. No flattening of the interventricular septum. No intracardiac intracardiac filling defect. No reflux of contrast into the hepatic veins. Remaining chest: On soft tissue windows, normal thyroid and thoracic inlet. Dystrophic calcification in the left breast. No axillary, supraclavicular, hilar, or mediastinal lymphadenopathy. Atherosclerosis of the aorta with a focal saccular outpouching along the inferolateral aspect of the aortic arch suggesting a penetrating ulcer or focal aneurysm. This is unchanged from prior exam. The proximal left subclavian artery remains occluded with opacification of the left vertebral artery and left subclavian artery distal to the origin of the left vertebral artery indicating subclavian steal. Lipomatous hypertrophy of interatrial septum. Coronary artery and aortic valve calcification. Normal heart size. Trace left pleural effusion. Upper abdomen normal. On lung windows, moderate to severe emphysema. Previously noted irregular cystic nodules in the left upper lobe have not significant changed in size or appearance since the prior exam. The degree of irregularity of these nodules makes measurement difficult. Patchy subpleural groundglass opacity and reticulation also noted in the left upper lobe, more prominent on the current exam. Dependent consolidation, left greater than right, increased from prior. Debris in the right bronchus intermedius new from prior. Lower lobe predominant bronchial wall thickening. On bone windows, exaggerated kyphosis without a focal wedging deformity. Degenerative changes of the thoracic spine. IMPRESSION: 1. Unchanged appearance of irregular cystic nodules in the left upper lobe. Given the presence of emphysema, this could represent pulmonary Langerhans cell histiocytosis along a spectrum of smoking related lung injury. Primary differential considerations include infection or neoplasm, although the lack of change since 12/06/2016 argues against infection assuming interval treatment. As mentioned on prior exam, a 3 month follow-up chest CT is recommended. 2. Significant debris in the bronchus intermedius with associated increased dependent consolidation, left greater than right, and new trace left pleural effusion. Although dependent consolidation could represent atelectasis, this raises concern for aspiration. 3. Unchanged appearance of the small penetrating ulcer or saccular aneurysm along the inferior lateral aortic arch. 4. Unchanged left subclavian steal. Electronically signed by: Herson Renteria M.D. 12/25/2016 2:41 PM Dictated Date/Time: 12/25/2016 2:25 PM
[2016-12-25] MEDS: SUCRALFATE 1 GM/10 ML UDC PO SCH ×3 (14:56→20:40)
[2016-12-25] MEDS ORDERED: INFLUENZA VIRUS QUAD VACCINE 0.5 ML SYR IM. ONE (15:30)
[2016-12-25] MEDS ORDERED: INFLUENZA ADMINISTRATION CHARGE ONE (15:30)
[2016-12-25] MEDS: DICLOFENAC SOD 1% GEL 100 GM TUBE EXT SCH ×2 (18:19→20:40)
--- NOTE | 2016-12-25 19:11 | History and Physical ---
History & Physical Date & Time of Service: Dec 25, 2016 at 18:52 Chief Complaint: Shortness Of Breath Primary Care Physician: See Starr M.D. History of Present Illness Source: patient, hospital records, halfway pt well known to me from taking care of her this week. respiratory status was stable all week - no better but definitely no worse. after days of stability and slowly weaning steroids to PO, was stable for discharge. had large amount of (asymptomatic) feces cleared w tap water enema prior to discharge. got to SNF, appears to have been settling in well. at some point (she does not recall ) she apparently suddenly got SOB and hypoxic. sent to [facility], had w/u that showed bibasilar infiltrate and hypoxia, WBC ~18 (was actually ~19 at day of discharge deemed related to steroid effect and likely effect of UTI that was under treatment) - started on bipap and transferred to our facility. when i see pt she looks in extremely similar condition to how she has been all week. doesn't recall much of any of HPI/ROS outlined above and in records from [facility]. she notes to me that her breathing is actually at her current baseline, not worse, not better. cough unchanged, sob unchanged. has L sided chest pain similar to what has been going on for at least a week deemed most likely rib related. no abdominal pain. no nausea. ongoing weakness unchanged. no f/c/s. records reviewed- see scanned in from [facility] -most relevant - ABG without significant hypercapnea. CXR w bibasilar infiltrate. CBC w WBC ~18. BMP OK. Past Medical/Surgical History neuromuscular weakness COPD respiratory weakness likely from above recent UTI Family History mom lymphoma, dad heart disease Social History Smoking Status: Former Smoker Drug Use: none Marital Status: Housing status: lives with family (but was discharged to [facility]) Occupational Status: retired Immunizations History of Influenza Vaccine: Unknown History of Tetanus Vaccine?: Unknown History of Pneumococcal: Unknown History of Hepatitis B Vaccine: Unknown Multi-Drug Resistant Organisms History of MDRO: No Allergies Coded Allergies: No Known Allergies (Unverified , 12/06/16) Home Medications Scheduled Aspirin (Aspirin EC Low Dose), 81 MG PO QAM Atorvastatin (Atorvastatin Calcium), 80 MG PO QAM Budesonide (Pulmicort Respules 0.5MG/2ML), 2 ML INH BID Buspirone Hcl (Buspirone Hcl), 5 MG PO BID Diclofenac Sod (Voltaren), 1 APPLN EXT QID Ferrous Sulfate (Kp Ferrous Sulfate), 325 MG PO BID Fluconazole (Fluconazole), 200 MG PO QAM Folic Acid (Folic Acid), 1 MG PO QAM Guaifenesin Ext Rel (Mucinex Ext Rel), 600 MG PO BID Home O2 Therapy (Oxygen), 4 LITER NA DIRECTED Insulin Glargine (Lantus Solostar), 10 UNITS SC QAM Ipratropium-Albuterol (Duoneb), 1 TREATMENT INH QID Mirtazapine (Mirtazapine), 45 MG PO QPM Nitrofurantoin Monohyd Macrocr (Nitrofurantoin Monohydrat), 100 MG PO BID Nitroglycerin (Nitroglycerin Transdermal), 1 PATCH TD QAM Pantoprazole (Pantoprazole Sodium), 40 MG PO QAM Paroxetine (Paroxetine HCl), 40 MG PO DAILY Polyethylene (Miralax), 17 GM PO BID Prednisone (Prednisone), 40 MG PO DAILY Risperidone (Risperdal), 1 MG PO HS Roflumilast (Daliresp), 500 MCG PO DAILY Senna (Senna Lax), 17.2 MG PO QAM Sucralfate (Sucralfate), 1 GM PO QID Scheduled PRN Albuterol Sulf (Proventil 0.083% 2.5MG/3ML), 2.5 MG INH Q4 PRN for SOB/Wheezing Lactulose (Lactulose), 30 GM PO QID PRN for Constipation Review of Systems all other ROS otherwise negative except for as above Constitutional: No fever, No chills, No weight loss Respiratory: + cough, + sputum (unchanged), + shortness of breath Abdomen: No pain Musculoskeletal: + problem reported (chest pain) Neurologic: + weakness Physical Exam Vital Signs Date Time Temp Pulse Resp B/P (MAP) Pulse Ox O2 Delivery O2 Flow Rate FiO2 12/25/16 16:00 100 Nasal Cannula 4.0 12/25/16 15:45 36.7 94 20 114/60 (78) 100 Nasal Cannula 4.0 12/25/16 15:22 96 18 97 Nasal Cannula 4.0 12/25/16 12:26 36.8 101 20 100/65 97 Nasal Cannula 3.0 12/25/16 11:54 92 18 97 Nasal Cannula 4.0 General Appearance: no apparent distress Head: normocephalic, atraumatic Eyes: normal inspection, EOMI ENT: hearing grossly normal Neck: trachea midline Respiratory/Chest: + pertinent finding (using accessory muscles only slightly more than what has been her recent baseline, and no conversational dyspnea no actual appearance of sob, no r/r/w (+) diminished bibasilar breath sounds no wheeze no rhonchi) Cardiovascular: regular rate, rhythm, no edema, no murmur Abdomen/GI: non tender (nd nt no masses no guarding/rebound/rigidity), soft Extremities/Musculoskelatal: normal inspection (muscle wasting but no c/c/e), normal range of motion Neurologic/Psych: special investigator II-XII nml as tested, alert, + pertinent finding (muscle wasting and contractures as before unchanged) Skin: normal color, warm/dry Diagnostics Laboratory Results Results Past 24 Hours Test 12/25/16 16:00 Range/Units Bedside Glucose 129 70-90 mg/dl Diagnostic Radiology see references to w/u at [facility] CT chest ordered after admitting here - bibasilar pneumonia only maybe slightly different than at last check. no PE Impression Assessment and Plan 1. acute/chronic hypoxic respiratory failure - ongoing. strongly suspect she likely had a transient mucous plugging event that led to transient hypoxia, since she now appears nearly identical to time of discharge yesterday -continue supportive care and steroids, nebs -no clear need for repeat abx for pneumonia - appears related to previous and now resolving pneumonia 2. COPD - suspect severe and likely also suspect hypoventilatory state -- but appearing compensated overall based on lack of new sx, lack of worrisome findings on abg. continue nebs, steroids, supportive care 3. recent b/l basilar pneumonia - see above 4. b/l lung nodules - in light of significant smoking history will need CT surveillance as outpatient. High risk of malignancy. 5. anemia 2nd to folic acid def - folic acid 1mg daily. CBC stable overall 6. pleuritic chest pain - rib chest pain / rib somatic dysfunction -OMT done wednesday -voltaren gel QID 7. depression - ongoing; increased paxil to 40mg daily this admission. Cont remeron. 8. thrush with concern of esophageal candidiasis - nystatin george QID + diflucan 200mg daily. Day #12 (probably to need 21 days for esophagus). -clinically improved 9. severe deconditioning - PT, OT Chester Salasor in [place] for rehab once clear this is nothing more than mucous plugging appears to be acute (from acute illness/myopathy/deconditioning) on chronic ( neuromuscular illness that appears to have been part of her current baseline of comorbidities) 10. 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 The echo and CT chest are both c/w lipomatous hypertrophy. this is NOT a risk factor for stroke. does not require anticoagulation. does NOT cause pain. 12. ?myopathy +/- polyneuropathy - appreciate neuro consultation may have critical illness myopathy or polyneuropathy wean steroids again as above B12, TSH, etc - normal no further testing for now but will need ongoing outpt f/u will need outpatient EMGs, etc -- appears she does have an underlying neurodegenerative condition. my gravest concern is that she has had this for so long before presentation (not able to get around at all for weeks, barely for weeks, not truly functional for longer than she can remember) that even if a dx is clearly made it may be too progressed for meaningful treatment/recovery rehab as above 13. leukocytosis/UTI -relates to frailty and prolonged hospital stay, lopez -macrobid sensitive -continue to follow -CBC in AM but suspect WBC relates to urine and steroids 14. old cerebellar stroke, right - on aspirin for secondary prevention -does not appear responsible for her baseline weakness 15. diastolic CHF - currently compensated 16. constipation - fairly severe chronically -- continue aggressive bowel regimen 17. ? brief run of paroxysmal a. fib on last admission - continue to follow, outpt monitoring. may need to start anticoagulation if clearly present. Advanced Directives Existing Living Will: No Existing Power of Rock Singer: No VTE Prophylaxis VTE Risk Assessment Done? Y/N: Yes Risk Level: Moderate Given or contraindicated: Enoxaparin (Lovenox)SQ
[2016-12-25] MEDS: ALBUT/IPRATROP 3MG/0.5MG NEB 3 ML VIAL INH SCH (19:40)
[2016-12-25] MEDS: FERROUS SULFATE 325 MG TAB PO SCH (20:41)
[2016-12-25] MEDS: MIRTAZAPINE TAB 15 MG TAB PO SCH (20:44)
[2016-12-25] MEDS: ENOXAPARIN 40 MG/0.4 ML SYR SC SCH (20:45)
[2016-12-25] MEDS ORDERED: PIPERACILL/TAZOBAC CONSULT ACTIVE PRN (20:45)
[2016-12-25] MEDS ORDERED: VANCOMYCIN CONSULT ACTIVE PRN (20:45)
[2016-12-25] MEDS: NITROFURANTOIN MONOHYDRATE 100 MG CAP PO SCH (20:47)
[2016-12-25] MEDS: RISPERIDONE 1 MG TAB PO SCH (20:47)
[2016-12-25] MEDS: POLYETHYLENE (MIRALAX) 17 GM PACK PO SCH (21:00)
[2016-12-25] MEDS ORDERED: PIPERACILL/TAZOBAC IV 3.375 GM in DEXTROSE 5% 100ML IV ONE (21:00)
[2016-12-25] MEDS ORDERED: VANCOMYCIN INJ 1,250 MG in SODIUM CHLORIDE 0.9% 250ML 250 ML IV ONE (21:00)
--- NOTE | 2016-12-25 21:05 | Pharmacy Progress Note ---
Pharmacy Abx Initial Consult Date of Service Dec 25, 2016. Pharmacy Dosing Scope Date of Consult: 12/25/16 Consultation requested by: Dr. Perez Pharmacy is consulted to initiate Vancomycin and Zosyn IV dosing therapy, order appropriate labs and adjust drug dose/frequency. Subjective The patient is a 61 year old female admitted on Dec 25, 2016 at 10:50am with pneumonia, recent admission this month for pneumonia and patient did complete 10 days of IV Vancomycin during previous admission. Objective Height (Feet): 5 Height (Inches): 2.00 Weight (Kilograms): 58.800 Vital Signs (Past 12Hrs) Vital Signs Past 12 Hours Date Time Temp Pulse Resp B/P (MAP) Pulse Ox O2 Delivery O2 Flow Rate FiO2 12/25/16 19:41 105 18 100 Nasal Cannula 4.0 12/25/16 19:21 36.3 100 22 121/58 (79) 99 Nasal Cannula 4.0 12/25/16 16:00 100 Nasal Cannula 4.0 12/25/16 15:45 36.7 94 20 114/60 (78) 100 Nasal Cannula 4.0 12/25/16 15:22 96 18 97 Nasal Cannula 4.0 12/25/16 12:26 36.8 101 20 100/65 97 Nasal Cannula 3.0 12/25/16 11:54 92 18 97 Nasal Cannula 4.0 Lab Results (24Hrs) Laboratory Tests (24 Hours) Test 12/25/16 20:40 Risk Factors for Resistance * Hospitalization for 48 hours or more within the past 90 days * Antimicrobial use within the last 90 days Vancomycin IV; Ertapenem IV; Doxy IV ; Fluconazole PO Assessment & Plan Assessment 61 year old female with recent admission this month for pneumonia, restarting IV Vancomycin and Zosyn at this time. Vancomycin troughs were therapeutic, will begin with dosing from earlier this month. Plan Vancomycin IV * Loading dose: 1250 mg (21 mg/kg) IV x 1 * Maintenance dose: 750 mg IV (13 mg/kg) every 16 hours * Goal trough level for PNA : 15 to 20 mcg/mL * Trough level ordered for 12/27/16 prior to 1800 dose Piperacillin/tazobactam * 3.375 g bolus administered over 30 minutes, then 3.375 g IV extended infusion every 8 hours for CrCl greater than 20 mL/min Pharmacy will continue to follow and will adjust dose/frequency as necessary. Thank you.
[2016-12-25] MEDS: GUAIFENESIN 600 MG TABCR PO SCH (21:22)
[2016-12-25] MEDS: METHYLPREDNISOLONE IV 40 MG in SYRINGE 0 ML IV SCH (21:22)
[2016-12-26] VITALS (12 sets, daily range): BP systolic 104–145; BP diastolic 63–87; PULSE 71–107; TEMP 36.3–36.8; O2SAT 91–100
[2016-12-26 04:54] LABS: HEMATOCRIT 25.5 % (37-47); IG% 0.6 %; LYMPH % 1.9 %; LYMPH ABS # 0.24 K/uL (1.2-3.4); MEAN CELL VOLUME 107.6 fL (80-100); MEAN CORPUSCULAR HEMOGLOBIN 35.4 pg (25-34); MEAN CORPUSCULAR HGB CONC 32.9 g/dl (32-36); MEAN PLATELET VOLUME 11.3 fL (7.4-10.4); MONO % 0.8 %; NEUT % 96.7 %; PLATELET COUNT 168 K/uL (130-400); RED BLOOD COUNT 2.37 M/uL (4.2-5.4); WHITE BLOOD COUNT 12.31 K/uL (4.8-10.8)
[2016-12-26 05:23] LABS: CKMB/CK RATIO 3.4 (0-3.0)
[2016-12-26] MEDS: METHYLPREDNISOLONE IV 40 MG in SYRINGE 0 ML IV SCH (05:28)
[2016-12-26 05:30] LABS: COMPLETE YES
[2016-12-26] MEDS ORDERED: PIPERACILL/TAZOBAC IV 3.375 GM in DEXTROSE 5% 100ML 100 ML IV SCH (06:00)
[2016-12-26] MEDS: BUDESONIDE 0.5 MG/2 ML VIAL (PULMICORT) INH SCH ×2 (07:10→19:46)
[2016-12-26] MEDS: ALBUT/IPRATROP 3MG/0.5MG NEB 3 ML VIAL INH SCH ×5 (07:10→23:15)
[2016-12-26] MEDS: SUCRALFATE 1 GM/10 ML UDC PO SCH ×4 (07:36→19:45)
[2016-12-26] MEDS: SENNA 8.6 MG TAB PO SCH (07:36)
[2016-12-26] MEDS: FLUCONAZOLE 100 MG TAB PO SCH (07:37)
[2016-12-26] MEDS: ROFLUMILAST 500 MCG TAB PO SCH (07:37)
[2016-12-26] MEDS: PANTOprazole SOD 40 MG TAB PO SCH (07:38)
[2016-12-26] MEDS: PAROXETINE 20 MG TAB PO SCH (07:39)
[2016-12-26] MEDS: ASPIRIN 81 MG ECTAB PO SCH (07:39)
[2016-12-26] MEDS: GUAIFENESIN 600 MG TABCR PO SCH ×2 (07:39→19:47)
[2016-12-26] MEDS: POLYETHYLENE (MIRALAX) 17 GM PACK PO SCH ×2 (07:39→19:54)
[2016-12-26] MEDS: ATORVASTATIN 40 MG TAB PO SCH (07:40)
[2016-12-26] MEDS: NITROFURANTOIN MONOHYDRATE 100 MG CAP PO SCH ×2 (07:41→19:49)
[2016-12-26] MEDS: FERROUS SULFATE 325 MG TAB PO SCH ×2 (07:42→19:51)
[2016-12-26] MEDS: INSULIN GLARGINE SOLOSTAR 100 UNITS/ML 3 ML PEN SC SCH (07:49)
[2016-12-26] MEDS: NITROGLYCERIN 0.1 MG/HR PATCH TD SCH (07:51)
[2016-12-26] MEDS: DICLOFENAC SOD 1% GEL 100 GM TUBE EXT SCH ×4 (07:51→19:44)
[2016-12-26] MEDS ORDERED: ENOXAPARIN 40 MG/0.4 ML SYR SQ SCH (09:00)
[2016-12-26] MEDS ORDERED: VANCOMYCIN INJ 750 MG in SODIUM CHLORIDE 0.9% 250ML 250 ML IV SCH (10:00)
[2016-12-26] MEDS: ACETAMINOPHEN 325 MG TAB PO PRN ×2 (12:52→17:00)
[2016-12-26] MEDS: KETOROLAC TROMETHAMINE 15 MG/ML VIAL IV PRN (16:05)
--- NOTE | 2016-12-26 18:16 | Progress Note ---
Subjective Date of Service: Dec 26, 2016. Subjective Pt evaluation today including: conversation w/ patient, conversation w/ family , physical exam, chart review, lab review, review of inpatient medication list saw twice - first time rounding, second time when dtr present with questions - answered all quetions to the best of my ability and to her satisfaction pt this AM noted breathing felt more labored. later back to baseline. cough without much sputum. no f/c/s. did feel hot. better almost immediately with a fan. chest pain persists Problem List Medical Problems: (1) COPD exacerbation Status: Acute (2) Hypoxia Status: Acute Review of Systems all other ROS otherwise negative except for as above Objective Vital Signs Date Time Temp Pulse Resp B/P (MAP) Pulse Ox O2 Delivery O2 Flow Rate FiO2 12/26/16 16:00 Nasal Cannula 4.0 12/26/16 15:23 107 18 98 Nasal Cannula 4.0 12/26/16 14:49 36.4 75 20 104/66 (79) 93 Room Air 12/26/16 12:40 36.8 97 18 145/76 (99) 97 Nasal Cannula 4.0 12/26/16 12:40 Nasal Cannula 4.0 12/26/16 12:30 36.8 98 20 100 4.0 12/26/16 12:00 Nasal Cannula 4.0 12/26/16 11:42 36.8 98 20 105/68 (80) 100 Room Air 12/26/16 11:19 90 18 94 Nasal Cannula 4.0 12/26/16 08:00 Nasal Cannula 4.0 12/26/16 07:22 36.5 78 20 128/66 (86) 91 Nasal Cannula 4.0 12/26/16 07:10 98 18 99 Nasal Cannula 4.0 12/26/16 04:01 36.8 71 20 144/87 (106) 99 Nasal Cannula 4.0 12/26/16 04:00 Nasal Cannula 4.0 12/25/16 23:59 Nasal Cannula 4.0 12/25/16 23:19 36.3 99 20 93/55 (68) 94 Room Air 12/25/16 20:00 Nasal Cannula 4.0 12/25/16 19:41 105 18 100 Nasal Cannula 4.0 12/25/16 19:21 36.3 100 22 121/58 (79) 99 Nasal Cannula 4.0 Physical Exam General Appearance: no apparent distress Eyes: EOMI ENT: hearing grossly normal Neck: trachea midline Respiratory/Chest: no respiratory distress, no accessory muscle use, + decreased breath sounds (bibasilar without wheezing, poor air entry, questionable scattered rhonchi) Cardiovascular: regular rate, rhythm Abdomen: non tender (nondistended), soft Extremities: + pertinent finding (ongoing muscle wasting) Neurologic/Psychiatric: sanitary plumber II-XII nml as tested, alert Skin: normal color, warm/dry Laboratory Results Last 24 Hours Test 12/25/16 20:40 12/25/16 22:36 12/26/16 04:36 12/26/16 06:19 Total Creatine Kinase U/L 117 U/L 103 U/L Creatine Kinase MB 2.9 ng/ml 3.5 ng/ml Creatine Kinase MB Ratio 3.4 Troponin I 0.034 ng/ml 0.039 ng/ml Chemistry Specimen Hemolysis White Blood Count 12.31 K/uL Red Blood Count 2.37 M/uL Hemoglobin 8.4 g/dL Hematocrit 25.5 % Mean Corpuscular Volume 107.6 fL Mean Corpuscular Hemoglobin 35.4 pg Mean Corpuscular Hemoglobin Concent 32.9 g/dl Platelet Count 168 K/uL Mean Platelet Volume 11.3 fL Neutrophils (%) (Auto) 96.7 % Lymphocytes (%) (Auto) 1.9 % Monocytes (%) (Auto) 0.8 % Eosinophils (%) (Auto) 0.0 % Basophils (%) (Auto) 0.0 % Neutrophils # (Auto) 11.90 K/uL Lymphocytes # (Auto) 0.24 K/uL Monocytes # (Auto) 0.10 K/uL Eosinophils # (Auto) 0.00 K/uL Basophils # (Auto) 0.00 K/uL RDW Standard Deviation 72.1 fL RDW Coefficient of Variation 18.5 % Immature Granulocyte % (Auto) 0.6 % Immature Granulocyte # (Auto) 0.07 K/uL Basophilic Stippling OCCASIONAL Bedside Glucose 135 mg/dl Test 12/26/16 11:11 12/26/16 16:21 Bedside Glucose 152 mg/dl 153 mg/dl Assessment and Plan 1. acute/chronic hypoxic respiratory failure - ongoing. strongly suspect she likely had a transient mucous plugging event that led to transient hypoxia, also appears that rib pain causes sensation of short of breath when vitals are totally stable -continue supportive care and steroids, nebs -add flutter valve, incentive spirometry, vibration vest -no clear need for repeat abx for pneumonia - appears related to previous and now resolving pneumonia -stable for return to snf, but concern on snf on weekend with her comorbidities 2. COPD - suspect severe and likely also suspect hypoventilatory state -- but appearing compensated overall based on lack of new sx, lack of worrisome findings on abg. continue nebs, steroids, supportive care 3. recent b/l basilar pneumonia - see above 4. b/l lung nodules - in light of significant smoking history will need CT surveillance as outpatient. High risk of malignancy. 5. anemia 2nd to folic acid def - folic acid 1mg daily. CBC stable overall 6. pleuritic chest pain - rib chest pain / rib somatic dysfunction -OMT done wednesday -voltaren gel QID 7. depression - ongoing; increased paxil to 40mg daily this admission. Cont remeron. 8. thrush with concern of esophageal candidiasis - nystatin george QID + diflucan 200mg daily. Day #12 (probably to need 21 days for esophagus). -clinically improved 9. severe deconditioning - PT, OT Chester Boise in [place] for rehab once clear this is nothing more than mucous plugging appears to be acute (from acute illness/myopathy/deconditioning) on chronic ( neuromuscular illness that appears to have been part of her current baseline of comorbidities) 10. 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 The echo and CT chest are both c/w lipomatous hypertrophy. this is NOT a risk factor for stroke. does not require anticoagulation. does NOT cause pain. 12. ?myopathy +/- polyneuropathy - appreciate neuro consultation may have critical illness myopathy or polyneuropathy wean steroids again as above B12, TSH, etc - normal no further testing for now but will need ongoing outpt f/u will need outpatient EMGs, etc -- appears she does have an underlying neurodegenerative condition. my gravest concern is that she has had this for so long before presentation (not able to get around at all for weeks, barely for weeks, not truly functional for longer than she can remember) that even if a dx is clearly made it may be too progressed for meaningful treatment/recovery rehab as above 13. leukocytosis/UTI -relates to frailty and prolonged hospital stay, lopez -macrobid sensitive -continue to follow -CBC in AM but suspect WBC relates to urine and steroids 14. old cerebellar stroke, right - on aspirin for secondary prevention -does not appear responsible for her baseline weakness 15. diastolic CHF - currently compensated 16. constipation - fairly severe chronically -- continue aggressive bowel regimen 17. ? brief run of paroxysmal a. fib on last admission - continue to follow, outpt monitoring. may need to start anticoagulation if clearly present. for return to [facility] once able
[2016-12-26] MEDS: ENOXAPARIN 40 MG/0.4 ML SYR SC SCH (19:45)
[2016-12-26] MEDS: MIRTAZAPINE TAB 15 MG TAB PO SCH (19:45)
[2016-12-26] MEDS: RISPERIDONE 1 MG TAB PO SCH (19:47)
[2016-12-27] VITALS (12 sets, daily range): BP systolic 104–127; BP diastolic 58–72; PULSE 54–118; TEMP 36.3–36.7; O2SAT 91–98
[2016-12-27] MEDS: KETOROLAC TROMETHAMINE 15 MG/ML VIAL IV PRN (00:10)
[2016-12-27] MEDS: ALBUT/IPRATROP 3MG/0.5MG NEB 3 ML VIAL INH SCH ×7 (03:54→23:02)
--- NOTE | 2016-12-27 06:39 | DIAGNOSTIC IMAGING REPORT ---
CHEST ONE VIEW PORTABLE CLINICAL HISTORY: 'can't breath' and coarse breath sounds dyspnea COMPARISON STUDY: 12/22/2016 FINDINGS: Improved aeration of both lung bases. Mild emphysematous change. Mild prominence of the pulmonary vasculature. Unchanging calcified granuloma peripheral aspect left base. IMPRESSION: Improved aeration lung bases. Persistent pulmonary vascular congestion. The above report was generated using voice recognition software. It may contain grammatical, syntax or spelling errors. Electronically signed by: Mauro Martinez M.D. 12/27/2016 6:38 AM Dictated Date/Time: 12/27/2016 6:37 AM
[2016-12-27] MEDS: BUDESONIDE 0.5 MG/2 ML VIAL (PULMICORT) INH SCH ×2 (07:19→19:35)
[2016-12-27] MEDS: ACETAMINOPHEN 325 MG TAB PO PRN (08:17)
[2016-12-27] MEDS: POLYETHYLENE (MIRALAX) 17 GM PACK PO SCH ×2 (08:28→21:12)
[2016-12-27] MEDS: DICLOFENAC SOD 1% GEL 100 GM TUBE EXT SCH ×4 (08:30→21:12)
[2016-12-27] MEDS: SUCRALFATE 1 GM/10 ML UDC PO SCH ×4 (08:31→21:09)
[2016-12-27] MEDS: ROFLUMILAST 500 MCG TAB PO SCH (08:31)
[2016-12-27] MEDS: FERROUS SULFATE 325 MG TAB PO SCH ×2 (08:32→21:11)
[2016-12-27] MEDS: NITROFURANTOIN MONOHYDRATE 100 MG CAP PO SCH ×2 (08:32→21:11)
[2016-12-27] MEDS: FLUCONAZOLE 100 MG TAB PO SCH (08:32)
[2016-12-27] MEDS: GUAIFENESIN 600 MG TABCR PO SCH ×2 (08:32→21:31)
[2016-12-27] MEDS: ASPIRIN 81 MG ECTAB PO SCH (08:32)
[2016-12-27] MEDS: ATORVASTATIN 40 MG TAB PO SCH (08:32)
[2016-12-27] MEDS: SENNA 8.6 MG TAB PO SCH (08:33)
[2016-12-27] MEDS: PANTOprazole SOD 40 MG TAB PO SCH (08:33)
[2016-12-27] MEDS: PAROXETINE 20 MG TAB PO SCH (08:33)
[2016-12-27] MEDS: NITROGLYCERIN 0.1 MG/HR PATCH TD SCH (08:34)
[2016-12-27] MEDS: INSULIN GLARGINE SOLOSTAR 100 UNITS/ML 3 ML PEN SC SCH (09:02)
[2016-12-27] MEDS ORDERED: FUROSEMIDE INJ 40 MG in SYRINGE 0 ML IV ONE (11:30)
[2016-12-27] MEDS ORDERED: NURSING VERBAL MED ORDER ONE ×3 (11:45→13:45)
[2016-12-27] MEDS ORDERED: FUROSEMIDE 40 MG TAB PO ONE (12:15)
[2016-12-27] MEDS: ALBUTEROL 0.083% NEBU SOLN 3 ML VIAL INH PRN (12:46)
[2016-12-27] MEDS ORDERED: ONDANSETRON 4MG OD TAB PO PRN (13:45)
--- NOTE | 2016-12-27 16:24 | Progress Note ---
Subjective Date of Service: Dec 27, 2016. Subjective Pt evaluation today including: conversation w/ patient, physical exam, chart review, lab review, review of inpatient medication list pt seen multiple times today. initially this AM more sob. chest tightness. ongoing pain but tightness different than pain. cough without sputum - can't bring it up. no f/c/s later revisited twice - both times sleeping comfortably breathing unlabored d/w nursing extensively through the day as well Problem List Medical Problems: (1) COPD exacerbation Status: Acute (2) Hypoxia Status: Acute Review of Systems all other ROS otherwise negative except for as above Objective Vital Signs Date Time Temp Pulse Resp B/P (MAP) Pulse Ox O2 Delivery O2 Flow Rate FiO2 12/27/16 14:55 36.3 74 20 104/65 (78) 94 Nasal Cannula 4.0 12/27/16 14:22 71 24 92 Nasal Cannula 4.0 12/27/16 12:48 117 26 94 Nasal Cannula 4.0 12/27/16 08:00 93 Nasal Cannula 4.0 Oxymask 12/27/16 07:21 80 22 93 Nasal Cannula 4.0 12/27/16 07:17 36.5 63 20 110/69 (83) 94 Oxymask 3.0 12/27/16 05:02 36.7 98 20 127/72 (90) 91 Nasal Cannula 4.0 12/27/16 03:54 118 24 98 Nasal Cannula 3.0 12/27/16 00:00 Nasal Cannula 4.0 12/26/16 23:18 96 18 97 Nasal Cannula 3.0 12/26/16 22:40 36.3 77 18 105/63 (77) 100 Nasal Cannula 3.0 12/26/16 20:00 Nasal Cannula 4.0 12/26/16 19:49 90 18 98 Nasal Cannula 3.0 Physical Exam General Appearance: no apparent distress Eyes: EOMI ENT: hearing grossly normal Neck: trachea midline Respiratory/Chest: + pertinent finding (first visit midl accessory muscles, diminished air entry, no r/r/w. later revisits breathing unlabored no accessory muscles) Cardiovascular: regular rate, rhythm Abdomen: non tender, soft Extremities: + pertinent finding (ongoing weakness and contactures as before) Neurologic/Psychiatric: tapper bit II-XII nml as tested, + pertinent finding (ongoing weakness and contractures) Skin: normal color, warm/dry Laboratory Results Last 24 Hours Test 12/26/16 16:21 12/26/16 19:57 12/27/16 07:27 12/27/16 11:30 Bedside Glucose 153 mg/dl 169 mg/dl 95 mg/dl 100 mg/dl Assessment and Plan 1. acute/chronic hypoxic respiratory failure - ongoing. strongly suspect she likely had a transient mucous plugging event that led to transient hypoxia, also appears that rib pain causes sensation of short of breath when vitals are totally stable -may have small amount of acute on chronic diastolic CHF - although gave lasix and not much UO, but with nebs/pulmonary toilet SOB improved today - pleading that the huge majority of the picture is mucous related -continue supportive care and steroids, nebs -added flutter valve, incentive spirometry, vibration vest -no clear need for repeat abx for pneumonia - appears related to previous and now resolving pneumonia -stable for care out of hospital, but seeing how she mucous plugs so frequently and is so weak overall, ?SNF vs LTAC as optimal dc destination 2. COPD - suspect severe and likely also suspect hypoventilatory state -- but appearing compensated overall based on lack of new sx, lack of worrisome findings on abg. continue nebs, steroids, supportive care 3. recent b/l basilar pneumonia - see above 4. b/l lung nodules - in light of significant smoking history will need CT surveillance as outpatient. High risk of malignancy. 5. anemia 2nd to folic acid def - folic acid 1mg daily. CBC stable overall 6. pleuritic chest pain - rib chest pain / rib somatic dysfunction -OMT done wednesday -voltaren gel QID 7. depression - ongoing; increased paxil to 40mg daily this admission. Cont remeron. 8. thrush with concern of esophageal candidiasis - nystatin george QID + diflucan 200mg daily. Day #12 (probably to need 21 days for esophagus). -clinically improved 9. severe deconditioning - PT, OT [facility] in [place] for rehab vs LTAC appears to be acute (from acute illness/myopathy/deconditioning) on chronic ( neuromuscular illness that appears to have been part of her current baseline of comorbidities) 10. 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 The echo and CT chest are both c/w lipomatous hypertrophy. this is NOT a risk factor for stroke. does not require anticoagulation. does NOT cause pain. 12. ?myopathy +/- polyneuropathy - appreciate neuro consultation may have critical illness myopathy or polyneuropathy wean steroids again as above B12, TSH, etc - normal no further testing for now but will need ongoing outpt f/u will need outpatient EMGs, etc -- appears she does have an underlying neurodegenerative condition. my gravest concern is that she has had this for so long before presentation (not able to get around at all for weeks, barely for weeks, not truly functional for longer than she can remember) that even if a dx is clearly made it may be too progressed for meaningful treatment/recovery rehab as above 13. leukocytosis/UTI -relates to frailty and prolonged hospital stay, lopez -macrobid sensitive -continue to follow -CBC in AM but suspect WBC relates to urine and steroids 14. old cerebellar stroke, right - on aspirin for secondary prevention -does not appear responsible for her baseline weakness 15. diastolic CHF - currently compensated 16. constipation - fairly severe chronically -- continue aggressive bowel regimen 17. ? brief run of paroxysmal a. fib on last admission - continue to follow, outpt monitoring. may need to start anticoagulation if clearly present. [facility]
[2016-12-27] MEDS ORDERED: VANCOMYCIN TROUGH SCH (17:30)
[2016-12-27] MEDS: MIRTAZAPINE TAB 15 MG TAB PO SCH (21:11)
[2016-12-27] MEDS: RISPERIDONE 1 MG TAB PO SCH (21:12)
[2016-12-27] MEDS: ENOXAPARIN 40 MG/0.4 ML SYR SC SCH (21:13)
[2016-12-27] MEDS ORDERED: KETOROLAC TROMETHAMINE 30 MG/ML VIAL IV. PRN (23:15)
[2016-12-27] MEDS ORDERED: ACETAMINOPHEN SOLN 650MG/20.3 ML UDC PO PRN (23:15)
[2016-12-27] MEDS: KETOROLAC TROMETHAMINE 30 MG/ML VIAL IM PRN (23:39)
[2016-12-28] VITALS (12 sets, daily range): BP systolic 109–178; BP diastolic 72–88; PULSE 71–94; TEMP 36.3–36.4; O2SAT 93–98
[2016-12-28] MEDS: ALBUT/IPRATROP 3MG/0.5MG NEB 3 ML VIAL INH SCH ×6 (03:47→23:11)
[2016-12-28] MEDS ORDERED: LORAZEPAM 1 MG TAB PO STA (04:02)
[2016-12-28] MEDS: BUDESONIDE 0.5 MG/2 ML VIAL (PULMICORT) INH SCH ×2 (06:58→21:09)
[2016-12-28 07:22] LABS: HEMATOCRIT 31.6 % (37-47); MEAN CORPUSCULAR HEMOGLOBIN 35.2 pg (25-34); MEAN CORPUSCULAR HGB CONC 32.3 g/dl (32-36); MEAN PLATELET VOLUME 11.2 fL (7.4-10.4); PLATELET COUNT 203 K/uL (130-400)
[2016-12-28 07:48] LABS: CREATININE 0.47 mg/dl (0.60-1.20)
[2016-12-28] MEDS: KETOROLAC TROMETHAMINE 30 MG/ML VIAL IM PRN (09:02)
[2016-12-28] MEDS: ROFLUMILAST 500 MCG TAB PO SCH ×2 (09:46→10:10)
[2016-12-28] MEDS: POLYETHYLENE (MIRALAX) 17 GM PACK PO SCH ×3 (09:46→20:12)
[2016-12-28] MEDS: INSULIN GLARGINE SOLOSTAR 100 UNITS/ML 3 ML PEN SC SCH (09:47)
[2016-12-28] MEDS: PAROXETINE 20 MG TAB PO SCH ×2 (09:48→10:11)
[2016-12-28] MEDS: FLUCONAZOLE 100 MG TAB PO SCH ×2 (09:48→10:10)
[2016-12-28] MEDS: NITROFURANTOIN MONOHYDRATE 100 MG CAP PO SCH ×3 (09:51→20:11)
[2016-12-28] MEDS: FERROUS SULFATE 325 MG TAB PO SCH ×3 (09:51→20:11)
[2016-12-28] MEDS: ATORVASTATIN 40 MG TAB PO SCH ×2 (09:51→10:10)
[2016-12-28] MEDS: ASPIRIN 81 MG ECTAB PO SCH ×2 (09:51→10:10)
[2016-12-28] MEDS: PANTOprazole SOD 40 MG TAB PO SCH ×2 (09:52→10:11)
[2016-12-28] MEDS: GUAIFENESIN 600 MG TABCR PO SCH ×3 (09:52→20:11)
[2016-12-28] MEDS: NITROGLYCERIN 0.1 MG/HR PATCH TD SCH (09:54)
[2016-12-28] MEDS: SUCRALFATE 1 GM/10 ML UDC PO SCH ×5 (09:54→20:12)
[2016-12-28] MEDS: SENNA 8.6 MG TAB PO SCH ×2 (09:54→10:11)
[2016-12-28] MEDS: DICLOFENAC SOD 1% GEL 100 GM TUBE EXT SCH ×4 (09:55→20:12)
--- NOTE | 2016-12-28 12:51 | Hospitalist Progress Note ---
Hospitalist Progress Note Date of Service Dec 28, 2016. (Ambar Otero .SWETHA) Subjective Pt evaluation today including: conversation w/ patient, physical exam, chart review, lab review, review of inpatient medication list Pain: 9/10 sharp chest pain PO Intake: Pureed diet, poor appetite and intake Voiding: lopez catheter in place Patient complains of a 9/10 sharp central chest pain that is worse with deep breaths, coughing and palpation. She states that her breathing is also slightly worse today, although upon review of previous progress notes, this is in line with her typical pattern. The patient tends to have more labored breathing earlier in the day which then improves later. The patient admits to a non-productive cough and wheezing. The patient denies fevers, chills, sweats , palpitations, claudication, nausea, vomiting, abdominal pain, dysuria, hematuria, urinary retention, paralysis, acute weakness, acute numbness and tingling. Additional Comments: See HPI for pertinent positives and negatives. All other systems reviewed and negative. (Ambar Otero PA-C) Objective Vital Signs Date Time Temp Pulse Resp B/P (MAP) Pulse Ox O2 Delivery O2 Flow Rate FiO2 12/28/16 11:26 74 15 98 Diffusion Mask 4.0 12/28/16 10:25 98 Oxymask 4.0 12/28/16 08:00 98 Oxymask 4.0 12/28/16 07:54 36.4 83 28 109/72 (84) 98 Oxymask 4.0 12/28/16 07:02 71 15 93 Mask 4.0 12/28/16 00:00 Oxymask 4.0 12/27/16 23:03 54 20 96 Mask 4.0 12/27/16 22:28 36.5 87 18 109/58 (75) 92 Oxymask 4.0 12/27/16 19:36 68 22 93 Mask 4.0 12/27/16 16:00 94 Oxymask 4.0 12/27/16 14:55 36.3 74 20 104/65 (78) 94 Nasal Cannula 4.0 12/27/16 14:22 71 24 92 Nasal Cannula 4.0 12/27/16 12:48 117 26 94 Nasal Cannula 4.0 (Ambar Otero PA-C) Physical Exam Notes: General appearance: Well-developed, well-nourished, no apparent distress Head: Normocephalic, atraumatic Eyes: Normal inspection, PERRL, EOMI ENT: Normal ENT inspection, hearing grossly normal, pharynx normal Neck: Supple, no JVD, trachea midline Respiratory/Chest: +Mild accessory muscle use, diminished breath sounds. Lungs clear to auscultation Cardiovascular: Regular rate & rhythm, no gallop, no murmur Abdomen/GI: Normal bowel sounds, non-tender, soft Extremities/Musculoskeletal: +Upper extremity contractures, muscle atrophy. 1 + pitting edema. Neurological/Psych: Alert, normal mood/affect, oriented x 3 Skin: +Ecchymoses. Normal color, warm/dry, no rash (Ambar Otero ., SUNDAY-C) Laboratory Results Last 24 Hours Test 12/27/16 16:26 12/27/16 19:40 12/28/16 07:01 12/28/16 07:10 Bedside Glucose 114 mg/dl 108 mg/dl 73 mg/dl White Blood Count 11.10 K/uL Red Blood Count 2.90 M/uL Hemoglobin 10.2 g/dL Hematocrit 31.6 % Mean Corpuscular Volume 109.0 fL Mean Corpuscular Hemoglobin 35.2 pg Mean Corpuscular Hemoglobin Concent 32.3 g/dl RDW Standard Deviation 72.4 fL RDW Coefficient of Variation 18.2 % Platelet Count 203 K/uL Mean Platelet Volume 11.2 fL Creatinine 0.47 mg/dl Est Creatinine Clear Calc Drug Dose 98.2 ml/min Estimated GFR () 122.7 Estimated GFR (Non- 105.9 Test 12/28/16 11:16 Bedside Glucose 104 mg/dl (Ambar Otero ., PA-C) Assessment and Plan 61 y/o female with a history of HLD, chronic diastolic CHF, COPD, DM II, anxiety /depression who presents with shortness of breath Acute/chronic hypoxic respiratory failure - ongoing -Transfer to med/surg. Convert to full admission -Likely mucous plugging that led to hypoxia, pleuritic chest/rib pain may also contribute to feeling of SOB -May have small amount of acute on chronic diastolic CHF but did not have much UO with Lasix, so more likely mucous related -Continue nebs q4h -Prednisone 40 mg PO qd. Day #3 -Flutter valve, incentive spirometry, vibration vest -No clear need for repeat abx for pneumonia - appears related to previous and now resolving pneumonia -Frequent mucous plugging and weakness, ?SNF vs LTAC. Case management following -Consult pulmonology, appreciate recs COPD, severe -Continues nebs, steroids as above -Continue Pulmicort BID, Daliresp qd B/l lung nodules - in light of significant smoking history will need CT surveillance as outpatient. High risk of malignancy. Anemia 2nd to folic acid def--stable/improving -Continue folic acid 1 mg PO qd and iron 325 mg PO BID -Hgb improved to 10.2 on 12/28 Pleuritic chest pain/rib pain--ongoing -Toradol 30 mg IV q6h prn pain -Voltaren gel QID Anxiety, depression -Continue Paxil 40 mg PO qd, Remeron 45 mg PO qd and Risperdal 1 mg PO hs -Buspirone increased to 5 mg PO TID Oral vs esophageal candidiasis -Continue nystatin george QID + Diflucan 200 mg PO qd. Day #15 of 21 Severe deconditioning -PT/OT evaluate and treat -Came from [facility] in [place] for rehab, may need LTAC -Appears to be acute (from acute illness/myopathy/deconditioning) on chronic ( neuromuscular illness that appears to have been part of her current baseline of comorbidities) -Poor oral intake, consult gas systems worker Atrial mass - prior hospitalist spoke with cardiology. The echo and CT chest are both c/w lipomatous hypertrophy. -This is NOT a risk factor for stroke. Does not require anticoagulation. ?myopathy +/- polyneuropathy --ongoing -Pt seen by Dr. Parks on 12/17. 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 Plan was to re-evaluate as an outpt for possible EMG and nerve conduction studies -B12, TSH, etc - normal -No further testing for now but will need ongoing outpt f/u Leukocytosis/UTI--improving -Relates to frailty and prolonged hospital stay, lopez -Macrobid sensitive day #4 Chronic diastolic CHF--stable DM II--unknown last HgbA1c -Continue Lantus 10 units SC qam -Sugars very well controlled w/Lantus alone -Check BSGs q ac and qhs -Check HgbA1c HLD, h/o CVA -Continue Lipitor 80 mg PO qd and ASA DVT prophylaxis -Enoxaparin 40 mg SC q24h Code Status -Level I, FULL RESUSCITATION STATUS (Ambar Otero ., SWETHA) Reviewed: Pt Seen/Exam by Me (Gisela Pang MD) History Physician Blunger Supervision Note: I interviewed and examined the patient. Discussed with SUNDAY Otero and agree with findings and plan as documented in the note. Any exceptions or clarifications are listed here: Pt still with c/o SOB, productive cough, constant anterior chest wall pain. 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 -very frail, poor neuromuscular function contributing to decreased clearance of secretions -taper steroids down, no abx at this time, but question if recurrent aspiration? 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
[2016-12-28 13:29] LABS: ESTIMATED AVERAGE GLUCOSE 111 mg/dl; HA1C FLAG Normal (Normal)
[2016-12-28] MEDS: METHYLPREDNISOLONE IV 60 MG in SYRINGE 0 ML IV SCH (14:21)
[2016-12-28] MEDS: KETOROLAC TROMETHAMINE 15 MG/ML VIAL IV PRN ×2 (15:26→21:31)
[2016-12-28] MEDS: MIRTAZAPINE TAB 15 MG TAB PO SCH (20:11)
[2016-12-28] MEDS: RISPERIDONE 1 MG TAB PO SCH (20:11)
[2016-12-28] MEDS: ENOXAPARIN 40 MG/0.4 ML SYR SC SCH (20:13)
--- NOTE | 2016-12-28 20:14 | Pulmonary Consultation ---
History General Date of Service: Dec 28, 2016. Stated Complaint: Shortness Of Breath HPI The patient is a 61 year old female who presents to [facility] with complaints of Shortness Of Breath. The patient's primary care provider is See Starr M.D.. Ms. Gonzalez is well known to the pulmonary service. She was recently seen by her pulmonary group on 12/11/2016 for acute on chronic hypoxemic hypercapnic respiratory failure secondary to COPD exacerbation, left upper lobe nodules and questionable community-acquired pneumonia and oral thrush. She has had progressive lower extremity weakness over the last few months and has been unable to perform activities of daily living without assistance. She was treated with vancomycin, doxycycline and ertapenem as well as Solu-Medrol 60 mg twice a day, Symbicort 160/4.52 puffs twice a day, Daliresp 500 g daily, Mucinex milligrams by mouth twice a day as well as Xopenex/Atrovent nebulizers every [address] chest from 12/06/2016 showed no pulmonary embolism, emphysematous changes; 3 left upper lobe nodules largest of 1.4 cm;1.2 saccular aneurysm along the left lateral aspect of aortic arch; bilateral lower lobe posterior subsegmental bronchiectasis. Chest x-ray from 12/11/2016 showed progressive right upper lobe opacification. She was discharged on 12/24/2016 to custodial on Pulmicort inhalation twice a day, albuterol every 4 hours when necessary fluconazole 20 mg by mouth every morning for 10 days, guaifenesin 600 mg by mouth twice a day and prednisone 40 mg taper. She was also discharged home on 4 L nasal cannula and allograft 500 g. She was admitted on 12/25/2016 after being transferred from [facility] ER, for worsening shortness of breath, hypoxia and leukocytosis. She was also noted to have cough and sputum production which was unchanged from recent hospitalization. Vital signs on admission were temperature 36.7, pulse 92, respiratory rate 18, blood pressure 100/65, saturating 97% on 4 L nasal cannula. She was readmitted for acute on chronic hypoxic respiratory failure. Vital signs within the last 24 hours show MAXIMUM TEMPERATURE of 36.4, blood pressure 109/72, pulse 71-83 respiratory rate 15-28, saturating 93-98% on 4 L nasal cannula. She is currently about 1 L negative in the last 24 hours. This morning patient complained of sharp pleuritic chest pain associated with nonproductive cough and wheezing. She denies any fevers, chills, palpitations. She was noted to have mild accessory muscle use. She was continued on her home medications however prednisone was changed to Solu -Medrol 60 mg every 12 hours today. Today, during my evaluation she complained of progressive dyspnea, generalized fatigue and muscle weakness. Historian: patient, caregiver Severity: moderate Complaint Status: persistent Review of Systems Constitutional: reports: as stated in HPI Eyes: reports: as stated in HPI ENT: reports: as stated in HPI Cardiovascular: reports: as stated in HPI Respiratory: reports: as stated in HPI Gastrointestinal: reports: as stated in HPI Genitourinary - Female: reports: as stated in HPI Musculoskeletal: reports: as stated in HPI Integumentary: reports: as stated in HPI Neurologic: reports: as stated in HPI Psychiatric: reports: as stated in HPI Endocrine: as stated in HPI Hematologic / Lymphatic: as stated in HPI Allergic / Immunologic: as stated in HPI All Other Symptoms All Other Systems: Reviewed and Negative Past Medical History Past Medical History: COPD Respiratory failure Hyperlipidemia Hypertension Hypothyroidism Depression Primary history of pneumonia Left subclavian stenosis syndrome CHF TIA Prolonged QTC syndrome Past Surgical History: Tonsillectomy Tubal ligation Hysterectomy Family History Mother at age 45 Father at age 58 from alcohol-induced heart disease Social History Hx Tobacco Use In Past Year?: Yes Smoking Status: Former Smoker Marital status: Housing status: lives with family (but was discharged to [facility]) Occupational Status: retired Immunizations History of Influenza Vaccine: Unknown History of Tetanus Vaccine?: Unknown History of Pneumococcal: Unknown History of Hepatitis B Vaccine: Unknown History of MDRO History of MDRO: No Allergies Coded Allergies: No Known Allergies (Unverified , 12/06/16) Current Medications Reported Home Medications Medications Dose Route/Sig Max Daily Dose Days Date Category Dose Instructions Lactulose 30 Gm/45 Ml Syrp 30 Gm PO QID PRN 12/24/16 Rx Nitroglycerin Transdermal (Nitroglycerin) 1 Patch Tdsy 1 Patch TD QAM 12/24/16 Rx 0.1mg/hr patch Folic Acid 1 Mg Tab 1 Mg PO QAM 12/24/16 Rx Voltaren (Diclofenac Sod) 100 Appln/100 Gm Gel 1 Appln EXT QID 12/24/16 Rx Prednisone 20 Mg Tab 40 Mg PO DAILY 12/24/16 Rx 40mg x 3 days then 30mg x 3 days then 20mg x 3 days then 10mg x 3 days then stop unless otherwise directed Lantus Solostar (Insulin Glargine) 100 Unit/Ml Inj 10 Units SC QAM 12/24/16 Rx Sucralfate 1 Gm/10 Ml Susp 1 Gm PO QID 30 12/24/16 Rx Senna Lax (Senna) 8.6 Mg Tab 17.2 Mg PO QAM 12/24/16 Rx Miralax (Polyethylene) 17 Gm Pow 17 Gm PO BID 12/24/16 Rx Pantoprazole Sodium (Pantoprazole) 40 Mg Tab 40 Mg PO QAM 12/24/16 Rx Mucinex Ext Rel (Guaifenesin) 600 Mg Tabcr 600 Mg PO BID 12/24/16 Rx Paroxetine HCl (Paroxetine) 20 Mg Tab 40 Mg PO DAILY 30 12/24/16 Rx Aspirin EC Low Dose (Aspirin) 81 Mg Ectab 81 Mg PO QAM 12/24/16 Rx Atorvastatin Calcium (Atorvastatin) 40 Mg Tab 80 Mg PO QAM 12/24/16 Rx Nitrofurantoin Monohydrat (Nitrofurantoin Monohyd Macrocr) 100 Mg Cap 100 Mg PO BID 12/24/16 Rx Pulmicort Respules 0.5MG/2ML (Budesonide) 0.5 Mg/2 Ml Nebu 2 Ml INH BID 12/24/16 Rx rinse mouth after use Proventil 0.083% 2.5MG/3ML (Albuterol Sulf) 2.5 Mg/3 Ml Nebu 2.5 Mg INH Q4 PRN 12/24/16 Rx Duoneb (Ipratropium-Albuterol) 3 Ml Nebu 1 Treatment INH QID 12/24/16 Rx Fluconazole 100 Mg Tab 200 Mg PO QAM 10 12/24/16 Rx Daliresp (Roflumilast) 500 Mcg Tab 500 Mcg PO DAILY 30 12/06/16 Reported Kp Ferrous Sulfate (Ferrous Sulfate) 325 Mg Tab 325 Mg PO BID 30 12/06/16 Reported Oxygen Gas 4 Liter NA DIRECTED 12/06/16 Reported 18-24 HOURS DAILY Buspirone Hcl 5 Mg Tab 5 Mg PO BID 30 12/06/16 Reported Risperdal (Risperidone) 1 Mg Tab 1 Mg PO HS 12/06/16 Reported Mirtazapine 45 Mg Tab 45 Mg PO QPM 30 12/06/16 Reported Physical Physical Exam Vital Signs: Date Time Temp Pulse Resp B/P (MAP) Pulse Ox O2 Delivery O2 Flow Rate FiO2 12/28/16 11:26 74 15 98 Diffusion Mask 4.0 12/28/16 10:25 98 Oxymask 4.0 12/28/16 08:00 98 Oxymask 4.0 12/28/16 07:54 36.4 83 28 109/72 (84) 98 Oxymask 4.0 12/28/16 07:02 71 15 93 Mask 4.0 12/28/16 00:00 Oxymask 4.0 12/27/16 23:03 54 20 96 Mask 4.0 12/27/16 22:28 36.5 87 18 109/58 (75) 92 Oxymask 4.0 12/27/16 19:36 68 22 93 Mask 4.0 12/27/16 16:00 94 Oxymask 4.0 12/27/16 14:55 36.3 74 20 104/65 (78) 94 Nasal Cannula 4.0 12/27/16 14:22 71 24 92 Nasal Cannula 4.0 General Appearance: uncomfortable, thin, cachetic Head: NORMOCEPHALIC, ATRAUMATIC Eyes: PERRLA, EOMI, other (left eyelid lag) Neck: NORMAL RANGE OF MOTION, NO TENDERNESS, SUPPLE (decreased breath sound bilaterally) Respiratory: other (chest wall ecchymosis) Cardiovasular: REGULAR RATE/RHYTHM, NORMAL S1S2 Abdomen: NON TENDER, NORMAL BOWEL SOUNDS Upper Extremities: other (right hand ecchymosis, clubbing) Lower Extremities: other Pulses: dorsalis pedis (R), dorsalis pedis (L) (2+) Neuro: ALERT, ORIENTED x 3, focal weakness Psychiatric: NORMAL AFFECT, NO SUICIDAL IDEATION, CONTRACTS FOR SAFETY Diagnostics Labs Results Past 24 Hours Test 12/27/16 16:26 12/27/16 19:40 12/28/16 07:01 12/28/16 07:10 Range/Units Bedside Glucose 114 108 73 70-90 mg/dl White Blood Count 11.10 4.8-10.8 K/uL Red Blood Count 2.90 4.2-5.4 M/uL Hemoglobin 10.2 12.0-16.0 g/dL Hematocrit 31.6 37-47 % Mean Corpuscular Volume 109.0 80-100 fL Mean Corpuscular Hemoglobin 35.2 25-34 pg Mean Corpuscular Hemoglobin Concent 32.3 32-36 g/dl RDW Standard Deviation 72.4 36.4-46.3 fL RDW Coefficient of Variation 18.2 11.5-14.5 % Platelet Count 203 130-400 K/uL Mean Platelet Volume 11.2 7.4-10.4 fL Creatinine 0.47 0.60-1.20 mg/dl Est Creatinine Clear Calc Drug Dose 98.2 ml/min Estimated GFR () 122.7 Estimated GFR (Non- 105.9 Test 12/28/16 11:16 Range/Units Bedside Glucose 104 70-90 mg/dl Diagnostic Radiology Chest x-ray 12/27/2016 IMPRESSION: Improved aeration lung bases. Persistent pulmonary vascular congestion. CT chest 12/25/2016 IMPRESSION: 1. Unchanged appearance of irregular cystic nodules in the left upper lobe. Given the presence of emphysema, this could represent pulmonary Langerhans cell histiocytosis along a spectrum of smoking related lung injury. Primary differential considerations include infection or neoplasm, although the lack of change since 12/06/2016 argues against infection assuming interval treatment. As mentioned on prior exam, a 3 month follow-up chest CT is recommended. 2. Significant debris in the bronchus intermedius with associated increased dependent consolidation, left greater than right, and new trace left pleural effusion. Although dependent consolidation could represent atelectasis, this raises concern for aspiration. 3. Unchanged appearance of the small penetrating ulcer or saccular aneurysm along the inferior lateral aortic arch. 4. Unchanged left subclavian steal. TTE from 12/07/2016 -- Conclusions -- 1. Normal LV size and wall thickness. 2. Normal LV systolic function. LVEF 55-60%. No regional wall motion abnormalities. 3. Borderline RV enlargement. Normal RV function. 4. No significant valvular pathology. 5. Large echodense mass involving the right atrial aspect of the interatrial septum. Suspect profound lipomatous hypertrophy, less likely myxoma or thrombus. 6. Small posterior pericardial effusion. No signs of tamponade. 7. No prior studies for comparison. Chest CT chest 12/06/2016 IMPRESSION: This is 1. No evidence for pulmonary embolus. 2. Emphysema. 3. There are 3 similar-appearing irregular densities within the left upper lobe as described above with the largest measuring 14 mm. These could be due to scarring, inflammatory/infectious change, or possibly primary bronchogenic neoplasms. A [address] follow-up is recommended to assess for stability/resolution. 4. A 1.2 cm saccular aneurysm along the lateral aspect of the aortic arch. 5. Left-sided subclavian steal as described above. 6. Partial opacification of the bilateral lower lobe bronchi with areas of consolidation within the lower lobes posteriorly. This could be due to atelectasis or pneumonia. (BARIUM SWALLOW) ESOPHAGUS CLINICAL HISTORY: dysphagia, COMPARISON STUDY: None FLUOROSCOPY TIME: 1.2 minutes. FINDINGS: Patient initiated swallowing function well. There is persistent prominence of the cricopharyngeus. There is moderate esophageal irritability and/or spasm. Gastroesophageal junction is unremarkable. IMPRESSION: 1. Moderate cricopharyngeal achalasia. 2. Moderate generalized esophageal spasm and/or irritability. Impression Assessment and Plan Acute on chronic hypoxic respiratory failure COPD Bronchiectasis Pulmonary nodules Tobacco use disorder Aspiration Right pleural effusion Progressive muscular weakness Pneumonia LLL Patient appears to have acute on chronic hypoxic respiratory failure that is multifactorial in nature. She has had progressive decline since her last admission. She continues to aspirate with coughing during eating. Now had acute decompensation this morning. CXR shows new opacification in LLL. At this time I agree with continued antibiotics to cover for HCAP. Continue with vancomycin and zosyn. Taper steroids as tolerated. Continue with bronchodilators. She should have negative inspiratory force and Vital capacity done by respiratory to assess respiratory weakness. Place BIPAP prn and continue with ventimask during the day to maintain SaO2 btw 88-92%. Neurology now on board for e-evaluation for progressive muscle weakness and. WHITNEY pulmonary nodules should be monitored as an outpatient. She does have long history of tobacco use and is a high risk for malignancy. Continue with aspiration precautions. Discussed case at length with Dr. Pang.
[2016-12-28] MEDS ORDERED: GUAIFENESIN 600 MG TABCR PO SCH (21:00)
[2016-12-28 21:35] LABS: ARTERIAL BLD GAS O2 SATURATION 90.9 % (90-95); ARTERIAL BLOOD GAS BASE EXCESS 4.8 mEq/L (-9-1.8); ARTERIAL BLOOD GAS HCO3 29 mmol/L (19-24); ARTERIAL BLOOD GAS PO2 63 mm/Hg (80-95); ARTERIAL BLOOD GAS pH 7.48 (7.35-7.45)
[2016-12-28 21:36] LABS: ALLEN TEST POS (POS)
[2016-12-28 21:37] LABS: O2 ADMINISTRATION 4L O2
[2016-12-29] VITALS (14 sets, daily range): BP systolic 106–151; BP diastolic 59–97; PULSE 79–105; TEMP 36.4–36.6; O2SAT 79–100
[2016-12-29] MEDS: METHYLPREDNISOLONE IV 60 MG in SYRINGE 0 ML IV SCH ×2 (02:26→16:37)
[2016-12-29] MEDS: KETOROLAC TROMETHAMINE 30 MG/ML VIAL IM PRN (02:33)
[2016-12-29] MEDS: ALBUT/IPRATROP 3MG/0.5MG NEB 3 ML VIAL INH SCH ×6 (03:21→23:16)
[2016-12-29] MEDS ORDERED: MoRPHine SULFATE 2 MG/ML CARP IV STA (07:02)
[2016-12-29] MEDS: BUDESONIDE 0.5 MG/2 ML VIAL (PULMICORT) INH SCH ×2 (07:10→20:12)
[2016-12-29] MEDS ORDERED: MoRPHine SULFATE 2 MG/ML CARP ONE (07:22)
--- NOTE | 2016-12-29 07:31 | DIAGNOSTIC IMAGING REPORT ---
CHEST ONE VIEW PORTABLE CLINICAL HISTORY: acute hypoxia dyspnea COMPARISON STUDY: 12/27/2016 FINDINGS: Interval development of a left basilar infiltrate. Lungs otherwise are clear. No evidence for cardiac enlargement. Platelike atelectasis left base. Stable moderate emphysematous change. IMPRESSION: Developing infiltrate left base. Stable emphysematous change. The above report was generated using voice recognition software. It may contain grammatical, syntax or spelling errors. Electronically signed by: Mauro Martinez M.D. 12/29/2016 7:30 AM Dictated Date/Time: 12/29/2016 7:28 AM
[2016-12-29 07:42] LABS: IPAP 14; ISTAT ARTERIAL BLOOD GAS HCO3 34 meq/L (19-24); ISTAT ARTERIAL BLOOD GAS PCO2 38 mmHg (35-46); ISTAT ARTERIAL BLOOD GAS PO2 225 mmHg (80-95); ISTAT ARTERIAL BLOOD GAS pH 7.56 (7.35-7.45); ISTAT CARBON DIOXIDE 35 mEq/l (24-31); ISTAT DELIVERY SYSTEM BIPAP; ISTAT FIO2 0 %; ISTAT SITE R Brachial
[2016-12-29 07:54] LABS: BASO % 0.1 %; BASO ABS # 0.01 K/uL (0-0.2); HEMATOCRIT 26.7 % (37-47); IG% 0.5 %; LYMPH % 2.1 %; LYMPH ABS # 0.25 K/uL (1.2-3.4); MEAN CELL VOLUME 107.2 fL (80-100); MEAN CORPUSCULAR HEMOGLOBIN 34.5 pg (25-34); MEAN PLATELET VOLUME 11.4 fL (7.4-10.4); NEUT % 96.3 %; PLATELET COUNT 167 K/uL (130-400); RED BLOOD COUNT 2.49 M/uL (4.2-5.4); WHITE BLOOD COUNT 11.87 K/uL (4.8-10.8)
[2016-12-29 07:57] LABS: MEAN CORPUSCULAR HGB CONC 32.2 g/dl (32-36)
[2016-12-29] MEDS ORDERED: VANCOMYCIN CONSULT ACTIVE PRN (08:00)
[2016-12-29] MEDS ORDERED: ALBUT/IPRATROP 3MG/0.5MG NEB 3 ML VIAL INH ONE (08:00)
[2016-12-29] MEDS ORDERED: PIPERACILL/TAZOBAC CONSULT ACTIVE PRN (08:00)
[2016-12-29] MEDS ORDERED: PIPERACILL/TAZOBAC IV 3.375 GM in DEXTROSE 5% 100ML IV ONE (08:00)
[2016-12-29 08:15] LABS: BUN/CREATININE RATIO 42.2 (10-20); CALCIUM 8.2 mg/dl (8.5-10.1); CREATININE 0.41 mg/dl (0.60-1.20); POTASSIUM 3.3 mmol/L (3.5-5.1)
[2016-12-29 08:24] LABS: ANISOCYTOSIS PRESENT; COMPLETE YES; HYPERSEGMENTED POLYS 1+
--- NOTE | 2016-12-29 08:25 | Hospitalist Progress Note ---
Hospitalist Progress Note Date of Service Dec 29, 2016. Subjective Pt evaluation today including: conversation w/ patient, conversation w/ family (called ), physical exam Pt was satting in the 70s this AM as per RT assessment. Overnight resident called to bedside and then I joined him shortly afterwards. ABG showed 7.56/38/ 225, CXR with developing infiltrate bilateral bases on my read, could be atelectasis. Pt is struggling to breathe, was placed on BiPAP. Received DUonebs and improved a bit. Still c/o anterior constant CP as before. All Other Systems: Reviewed and Negative Objective Vital Signs Date Time Temp Pulse Resp B/P (MAP) Pulse Ox O2 Delivery O2 Flow Rate FiO2 12/29/16 03:21 84 20 97 Mask 4.0 12/28/16 23:38 36.3 91 20 178/73 (108) 94 12/28/16 23:15 Mask 4.0 12/28/16 23:11 92 20 93 Mask 4.0 12/28/16 22:15 90 94 4.0 12/28/16 21:11 91 20 94 Mask 4.0 12/28/16 19:55 94 20 93 Mask 4.0 12/28/16 16:00 Oxymask 4.0 12/28/16 15:30 36.3 85 20 124/88 (100) 95 Oxymask 4.0 12/28/16 14:30 85 20 95 Mask 4.0 12/28/16 11:26 74 15 98 Diffusion Mask 4.0 12/28/16 10:25 98 Oxymask 4.0 12/28/16 08:00 98 Oxymask 4.0 12/28/16 07:54 20 12/28/16 07:54 36.4 83 28 109/72 (84) 98 Oxymask 4.0 Physical Exam General Appearance: + moderate distress (with accessory muscle use and abdominal muscle use for breathing), + thin Eyes: normal inspection, sclerae normal ENT: + pertinent finding (BiPAP mask in palce, edentulous) Neck: trachea midline Respiratory/Chest: + decreased breath sounds (throughout, +rhonchi scattered), + accessory muscle use Cardiovascular: regular rate, rhythm, + pertinent finding (left leg with 1+ pitting edema, right leg no edema, 2+ DP pulses bilat) Abdomen: normal bowel sounds, non tender, soft Extremities: non-tender, no calf tenderness Neurologic/Psychiatric: alert, oriented x 3 Skin: normal color, warm/dry, no rash Laboratory Results Last 24 Hours Test 12/28/16 11:16 12/28/16 16:29 12/28/16 20:28 12/28/16 21:25 Bedside Glucose 104 mg/dl 107 mg/dl 99 mg/dl Arterial Blood pH 7.48 Arterial Blood Partial Pressure CO2 39 mmHg Arterial Blood Partial Pressure O2 63 mm/Hg Arterial Blood HCO3 29 mmol/L Arterial Blood Oxygen Saturation 90.9 % Arterial Blood Base Excess 4.8 mEq/L Arterial Blood Gas Delivery 4L O2 Wale Test POS Test 12/29/16 06:56 12/29/16 07:20 12/29/16 07:41 Blood Gas Sample Site R Brachial Bedside Blood Gas pH (LAB) 7.56 Bedside Blood Gas pCO2 (LAB) 38 mmHg Bedside Blood Gas pO2 (LAB) 225 mmHg Bedside Blood Gas HCO3 (LAB) 34 meq/L Bedside Blood Gas Total CO2 35 mEq/l Bedside Blood Gas Base Excess (LAB) 12.0 meq/L Bedside Blood Gas O2 Saturation 100.0 % Wale Test NA Oxygen Delivery Device BIPAP Bedside FiO2 0 % Blood Gas IPAP 14 Assessment and Plan 61 yo female with a history of HLD, chronic diastolic CHF, DM II, anxiety/ depression, and a 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 Acute/chronic hypoxic respiratory failure,Severe COPD -worsening today requiring BiPAP. ABG with evidence of hyperventilation but fear she may tire out soon given her frailty and myopathy -very frail, poor neuromuscular function contributing to decreased clearance of secretions -Likely mucous plugging that led to hypoxia, pleuritic chest/rib pain may also contribute to feeling of SOB -May have small amount of acute on chronic diastolic CHF but did not have much UO with Lasix, so more likely mucous related -continue IV steroids and taper down when able to -question if has recurrent aspiration -start Zosyn and Vanco today given worsening infiltrate on CXR -check BCxs -morphine for pain and air hunger -check Video Swallow if able to but may be delayed due to being on BiPAP, was to have EGD last admit but too unstable at that time and could not tolerate this now, does have cricopharyngeal achalasia and esophageal dysmotility, may need ENT eval -continue vibration vest, pulm toilet, nebs, ICS -added Mucinex -continue Daliresp, Pulmicort -appreciate any further Pulmonary recommendations-NIF, VC -will reconsult Neurology this admission for myopathy for further recommendations for evaluation and treatment -Transfer to telemetry while on BiPAP Cystic lung nodules - in light of significant smoking history will need CT surveillance as outpatient. High risk of malignancy. Anemia 2nd to folic acid def--stable at 8.6, Macrocytic, low folate at 4 -Continue folic acid 1 mg PO qd and iron 325 mg PO BID -follow CBC Pleuritic chest pain/rib pain--ongoing -Toradol 30 mg IV q6h prn pain -Voltaren gel QID -morphine Anxiety, depression -Continue Paxil 40 mg PO qd, Remeron 45 mg PO qd and Risperdal 1 mg PO hs -Buspirone increased to 5 mg PO TID Oral vs esophageal candidiasis -Continue nystatin george QID + Diflucan 200 mg PO qd. Day #16 of 21 Severe deconditioning -PT/OT evaluate and treat -Came from [facility] in [place] for rehab, may need LTAC -Appears to be acute (from acute illness/myopathy/deconditioning) on chronic ( neuromuscular illness that appears to have been part of her current baseline of comorbidities) -Poor oral intake, consult loss control manager Atrial mass - prior hospitalist spoke with cardiology. The echo and CT chest are both c/w lipomatous hypertrophy. -This is NOT a risk factor for stroke. Does not require anticoagulation. 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 COuld be recurrent CVAs vs Lambert-Eaton vs less likely MG as well. CPK normal -check Head CT to look for development of new CVAs since last CT -check Ach receptor abs, aldolase -will need outpt EMG at some point -Appreciate Neuro recs Leukocytosis/UTI--stable at 11k -Relates to frailty and prolonged hospital stay, lopez -Macrobid sensitive day #5 Chronic diastolic CHF--stable, not hypervolemic DM II--HgbA1c 5.5% here -Continue Lantus 10 units SC qam -Sugars very well controlled w/Lantus alone -Check BSGs q ac and qhs HLD, h/o CVA -Continue Lipitor 80 mg PO qd and ASA 81 DVT prophylaxis -Enoxaparin 40 mg SC q24h Code Status -DNR/DNI
[2016-12-29] MEDS: FERROUS SULFATE 325 MG TAB PO SCH (08:39)
[2016-12-29] MEDS: SUCRALFATE 1 GM/10 ML UDC PO SCH ×2 (08:39→13:15)
[2016-12-29] MEDS: ASPIRIN 81 MG ECTAB PO SCH (08:39)
[2016-12-29] MEDS: DICLOFENAC SOD 1% GEL 100 GM TUBE EXT SCH ×4 (08:39→20:41)
[2016-12-29] MEDS: ATORVASTATIN 40 MG TAB PO SCH (08:39)
[2016-12-29] MEDS: FLUCONAZOLE 100 MG TAB PO SCH (08:39)
[2016-12-29] MEDS: ROFLUMILAST 500 MCG TAB PO SCH (08:39)
[2016-12-29] MEDS: PANTOprazole SOD 40 MG TAB PO SCH (08:40)
[2016-12-29] MEDS: PAROXETINE 20 MG TAB PO SCH (08:40)
[2016-12-29] MEDS: POLYETHYLENE (MIRALAX) 17 GM PACK PO SCH (08:40)
[2016-12-29] MEDS: NITROGLYCERIN 0.1 MG/HR PATCH TD SCH (08:40)
[2016-12-29] MEDS: SENNA 8.6 MG TAB PO SCH (08:40)
[2016-12-29] MEDS: NITROFURANTOIN MONOHYDRATE 100 MG CAP PO SCH (08:40)
[2016-12-29] MEDS: GUAIFENESIN 600 MG TABCR PO SCH (08:40)
[2016-12-29] MEDS: INSULIN GLARGINE SOLOSTAR 100 UNITS/ML 3 ML PEN SC SCH (08:47)
[2016-12-29] MEDS ORDERED: VANCOMYCIN INJ 1,500 MG in SODIUM CHLORIDE 0.9% 500ML 500 ML IV SCH (09:00)
--- NOTE | 2016-12-29 09:06 | Neurology Consultation ---
Neurology Consultation Date of Consultation: Dec 29, 2016. Attending Physician: Gisela Pang MD Primary Care Physician: See Starr M.D. Reason for Consultation: Weakness History of Present Illness Source: patient, hospital records The patient is a 61-year-old female who was admitted to [facility] on December 06 with respiratory failure in the context of pneumonia and COPD. She was treated with antibiotics and corticosteroids. She was seen by Dr. Parks in neurological consultation on December 17 for chronic, progressive, generalized weakness occurring for at least over the past year. She had complained of difficulty walking with associated shortness of breath. Past medical history notable for COPD and ongoing tobacco use. She may have at a stroke or TIA in 2000. Dr. Parks did find evidence of fairly symmetrical proximal weakness, generalized ataxic movements (possibly due to weakness) and diminished deep tendon reflexes. Overall, his impression was of a possible underlying myopathy and peripheral neuropathy. 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 Severe deconditioning also considered to be a factor in this patient. Of note, a CT of the head at that time revealed an age-indeterminate lacunar infarct within the right cerebellar hemisphere. I reviewed the images as well as the radiologist's interpretation of this test and agree. A carotid duplex at that time was unremarkable. Additional testing has included lab work such as creatine kinase, TSH, and vitamin B-12 level. No significant abnormalities on these tests. The patient was discharged from [facility] on December 24. Unfortunately, he became acutely short of breath while at the senior care facility and was subsequently taken to [facility] and eventually transferred back to [facility] the following day. She continues to appear significantly weak. She is currently wearing a nonrebreather facemask but does not appear to be in significant respiratory distress. Her voice is soft. She continues to complain of generalized weakness but denies muscle pain. She denies experiencing any double vision. She denies headache, vertigo, or spinal pain. Electrocardiogram completed December 25 reveals a sinus rhythm, 93 bpm with PACs and aberrant conduction. Past Medical/Surgical History Medical Problems: (1) COPD exacerbation Status: Acute (2) Hypoxia Status: Acute Family History Patient's mother , had thyroid cancer Patient's father , had alcoholism and heart problems Social History Smoking Status: Current every day smoker Drug Use: none Marital Status: Housing Status: lives with significant other Occupation Status: retired Allergies Coded Allergies: No Known Allergies (Unverified , 12/06/16) Current Inpatient Medications Current Inpatient Medications Medications (Trade) Dose Ordered Sig/Marcus Route Start Time Stop Time Status Last Admin Dose Admin Enoxaparin Sodium (Lovenox Inj) 40 mg HS SC 12/25/16 21:00 01/24/17 20:59 12/28/16 20:13 40 MG Acetaminophen (Tylenol Tab) 650 mg Q4H PRN PO 12/25/16 11:45 01/24/17 11:44 12/27/16 08:17 650 MG Al Hydrox/Mg Hydrox/Simethicone (Maalox Max Susp) 15 ml Q4H PRN PO 12/25/16 11:45 01/24/17 11:44 Magnesium Hydroxide (Milk Of Magnesia Susp) 30 ml Q12H PRN PO 12/25/16 11:45 01/24/17 11:44 Ondansetron HCl (Zofran Inj) 4 mg Q6H PRN IV 12/25/16 11:45 01/24/17 11:44 Polyethylene (Miralax Powder Packet) 17 gm DAILY PRN PO 12/25/16 11:45 01/24/17 11:44 Aspirin (Ecotrin Tab) 81 mg QAM PO 12/26/16 09:00 01/25/17 08:59 12/27/16 08:32 81 MG Atorvastatin Calcium (Lipitor Tab) 80 mg QAM PO 12/26/16 09:00 01/25/17 08:59 12/27/16 08:32 80 MG Budesonide (Pulmicort Respules 0.5MG/ 2ML Neb Soln) 1 mg BIDR INH 12/25/16 20:00 01/24/17 19:59 12/28/16 21:09 1 MG Diclofenac Sodium (Voltaren 1% Top Gel) 1 appln QID EXT 12/25/16 17:00 01/24/17 16:59 12/28/16 20:12 1 APPLN Fluconazole (Diflucan Tab) 200 mg QAM PO 12/26/16 09:00 01/05/17 08:59 12/27/16 08:32 200 MG Folic Acid (Folvite Tab) 1 mg QAM PO 12/26/16 09:00 01/25/17 08:59 12/27/16 08:32 1 MG Guaifenesin (Mucinex Contr Rel Tab) 600 mg BID PO 12/25/16 21:00 01/24/17 20:59 12/28/16 20:11 600 MG Insulin Glargine (Lantus Solostar Pen) 10 units QAM SC 12/26/16 09:00 01/25/17 08:59 12/28/16 09:47 10 UNITS Lactulose (Chronulac Syrup) 30 gm QID PRN PO 12/25/16 11:45 01/24/17 11:44 Nitrofurantoin Macrocrystals (Macrobid Cap) 100 mg BID PO 12/25/16 21:00 01/04/17 20:59 12/28/16 20:11 100 MG Nitroglycerin (Nitro-Dur 0.1 Mg/Hr Patch) 1 patch QAM TD 12/26/16 09:00 01/25/17 08:59 12/27/16 08:34 1 PATCH Pantoprazole Sodium (Protonix Tab) 40 mg QAM PO 12/26/16 09:00 01/25/17 08:59 12/27/16 08:33 40 MG Paroxetine HCl (pAXil TAB) 40 mg DAILY PO 12/26/16 09:00 01/25/17 08:59 12/27/16 08:33 40 MG Polyethylene (Miralax Powder Packet) 17 gm BID PO 12/25/16 21:00 01/24/17 20:59 12/27/16 21:12 17 GM Risperidone (Risperdal Tab) 1 mg HS PO 12/25/16 21:00 01/24/17 20:59 12/28/16 20:11 1 MG Roflumilast (Daliresp Tab) 500 mcg DAILY PO 12/26/16 09:00 01/25/17 08:59 12/27/16 08:31 500 MCG Senna (Senokot Tab) 17.2 mg QAM PO 12/26/16 09:00 01/25/17 08:59 12/27/16 08:33 17.2 MG Sucralfate (Carafate Susp) 1 gm QID PO 12/25/16 13:00 01/24/17 12:59 12/28/16 20:12 1 GM Ferrous Sulfate (Feosol Tab) 325 mg BID PO 12/25/16 21:00 01/24/17 20:59 12/28/16 20:11 325 MG Mirtazapine (Remeron Tab) 45 mg QPM PO 12/25/16 21:00 01/24/17 20:59 12/28/16 20:11 45 MG Miscellaneous (Remove Nitro-Dur Patch) 1 ea DAILY@21 N/A 12/26/16 21:00 01/25/17 20:59 12/27/16 21:31 1 EA Ioversol (Optiray 320) 111 ml UD PRN IV 12/25/16 11:45 12/29/16 11:44 Glucose (Glucose 40% Gel) 15-30 GRAMS 15 GRAMS... UD PRN PO 12/25/16 13:00 01/24/17 12:59 Glucose (Glucose Chew Tab) 4-8 Tablets 4 Tabl... UD PRN PO 12/25/16 13:00 01/24/17 12:59 Dextrose (Dextrose 50% 50ML Syringe) 25-50ML OF 50% DW IV FOR... UD PRN IV 12/25/16 13:00 01/24/17 12:59 Glucagon (Glucagon Inj) 1 mg UD PRN SQ 12/25/16 13:00 01/24/17 12:59 Miscellaneous (Iv Fluids Completed) 1 ea PRN PRN N/A 12/25/16 14:15 12/25/17 14:14 Albuterol/ Ipratropium (Duoneb) 3 ml Q4R INH 12/26/16 12:00 01/25/17 11:59 12/29/16 03:21 3 ML Albuterol Sulfate (Ventolin 0.083% 2.5MG/3ML Neb) 2.5 mg Q2HWA PRN INH 12/26/16 10:30 01/24/17 11:44 12/27/16 12:46 2.5 MG Ketorolac Tromethamine (Toradol Inj) 15 mg Q6H PRN IV 12/26/16 16:00 12/31/16 15:59 12/28/16 21:31 15 MG Buspirone HCl (Buspar Tab) 5 mg TID PO 12/27/16 14:00 01/26/17 13:59 12/28/16 20:11 5 MG Ondansetron HCl (Zofran Odt) 4 mg Q6H PRN PO 12/27/16 13:45 01/26/17 13:44 Acetaminophen (Tylenol Soln) 650 mg Q4H PRN PO 12/27/16 23:15 01/26/17 23:14 Ketorolac Tromethamine (Toradol Inj) 30 mg Q6H PRN IM 12/27/16 23:30 01/01/17 23:14 12/29/16 02:33 30 MG Methylprednisolone Sodium Succinate 60 mg/Syringe 0.96 ml @ 1.5 mls/min Q12H IV 12/28/16 14:00 01/27/17 13:59 12/29/16 02:26 1.5 MLS/MIN Piperacillin Sod/ Tazobactam Sod 3.375 gm/Dextrose 115 ml @ 200 mls/hr Q6 IV 12/29/16 12:00 01/05/17 11:59 UNV Vancomycin HCl 1000 mg/Sodium Chloride 270 ml @ 125 mls/hr Q12 IV 12/29/16 09:00 01/05/17 08:59 UNV Piperacillin Sod/ Tazobactam Sod 3.375 gm/Dextrose 115 ml @ 230 mls/hr TODAY@0800 ONCE IV 12/29/16 08:00 12/29/16 08:29 Vancomycin HCl 1500 mg/Sodium Chloride 530 ml @ 200 mls/hr TODAY@0900 IV 12/29/16 09:00 12/29/16 12:00 Vancomycin HCl (Consult) 1 ea UD PRN N/A 12/29/16 08:00 01/28/17 07:59 Piperacillin Sod/ Tazobactam Sod (Consult) 1 ea UD PRN N/A 12/29/16 08:00 01/28/17 07:59 Morphine Sulfate (MoRPHine SULFATE INJ) 2 mg Q4H PRN IV 12/29/16 08:00 01/12/17 07:59 UNV Potassium Chloride 40 meq/ Prmx 100 ml @ 100 mls/hr Q1H IV 12/29/16 08:30 01/28/17 08:29 UNV Potassium Chloride/Dextrose/ Sod Cl 1,000 ml @ 75 mls/hr [id number] IV 12/29/16 08:30 01/28/17 08:29 UNV Review of Systems Constitutional: Patient complains of fatigue and generalized weakness Eyes: No double vision or vision loss ENT: No vertigo or hearing loss Cardiovascular: Significant for chest pain Respiratory: Significant for coughing and wheezing and shortness of breath Musculoskeletal: Patient denies muscle pain but does complain of generalized weakness Neurological: As per history of present illness A full 10 point review of systems was obtained in this patient with pertinent positives and negatives described in the history of present illness and otherwise listed above. All remaining systems reviewed and are negative. Physical Exam Vital Signs (Past 24 Hrs): Date Time Temp Pulse Resp B/P (MAP) Pulse Ox O2 Delivery O2 Flow Rate FiO2 12/29/16 08:00 96 BiPAP 14.0 12/29/16 03:21 84 20 97 Mask 4.0 12/28/16 23:38 36.3 91 20 178/73 (108) 94 12/28/16 23:15 Mask 4.0 12/28/16 23:11 92 20 93 Mask 4.0 12/28/16 22:15 90 94 4.0 12/28/16 21:11 91 20 94 Mask 4.0 12/28/16 19:55 94 20 93 Mask 4.0 12/28/16 16:00 Oxymask 4.0 12/28/16 15:30 36.3 85 20 124/88 (100) 95 Oxymask 4.0 12/28/16 14:30 85 20 95 Mask 4.0 12/28/16 11:26 74 15 98 Diffusion Mask 4.0 12/28/16 10:25 98 Oxymask 4.0 The patient is a chronically ill-appearing elderly female. She is lying in bed wearing a nonrebreather facemask. She does not appear to be in significant distress at this time. The patient is mildly lethargic but otherwise oriented to person place and time area did recent and remote memory intact. Attention and concentration are mildly reduced although she is able to follow multistep commands without much difficulty. The patient is able to name objects and repeat phrases but otherwise does not offer much spontaneous speech. Patient exhibits an age-appropriate fund of knowledge regarding vocabulary. Visual crawford full to confrontation. Visual acuity normal. Pupils equal round reactive to light and accommodation. Eye movements normal. There is no ophthalmoplegia. Facial sensation intact bilaterally. There is normal facial symmetry and strength. Hearing intact to finger rub bilaterally. Palate elevates to midline. Shoulder shrug strength intact bilaterally. Tongue protrudes to midline. No lingual atrophy or fasciculations. There is diminished sensation to light touch , temperature, and vibration at the ankles. Deep tendon reflexes are diffusely diminished. Plantar responses are silent bilaterally. It is difficult to assess rapid alternating movements or evaluate for dysmetria given patient's rather significant generalized weakness. She is consequently unable to perform heel to carmona bilaterally. She does perform finger to nose but does so in a clumsy almost ataxic appearing fashion. Ophthalmoscopic examination reveals normal- appearing optic disks and posterior segments. No papilledema or hemorrhages. Carotid pulses normal bilaterally, no bruits to auscultation. Gait and station cannot be tested due to significant generalized weakness. Assessment of muscle strength reveals moderate to severe generalized weakness. She is weak both proximally and distally all the perhaps more so proximally. Her movements do appear a bit weaker, or possibly ataxic, for the right arm and leg. Right hip flexion 3/5, left hip flexion 4/5. Right arm abduction 3/5, left arm abduction 4 /5. Right quadriceps 3/5, left quadriceps 4/5. She has bilateral foot drops. Muscle tone is normal to diminished throughout. There is no focal atrophy. No fasciculations or other abnormal movements observed. Laboratory Results Past 24 Hours: 12/29/16 07:41 Red Blood Count 2.49, Mean Corpuscular Volume 107.2, Mean Corpuscular Hemoglobin 34.5, Mean Corpuscular Hemoglobin Concent 32.2, Mean Platelet Volume 11.4, Neutrophils (%) (Auto) 96.3, Lymphocytes (%) (Auto) 2.1, Monocytes (%) ( Auto) 1.0, Eosinophils (%) (Auto) 0.0, Basophils (%) (Auto) 0.1, Neutrophils # ( Auto) 11.43, Lymphocytes # (Auto) 0.25, Monocytes # (Auto) 0.12, Eosinophils # ( Auto) 0.00, Basophils # (Auto) 0.01 12/29/16 07:41 Test 12/28/16 20:28 12/29/16 06:56 12/29/16 07:20 12/29/16 07:41 Bedside Glucose 99 mg/dl (70-90) Blood Gas Sample Site R Brachial Bedside Blood Gas pH (LAB) 7.56 (7.35-7.45) Bedside Blood Gas pCO2 (LAB) 38 mmHg (35-46) Bedside Blood Gas pO2 (LAB) 225 mmHg (80-95) Bedside Blood Gas HCO3 (LAB) 34 meq/L (19-24) Bedside Blood Gas Total CO2 35 mEq/l (24-31) Bedside Blood Gas Base Excess (LAB) 12.0 meq/L (-9-1.8) Bedside Blood Gas O2 Saturation 100.0 % (90-95) Wale Test NA Oxygen Delivery Device BIPAP Bedside FiO2 0 % Blood Gas IPAP 14 White Blood Count 11.87 K/uL (4.8-10.8) Red Blood Count 2.49 M/uL (4.2-5.4) Hemoglobin 8.6 g/dL (12.0-16.0) Hematocrit 26.7 % (37-47) Mean Corpuscular Volume 107.2 fL (80-100) Mean Corpuscular Hemoglobin 34.5 pg (25-34) Mean Corpuscular Hemoglobin Concent 32.2 g/dl (32-36) Platelet Count 167 K/uL (130-400) Mean Platelet Volume 11.4 fL (7.4-10.4) Neutrophils (%) (Auto) 96.3 % Lymphocytes (%) (Auto) 2.1 % Monocytes (%) (Auto) 1.0 % Eosinophils (%) (Auto) 0.0 % Basophils (%) (Auto) 0.1 % Neutrophils # (Auto) 11.43 K/uL (1.4-6.5) Lymphocytes # (Auto) 0.25 K/uL (1.2-3.4) Monocytes # (Auto) 0.12 K/uL (0.11-0.59) Eosinophils # (Auto) 0.00 K/uL (0-0.5) Basophils # (Auto) 0.01 K/uL (0-0.2) RDW Standard Deviation 69.9 fL (36.4-46.3) RDW Coefficient of Variation 17.9 % (11.5-14.5) Immature Granulocyte % (Auto) 0.5 % Immature Granulocyte # (Auto) 0.06 K/uL (0.00-0.02) Hypersegmented Polys 1+ Anisocytosis PRESENT Macrocytosis PRESENT Anion Gap 9.0 mmol/L (3-11) Est Creatinine Clear Calc Drug Dose 112.5 ml/min Estimated GFR () 128.3 Estimated GFR (Non- 110.7 BUN/Creatinine Ratio 42.2 (10-20) Lactic Acid Level 2.2 mmol/L (0.4-2.0) Calcium Level 8.2 mg/dl (8.5-10.1) Chemistry Specimen Hemolysis Test 12/29/16 08:09 Impression This is a 61-year-old female with chronic, progressive, generalized weakness 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 She has both proximal weakness on examination as well as bilateral foot drops and diminished deep tendon reflexes. Of note, her weakness does appear to be a bit greater for the right arm and leg and she appears to have an element of ataxia with finger to nose testing (although possibly related to significant proximal weakness). Her previously completed CT of the head does suggest an age-indeterminate, although small, right cerebellar lacunar infarct. Thus, I'm unable to exclude an element of right hemiataxia related to what is probably a small chronic, right cerebellar stroke. Of note, her medical records seem to suggest the presence of a right atrial mass. I do not see any more specific documentation regarding this issue such as a recent echocardiogram, however. A recently completed electrocardiogram does reveal PACs with aberrant conduction although a more recently completed EKG reveals a flutter. Therefore, it would probably be reasonable to consider recurrent cardioembolic stroke as an additional complicating factor in this patient's presentation. Plan Case discussed with hospitalist at bedside I would obtain an up-to-date CT of the head. I would also like this patient to have an MRI of the brain if possible to further exclude acute or subacute stroke. I would obtain a transthoracic echocardiogram with bubble study as well and consider a cardiology consultation given the previous suggestion of an atrial mass and the possibility of occult atrial fibrillation. For further assessment of a possible neuromuscular disorder, I would recommend obtaining acetylcholine receptor antibodies (binding, blocking, and modulating). An EMG/nerve conduction study with repetitive stimulation should be completed as an outpatient. The study should help to diagnose or exclude an underlying myopathy, neuropathy, and/or defect of neuromuscular transmission (either myasthenia or Lambert-Eaton myasthenic syndrome) Obtaining additional CKs are not likely to be helpful. PT/OT consultations Outpatient follow-up with Dr. Parks.
[2016-12-29] MEDS ORDERED: IMIPENEM/CILASTATIN CONSULT ACTIVE PRN (10:00)
[2016-12-29] MEDS: ALBUTEROL 0.083% NEBU SOLN 3 ML VIAL INH PRN (10:02)
--- NOTE | 2016-12-29 10:09 | Pharmacy Progress Note ---
Pharmacy Abx Initial Consult Date of Service Dec 29, 2016. Pharmacy Dosing Scope Date of Consult: 12/29/16 Consultation requested by: Dr. Pang Pharmacy is consulted to initiate vancomycin and Primaxin IV dosing therapy, order appropriate labs and adjust drug dose/frequency. Subjective The patient is a 61 year old female admitted on Dec 28, 2016 at 12:20. Objective Height (Feet): 5 Height (Inches): 2.00 Weight (Kilograms): 58.800 Vital Signs (Past 12Hrs) Vital Signs Past 12 Hours Date Time Temp Pulse Resp B/P (MAP) Pulse Ox O2 Delivery O2 Flow Rate FiO2 12/29/16 08:00 96 BiPAP 14.0 12/29/16 07:10 92 34 79 Mask 10.0 12/29/16 03:21 84 20 97 Mask 4.0 12/28/16 23:38 36.3 91 20 178/73 (108) 94 12/28/16 23:15 Mask 4.0 12/28/16 23:11 92 20 93 Mask 4.0 12/28/16 22:15 90 94 4.0 Lab Results (24Hrs) Laboratory Tests (24 Hours) Test 12/29/16 07:41 Lactic Acid Level 2.2 mmol/L (0.4-2.0) *H White Blood Count 11.87 K/uL (4.8-10.8) H Red Blood Count 2.49 M/uL (4.2-5.4) L Hemoglobin 8.6 g/dL (12.0-16.0) L Hematocrit 26.7 % (37-47) L Mean Corpuscular Volume 107.2 fL (80-100) H Mean Corpuscular Hemoglobin 34.5 pg (25-34) H Mean Corpuscular Hemoglobin Concent 32.2 g/dl (32-36) Platelet Count 167 K/uL (130-400) Mean Platelet Volume 11.4 fL (7.4-10.4) H Neutrophils (%) (Auto) 96.3 % Lymphocytes (%) (Auto) 2.1 % Monocytes (%) (Auto) 1.0 % Eosinophils (%) (Auto) 0.0 % Basophils (%) (Auto) 0.1 % Neutrophils # (Auto) 11.43 K/uL (1.4-6.5) H Lymphocytes # (Auto) 0.25 K/uL (1.2-3.4) L Monocytes # (Auto) 0.12 K/uL (0.11-0.59) Eosinophils # (Auto) 0.00 K/uL (0-0.5) Basophils # (Auto) 0.01 K/uL (0-0.2) Procalcitonin 0.06 ng/ml (0-0.5) Micro Results Date/Time Source Procedure Growth Status 12/29/16 08:50 Blood Blood Culture Pending Received 12/29/16 08:49 Blood Blood Culture Pending Received 12/29/16 10:00 Nasal MRSA DNA Surveillance Screen Pending Jossy Batch Risk Factors for Resistance * Resident in a correction or extended-care facility * Hospitalization for 48 hours or more within the past 90 days * History of infection with a multidrug-resistant organism: ESBL E Coli in urine isolated 12/22/16 * Antimicrobial use within the last 90 days Vancomycin/Invanz/doxycycline earlier in December Assessment & Plan Assessment 61 year old female admitted with worsening pulmonary status- she has a PMH of COPD, neuromuscular weakness, and recent hospital stays. Patient has acutely worsened overnight. She currently has ESBL E Coli isolated from her urine being treated with oral nitrofurantoin. Plan vancomycin/Primaxin for treatment of worsening pulmonary function - pneumonia Vancomycin IV * Loading dose: 1500 mg (25.5 mg/kg) * Maintenance dose: 750 mg IV (12.7 mg/kg) every 14 hours (previous data suggests patient achieves adequate concentrations) * Goal trough level for pneumonia : 15 to 20 mcg/mL * Trough ordered for 12/31/16 prior to 0200 dose Primaxin * for noscomial pneumonia, recommended dose for creatinine clearance over 60 mL/ min is Primaxin 500 mg IV every 6 hours or 1 g IV every 8 hours for fully susceptible organisms and 1 g IV every 6 hours for organisms with intermediate susceptibility Pharmacy will continue to follow and will adjust dose/frequency as necessary. Thank you.
--- NOTE | 2016-12-29 10:26 | Pulmonology Progress Note ---
Pulmonary Progress Note Date of Service Dec 29, 2016. Attending Dr. Patricia Subjective Patient seen and examined this morning. She had episode of desaturation down into the 70s. She was given nebulizer treatment, morphine IV and BiPAP. Transferred down to ICU for telemetry monitoring. At the time of my evaluation patient said that she felt better. She had episode of anxiety. Denies any shortness of breath, chest pain or palpitations. Objective Vital signs reviewed. Temperature 36.3, Blood pressure 178/73 , Pulse 84-92, respiratory rate 20-34, pulse oximetry 79-97% on 4 L. She is currently 1800 mL negative since admission. Gen.: Awake alert oriented 3, in no acute distress, mildly tachypnea. Able to speak in full sentences. Currently on 4 L Oxymizer. CVS: S1-S2 regular rate and rhythm Lungs/chest: Decreased entry bilaterally crackles at bases, mild use of accessory muscles of respiration; ecchymosis on right upper chest wall Abdomen: Soft, nontender, nondistended, bowel sounds positive Extremities: Ecchymosis of right arm and forearm, bilateral clubbing noted, no cyanosis Labs reviewed White blood cell count 11.8, hemoglobin 8.6, platelet count 167 Sodium 141, potassium 3.3, carbon dioxide 28, creatinine 0.41, glucose 69, calcium 8.2, lactate 2.2, pro-calcitonin 0.6. ABG 12/28/2016 at 9 PM-7.48/39/63/29/90.9% on 4 L nasal cannula ABG 12/29/2016 at a.m.- 7.56/38/225/34/100% on BiPAP 14/5. Blood culture pending 12/29/2016 Imaging reviewed and reviewed by nj Chest x-ray 12/29/2016 FINDINGS: Interval development of a left basilar infiltrate. Lungs otherwise are clear. No evidence for cardiac enlargement. Platelike atelectasis left base. Stable moderate emphysematous change. IMPRESSION: Developing infiltrate left base. Stable emphysematous change. Data Medications: Current Inpatient Medications Medications (Trade) Dose Ordered Sig/Marcus Route Start Time Stop Time Status Last Admin Dose Admin Enoxaparin Sodium (Lovenox Inj) 40 mg HS SC 12/25/16 21:00 01/24/17 20:59 12/28/16 20:13 40 MG Acetaminophen (Tylenol Tab) 650 mg Q4H PRN PO 12/25/16 11:45 01/24/17 11:44 12/27/16 08:17 650 MG Al Hydrox/Mg Hydrox/Simethicone (Maalox Max Susp) 15 ml Q4H PRN PO 12/25/16 11:45 01/24/17 11:44 Magnesium Hydroxide (Milk Of Magnesia Susp) 30 ml Q12H PRN PO 12/25/16 11:45 01/24/17 11:44 Ondansetron HCl (Zofran Inj) 4 mg Q6H PRN IV 12/25/16 11:45 01/24/17 11:44 Polyethylene (Miralax Powder Packet) 17 gm DAILY PRN PO 12/25/16 11:45 01/24/17 11:44 Aspirin (Ecotrin Tab) 81 mg QAM PO 12/26/16 09:00 01/25/17 08:59 12/27/16 08:32 81 MG Atorvastatin Calcium (Lipitor Tab) 80 mg QAM PO 12/26/16 09:00 01/25/17 08:59 12/27/16 08:32 80 MG Budesonide (Pulmicort Respules 0.5MG/ 2ML Neb Soln) 1 mg BIDR INH 12/25/16 20:00 01/24/17 19:59 12/29/16 07:10 1 MG Diclofenac Sodium (Voltaren 1% Top Gel) 1 appln QID EXT 12/25/16 17:00 01/24/17 16:59 12/29/16 08:39 1 APPLN Fluconazole (Diflucan Tab) 200 mg QAM PO 12/26/16 09:00 01/05/17 08:59 12/27/16 08:32 200 MG Folic Acid (Folvite Tab) 1 mg QAM PO 12/26/16 09:00 01/25/17 08:59 12/27/16 08:32 1 MG Guaifenesin (Mucinex Contr Rel Tab) 600 mg BID PO 12/25/16 21:00 01/24/17 20:59 12/28/16 20:11 600 MG Insulin Glargine (Lantus Solostar Pen) 10 units QAM SC 12/26/16 09:00 01/25/17 08:59 12/28/16 09:47 10 UNITS Lactulose (Chronulac Syrup) 30 gm QID PRN PO 12/25/16 11:45 01/24/17 11:44 Nitroglycerin (Nitro-Dur 0.1 Mg/Hr Patch) 1 patch QAM TD 12/26/16 09:00 01/25/17 08:59 12/27/16 08:34 1 PATCH Pantoprazole Sodium (Protonix Tab) 40 mg QAM PO 12/26/16 09:00 01/25/17 08:59 12/27/16 08:33 40 MG Paroxetine HCl (pAXil TAB) 40 mg DAILY PO 12/26/16 09:00 01/25/17 08:59 12/27/16 08:33 40 MG Polyethylene (Miralax Powder Packet) 17 gm BID PO 12/25/16 21:00 01/24/17 20:59 12/27/16 21:12 17 GM Risperidone (Risperdal Tab) 1 mg HS PO 12/25/16 21:00 01/24/17 20:59 12/28/16 20:11 1 MG Roflumilast (Daliresp Tab) 500 mcg DAILY PO 12/26/16 09:00 01/25/17 08:59 12/27/16 08:31 500 MCG Senna (Senokot Tab) 17.2 mg QAM PO 12/26/16 09:00 01/25/17 08:59 12/27/16 08:33 17.2 MG Sucralfate (Carafate Susp) 1 gm QID PO 12/25/16 13:00 01/24/17 12:59 12/28/16 20:12 1 GM Ferrous Sulfate (Feosol Tab) 325 mg BID PO 12/25/16 21:00 01/24/17 20:59 12/28/16 20:11 325 MG Mirtazapine (Remeron Tab) 45 mg QPM PO 12/25/16 21:00 01/24/17 20:59 12/28/16 20:11 45 MG Miscellaneous (Remove Nitro-Dur Patch) 1 ea DAILY@21 N/A 12/26/16 21:00 01/25/17 20:59 12/27/16 21:31 1 EA Ioversol (Optiray 320) 111 ml UD PRN IV 12/25/16 11:45 12/29/16 11:44 Glucose (Glucose 40% Gel) 15-30 GRAMS 15 GRAMS... UD PRN PO 12/25/16 13:00 01/24/17 12:59 Glucose (Glucose Chew Tab) 4-8 Tablets 4 Tabl... UD PRN PO 12/25/16 13:00 01/24/17 12:59 Dextrose (Dextrose 50% 50ML Syringe) 25-50ML OF 50% DW IV FOR... UD PRN IV 12/25/16 13:00 01/24/17 12:59 Glucagon (Glucagon Inj) 1 mg UD PRN SQ 12/25/16 13:00 01/24/17 12:59 Miscellaneous (Iv Fluids Completed) 1 ea PRN PRN N/A 12/25/16 14:15 12/25/17 14:14 Albuterol/ Ipratropium (Duoneb) 3 ml Q4R INH 12/26/16 12:00 01/25/17 11:59 12/29/16 07:10 3 ML Albuterol Sulfate (Ventolin 0.083% 2.5MG/3ML Neb) 2.5 mg Q2HWA PRN INH 12/26/16 10:30 01/24/17 11:44 12/27/16 12:46 2.5 MG Ketorolac Tromethamine (Toradol Inj) 15 mg Q6H PRN IV 12/26/16 16:00 12/31/16 15:59 12/28/16 21:31 15 MG Buspirone HCl (Buspar Tab) 5 mg TID PO 12/27/16 14:00 01/26/17 13:59 12/28/16 20:11 5 MG Ondansetron HCl (Zofran Odt) 4 mg Q6H PRN PO 12/27/16 13:45 01/26/17 13:44 Acetaminophen (Tylenol Soln) 650 mg Q4H PRN PO 12/27/16 23:15 01/26/17 23:14 Ketorolac Tromethamine (Toradol Inj) 30 mg Q6H PRN IM 12/27/16 23:30 01/01/17 23:14 12/29/16 02:33 30 MG Methylprednisolone Sodium Succinate 60 mg/Syringe 0.96 ml @ 1.5 mls/min Q12H IV 12/28/16 14:00 01/27/17 13:59 12/29/16 02:26 1.5 MLS/MIN Vancomycin HCl 750 mg/Sodium Chloride 265 ml @ 125 mls/hr Q14H IV 12/29/16 22:00 01/05/17 21:59 Vancomycin HCl 1500 mg/Sodium Chloride 530 ml @ 200 mls/hr TODAY@0900 IV 12/29/16 09:00 12/29/16 12:00 12/29/16 08:36 200 MLS/HR Vancomycin HCl (Consult) 1 ea PRN N/A 12/29/16 08:00 01/28/17 07:59 Morphine Sulfate (MoRPHine SULFATE INJ) 2 mg Q4H PRN IV 12/29/16 08:00 01/12/17 07:59 Potassium Chloride 10 meq/ Prmx 100 ml @ 100 mls/hr Q1H IV 12/29/16 10:00 12/29/16 13:59 Potassium Chloride/Dextrose/ Sod Cl 1,000 ml @ 75 mls/hr [id number] IV 12/29/16 10:00 01/28/17 08:29 Imipenem/ Cilastatin Sodium (Consult) 1 [facility] PRN N/A 12/29/16 10:00 01/28/17 09:59 Imipenem/ Cilastatin Sodium 500 mg/Dextrose 110 ml @ 110 mls/hr Q6H IV 12/29/16 10:00 01/05/17 09:59 Vital Signs: Date Time Temp Pulse Resp B/P (MAP) Pulse Ox O2 Delivery O2 Flow Rate FiO2 12/29/16 08:00 96 BiPAP 14.0 12/29/16 07:10 92 34 79 Mask 10.0 12/29/16 03:21 84 20 97 Mask 4.0 12/28/16 23:38 36.3 91 20 178/73 (108) 94 12/28/16 23:15 Mask 4.0 12/28/16 23:11 92 20 93 Mask 4.0 12/28/16 22:15 90 94 4.0 12/28/16 21:11 91 20 94 Mask 4.0 12/28/16 19:55 94 20 93 Mask 4.0 12/28/16 16:00 Oxymask 4.0 12/28/16 15:30 36.3 85 20 124/88 (100) 95 Oxymask 4.0 12/28/16 14:30 85 20 95 Mask 4.0 12/28/16 11:26 74 15 98 Diffusion Mask 4.0 12/28/16 10:25 98 Oxymask 4.0 Laboratory Results: Last 24 Hours Test 12/28/16 11:16 12/28/16 16:29 12/28/16 20:28 12/28/16 21:25 Bedside Glucose 104 mg/dl 107 mg/dl 99 mg/dl Arterial Blood pH 7.48 Arterial Blood Partial Pressure CO2 39 mmHg Arterial Blood Partial Pressure O2 63 mm/Hg Arterial Blood HCO3 29 mmol/L Arterial Blood Oxygen Saturation 90.9 % Arterial Blood Base Excess 4.8 mEq/L Arterial Blood Gas Delivery 4L O2 Wale Test POS Test 12/29/16 06:56 12/29/16 07:20 12/29/16 07:41 12/29/16 08:49 Blood Gas Sample Site R Brachial Bedside Blood Gas pH (LAB) 7.56 Bedside Blood Gas pCO2 (LAB) 38 mmHg Bedside Blood Gas pO2 (LAB) 225 mmHg Bedside Blood Gas HCO3 (LAB) 34 meq/L Bedside Blood Gas Total CO2 35 mEq/l Bedside Blood Gas Base Excess (LAB) 12.0 meq/L Bedside Blood Gas O2 Saturation 100.0 % Wale Test NA Oxygen Delivery Device BIPAP Bedside FiO2 0 % Blood Gas IPAP 14 White Blood Count 11.87 K/uL Red Blood Count 2.49 M/uL Hemoglobin 8.6 g/dL Hematocrit 26.7 % Mean Corpuscular Volume 107.2 fL Mean Corpuscular Hemoglobin 34.5 pg Mean Corpuscular Hemoglobin Concent 32.2 g/dl Platelet Count 167 K/uL Mean Platelet Volume 11.4 fL Neutrophils (%) (Auto) 96.3 % Lymphocytes (%) (Auto) 2.1 % Monocytes (%) (Auto) 1.0 % Eosinophils (%) (Auto) 0.0 % Basophils (%) (Auto) 0.1 % Neutrophils # (Auto) 11.43 K/uL Lymphocytes # (Auto) 0.25 K/uL Monocytes # (Auto) 0.12 K/uL Eosinophils # (Auto) 0.00 K/uL Basophils # (Auto) 0.01 K/uL RDW Standard Deviation 69.9 fL RDW Coefficient of Variation 17.9 % Immature Granulocyte % (Auto) 0.5 % Immature Granulocyte # (Auto) 0.06 K/uL Hypersegmented Polys 1+ Anisocytosis PRESENT Macrocytosis PRESENT Sodium Level 141 mmol/L Potassium Level 3.3 mmol/L Chloride Level 104 mmol/L Carbon Dioxide Level 28 mmol/L Anion Gap 9.0 mmol/L Blood Urea Nitrogen 17 mg/dl Creatinine 0.41 mg/dl Est Creatinine Clear Calc Drug Dose 112.5 ml/min Estimated GFR () 128.3 Estimated GFR (Non- 110.7 BUN/Creatinine Ratio 42.2 Random Glucose 69 mg/dl Lactic Acid Level 2.2 mmol/L Calcium Level 8.2 mg/dl Procalcitonin 0.06 ng/ml Chemistry Specimen Hemolysis Test 12/29/16 08:56 Bedside Glucose 77 mg/dl
--- NOTE | 2016-12-29 11:26 | Medical Consult ---
Consultation Date of Consultation: Dec 29, 2016. Attending Physician: Gisela Pang MD Reason for Consultation: ESBL E coli in urine, now with pneumonia History of Present Illness 61-year-old female with longstanding COPD, undiagnosed poly myopathy/ polyneuropathy on steroids, who was recently hospitalized with pneumonia, sepsis , respiratory failure, treated with antibiotics and steroids with improvement. Also found to have urinary tract infection with ESBL producing E coli, treated with ertapenem. She was transferred to a senior living facility, but now readmitted with severe hypoxia, leukocytosis, with new infiltrations seen on chest x-ray, read by me. She was started empirically on broad-spectrum antibiotics with vancomycin, Zosyn, and levofloxacin. Cultures are negative to date. Past Medical/Surgical History Medical Problems: (1) COPD exacerbation Status: Acute (2) Hypoxia Status: Acute Medical Problems: (1) Acute respiratory failure with hypoxia and hypercapnia (2) COPD (chronic obstructive pulmonary disease) (3) Depression (4) Dyslipidemia (5) Hypotension (6) Hypothyroidism (7) Leg cramps (8) Pleuritic chest pain (9) Pneumonia of both lower lobes (10) Respiratory failure with hypercapnia (11) Shortness of breath (12) Tobacco abuse (13) Tobacco abuse counseling Surgical Problems: (1) History of hysterectomy (2) History of tonsillectomy (3) Hx of tubal ligation Family History Noncontributory Social History Smoking Status: Former Smoker Drug Use: none Marital Status: Housing Status: lives with significant other Occupation Status: retired Allergies Coded Allergies: No Known Allergies (Unverified , 12/06/16) Current Inpatient Medications Current Inpatient Medications Medications (Trade) Dose Ordered Sig/Marcus Route Start Time Stop Time Status Last Admin Dose Admin Enoxaparin Sodium (Lovenox Inj) 40 mg HS SC 12/25/16 21:00 01/24/17 20:59 12/28/16 20:13 40 MG Acetaminophen (Tylenol Tab) 650 mg Q4H PRN PO 12/25/16 11:45 01/24/17 11:44 12/27/16 08:17 650 MG Al Hydrox/Mg Hydrox/Simethicone (Maalox Max Susp) 15 ml Q4H PRN PO 12/25/16 11:45 01/24/17 11:44 Magnesium Hydroxide (Milk Of Magnesia Susp) 30 ml Q12H PRN PO 12/25/16 11:45 01/24/17 11:44 Ondansetron HCl (Zofran Inj) 4 mg Q6H PRN IV 12/25/16 11:45 01/24/17 11:44 Polyethylene (Miralax Powder Packet) 17 gm DAILY PRN PO 12/25/16 11:45 01/24/17 11:44 Aspirin (Ecotrin Tab) 81 mg QAM PO 12/26/16 09:00 01/25/17 08:59 12/27/16 08:32 81 MG Atorvastatin Calcium (Lipitor Tab) 80 mg QAM PO 12/26/16 09:00 01/25/17 08:59 12/27/16 08:32 80 MG Budesonide (Pulmicort Respules 0.5MG/ 2ML Neb Soln) 1 mg BIDR INH 12/25/16 20:00 01/24/17 19:59 12/29/16 07:10 1 MG Diclofenac Sodium (Voltaren 1% Top Gel) 1 appln QID EXT 12/25/16 17:00 01/24/17 16:59 12/29/16 08:39 1 APPLN Fluconazole (Diflucan Tab) 200 mg QAM PO 12/26/16 09:00 01/05/17 08:59 12/27/16 08:32 200 MG Folic Acid (Folvite Tab) 1 mg QAM PO 12/26/16 09:00 01/25/17 08:59 12/27/16 08:32 1 MG Guaifenesin (Mucinex Contr Rel Tab) 600 mg BID PO 12/25/16 21:00 01/24/17 20:59 12/28/16 20:11 600 MG Insulin Glargine (Lantus Solostar Pen) 10 units QAM SC 12/26/16 09:00 01/25/17 08:59 12/28/16 09:47 10 UNITS Lactulose (Chronulac Syrup) 30 gm QID PRN PO 12/25/16 11:45 01/24/17 11:44 Nitroglycerin (Nitro-Dur 0.1 Mg/Hr Patch) 1 patch QAM TD 12/26/16 09:00 01/25/17 08:59 12/27/16 08:34 1 PATCH Pantoprazole Sodium (Protonix Tab) 40 mg QAM PO 12/26/16 09:00 01/25/17 08:59 12/27/16 08:33 40 MG Paroxetine HCl (pAXil TAB) 40 mg DAILY PO 12/26/16 09:00 01/25/17 08:59 12/27/16 08:33 40 MG Polyethylene (Miralax Powder Packet) 17 gm BID PO 12/25/16 21:00 01/24/17 20:59 12/27/16 21:12 17 GM Risperidone (Risperdal Tab) 1 mg HS PO 12/25/16 21:00 01/24/17 20:59 12/28/16 20:11 1 MG Roflumilast (Daliresp Tab) 500 mcg DAILY PO 12/26/16 09:00 01/25/17 08:59 12/27/16 08:31 500 MCG Senna (Senokot Tab) 17.2 mg QAM PO 12/26/16 09:00 01/25/17 08:59 12/27/16 08:33 17.2 MG Sucralfate (Carafate Susp) 1 gm QID PO 12/25/16 13:00 01/24/17 12:59 12/28/16 20:12 1 GM Ferrous Sulfate (Feosol Tab) 325 mg BID PO 12/25/16 21:00 01/24/17 20:59 12/28/16 20:11 325 MG Mirtazapine (Remeron Tab) 45 mg QPM PO 12/25/16 21:00 01/24/17 20:59 12/28/16 20:11 45 MG Miscellaneous (Remove Nitro-Dur Patch) 1 ea DAILY@21 N/A 12/26/16 21:00 01/25/17 20:59 12/27/16 21:31 1 EA Ioversol (Optiray 320) 111 ml UD PRN IV 12/25/16 11:45 12/29/16 11:44 Glucose (Glucose 40% Gel) 15-30 GRAMS 15 GRAMS... UD PRN PO 12/25/16 13:00 01/24/17 12:59 Glucose (Glucose Chew Tab) 4-8 Tablets 4 Tabl... UD PRN PO 12/25/16 13:00 01/24/17 12:59 Dextrose (Dextrose 50% 50ML Syringe) 25-50ML OF 50% DW IV FOR... UD PRN IV 12/25/16 13:00 01/24/17 12:59 Glucagon (Glucagon Inj) 1 mg UD PRN SQ 12/25/16 13:00 01/24/17 12:59 Miscellaneous (Iv Fluids Completed) 1 ea PRN PRN N/A 12/25/16 14:15 12/25/17 14:14 Albuterol/ Ipratropium (Duoneb) 3 ml Q4R INH 12/26/16 12:00 01/25/17 11:59 12/29/16 07:10 3 ML Albuterol Sulfate (Ventolin 0.083% 2.5MG/3ML Neb) 2.5 mg Q2HWA PRN INH 12/26/16 10:30 01/24/17 11:44 12/29/16 10:02 2.5 MG Ketorolac Tromethamine (Toradol Inj) 15 mg Q6H PRN IV 12/26/16 16:00 12/31/16 15:59 12/28/16 21:31 15 MG Buspirone HCl (Buspar Tab) 5 mg TID PO 12/27/16 14:00 01/26/17 13:59 12/28/16 20:11 5 MG Ondansetron HCl (Zofran Odt) 4 mg Q6H PRN PO 12/27/16 13:45 01/26/17 13:44 Acetaminophen (Tylenol Soln) 650 mg Q4H PRN PO 12/27/16 23:15 01/26/17 23:14 Ketorolac Tromethamine (Toradol Inj) 30 mg Q6H PRN IM 12/27/16 23:30 01/01/17 23:14 12/29/16 02:33 30 MG Methylprednisolone Sodium Succinate 60 mg/Syringe 0.96 ml @ 1.5 mls/min Q12H IV 12/28/16 14:00 01/27/17 13:59 12/29/16 02:26 1.5 MLS/MIN Vancomycin HCl 750 mg/Sodium Chloride 265 ml @ 125 mls/hr Q14H IV 12/29/16 22:00 01/05/17 21:59 Vancomycin HCl 1500 mg/Sodium Chloride 530 ml @ 200 mls/hr TODAY@0900 IV 12/29/16 09:00 12/29/16 12:00 12/29/16 08:36 200 MLS/HR Vancomycin HCl (Consult) [address] [facility] PRN N/A 12/29/16 08:00 01/28/17 07:59 Morphine Sulfate (MoRPHine SULFATE INJ) 2 mg Q4H PRN IV 12/29/16 08:00 01/12/17 07:59 Potassium Chloride 10 meq/ Prmx 100 ml @ 100 mls/hr Q1H IV 12/29/16 10:00 12/29/16 13:59 Potassium Chloride/Dextrose/ Sod Cl 1,000 ml @ 75 mls/hr [id number] IV 12/29/16 10:00 01/28/17 08:29 Imipenem/ Cilastatin Sodium (Consult) [address] [facility] PRN N/A 12/29/16 10:00 01/28/17 09:59 Imipenem/ Cilastatin Sodium 500 mg/Dextrose 110 ml @ 110 mls/hr Q6H IV 12/29/16 10:00 01/05/17 09:59 Review of Systems Constitutional: No fever Eyes: No problem reported ENT: No problem reported Respiratory: + cough, + shortness of breath, + dyspnea on exertion, No hemoptysis Cardiovascular: No problem reported Abdomen: No problem reported Musculoskeletal: + problem reported ( muscle weakness) Genitourinary - Female: No problem reported Neurologic: + weakness, + numbness/tingling Psychiatric: No problem reported Endocrine: No problem reported Hematologic / Lymphatic: No problem reported Integumentary: No problem reported Allergic / Immunologic: No problem reported Physical Exam Date Time Temp Pulse Resp B/P (MAP) Pulse Ox O2 Delivery O2 Flow Rate FiO2 12/29/16 10:02 105 26 99 Mask 10.0 12/29/16 08:17 36.4 90 20 151/72 (98) 96 BiPAP 14.0 12/29/16 08:00 96 BiPAP 14.0 12/29/16 07:10 92 34 79 Mask 10.0 12/29/16 03:21 84 20 97 Mask 4.0 12/28/16 23:38 36.3 91 20 178/73 (108) 94 12/28/16 23:15 Mask 4.0 12/28/16 23:11 92 20 93 Mask 4.0 12/28/16 22:15 90 94 4.0 12/28/16 21:11 91 20 94 Mask 4.0 12/28/16 19:55 94 20 93 Mask 4.0 12/28/16 16:00 Oxymask 4.0 12/28/16 15:30 36.3 85 20 124/88 (100) 95 Oxymask 4.0 12/28/16 14:30 85 20 95 Mask 4.0 12/28/16 11:26 74 15 98 Diffusion Mask 4.0 General Appearance: WD/WN, + mild distress Head: normocephalic, atraumatic Eyes: normal inspection, EOMI, sclerae normal ENT: normal ENT inspection, pharynx normal Neck: supple, no adenopathy, thyroid normal, trachea midline Respiratory/Chest: chest non-tender, + accessory muscle use, + rales, + rhonchi Cardiovascular: regular rate, rhythm, no gallop, no murmur Abdomen/GI: normal bowel sounds, non tender, soft, no organomegaly Back: normal inspection, no CVA tenderness Extremities/Musculoskelatal: normal inspection, no calf tenderness, non-tender Neurologic/Psych: alert, oriented x 3 Skin: normal color, warm/dry, no rash Lymphatic: no adenopathy Laboratory Results Date/Time Source Procedure Growth Status 12/29/16 08:50 Blood Blood Culture Pending Received 12/29/16 08:49 Blood Blood Culture Pending Received 12/29/16 09:50 Nasal MRSA DNA Surveillance Screen Pending Received Last 24 Hours Test 12/28/16 16:29 12/28/16 20:28 12/28/16 21:25 12/29/16 07:20 Bedside Glucose 107 mg/dl 99 mg/dl Arterial Blood pH 7.48 Arterial Blood Partial Pressure CO2 39 mmHg Arterial Blood Partial Pressure O2 63 mm/Hg Arterial Blood HCO3 29 mmol/L Arterial Blood Oxygen Saturation 90.9 % Arterial Blood Base Excess 4.8 mEq/L Arterial Blood Gas Delivery 4L O2 Wale Test POS NA Blood Gas Sample Site R Brachial Bedside Blood Gas pH (LAB) 7.56 Bedside Blood Gas pCO2 (LAB) 38 mmHg Bedside Blood Gas pO2 (LAB) 225 mmHg Bedside Blood Gas HCO3 (LAB) 34 meq/L Bedside Blood Gas Total CO2 35 mEq/l Bedside Blood Gas Base Excess (LAB) 12.0 meq/L Bedside Blood Gas O2 Saturation 100.0 % Oxygen Delivery Device BIPAP Bedside FiO2 0 % Blood Gas IPAP 14 Test 12/29/16 07:41 12/29/16 08:49 12/29/16 08:56 White Blood Count 11.87 K/uL Red Blood Count 2.49 M/uL Hemoglobin 8.6 g/dL Hematocrit 26.7 % Mean Corpuscular Volume 107.2 fL Mean Corpuscular Hemoglobin 34.5 pg Mean Corpuscular Hemoglobin Concent 32.2 g/dl Platelet Count 167 K/uL Mean Platelet Volume 11.4 fL Neutrophils (%) (Auto) 96.3 % Lymphocytes (%) (Auto) 2.1 % Monocytes (%) (Auto) 1.0 % Eosinophils (%) (Auto) 0.0 % Basophils (%) (Auto) 0.1 % Neutrophils # (Auto) 11.43 K/uL Lymphocytes # (Auto) 0.25 K/uL Monocytes # (Auto) 0.12 K/uL Eosinophils # (Auto) 0.00 K/uL Basophils # (Auto) 0.01 K/uL RDW Standard Deviation 69.9 fL RDW Coefficient of Variation 17.9 % Immature Granulocyte % (Auto) 0.5 % Immature Granulocyte # (Auto) 0.06 K/uL Hypersegmented Polys 1+ Anisocytosis PRESENT Macrocytosis PRESENT Sodium Level 141 mmol/L Potassium Level 3.3 mmol/L Chloride Level 104 mmol/L Carbon Dioxide Level 28 mmol/L Anion Gap 9.0 mmol/L Blood Urea Nitrogen 17 mg/dl Creatinine 0.41 mg/dl Est Creatinine Clear Calc Drug Dose 112.5 ml/min Estimated GFR () 128.3 Estimated GFR (Non- 110.7 BUN/Creatinine Ratio 42.2 Random Glucose 69 mg/dl Lactic Acid Level 2.2 mmol/L Calcium Level 8.2 mg/dl Procalcitonin 0.06 ng/ml Chemistry Specimen Hemolysis Bedside Glucose 77 mg/dl CHEST ONE VIEW PORTABLE CLINICAL HISTORY: acute hypoxia dyspnea COMPARISON STUDY: 12/27/2016 FINDINGS: Interval development of a left basilar infiltrate. Lungs otherwise are clear. No evidence for cardiac enlargement. Platelike atelectasis left base. Stable moderate emphysematous change. IMPRESSION: Developing infiltrate left base. Stable emphysematous change. The above report was generated using voice recognition software. It may contain grammatical, syntax or spelling errors. Assessment & Plan Developing left lower lobe pneumonia in patient with severe COPD and recent ESBL E coli UTI. Given potential for resistant organism, I have change Zosyn to IV imipenem, and would continue vancomycin for now. Will follow clinical response and culture results. awaiting video swallowing study to rule out potential aspiration.
[2016-12-29] MEDS: D5NSS + 20MEQ KCL 1,000 ML IV SCH (11:44)
[2016-12-29] MEDS: IMIPENEM/CILASTATIN IV 500 MG in D5W 100ML IV SCH ×3 (11:44→21:07)
[2016-12-29] MEDS: POTASSIUM CHLR 10 MEQ / WTR 10 MEQ in PREMIXED WATER 100 ML IV SCH ×4 (11:44→17:45)
[2016-12-29] MEDS ORDERED: PIPERACILL/TAZOBAC IV 3.375 GM in DEXTROSE 5% 100ML 100 ML IV SCH (12:00)
--- NOTE | 2016-12-29 12:09 | DIAGNOSTIC IMAGING REPORT ---
L VENOUS DOPP LOWER EXT UNILAT CLINICAL HISTORY: leg swelling pain. Edema. TECHNIQUE: Venous Doppler COMPARISON STUDY: 12/06/2016 FINDINGS: Normal study IMPRESSION: Normal study. No change from the prior exam. The above report was generated using voice recognition software. It may contain grammatical, syntax or spelling errors. Electronically signed by: Mauro Martinez M.D. 12/29/2016 12:08 PM Dictated Date/Time: 12/29/2016 12:07 PM
[2016-12-29] MEDS: KETOROLAC TROMETHAMINE 15 MG/ML VIAL IV PRN ×2 (13:14→17:08)
--- NOTE | 2016-12-29 14:50 | DIAGNOSTIC IMAGING REPORT ---
VIDEO SWALLOW HISTORY: Dysphagia possible aspiration PNA,chokes with eating TECHNIQUE: Video fluoroscopic evaluation of swallowing was performed in the AP and lateral projections by the speech pathology staff. The patient is fed nectar-thick and thin liquid barium, a barium coated wafer, and barium pudding. FLUOROSCOPY TIME: 40 seconds. COMPARISON STUDY: None. FINDINGS: Aspiration. No significant cough reflex. Further evaluation was not performed due to aspiration risk. IMPRESSION: 1. Aspiration. No significant cough reflex. 2. Please see the speech pathologist report for detailed findings and recommendations. The above report was generated using voice recognition software. It may contain grammatical, syntax or spelling errors. Electronically signed by: Mauro Martinez M.D. 12/29/2016 2:49 PM Dictated Date/Time: 12/29/2016 2:47 PM
[2016-12-29] MEDS ORDERED: ACETAMINOPHEN IV 650 MG in EMPTY BAG 0 ML IV PRN (16:00)
[2016-12-29] MEDS: RANITIDINE IV 50 MG in DEXTROSE 5% 100ML 100 ML IV SCH (17:38)
[2016-12-29] MEDS: FLUCONAZOLE / NSS 200 MG in PREMIXED NSS 100 ML IV SCH (18:32)
--- NOTE | 2016-12-29 19:55 | DIAGNOSTIC IMAGING REPORT ---
HEAD WITHOUT CONTRAST (CT) CLINICAL HISTORY: 61 years-old Female with r/o CVA. Acute strokelike symptoms TECHNIQUE: Multiple axial CT images of the head were obtained without contrast. A dose lowering technique was utilized adhering to the principles of ALARA. CT DOSE: 729.78 mGycm COMPARISON: CT head 12/16/2016. FINDINGS: No acute intracranial hemorrhage, midline shift, mass, large territorial ischemia or abnormal extra-axial collection. Exam is mildly limited secondary to motion artifact. Focal area of low-attenuation within the right cerebellar hemisphere, 4 mm is again seen The calvarium is intact. The paranasal sinuses, mastoid air cells, and middle ear cavities are clear. IMPRESSION: 1. No acute intracranial abnormality. 2. 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 The above report was generated using voice recognition software. It may contain grammatical, syntax or spelling errors. Electronically signed by: Wolfgang Terry M.D. 12/29/2016 11:43 AM Dictated Date/Time: 12/29/2016 11:40 AM
[2016-12-29] MEDS: ENOXAPARIN 40 MG/0.4 ML SYR SC SCH (20:42)
[2016-12-29] MEDS: VANCOMYCIN INJ 750 MG in SODIUM CHLORIDE 0.9% 250ML 250 ML IV SCH (21:08)
[2016-12-29] MEDS: MoRPHine SULFATE 2 MG/ML CARP IV PRN (23:31)
[2016-12-30] VITALS (14 sets, daily range): BP systolic 86–139; BP diastolic 59–88; PULSE 76–103; TEMP 36–36.7; O2SAT 90–100
[2016-12-30] MEDS ORDERED: MoRPHine SULFATE 2 MG/ML CARP IV STA (01:23)
[2016-12-30] MEDS: ALBUTEROL 0.083% NEBU SOLN 3 ML VIAL INH PRN (01:38)
[2016-12-30] MEDS: METHYLPREDNISOLONE IV 60 MG in SYRINGE 0 ML IV SCH ×2 (01:49→14:13)
[2016-12-30] MEDS: RANITIDINE IV 50 MG in DEXTROSE 5% 100ML 100 ML IV SCH ×3 (01:49→17:30)
[2016-12-30] MEDS: ALBUT/IPRATROP 3MG/0.5MG NEB 3 ML VIAL INH SCH ×6 (04:00→23:12)
[2016-12-30] MEDS: D5NSS + 20MEQ KCL 1,000 ML IV SCH (04:29)
[2016-12-30] MEDS: IMIPENEM/CILASTATIN IV 500 MG in D5W 100ML IV SCH ×4 (04:29→21:08)
[2016-12-30] MEDS: BUDESONIDE 0.5 MG/2 ML VIAL (PULMICORT) INH SCH ×2 (07:02→19:08)
[2016-12-30] MEDS: MoRPHine SULFATE 2 MG/ML CARP IV PRN (08:05)
[2016-12-30] MEDS: ASPIRIN 300 MG SUPP PR SCH (08:53)
[2016-12-30] MEDS: DICLOFENAC SOD 1% GEL 100 GM TUBE EXT SCH ×4 (08:54→21:08)
[2016-12-30] MEDS: NITROGLYCERIN 0.1 MG/HR PATCH TD SCH (08:56)
[2016-12-30] MEDS: INSULIN GLARGINE SOLOSTAR 100 UNITS/ML 3 ML PEN SC SCH (08:59)
[2016-12-30] MEDS: VANCOMYCIN INJ 750 MG in SODIUM CHLORIDE 0.9% 250ML 250 ML IV SCH (11:54)
[2016-12-30] MEDS: KETOROLAC TROMETHAMINE 30 MG/ML VIAL IM PRN (14:14)
--- NOTE | 2016-12-30 15:18 | ENT CONSULTATION ---
DATE OF CONSULTATION: 12/30/2016 DATE OF CONSULTATION: 12/30/2016 PERSON REQUESTING PHYSICIAN: Dr. Gisela Pang. INDICATION FOR CONSULTATION: To rule out a hypopharyngeal or laryngeal mass. HISTORY OF PRESENT ILLNESS: She is a 61-year-old woman who was recently readmitted on 12/25/2016 after being discharged from the hospital only a day or 2 prior. She had been discharged to a retirement facility and was once again found to have respiratory difficulty including hypoxemia. She had a swallowing evaluation and there was concern by the speech therapist of a possible mass at the junction of the hypopharynx and oropharynx. I was specifically asked to assess this. PAST MEDICAL HISTORY, REVIEW OF SYSTEMS: All these things are well documented on her chart and I will not add to chart jakub. Vitals are captured within PAYMILL. I examined her in room 109, and she was on nasal cannula. She was awake and alert and appropriate in my conversation with her and in understanding direction that I gave her. I examined her oropharynx and oral cavity. She had some dried mucosa on the right lateral pharyngeal wall. The floor of the mouth was soft to palpation bilaterally. She was edentulous. Bimanual exam revealed no lesions. I palpated her tongue base and it was soft with no lesions appreciated. FLEXIBLE FIBEROPTIC LARYNGOSCOPY After spraying both sides of the nose with 0.05% oxymetazoline a few minutes was allowed for vasoconstriction. I then passed the flexible laryngoscope through the left nostril. There were no abnormalities on the left side of the nose. The nasopharynx had no pus, no mass, no lesions. The tongue base was within normal limits to my visualization as was the vallecula. Epiglottis was sharp and normal shape. Piriform sinuses had no pooling of secretions and no mass effect. True vocal cord appearance and mobility was within normal limits bilaterally. There was no abnormities of the arytenoid or interarytenoid area. ASSESSMENT AND PLAN: She had a normal head and neck exam included oral cavity, oropharynx, nasopharynx, hypopharynx, and larynx. ASSESSMENT AND PLAN: The patient with multiple challenges with frequency aspiration. I suspect she may need a G-tube if her aspiration continues.
--- NOTE | 2016-12-30 15:56 | Hospitalist Progress Note ---
Hospitalist Progress Note Date of Service Dec 30, 2016. (Ambar Shaw ., DIANC) Subjective Pt evaluation today including: conversation w/ patient, physical exam, chart review, review of inpatient medication list Pain: Abdominal pain PO Intake: NPO Voiding: lopez catheter in place The patient reports "not feeling too good," although she cannot pinpoint specifically why. She does feel weak and fatigued. She was having her usual pleuritic chest pain earlier today but denies any now. She denies shortness of breath but complains of a non-productive cough and wheezing. She does complain of being hungry and states she has hunger pains in her abdomen. The patient denies fevers, chills, sweats, palpitations, claudication, shortness of breath, nausea, vomiting, dysuria, hematuria, urinary retention, paralysis, numbness and tingling. Additional Comments: See HPI for pertinent positives and negatives. All other systems reviewed and negative. (Ambar Shaw ., SUNDAY-C) Objective Vital Signs Date Time Temp Pulse Resp B/P (MAP) Pulse Ox O2 Delivery O2 Flow Rate FiO2 12/30/16 15:01 90 20 95 Nasal Cannula 2.0 12/30/16 12:00 Nasal Cannula 2.0 12/30/16 11:30 85 20 94 Nasal Cannula 2.0 12/30/16 08:00 36.6 89 19 132/88 (103) 97 Nasal Cannula 2.0 12/30/16 08:00 97 Nasal Cannula 2.0 12/30/16 07:08 88 20 98 Nasal Cannula 2.0 12/30/16 05:30 91 96 2.0 12/30/16 04:02 88 98 2.0 12/30/16 04:02 88 18 98 BiPAP/CPAP 2.0 12/30/16 04:00 100 BiPAP 2.0 12/30/16 04:00 36.0 89 18 139/68 (91) 98 BiPAP 2.0 12/30/16 01:47 99 95 2.0 12/30/16 01:39 103 26 93 Nasal Cannula 2.0 12/29/16 23:59 96 Nasal Cannula 2.0 12/29/16 23:17 84 24 93 Nasal Cannula 2.0 12/29/16 23:05 36.4 86 20 117/97 (104) 98 Nasal Cannula 2.0 12/29/16 20:14 84 20 97 Nasal Cannula 2.0 12/29/16 20:00 36.5 90 24 119/65 (83) 99 Nasal Cannula 2.0 12/29/16 20:00 99 Nasal Cannula 2.0 12/29/16 16:19 81 22 98 Nasal Cannula 2.0 12/29/16 15:30 36.6 92 22 106/59 (75) 100 Nasal Cannula 2.0 12/29/16 15:30 95 Nasal Cannula 2.0 (Ambar Shaw ., PA-C) Physical Exam Notes: General appearance: Well-developed, well-nourished, no apparent distress Head: Normocephalic, atraumatic Eyes: Normal inspection, PERRL, EOMI ENT: +Macroglossia. Normal ENT inspection, hearing grossly normal, pharynx normal Neck: Supple, no JVD, trachea midline Respiratory/Chest: +Coarse breath sounds. Exam limited due to loud upper airway sounds. Lungs clear to auscultation Cardiovascular: Regular rate & rhythm, no gallop, no murmur Abdomen/GI: Normal bowel sounds, non-tender, soft Extremities/Musculoskeletal: +Upper extremity contractures, muscle atrophy. 1 + pitting edema. Neurological/Psych: Alert, normal mood/affect, oriented x 3 Skin: +Ecchymoses. Normal color, warm/dry, no rash (Ambar Shaw ., PA-C) Laboratory Results Last 24 Hours Test 12/29/16 17:02 12/30/16 06:46 12/30/16 08:25 Bedside Glucose 108 mg/dl 165 mg/dl (Ambar Shaw ., PA-C) Assessment and Plan 61 y/o female with a history of HLD, chronic diastolic CHF, COPD, DM II, anxiety /depression who presents with shortness of breath Acute/chronic hypoxic respiratory failure, LLL PNA - ongoing -Transfer to med/surg. Convert to full admission. Transferred to tele 12/29 due to worsening hypoxia. -Likely mucous plugging that led to hypoxia, pleuritic chest/rib pain may also contribute to feeling of SOB -May have small amount of acute on chronic diastolic CHF but did not have much UO with Lasix, so more likely mucous related -Continue nebs q4h -Taper steroids to Solu-Medrol 40 mg IV q12h -Flutter valve, incentive spirometry, vibration vest -No clear need for repeat abx for pneumonia - appears related to previous and now resolving pneumonia -Frequent mucous plugging and weakness, ?SNF vs LTAC. Case management following -Consult pulmonology, appreciate recs: Continue abx and bronchodilators. Taper steroids as tolerated. She should have negative inspiratory force and Vital capacity done by respiratory to assess respiratory weakness. BiPAP prn. -Pt w/jyothi and silent aspiration on video swallow, will be kept strict NPO -ENT performed laryngoscopy due to concern of a mass on video swallow, this was normal -CXR with developing LLL infiltrate -Continue Primaxin and vancomycin. Day #2. Infectious disease consulted, agree w/abx COPD, severe -Continues nebs, steroids as above -Continue Pulmicort BID, Daliresp qd B/l lung nodules - in light of significant smoking history will need CT surveillance as outpatient. High risk of malignancy. 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 Day #17 of 21 Severe deconditioning -PT/OT evaluate and treat -Came from [facility] in [place] for rehab, may need LTAC -Appears to be acute (from acute illness/myopathy/deconditioning) on chronic ( neuromuscular illness that appears to have been part of her current baseline of comorbidities) -Poor prognosis, strict NPO, likely not good candidate for PEG. Consult palliative, will meet with pt and dtr tomorrow morning. Atrial mass - prior hospitalist spoke with cardiology. The echo and CT chest are both c/w lipomatous hypertrophy. -This is NOT a risk factor for stroke. Does not require anticoagulation. ?myopathy +/- polyneuropathy --ongoing -Pt seen by Dr. Parks on 12/17. 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 Plan was to re-evaluate as an outpt for possible EMG and nerve conduction studies -Neuro consulted: Outpt EMG, repeat head CT -Repeat head CT no change -B12, TSH, etc - normal -No further testing for now but will need ongoing outpt f/u Leukocytosis/UTI--improving -Relates to frailty and prolonged hospital stay, lopez -Abx as above Chronic diastolic CHF--stable DM II--unknown last HgbA1c -Continue Lantus 10 units SC qam -Sugars very well controlled w/Lantus alone -Check BSGs q ac and qhs -HgbA1c 5.5 on 12/28 HLD, h/o CVA -Continue Lipitor 80 mg PO qd and ASA DVT prophylaxis -Enoxaparin 40 mg SC q24h Code Status -Level I, FULL RESUSCITATION STATUS (Ambar Shaw ., SWETHA) Reviewed: Pt Seen/Exam by Me (Gisela Pang MD) History Physician Case Finishing Machine Adjuster Supervision Note: I interviewed and examined the patient. Discussed with SUNDAY Shaw and agree with findings and plan as documented in the note. Any exceptions or clarifications are listed here: Pt very frail. Is on NC now and tells me she does not want to wear the BiPAP. She is not struggling to breathe currently and is watching TV. UOP low nad dark brown in color today. Unable to get labs, arms weeping fluid and edematous. She says she will wear BiPAP only if O2 levels drop. 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 With jyothi silent aspiration on Video Swallow, made strict NPO. Plans for Palliative Care meeting tomorrow to discuss goals of care. BiPAP as desired Morphine prn -holding all po meds -continuing broad spectrum abx for now -give lasix 20mg IV x 1 now for poor UOP and edema -await Palliative Care discussion tomorrow Documented by Gisela Pang M.D. (Gisela Pang MD)
--- NOTE | 2016-12-30 16:01 | Palliative Care Progress Note ---
Palliative Care Progress Note Date of Service Dec 30, 2016. Subjective Consult received. Meeting with patient and family tomorrow at 0900.
[2016-12-30] MEDS: FLUCONAZOLE / NSS 200 MG in PREMIXED NSS 100 ML IV SCH (17:30)
--- NOTE | 2016-12-30 18:04 | Infectious Disease Progress Nt ---
Progress Note Date of Service Dec 30, 2016. Subjective Pt evaluation today including: conversation w/ patient, physical exam, chart review, lab review, review of studies, conversation w/ production support consultant, review of inpatient medication list remains weak and fatigued. No fever. Palliative care consult noted. Still with cough, no worsening shortness of breath. All Other Systems: Reviewed and Negative Medications Current Inpatient Medications Medications (Trade) Dose Ordered Sig/Marcus Route Start Time Stop Time Status Last Admin Dose Admin Enoxaparin Sodium (Lovenox Inj) 40 mg HS SC 12/25/16 21:00 01/24/17 20:59 12/29/16 20:42 40 MG Acetaminophen (Tylenol Tab) 650 mg Q4H PRN PO 12/25/16 11:45 01/24/17 11:44 Future Hold 12/27/16 08:17 650 MG Al Hydrox/Mg Hydrox/Simethicone (Maalox Max Susp) 15 ml Q4H PRN PO 12/25/16 11:45 01/24/17 11:44 Ondansetron HCl (Zofran Inj) 4 mg Q6H PRN IV 12/25/16 11:45 01/24/17 11:44 Polyethylene (Miralax Powder Packet) 17 gm DAILY PRN PO 12/25/16 11:45 01/24/17 11:44 Future Hold Atorvastatin Calcium (Lipitor Tab) 80 mg QAM PO 12/26/16 09:00 01/25/17 08:59 Future Hold 12/27/16 08:32 80 MG Budesonide (Pulmicort Respules 0.5MG/ 2ML Neb Soln) 1 mg BIDR INH 12/25/16 20:00 01/24/17 19:59 12/30/16 07:02 1 MG Diclofenac Sodium (Voltaren 1% Top Gel) 1 appln QID EXT 12/25/16 17:00 01/24/17 16:59 12/30/16 17:31 1 APPLN Folic Acid (Folvite Tab) 1 mg QAM PO 12/26/16 09:00 01/25/17 08:59 Future Hold 12/27/16 08:32 1 MG Guaifenesin (Mucinex Contr Rel Tab) 600 mg BID PO 12/25/16 21:00 01/24/17 20:59 Future Hold 12/28/16 20:11 600 MG Insulin Glargine (Lantus Solostar Pen) 10 units QAM SC 12/26/16 09:00 01/25/17 08:59 12/30/16 08:59 5 UNITS Lactulose (Chronulac Syrup) 30 gm QID PRN PO 12/25/16 11:45 01/24/17 11:44 Future Hold Nitroglycerin (Nitro-Dur 0.1 Mg/Hr Patch) 1 patch QAM TD 12/26/16 09:00 01/25/17 08:59 12/30/16 08:56 1 PATCH Pantoprazole Sodium (Protonix Tab) 40 mg QAM PO 12/26/16 09:00 01/25/17 08:59 Future Hold 12/27/16 08:33 40 MG Paroxetine HCl (pAXil TAB) 40 mg DAILY PO 12/26/16 09:00 01/25/17 08:59 Future Hold 12/27/16 08:33 40 MG Polyethylene (Miralax Powder Packet) 17 gm BID PO 12/25/16 21:00 01/24/17 20:59 Future Hold 12/27/16 21:12 17 GM Risperidone (Risperdal Tab) 1 mg HS PO 12/25/16 21:00 01/24/17 20:59 Future Hold 12/28/16 20:11 1 MG Roflumilast (Daliresp Tab) 500 mcg DAILY PO 12/26/16 09:00 01/25/17 08:59 Future Hold 12/27/16 08:31 500 MCG Senna (Senokot Tab) 17.2 mg QAM PO 12/26/16 09:00 01/25/17 08:59 Future Hold 12/27/16 08:33 17.2 MG Sucralfate (Carafate Susp) 1 gm QID PO 12/25/16 13:00 01/24/17 12:59 Future Hold 12/29/16 13:15 1 GM Ferrous Sulfate (Feosol Tab) 325 mg BID PO 12/25/16 21:00 01/24/17 20:59 Future Hold 12/28/16 20:11 325 MG Mirtazapine (Remeron Tab) 45 mg QPM PO 12/25/16 21:00 01/24/17 20:59 Future Hold 12/28/16 20:11 45 MG Miscellaneous (Remove Nitro-Dur Patch) 1 ea DAILY@21 N/A 12/26/16 21:00 01/25/17 20:59 12/29/16 20:42 1 EA Glucose (Glucose 40% Gel) 15-30 GRAMS 15 GRAMS... UD PRN PO 12/25/16 13:00 01/24/17 12:59 Glucose (Glucose Chew Tab) 4-8 Tablets 4 Tabl... UD PRN PO 12/25/16 13:00 01/24/17 12:59 Dextrose (Dextrose 50% 50ML Syringe) 25-50ML OF 50% DW IV FOR... UD PRN IV 12/25/16 13:00 01/24/17 12:59 Glucagon (Glucagon Inj) 1 mg UD PRN SQ 12/25/16 13:00 01/24/17 12:59 Miscellaneous (Iv Fluids Completed) 1 ea PRN PRN N/A 12/25/16 14:15 12/25/17 14:14 Albuterol/ Ipratropium (Duoneb) 3 ml Q4R INH 12/26/16 12:00 01/25/17 11:59 12/30/16 15:01 3 ML Albuterol Sulfate (Ventolin 0.083% 2.5MG/3ML Neb) 2.5 mg Q2HWA PRN INH 12/26/16 10:30 01/24/17 11:44 12/30/16 01:38 2.5 MG Ketorolac Tromethamine (Toradol Inj) 15 mg Q6H PRN IV 12/26/16 16:00 12/31/16 15:59 12/29/16 17:08 15 MG Buspirone HCl (Buspar Tab) 5 mg TID PO 12/27/16 14:00 01/26/17 13:59 Future Hold 12/28/16 20:11 5 MG Acetaminophen (Tylenol Soln) 650 mg Q4H PRN PO 12/27/16 23:15 01/26/17 23:14 Future Hold Ketorolac Tromethamine (Toradol Inj) 30 mg Q6H PRN IM 12/27/16 23:30 01/01/17 23:14 12/30/16 14:14 30 MG Vancomycin HCl 750 mg/Sodium Chloride 265 ml @ 125 mls/hr Q14H IV 12/29/16 22:00 01/05/17 21:59 12/30/16 11:54 125 MLS/HR Vancomycin HCl (Consult) 1 ea UD PRN N/A 12/29/16 08:00 01/28/17 07:59 Morphine Sulfate (MoRPHine SULFATE INJ) 2 mg Q4H PRN IV 12/29/16 08:00 01/12/17 07:59 12/30/16 08:05 2 MG Potassium Chloride/Dextrose/ Sod Cl 1,000 ml @ 75 mls/hr [id number] IV 12/29/16 10:00 01/28/17 08:29 12/30/16 04:29 75 MLS/HR Imipenem/ Cilastatin Sodium (Consult) 1 ea UD PRN N/A 12/29/16 10:00 01/28/17 09:59 Imipenem/ Cilastatin Sodium 500 mg/Dextrose 110 ml @ 110 mls/hr Q6H IV 12/29/16 10:00 01/05/17 09:59 12/30/16 16:05 110 MLS/HR Acetaminophen 650 mg/Empty Bag 65 ml @ 260 mls/hr Q6H PRN IV 12/29/16 16:00 01/28/17 15:59 Aspirin (Aspirin Supp) 300 mg DAILY [place] 12/30/16 09:00 01/29/17 08:59 12/30/16 08:53 300 MG Fluconazole/ Sodium Chloride 200 mg/Prmx 100 ml @ 100 mls/hr DAILY@1800 IV 12/29/16 18:00 01/05/17 17:59 12/30/16 17:30 100 MLS/HR Ranitidine HCl 50 mg/Dextrose 102 ml @ 200 mls/hr Q8H IV 12/29/16 18:00 01/28/17 17:59 12/30/16 17:30 200 MLS/HR Methylprednisolone Sodium Succinate 40 mg/Syringe 0.64 ml @ 1.5 mls/min Q12H IV 12/31/16 02:00 01/30/17 01:59 Objective Vital Signs Date Time Temp Pulse Resp B/P (MAP) Pulse Ox O2 Delivery O2 Flow Rate FiO2 12/30/16 16:00 97 Nasal Cannula 2.0 12/30/16 16:00 36.3 76 17 104/70 (81) 93 Nasal Cannula 2.0 12/30/16 15:01 90 20 95 Nasal Cannula 2.0 12/30/16 12:00 Nasal Cannula 2.0 12/30/16 12:00 36.6 86 19 86/59 (68) 97 Nasal Cannula 2.0 12/30/16 11:30 85 20 94 Nasal Cannula 2.0 12/30/16 08:00 36.6 89 19 132/88 (103) 97 Nasal Cannula 2.0 12/30/16 08:00 97 Nasal Cannula 2.0 12/30/16 07:08 88 20 98 Nasal Cannula 2.0 12/30/16 05:30 91 96 2.0 12/30/16 04:02 88 98 2.0 12/30/16 04:02 88 18 98 BiPAP/CPAP 2.0 12/30/16 04:00 100 BiPAP 2.0 12/30/16 04:00 36.0 89 18 139/68 (91) 98 BiPAP 2.0 12/30/16 01:47 99 95 2.0 12/30/16 01:39 103 26 93 Nasal Cannula 2.0 12/29/16 23:59 96 Nasal Cannula 2.0 12/29/16 23:17 84 24 93 Nasal Cannula 2.0 12/29/16 23:05 36.4 86 20 117/97 (104) 98 Nasal Cannula 2.0 12/29/16 20:14 84 20 97 Nasal Cannula 2.0 12/29/16 20:00 36.5 90 24 119/65 (83) 99 Nasal Cannula 2.0 12/29/16 20:00 99 Nasal Cannula 2.0 Physical Exam General Appearance: no apparent distress, + pertinent finding ( Chronically ill-appearing) Eyes: normal inspection, EOMI, sclerae normal ENT: normal ENT inspection, pharynx normal Neck: supple, no adenopathy, trachea midline Respiratory/Chest: chest non-tender, lungs clear, normal breath sounds, no respiratory distress Cardiovascular: regular rate, rhythm, no gallop, no murmur Abdomen: normal bowel sounds, non tender, soft, no organomegaly Extremities: non-tender, no calf tenderness Neurologic/Psychiatric: alert, oriented x 3 Skin: normal color, no rash Lymphatic: no adenopathy Laboratory Results Last 24 Hours Test 12/30/16 06:46 12/30/16 08:25 Bedside Glucose 165 mg/dl Assessment and Plan Left lower lobe pneumonia in patient with severe COPD and recent ESBL E coli UTI.Video fluoroscopy suggests possibility of recurrent aspiration. Would continue present antibiotics, likely 5-7 days of therapy. Will follow.
[2016-12-30] MEDS: KETOROLAC TROMETHAMINE 15 MG/ML VIAL IV PRN (19:48)
[2016-12-30] MEDS: ENOXAPARIN 40 MG/0.4 ML SYR SC SCH (21:09)
[2016-12-30] MEDS ORDERED: FUROSEMIDE INJ 20 MG in SYRINGE 0 ML IV ONE (23:15)
[2016-12-31] VITALS (8 sets, daily range): BP systolic 106–135; BP diastolic 70–81; PULSE 77–98; TEMP 36–36.5; O2SAT 94–100
[2016-12-31] MEDS: MoRPHine SULFATE 2 MG/ML CARP IV PRN ×5 (00:01→19:31)
[2016-12-31] MEDS: RANITIDINE IV 50 MG in DEXTROSE 5% 100ML 100 ML IV SCH ×3 (01:29→18:24)
[2016-12-31] MEDS: METHYLPREDNISOLONE IV 40 MG in SYRINGE 0 ML IV SCH ×2 (01:29→15:08)
[2016-12-31] MEDS ORDERED: VANCOMYCIN TROUGH SCH (01:30)
[2016-12-31] MEDS: VANCOMYCIN INJ 750 MG in SODIUM CHLORIDE 0.9% 250ML 250 ML IV SCH ×2 (01:39→16:37)
[2016-12-31] MEDS: ALBUT/IPRATROP 3MG/0.5MG NEB 3 ML VIAL INH SCH ×5 (03:24→19:00)
[2016-12-31 03:29] LABS: BUN/CREATININE RATIO 39.6 (10-20); CREATININE 0.39 mg/dl (0.60-1.20); MAGNESIUM 2.4 mg/dl (1.8-2.4); POTASSIUM 4.1 mmol/L (3.5-5.1)
[2016-12-31] MEDS: IMIPENEM/CILASTATIN IV 500 MG in D5W 100ML IV SCH ×5 (04:28→21:56)
[2016-12-31] MEDS: BUDESONIDE 0.5 MG/2 ML VIAL (PULMICORT) INH SCH ×2 (07:11→19:00)
[2016-12-31] MEDS: DICLOFENAC SOD 1% GEL 100 GM TUBE EXT SCH ×4 (09:00→21:45)
[2016-12-31] MEDS: ASPIRIN 300 MG SUPP PR SCH (09:12)
[2016-12-31] MEDS: INSULIN GLARGINE SOLOSTAR 100 UNITS/ML 3 ML PEN SC SCH (09:12)
[2016-12-31] MEDS: NITROGLYCERIN 0.1 MG/HR PATCH TD SCH (09:13)
--- NOTE | 2016-12-31 09:19 | Palliative Care Consultation ---
Consultation Date of Consultation: Dec 31, 2016. Requesting Physician: Ambar Shaw PA-C Attending Physician: DR. Pang Reason for Consultation: Goals of care History of Present Illness This 61 year old female patient with PMH of neurodegenerative disorder, severe COPD and others listed below, presented to our hospital from [facility] six days ago with SOB and hypoxia. Patient had just left our facility the day prior after she was here being treated for respiratory failure. She was stable before discharge, butt apparently became SOB and hypoxic at [facility]. [facility] found bilateral basilar infiltrates on CXR, WBC 18, and started on bipap. She was sent to our facility for continuity. Patient has unfortunately been declining for the last few months with this sudden onset neuromuscular disease- question of myopathy/polyneuropathy. Neurology is following. CT head shows age indeterminate right infarct. She is known to frankly aspirate, has been worked up by GI and ENT who can find no mechanical cause for the dysphagia/aspiration. patient has been expressing to family and staff that she "doesn't want to do this any more." Palliative care consulted to establish goals of care. I met with the patient, - Jorge, daughter- Lizy and her , and son- Kendrick, in room 109. Her speech is garbled, but she is alert and oriented x4. Able to participate in conversation. Patient states, "I feel like I'm being tortured." She is hungry, she continues to have left chest/rib/pleuritic pain ( same pain as last admission). We discussed her medical conditions and goals of care. Family is supportive and wants whatever the patient wants. We discussed feeding options, plan for discharge, and abx. See plan below. Past Medical/Surgical History Medical History: COPD Neuromuscular weakness Recent UTI Respiratory failure Social History Smoking Status: Former Smoker History of Alcohol Use: No Drug Use: none Marital Status: Housing Status: lives with family (but was discharged to [facility] on previous admission. was living with prior to that) Occupation Status: retired Review of Systems Constitutional: + weakness ENT: No trouble swallowing Respiratory: No shortness of breath, No dyspnea on exertion Cardiac: + chest pain (stable left rib pain, per report was not cardiac related ), + edema Abdomen: No pain, No nausea, No vomiting Psychiatric: No anxiety Allergies Coded Allergies: No Known Allergies (Unverified , 12/06/16) Medications Current Inpatient Medications Medications (Trade) Dose Ordered Sig/Marcus Route Start Time Stop Time Status Last Admin Dose Admin Enoxaparin Sodium (Lovenox Inj) 40 mg HS SC 12/25/16 21:00 01/24/17 20:59 12/30/16 21:09 40 MG Acetaminophen (Tylenol Tab) 650 mg Q4H PRN PO 12/25/16 11:45 01/24/17 11:44 Future Hold 12/27/16 08:17 650 MG Al Hydrox/Mg Hydrox/Simethicone (Maalox Max Susp) 15 ml Q4H PRN PO 12/25/16 11:45 01/24/17 11:44 Ondansetron HCl (Zofran Inj) 4 mg Q6H PRN IV 12/25/16 11:45 01/24/17 11:44 Polyethylene (Miralax Powder Packet) 17 gm DAILY PRN PO 12/25/16 11:45 01/24/17 11:44 Future Hold Atorvastatin Calcium (Lipitor Tab) 80 mg QAM PO 12/26/16 09:00 01/25/17 08:59 Future Hold 12/27/16 08:32 80 MG Budesonide (Pulmicort Respules 0.5MG/ 2ML Neb Soln) 1 mg BIDR INH 12/25/16 20:00 01/24/17 19:59 12/31/16 07:11 1 MG Diclofenac Sodium (Voltaren 1% Top Gel) 1 appln QID EXT 12/25/16 17:00 01/24/17 16:59 12/30/16 21:08 1 APPLN Folic Acid (Folvite Tab) 1 mg QAM PO 12/26/16 09:00 01/25/17 08:59 Future Hold 12/27/16 08:32 1 MG Guaifenesin (Mucinex Contr Rel Tab) 600 mg BID PO 12/25/16 21:00 01/24/17 20:59 Future Hold 12/28/16 20:11 600 MG Insulin Glargine (Lantus Solostar Pen) 10 units QAM SC 12/26/16 09:00 01/25/17 08:59 12/30/16 08:59 5 UNITS Lactulose (Chronulac Syrup) 30 gm QID PRN PO 12/25/16 11:45 01/24/17 11:44 Future Hold Nitroglycerin (Nitro-Dur 0.1 Mg/Hr Patch) 1 patch QAM TD 12/26/16 09:00 01/25/17 08:59 12/30/16 08:56 1 PATCH Pantoprazole Sodium (Protonix Tab) 40 mg QAM PO 12/26/16 09:00 01/25/17 08:59 Future Hold 12/27/16 08:33 40 MG Paroxetine HCl (pAXil TAB) 40 mg DAILY PO 12/26/16 09:00 01/25/17 08:59 Future Hold 12/27/16 08:33 40 MG Polyethylene (Miralax Powder Packet) 17 gm BID PO 12/25/16 21:00 01/24/17 20:59 Future Hold 12/27/16 21:12 17 GM Risperidone (Risperdal Tab) 1 mg HS PO 12/25/16 21:00 01/24/17 20:59 Future Hold 12/28/16 20:11 1 MG Roflumilast (Daliresp Tab) 500 mcg DAILY PO 12/26/16 09:00 01/25/17 08:59 Future Hold 12/27/16 08:31 500 MCG Senna (Senokot Tab) 17.2 mg QAM PO 12/26/16 09:00 01/25/17 08:59 Future Hold 12/27/16 08:33 17.2 MG Sucralfate (Carafate Susp) 1 gm QID PO 12/25/16 13:00 01/24/17 12:59 Future Hold 12/29/16 13:15 1 GM Ferrous Sulfate (Feosol Tab) 325 mg BID PO 12/25/16 21:00 01/24/17 20:59 Future Hold 12/28/16 20:11 325 MG Mirtazapine (Remeron Tab) 45 mg QPM PO 12/25/16 21:00 01/24/17 20:59 Future Hold 12/28/16 20:11 45 MG Miscellaneous (Remove Nitro-Dur Patch) 1 ea DAILY@21 N/A 12/26/16 21:00 01/25/17 20:59 12/30/16 21:08 1 EA Glucose (Glucose 40% Gel) 15-30 GRAMS 15 GRAMS... UD PRN PO 12/25/16 13:00 01/24/17 12:59 Glucose (Glucose Chew Tab) 4-8 Tablets 4 Tabl... UD PRN PO 12/25/16 13:00 01/24/17 12:59 Dextrose (Dextrose 50% 50ML Syringe) 25-50ML OF 50% DW IV FOR... UD PRN IV 12/25/16 13:00 01/24/17 12:59 Glucagon (Glucagon Inj) 1 mg UD PRN SQ 12/25/16 13:00 01/24/17 12:59 Miscellaneous (Iv Fluids Completed) 1 ea PRN PRN N/A 12/25/16 14:15 12/25/17 14:14 Albuterol/ Ipratropium (Duoneb) 3 ml Q4R INH 12/26/16 12:00 01/25/17 11:59 12/31/16 07:09 3 ML Albuterol Sulfate (Ventolin 0.083% 2.5MG/3ML Neb) 2.5 mg Q2HWA PRN INH 12/26/16 10:30 01/24/17 11:44 12/30/16 01:38 2.5 MG Ketorolac Tromethamine (Toradol Inj) 15 mg Q6H PRN IV 12/26/16 16:00 12/31/16 15:59 12/30/16 19:48 15 MG Buspirone HCl (Buspar Tab) 5 mg TID PO 12/27/16 14:00 01/26/17 13:59 Future Hold 12/28/16 20:11 5 MG Acetaminophen (Tylenol Soln) 650 mg Q4H PRN PO 12/27/16 23:15 01/26/17 23:14 Future Hold Ketorolac Tromethamine (Toradol Inj) 30 mg Q6H PRN IM 12/27/16 23:30 01/01/17 23:14 12/30/16 14:14 30 MG Vancomycin HCl 750 mg/Sodium Chloride 265 ml @ 125 mls/hr Q14H IV 12/29/16 22:00 01/05/17 21:59 12/31/16 01:39 125 MLS/HR Vancomycin HCl (Consult) 1 ea UD PRN N/A 12/29/16 08:00 01/28/17 07:59 Morphine Sulfate (MoRPHine SULFATE INJ) 2 mg Q4H PRN IV 12/29/16 08:00 01/12/17 07:59 12/31/16 04:29 2 MG Imipenem/ Cilastatin Sodium (Consult) 1 ea UD PRN N/A 12/29/16 10:00 01/28/17 09:59 Imipenem/ Cilastatin Sodium 500 mg/Dextrose 110 ml @ 110 mls/hr Q6H IV 12/29/16 10:00 01/05/17 09:59 12/31/16 04:28 110 MLS/HR Acetaminophen 650 mg/Empty Bag 65 ml @ 260 mls/hr Q6H PRN IV 12/29/16 16:00 01/28/17 15:59 Aspirin (Aspirin Supp) 300 mg DAILY VT 12/30/16 09:00 01/29/17 08:59 12/30/16 08:53 300 MG Fluconazole/ Sodium Chloride 200 mg/Prmx 100 ml @ 100 mls/hr DAILY@1800 IV 12/29/16 18:00 01/05/17 17:59 12/30/16 17:30 100 MLS/HR Ranitidine HCl 50 mg/Dextrose 102 ml @ 200 mls/hr Q8H IV 12/29/16 18:00 01/28/17 17:59 12/31/16 01:29 200 MLS/HR Methylprednisolone Sodium Succinate 40 mg/Syringe 0.64 ml @ 1.5 mls/min Q12H IV 12/31/16 02:00 01/30/17 01:59 12/31/16 01:29 1.5 MLS/MIN Physical Exam Date Time Temp Pulse Resp B/P (MAP) Pulse Ox O2 Delivery O2 Flow Rate FiO2 12/31/16 07:09 77 20 94 Nasal Cannula 2.0 12/31/16 04:00 98 Nasal Cannula 2.0 12/31/16 04:00 36.0 83 20 135/81 (99) 94 Nasal Cannula 2.0 12/31/16 03:24 82 20 100 Nasal Cannula 2.0 12/30/16 23:59 98 Nasal Cannula 2.0 12/30/16 23:59 36.1 87 22 119/76 (90) 98 Nasal Cannula 2.0 12/30/16 20:00 36.7 87 18 96/70 (79) 98 Nasal Cannula 2.0 12/30/16 20:00 98 Nasal Cannula 2.0 12/30/16 19:08 95 20 90 Nasal Cannula 2.0 12/30/16 16:00 97 Nasal Cannula 2.0 12/30/16 16:00 36.3 76 17 104/70 (81) 93 Nasal Cannula 2.0 12/30/16 15:01 90 20 95 Nasal Cannula 2.0 12/30/16 12:00 Nasal Cannula 2.0 12/30/16 12:00 36.6 86 19 86/59 (68) 97 Nasal Cannula 2.0 12/30/16 11:30 85 20 94 Nasal Cannula 2.0 General Appearance: no apparent distress, + pertinent finding (chronically ill appearing and deconditioned) ENT: hearing grossly normal, + pertinent finding (large tongue protrudes) Neck: supple, no JVD Respiratory: no respiratory distress, no accessory muscle use, + decreased breath sounds (LLL), + crackles (RLL), + pertinent finding (difficult lung assessment due to position in bed) Cardiovascular: regular rate, rhythm, + pertinent finding (+3 pitting edema to bilateral feet and ankles) Abdomen: normal bowel sounds, non tender, soft Neurologic/Psychiatric: alert, normal mood/affect, oriented x 3, + pertinent finding (speech is garbled and difficult to understand) Laboratory Results Last 24 Hours Test 12/31/16 01:40 Sodium Level 140 mmol/L Potassium Level 4.1 mmol/L Chloride Level 107 mmol/L Carbon Dioxide Level 25 mmol/L Anion Gap 8.0 mmol/L Blood Urea Nitrogen 15 mg/dl Creatinine 0.39 mg/dl Est Creatinine Clear Calc Drug Dose 118.3 ml/min Estimated GFR () 130.5 Estimated GFR (Non- 112.6 BUN/Creatinine Ratio 39.6 Random Glucose 96 mg/dl Calcium Level 8.0 mg/dl Magnesium Level 2.4 mg/dl Chemistry Specimen Hemolysis Vancomycin Level Trough 19.8 mcg/ml Assessment & Plan Palliative Performance Scale: 20 % Problem list: Pain, left rib Severe deconditioning/weakness Respiratory failure- pneumonia, neuromuscular disorder Aspiration Neuromuscular/neurodegenerative disorder- ?myopathy/polymyopathy COPD, severe Anemia Anxiety/depression Oral/esophageal candidiasis Goals of care (Z51.5) Palliative care recs: discussed with patient, - Jorge, daughter Lizy and her , son- Kendrick. -Focus is on comfort and quality of life. Patient states she feels like she's being tortured, she just wants to eat. -Discussed artificial feeding vs. eating by mouth- patient and family would like to proceed with allowing comfort feeding by mouth despite the risk of aspiration. We talked about PEG tubes and that patient is a poor candidate to undergo that procedure given her respiratory status. They verbalized understanding. -They would like to continue course of antibiotics, but not place central line at this time. -I would recommend transferring out of telemetry to private room on medical floor. She will need SNF placement when discharged, and we can discuss later whether or not that will be with hospice. I did discuss this with the patient and family-- that she likely will not be able to go home given her deconditioning and need for total care at this point. They agreed. -Could transition morphine to Roxanol Q3h PRN if anticipating discharge. Patient continues to have left sided chest/rib pain. Morphine helps. Thank you for consulting me on this nice patient and her family. I will follow.
[2016-12-31] MEDS ORDERED: FUROSEMIDE INJ 20 MG in SYRINGE 0 ML IV ONE (09:45)
--- NOTE | 2016-12-31 14:15 | Pharmacy Progress Note ---
Pharmacy Abx Dose Short Note Date of Service Dec 31, 2016. Assessment & Plan VANCOMYCIN * Vancomycin trough level drawn this morning prior to the third maintenance dose. Trough level: 19.8mcg/mL * Based on documented time of vanc administration/lab draw, it appears possible that this level was obtained while vanc dose infusing. * Will re-assess trough level tomorrow morning and adjust regimen if needed at that time. Pharmacy will continue to follow and will adjust dose/frequency as necessary. Thank you.
--- NOTE | 2016-12-31 16:01 | Hospitalist Progress Note ---
Hospitalist Progress Note Date of Service Dec 31, 2016. (Ambar Shaw ., SWETHA) Subjective Pt evaluation today including: conversation w/ patient, physical exam, chart review, lab review, review of inpatient medication list Patient reports feeling the same. She complains of her normal pleuritic chest pain. She still complains of "hunger pains" and feeling nauseous because she is hungry. Pt and her family met with palliative care and want to try comfort feedings. The patient denies fevers, chills, sweats, palpitations, claudication , cough, wheezing, shortness of breath, vomiting, dysuria, hematuria, urinary retention, paralysis, weakness, numbness and tingling. Additional Comments: See HPI for pertinent positives and negatives. All other systems reviewed and negative. (Ambar Shaw PA-C) Objective Vital Signs Date Time Temp Pulse Resp B/P (MAP) Pulse Ox O2 Delivery O2 Flow Rate FiO2 12/31/16 14:23 95 18 100 Nasal Cannula 2.0 12/31/16 12:00 97 Nasal Cannula 2.0 12/31/16 11:17 79 20 96 Nasal Cannula 2.0 12/31/16 08:00 36.5 98 15 106/70 (82) 97 Nasal Cannula 2.0 12/31/16 08:00 97 Nasal Cannula 2.0 12/31/16 07:09 77 20 94 Nasal Cannula 2.0 12/31/16 04:00 98 Nasal Cannula 2.0 12/31/16 04:00 36.0 83 20 135/81 (99) 94 Nasal Cannula 2.0 12/31/16 03:24 82 20 100 Nasal Cannula 2.0 12/30/16 23:59 98 Nasal Cannula 2.0 12/30/16 23:59 36.1 87 22 119/76 (90) 98 Nasal Cannula 2.0 12/30/16 20:00 36.7 87 18 96/70 (79) 98 Nasal Cannula 2.0 12/30/16 20:00 98 Nasal Cannula 2.0 12/30/16 19:08 95 20 90 Nasal Cannula 2.0 12/30/16 16:00 97 Nasal Cannula 2.0 12/30/16 16:00 36.3 76 17 104/70 (81) 93 Nasal Cannula 2.0 (Shaw, Ambar ., PA-C) Physical Exam Notes: General appearance: +Appears chronically ill. Well-developed, well-nourished, no apparent distress Head: Normocephalic, atraumatic Eyes: Normal inspection, PERRL, EOMI ENT: Normal ENT inspection, hearing grossly normal, pharynx normal Neck: Supple, no JVD, trachea midline Respiratory/Chest: +Decreased breath sounds. Exam limited due to loud upper airway sounds. Lungs clear to auscultation Cardiovascular: Regular rate & rhythm, no gallop, no murmur Abdomen/GI: Normal bowel sounds, non-tender, soft Extremities/Musculoskeletal: +Upper extremity contractures, muscle atrophy. 1- 2+ pitting edema. Neurological/Psych: Alert, normal mood/affect, oriented x 3 Skin: +Ecchymoses. Normal color, warm/dry, no rash (Ambar Shaw PA-C) Laboratory Results Last 24 Hours Test 12/31/16 01:40 Sodium Level 140 mmol/L Potassium Level 4.1 mmol/L Chloride Level 107 mmol/L Carbon Dioxide Level 25 mmol/L Anion Gap 8.0 mmol/L Blood Urea Nitrogen 15 mg/dl Creatinine 0.39 mg/dl Est Creatinine Clear Calc Drug Dose 118.3 ml/min Estimated GFR () 130.5 Estimated GFR (Non- 112.6 BUN/Creatinine Ratio 39.6 Random Glucose 96 mg/dl Calcium Level 8.0 mg/dl Magnesium Level 2.4 mg/dl Chemistry Specimen Hemolysis Vancomycin Level Trough 19.8 mcg/ml (Ambar Shaw PA-C) Assessment and Plan 61 y/o female with a history of HLD, chronic diastolic CHF, COPD, DM II, anxiety /depression who presents with shortness of breath Acute/chronic hypoxic respiratory failure, LLL PNA - ongoing -Transfer to med/surg. Convert to full admission. Transferred to tele 12/29 due to worsening hypoxia. Transfer back to med/surg 12/31 for more comfort -Likely mucous plugging that led to hypoxia, pleuritic chest/rib pain may also contribute to feeling of SOB -May have small amount of acute on chronic diastolic CHF but did not have much UO with Lasix, so more likely mucous related -Continue nebs q4h -Continue Solu-Medrol 40 mg IV q12h -Flutter valve, incentive spirometry, vibration vest -No clear need for repeat abx for pneumonia - appears related to previous and now resolving pneumonia -Frequent mucous plugging and weakness, ?SNF vs LTAC. Case management following -Consult pulmonology, appreciate recs: Continue abx and bronchodilators. Taper steroids as tolerated. She should have negative inspiratory force and Vital capacity done by respiratory to assess respiratory weakness. BiPAP prn. -Pt w/jyothi and silent aspiration on video swallow, recommend strict NPO -ENT performed laryngoscopy due to concern of a mass on video swallow, this was normal -CXR with developing LLL infiltrate -Continue Primaxin and vancomycin. Day # 3. Infectious disease consulted, agree w/abx. Continue 5-7 days COPD, severe -Continues nebs, steroids as above -Continue Pulmicort BID B/l lung nodules - in light of significant smoking history will need CT surveillance as outpatient. High risk of malignancy. Anemia 2nd to folic acid def--stable -Hold folic acid and iron Pleuritic chest pain/rib pain--ongoing -Toradol 30 mg IV q6h prn pain -Voltaren gel QID to chest Anxiety, depression -Hold Paxil 40 mg PO qd, Remeron 45 mg PO qd, Buspirone 5 mg PO TID and Risperdal 1 mg PO hs Oral vs esophageal candidiasis -Diflucan converted to 200 mg IV qd. Day #18 of 21 Severe deconditioning -PT/OT evaluate and treat -Came from [facility] for rehab, may need LTAC -Appears to be acute (from acute illness/myopathy/deconditioning) on chronic ( neuromuscular illness that appears to have been part of her current baseline of comorbidities) -Palliative care consulted, appreciate recs: Pt/family want comfort feedings, understand risk of aspiration. Continue abx. Avoid central line placement. Increase morphine to 2 mg IV q3h prn -Spoke with speech regarding comfort feedings. Resume pureed diet Atrial mass - prior hospitalist spoke with cardiology. The echo and CT chest are both c/w lipomatous hypertrophy. -This is NOT a risk factor for stroke. Does not require anticoagulation. ?myopathy +/- polyneuropathy --ongoing -Pt seen by Dr. Parks on 12/17. 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 Plan was to re-evaluate as an outpt for possible EMG and nerve conduction studies -Neuro consulted: Outpt EMG, repeat head CT -Repeat head CT no change -B12, TSH, etc - normal -No further testing for now but will need ongoing outpt f/u Leukocytosis/UTI--improving -Relates to frailty and prolonged hospital stay, lopez -Abx as above Poor urinary output, h/o chronic diastolic CHF--improving -Continue Lasix 20 mg IV qd DM II--unknown last HgbA1c -Continue Lantus 10 units SC qam -Sugars very well controlled w/Lantus alone -Check BSGs q ac and qhs -HgbA1c 5.5 on 12/28 HLD, h/o CVA -Hold Lipitor and ASA DVT prophylaxis -Enoxaparin 40 mg SC q24h Code Status -Level I, FULL RESUSCITATION STATUS (Ambar Shaw, SWETHA) Reviewed: Pt Seen/Exam by Me (Gisela Pang MD) History Physician Emergency Telecommunications Dispatcher Supervision Note: I interviewed and examined the patient. Discussed with SUNDAY Shaw and agree with findings and plan as documented in the note. Any exceptions or clarifications are listed here: Pt seems more comfortable today, breathing less labored, still with chronic anterior chest wall pain, asking for morphine. Met with Palliative Care today and discussed comfort feeds despite risk of aspiration. RN reports she had gurgling sounds with feeds this evening but did not seem to notice Vitals reviewed frail, appears much older than given age edentulous, awake, alert, answers questions RRR no mgr lungs with rhonchi throughout, very diminished BS throughout, using some accessory muscles to breathe Abd +BS soft NT ND Ext trace pitting edema feet and legs, 2+ pitting edema arms bilat with purplish ecchymosis right hand; right arm in full extension and wrist in pronation, left wrist in flexed contracture 61 yo female with a history of HLD, chronic diastolic CHF, DM II, anxiety/ depression, and a 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 , polyneuropathy, severe COPD, and here with recurrent hypoxia and acute hypoxemic resp failure after recent admission for PNA, with likely recurrent aspiration PNA With jyothi silent aspiration on Video Swallow, made strict NPO, but now on comfort feeds knowing risk of continued aspiration Will finish out course of antibiotics if PIV hold up Plan for placement with H[facility] next several days Appreciate Palliative Care consultation BiPAP as desired, O2 via NC Morphine IV and/or po prn--> would need to use po to go to NH -continue diuresis with daily lasix -continue Lopez -taper down steroids -is receiving ASA OK for CVA prevention but will consider stopping for comfort purposes Documented by Gisela Pang M.D. (Gisela Pang MD)
--- NOTE | 2016-12-31 18:22 | Infectious Disease Progress Nt ---
Progress Note Date of Service Dec 31, 2016. Subjective Pt evaluation today including: conversation w/ patient, physical exam, chart review, lab review, review of studies, conversation w/ biztalk consultant, review of inpatient medication list patient appears about the same. Still with some chest pain. No fever. Continues to tolerate antibiotics. All Other Systems: Reviewed and Negative Medications Current Inpatient Medications Medications (Trade) Dose Ordered Sig/Marcus Route Start Time Stop Time Status Last Admin Dose Admin Enoxaparin Sodium (Lovenox Inj) 40 mg HS SC 12/25/16 21:00 01/24/17 20:59 12/30/16 21:09 40 MG Al Hydrox/Mg Hydrox/Simethicone (Maalox Max Susp) 15 ml Q4H PRN PO 12/25/16 11:45 01/24/17 11:44 Ondansetron HCl (Zofran Inj) 4 mg Q6H PRN IV 12/25/16 11:45 01/24/17 11:44 Budesonide (Pulmicort Respules 0.5MG/ 2ML Neb Soln) 1 mg BIDR INH 12/25/16 20:00 01/24/17 19:59 12/31/16 07:11 1 MG Diclofenac Sodium (Voltaren 1% Top Gel) 1 appln QID EXT 12/25/16 17:00 01/24/17 16:59 12/31/16 16:38 1 APPLN Insulin Glargine (Lantus Solostar Pen) 10 units QAM SC 12/26/16 09:00 01/25/17 08:59 12/31/16 09:12 5 UNITS Nitroglycerin (Nitro-Dur 0.1 Mg/Hr Patch) 1 patch QAM TD 12/26/16 09:00 01/25/17 08:59 12/31/16 09:13 1 PATCH Miscellaneous (Remove Nitro-Dur Patch) 1 ea DAILY@21 N/A 12/26/16 21:00 01/25/17 20:59 12/30/16 21:08 1 EA Glucose (Glucose 40% Gel) 15-30 GRAMS 15 GRAMS... UD PRN PO 12/25/16 13:00 01/24/17 12:59 Glucose (Glucose Chew Tab) 4-8 Tablets 4 Tabl... UD PRN PO 12/25/16 13:00 01/24/17 12:59 Dextrose (Dextrose 50% 50ML Syringe) 25-50ML OF 50% DW IV FOR... UD PRN IV 12/25/16 13:00 01/24/17 12:59 Glucagon (Glucagon Inj) 1 mg UD PRN SQ 12/25/16 13:00 01/24/17 12:59 Miscellaneous (Iv Fluids Completed) 1 ea PRN PRN N/A 12/25/16 14:15 12/25/17 14:14 Albuterol/ Ipratropium (Duoneb) 3 ml Q4R INH 12/26/16 12:00 01/25/17 11:59 12/31/16 12:00 3 ML Albuterol Sulfate (Ventolin 0.083% 2.5MG/3ML Neb) 2.5 mg Q2HWA PRN INH 12/26/16 10:30 01/24/17 11:44 12/30/16 01:38 2.5 MG Ketorolac Tromethamine (Toradol Inj) 30 mg Q6H PRN IM 12/27/16 23:30 01/01/17 23:14 12/30/16 14:14 30 MG Vancomycin HCl 750 mg/Sodium Chloride 265 ml @ 125 mls/hr Q14H IV 12/29/16 22:00 01/05/17 21:59 12/31/16 16:37 125 MLS/HR Vancomycin HCl (Consult) 1 ea UD PRN N/A 12/29/16 08:00 01/28/17 07:59 Imipenem/ Cilastatin Sodium (Consult) 1 ea UD PRN N/A 12/29/16 10:00 01/28/17 09:59 Imipenem/ Cilastatin Sodium 500 mg/Dextrose 110 ml @ 110 mls/hr Q6H IV 12/29/16 10:00 01/05/17 09:59 12/31/16 16:37 110 MLS/HR Acetaminophen 650 mg/Empty Bag 65 ml @ 260 mls/hr Q6H PRN IV 12/29/16 16:00 01/28/17 15:59 Aspirin (Aspirin Supp) 300 mg DAILY NH 12/30/16 09:00 01/29/17 08:59 12/31/16 09:12 300 MG Fluconazole/ Sodium Chloride 200 mg/Prmx 100 ml @ 100 mls/hr DAILY@1800 IV 12/29/16 18:00 01/05/17 17:59 12/30/16 17:30 100 MLS/HR Ranitidine HCl 50 mg/Dextrose 102 ml @ 200 mls/hr Q8H IV 12/29/16 18:00 01/28/17 17:59 12/31/16 09:12 200 MLS/HR Methylprednisolone Sodium Succinate 40 mg/Syringe 0.64 ml @ 1.5 mls/min Q12H IV 12/31/16 02:00 01/30/17 01:59 12/31/16 15:08 1.5 MLS/MIN Furosemide 20 mg/ Syringe 2 ml @ 4 mls/min DAILY IV 01/01/17 09:00 01/31/17 08:59 Morphine Sulfate (MoRPHine SULFATE INJ) 2 mg Q3H PRN IV 12/31/16 11:45 01/14/17 11:44 12/31/16 14:37 2 MG Objective Vital Signs Date Time Temp Pulse Resp B/P (MAP) Pulse Ox O2 Delivery O2 Flow Rate FiO2 12/31/16 16:00 Nasal Cannula 2.0 12/31/16 14:23 95 18 100 Nasal Cannula 2.0 12/31/16 12:00 97 Nasal Cannula 2.0 12/31/16 11:17 79 20 96 Nasal Cannula 2.0 12/31/16 08:00 36.5 98 15 106/70 (82) 97 Nasal Cannula 2.0 12/31/16 08:00 97 Nasal Cannula 2.0 12/31/16 07:09 77 20 94 Nasal Cannula 2.0 12/31/16 04:00 98 Nasal Cannula 2.0 12/31/16 04:00 36.0 83 20 135/81 (99) 94 Nasal Cannula 2.0 12/31/16 03:24 82 20 100 Nasal Cannula 2.0 12/30/16 23:59 98 Nasal Cannula 2.0 12/30/16 23:59 36.1 87 22 119/76 (90) 98 Nasal Cannula 2.0 12/30/16 20:00 36.7 87 18 96/70 (79) 98 Nasal Cannula 2.0 12/30/16 20:00 98 Nasal Cannula 2.0 12/30/16 19:08 95 20 90 Nasal Cannula 2.0 Physical Exam General Appearance: no apparent distress, + pertinent finding ( Chronically ill-appearing) Eyes: normal inspection, sclerae normal ENT: normal ENT inspection, pharynx normal Neck: supple, no adenopathy, thyroid normal, trachea midline Respiratory/Chest: no respiratory distress, no accessory muscle use, + rhonchi Cardiovascular: regular rate, rhythm, no gallop, no murmur Abdomen: normal bowel sounds, non tender, soft, no organomegaly Extremities: non-tender, no calf tenderness Neurologic/Psychiatric: alert, oriented x 3 Skin: normal color, no rash Lymphatic: no adenopathy Laboratory Results Last 24 Hours Test 12/31/16 01:40 Sodium Level 140 mmol/L Potassium Level 4.1 mmol/L Chloride Level 107 mmol/L Carbon Dioxide Level 25 mmol/L Anion Gap 8.0 mmol/L Blood Urea Nitrogen 15 mg/dl Creatinine 0.39 mg/dl Est Creatinine Clear Calc Drug Dose 118.3 ml/min Estimated GFR () 130.5 Estimated GFR (Non- 112.6 BUN/Creatinine Ratio 39.6 Random Glucose 96 mg/dl Calcium Level 8.0 mg/dl Magnesium Level 2.4 mg/dl Chemistry Specimen Hemolysis Vancomycin Level Trough 19.8 mcg/ml Assessment and Plan Left lower lobe pneumonia in patient with severe COPD and recent ESBL E coli UTI.Video fluoroscopy suggests possibility of recurrent aspiration. Would continue present antibiotics, likely 7 days of therapy. Will follow.
[2016-12-31] MEDS: FLUCONAZOLE / NSS 200 MG in PREMIXED NSS 100 ML IV SCH (18:24)
[2016-12-31] MEDS: ENOXAPARIN 40 MG/0.4 ML SYR SC SCH (20:44)
[2017-01-01] VITALS (8 sets, daily range): BP systolic 73–85; BP diastolic 50–54; PULSE 60–89; O2SAT 91–98
[2017-01-01] MEDS: MoRPHine SULFATE 2 MG/ML CARP IV PRN ×5 (00:31→20:56)
[2017-01-01] MEDS: METHYLPREDNISOLONE IV 40 MG in SYRINGE 0 ML IV SCH ×2 (02:14→13:20)
[2017-01-01] MEDS: RANITIDINE IV 50 MG in DEXTROSE 5% 100ML 100 ML IV SCH ×2 (02:14→10:00)
[2017-01-01] MEDS: ALBUT/IPRATROP 3MG/0.5MG NEB 3 ML VIAL INH SCH ×3 (03:13→11:13)
[2017-01-01] MEDS: IMIPENEM/CILASTATIN IV 500 MG in D5W 100ML IV SCH (03:48)
[2017-01-01] MEDS: VANCOMYCIN INJ 750 MG in SODIUM CHLORIDE 0.9% 250ML 250 ML IV SCH (05:09)
[2017-01-01] MEDS ORDERED: VANCOMYCIN TROUGH SCH (05:30)
[2017-01-01] MEDS: MoRPHine SULFATE 5 MG/0.25 ML UDP PO PRN ×3 (06:12→23:34)
[2017-01-01] MEDS: BUDESONIDE 0.5 MG/2 ML VIAL (PULMICORT) INH SCH (06:59)
--- NOTE | 2017-01-01 07:00 | Progress Note ---
Progress Note Date of Service Jan 01, 2017. Progress Note Notified that antibiotics are not running at this time Patient still has a peripheral IV I instructed to hold IV antibiotics at this time; day team will assess further needs.
[2017-01-01] MEDS ORDERED: FUROSEMIDE INJ 20 MG in SYRINGE 0 ML IV SCH (09:00)
[2017-01-01] MEDS: NITROGLYCERIN 0.1 MG/HR PATCH TD SCH (09:00)
[2017-01-01] MEDS: INSULIN GLARGINE SOLOSTAR 100 UNITS/ML 3 ML PEN SC SCH (09:00)
[2017-01-01] MEDS: ASPIRIN 300 MG SUPP PR SCH (09:00)
[2017-01-01] MEDS: DICLOFENAC SOD 1% GEL 100 GM TUBE EXT SCH ×5 (10:22→20:56)
--- NOTE | 2017-01-01 12:44 | Hospitalist Progress Note ---
Hospitalist Progress Note Date of Service Jan 01, 2017. (Ambar Shaw ., DIANC) Subjective Pt evaluation today including: conversation w/ patient, physical exam, chart review, lab review, conversation w/ rehab consultant (spoke with Natacha Freeman), review of inpatient medication list Patient complains of her usual pleuritic chest pain, as well as diffuse abdominal pain. Despite being allowed to have comfort feedings, the patient has not eaten anything. She denies feeling hungry now, however. She states she has a non-productive cough. The patient complains of numbness and weakness all over her body. The patient denies fevers, chills, sweats, palpitations, claudication, wheezing, shortness of breath, nausea, vomiting, dysuria, hematuria, urinary retention, paralysis. Additional Comments: See HPI for pertinent positives and negatives. All other systems reviewed and negative. (Ambar Shaw ., SUNDAY-C) Objective Vital Signs Date Time Temp Pulse Resp B/P (MAP) Pulse Ox O2 Delivery O2 Flow Rate FiO2 01/01/17 11:15 87 14 91 Nasal Cannula 2.0 01/01/17 10:29 78/50 (59) 01/01/17 10:18 78/50 (59) 01/01/17 08:31 Nasal Cannula 2.0 01/01/17 07:59 60 12 Nasal Cannula 2.0 01/01/17 07:58 89 73/53 (60) 01/01/17 07:01 77 14 91 Nasal Cannula 2.0 01/01/17 03:14 80 18 98 Nasal Cannula 2.0 01/01/17 00:43 Nasal Cannula 2.0 12/31/16 20:00 Nasal Cannula 2.0 12/31/16 19:01 82 18 98 Nasal Cannula 2.0 12/31/16 16:00 Nasal Cannula 2.0 12/31/16 14:23 95 18 100 Nasal Cannula 2.0 (Ambar Shaw ., DIANC) Physical Exam Notes: General appearance: +Appears chronically ill. Well-developed, well-nourished, no apparent distress Head: Normocephalic, atraumatic Eyes: Normal inspection, PERRL, EOMI ENT: Normal ENT inspection, hearing grossly normal, pharynx normal Neck: Supple, no JVD, trachea midline Respiratory/Chest: +Decreased, coarse breath sounds. Exam limited due to loud upper airway sounds. Lungs clear to auscultation Cardiovascular: Regular rate & rhythm, no gallop, no murmur Abdomen/GI: Normal bowel sounds, non-tender, soft Extremities/Musculoskeletal: +Upper extremity contractures, muscle atrophy. 2 + pitting edema. Neurological/Psych: Alert, normal mood/affect, oriented x 3 Skin: +Ecchymoses. Normal color, warm/dry, no rash (Ambar Shaw PA-C) Laboratory Results Last 24 Hours Test 01/01/17 05:30 01/01/17 09:04 01/01/17 11:09 Bedside Glucose 117 mg/dl 107 mg/dl (Ambar Shaw PA-C) Assessment and Plan 61 y/o female with a history of HLD, chronic diastolic CHF, COPD, DM II, anxiety /depression who presents with shortness of breath Acute/chronic hypoxic respiratory failure, LLL PNA - ongoing -Transfer to med/surg. Convert to full admission. Transferred to tele 12/29 due to worsening hypoxia. Transfer back to med/surg 12/31 for more comfort -Likely mucous plugging that led to hypoxia, pleuritic chest/rib pain may also contribute to feeling of SOB -Pt placed on comfort measures. Switch Duonebs to q4h prn SOB/wheezing instead of scheduled. D/C Pulmicort, abx, and steroids -Flutter valve, incentive spirometry, vibration vest -Frequent mucous plugging and weakness, ?SNF vs LTAC. Case management following -Consult pulmonology, appreciate recs: Continue abx and bronchodilators. Taper steroids as tolerated. She should have negative inspiratory force and Vital capacity done by respiratory to assess respiratory weakness. BiPAP prn. -Pt w/jyothi and silent aspiration on video swallow, recommend strict NPO -ENT performed laryngoscopy due to concern of a mass on video swallow, this was normal -CXR with developing LLL infiltrate Hypotension--BP 73/53 this am -Nitro patch d/c'd -Lasix d/c'd -No morphine given since 0600, BP improved to 85/54 -Pt now on comfort measures, will hold off on fluid bolus for BP COPD, severe -Continues nebs, steroids as above -Continue Pulmicort BID B/l lung nodules - in light of significant smoking history will need CT surveillance as outpatient. High risk of malignancy. Anemia 2nd to folic acid def--stable -Hold folic acid and iron Pleuritic chest pain/rib pain--ongoing -Toradol 30 mg IM q6h prn pain -Voltaren gel QID to chest -Roxanol 5 mg PO q3h prn pain Anxiety, depression -Hold Paxil 40 mg PO qd, Remeron 45 mg PO qd, Buspirone 5 mg PO TID and Risperdal 1 mg PO hs Oral vs esophageal candidiasis -Diflucan d/c'd, comfort measures only Severe deconditioning -PT/OT evaluate and treat -Came from [facility] in [place] for rehab, may need LTAC -Appears to be acute (from acute illness/myopathy/deconditioning) on chronic ( neuromuscular illness that appears to have been part of her current baseline of comorbidities) Atrial mass - prior hospitalist spoke with cardiology. The echo and CT chest are both c/w lipomatous hypertrophy. -This is NOT a risk factor for stroke. Does not require anticoagulation. ?myopathy +/- polyneuropathy --ongoing -Pt seen by Dr. Parks on 12/17. 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 Plan was to re-evaluate as an outpt for possible EMG and nerve conduction studies -Neuro consulted: Outpt EMG, repeat head CT -Repeat head CT no change -B12, TSH, etc - normal Leukocytosis/UTI--improving -Relates to frailty and prolonged hospital stay, lopez -Abx held Poor urinary output, h/o chronic diastolic CHF--improving -D/C Lasix due to hypotension. comfort measures DM II--unknown last HgbA1c -D/C Lantus. Pt not eating and not hungry anymore -D/C BSG checks. Pt had to be stuck 3 times just to get 1 reading -HgbA1c 5.5 on 12/28 HLD, h/o CVA -D/C Lipitor and ASA DVT prophylaxis -D/C Lovenox, comfort measures only Code Status -Level V, DO NOT RESUSCITATE Dispo -Very poor prognosis. Palliative care consulted. Asked palliative to see pt and talk to family again today due to worsening condition. Pt will be placed on comfort measures. D/C abx, lab draws, steroids, etc. Switch nebs to prn instead of scheduled. (Ambar Shaw ., PARehanaC) Reviewed: Pt Seen/Exam by Me (Gisela Pang MD) History Physician Bond Runner Supervision Note: I interviewed and examined the patient. Discussed with SUNDAY Shaw and agree with findings and plan as documented in the note. Any exceptions or clarifications are listed here: Hypotensive today, lost PIV and very difficult stick, edematous arms. Pt very tired. Changed to NETWORK SECURITY CONSULTANT today after discussion with me, also Palliative Care PEDIATRICIAN/MEDICAL DOCTOR had d/w family and pt. 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 (Gisela Pang MD)
[2017-01-01] MEDS ORDERED: KETOROLAC TROMETHAMINE 30 MG/ML VIAL IV. PRN (14:15)
--- NOTE | 2017-01-01 15:01 | Palliative Care Progress Note ---
Palliative Care Progress Note Date of Service Jan 01, 2017. Subjective Pt evaluation today including: conversation w/ patient, conversation w/ family , physical exam, chart review, conversation w/ advisor consultant, review of inpatient medication list Pain: 8/10 PO Intake: no appetite, no significant intake today Voiding: lopez catheter in place -Patient is still awake, alert and oriented. -Her breathing is audibly more moist and rhonchorous on exam. -She is having pain in left chest/ribs at 810, has not been able to receive morphine today due to hypotension. SBP was in 70s, did come up to 80s while I was in room. -Took 3 lancets to obtain a blood sugar today. -Patient lost her IV site, could not receive abx today. Did just have another IV placed. Lab was unable to draw a trough vancomycin level. -Patient is tired, and in pain. She states to me that she wants to discontinue all care other than for comfort. I asked, "Are you sure? Do you know what that means?" She said, "Yes I do. I just want to be comfortable until it's time." We discussed that she would no longer have labs drawn, have abx given, or any meds unrelated to comfort. Patient said, "That's what I want." I offered to call her and talk with him about it. She said "Yes. Tell him what I said." -I spoke with patient's , Jorge Ryder, on the phone and told him all of the above. He was tearful, but he is very supportive of his and her decision. He is okay with moving forward on comfort measures only. Review of Systems Constitutional: + weakness ENT: + trouble swallowing Respiratory: + cough, No dyspnea on exertion, No dyspnea at rest Cardiac: + chest pain (unchanged, left chest/rib pain) Abdomen: No pain, No nausea, No vomiting Psychiatric: + problem reported (sad about the situation), No anxiety Objective Vital Signs Date Time Temp Pulse Resp B/P (MAP) Pulse Ox O2 Delivery O2 Flow Rate FiO2 01/01/17 12:00 85/54 (64) 01/01/17 11:15 87 14 91 Nasal Cannula 2.0 01/01/17 10:29 78/50 (59) 01/01/17 10:18 78/50 (59) 9/29/17 08:31 Nasal Cannula 2.0 01/01/17 07:59 60 12 Nasal Cannula 2.0 01/01/17 07:58 89 73/53 (60) 01/01/17 07:01 77 14 91 Nasal Cannula 2.0 01/01/17 03:14 80 18 98 Nasal Cannula 2.0 01/01/17 00:43 Nasal Cannula 2.0 12/31/16 20:00 Nasal Cannula 2.0 12/31/16 19:01 82 18 98 Nasal Cannula 2.0 12/31/16 16:00 Nasal Cannula 2.0 12/31/16 14:23 95 18 100 Nasal Cannula 2.0 Physical Exam General Appearance: no apparent distress, + thin, + pertinent finding ( chronically ill-appearing) ENT: hearing grossly normal Neck: supple, no JVD Respiratory/Chest: no respiratory distress, + accessory muscle use (slight), + crackles (bilateral bases), + rhonchi (throughout all [place]. moist) Cardiovascular: regular rate, rhythm, + normal peripheral pulses Abdomen: normal bowel sounds, non tender, soft Neurologic/Psychiatric: alert, normal mood/affect, oriented x 3 Laboratory Results Last 24 Hours Test 01/01/17 04:44 01/01/17 09:04 01/01/17 11:09 Bedside Glucose 117 mg/dl 107 mg/dl Assessment and Plan Problem list: Pain, left rib Severe deconditioning/weakness Respiratory failure- pneumonia, neuromuscular disorder Aspiration Neuromuscular/neurodegenerative disorder- ?myopathy/polymyopathy COPD, severe Anemia Anxiety/depression Oral/esophageal candidiasis Goals of care (Z51.5) Palliative care recs: Discussed with patient, Jorge, and Ambar Shaw PA-C. -Comfort measures only. -Discontinue labs, abx, and medications unrelated to comfort. -Change breathing treatments to PRN. -Oxygen via nasal cannula for comfort. Patient was previously refusing Bipap. -Continue PRN Roxanol and morphine IV. Would increase frequency of morphine to Q2h for now. Can increase if needed. -Continue Zofran and Diclofenac gel. -Patient is not stable for transfer at this time. Thank you again for consulting me on this nice patient and her family. Palliative Performance Scale: 10 % Continued [facility] stay due to: inadequate oral pain control, multiple IV medications needed, home environment unsafe for pt Discharge planning: uncertain
[2017-01-01] MEDS ORDERED: ALBUT/IPRATROP 3MG/0.5MG NEB 3 ML VIAL INH PRN (16:00)
--- NOTE | 2017-01-01 16:42 | Infectious Disease Progress Nt ---
Progress Note Date of Service Jan 01, 2017. Subjective Pt evaluation today including: conversation w/ patient, physical exam, chart review, lab review, review of studies, conversation w/ data processing systems consultant, review of inpatient medication list complaining of chest pain, rated 8/10 in intensity. Breathing somewhat more labored. Remains afebrile. Difficulty with IV access. All Other Systems: Reviewed and Negative Medications Current Inpatient Medications Medications (Trade) Dose Ordered Sig/Marcus Route Start Time Stop Time Status Last Admin Dose Admin Al Hydrox/Mg Hydrox/Simethicone (Maalox Max Susp) 15 ml Q4H PRN PO 12/25/16 11:45 01/24/17 11:44 Ondansetron HCl (Zofran Inj) 4 mg Q6H PRN IV 12/25/16 11:45 01/24/17 11:44 Diclofenac Sodium (Voltaren 1% Top Gel) 1 appln QID EXT 12/25/16 17:00 01/24/17 16:59 01/01/17 15:41 1 APPLN Glucose (Glucose 40% Gel) 15-30 GRAMS 15 GRAMS... UD PRN PO 12/25/16 13:00 01/24/17 12:59 Glucose (Glucose Chew Tab) 4-8 Tablets 4 Tabl... UD PRN PO 12/25/16 13:00 01/24/17 12:59 Dextrose (Dextrose 50% 50ML Syringe) 25-50ML OF 50% DW IV FOR... UD PRN IV 12/25/16 13:00 01/24/17 12:59 Glucagon (Glucagon Inj) 1 mg UD PRN SQ 12/25/16 13:00 01/24/17 12:59 Miscellaneous (Iv Fluids Completed) 1 ea PRN PRN N/A 12/25/16 14:15 12/25/17 14:14 Acetaminophen 650 mg/Empty Bag 65 ml @ 260 mls/hr Q6H PRN IV 12/29/16 16:00 01/28/17 15:59 Morphine Sulfate (MoRPHine SULFATE INJ) 2 mg Q3H PRN IV 12/31/16 11:45 01/14/17 11:44 01/01/17 15:41 2 MG Morphine Sulfate (Roxanol Oral Soln) 5 mg Q3H PRN PO 12/31/16 19:00 01/14/17 18:59 01/01/17 06:12 5 MG Albuterol/ Ipratropium (Duoneb) 3 ml Q4R PRN INH 01/01/17 16:00 01/25/17 11:59 Ketorolac Tromethamine (Toradol Inj) 30 mg Q6H PRN IV. 01/01/17 14:15 01/01/17 23:14 Objective Vital Signs Date Time Temp Pulse Resp B/P (MAP) Pulse Ox O2 Delivery O2 Flow Rate FiO2 01/01/17 12:00 85/54 (64) 01/01/17 11:15 87 14 91 Nasal Cannula 2.0 01/01/17 10:29 78/50 (59) 01/01/17 10:18 78/50 (59) 01/01/17 08:31 Nasal Cannula 2.0 01/01/17 07:59 60 12 Nasal Cannula 2.0 01/01/17 07:58 89 73/53 (60) 01/01/17 07:01 77 14 91 Nasal Cannula 2.0 01/01/17 03:14 80 18 98 Nasal Cannula 2.0 01/01/17 00:43 Nasal Cannula 2.0 12/31/16 20:00 Nasal Cannula 2.0 12/31/16 19:01 82 18 98 Nasal Cannula 2.0 Physical Exam General Appearance: + mild distress, + pertinent finding ( Chronically ill- appearing) Eyes: normal inspection, EOMI, sclerae normal ENT: normal ENT inspection, pharynx normal Neck: supple, no adenopathy, trachea midline Respiratory/Chest: chest non-tender, + respiratory distress, + rhonchi Cardiovascular: regular rate, rhythm, no gallop, no murmur Abdomen: normal bowel sounds, non tender, soft, no organomegaly Extremities: non-tender, no calf tenderness Neurologic/Psychiatric: alert, oriented x 3 Skin: normal color, no rash Lymphatic: no adenopathy Laboratory Results Last 24 Hours Test 01/01/17 04:44 01/01/17 09:04 01/01/17 11:09 Bedside Glucose 117 mg/dl 107 mg/dl Assessment and Plan Left lower lobe pneumonia in patient with severe COPD and recent ESBL E coli UTI.Video fluoroscopy suggests possibility of recurrent aspiration. Patient on comfort care measures, will discuss with all involved.
[2017-01-02] MEDS: MoRPHine SULFATE 2 MG/ML CARP IV PRN ×6 (01:58→21:13)
[2017-01-02] MEDS: MoRPHine SULFATE 5 MG/0.25 ML UDP PO PRN ×2 (04:42→23:21)
[2017-01-02] MEDS: DICLOFENAC SOD 1% GEL 100 GM TUBE EXT SCH ×4 (10:13→21:12)
--- NOTE | 2017-01-02 14:09 | Hospitalist Progress Note ---
Hospitalist Progress Note Date of Service Jan 02, 2017. Subjective Pt evaluation today including: conversation w/ patient Pt having 8/10 pain in chest but just received morphine. She is wanting to be repositioned. Otherwise denies complaints. Is on comfort measures only now. Has not eaten and says she does not feel like eating. Had a BM today All Other Systems: Reviewed and Negative Objective Vital Signs Date Time Temp Pulse Resp B/P (MAP) Pulse Ox O2 Delivery O2 Flow Rate FiO2 01/02/17 08:00 Nasal Cannula 2.0 01/02/17 00:00 Nasal Cannula 2.0 01/01/17 16:00 Nasal Cannula 2.0 Physical Exam General Appearance: no apparent distress (very debilitated and appears much older than stated age), + thin Eyes: sclerae normal ENT: hearing grossly normal Neck: trachea midline Respiratory/Chest: no respiratory distress, no accessory muscle use, + decreased breath sounds (throughout, coarse BS throughout) Cardiovascular: regular rate, rhythm, + pertinent finding (2+ pitting edema arms and legs) Abdomen: normal bowel sounds, non tender, soft Extremities: + swelling (as above) Neurologic/Psychiatric: alert, normal mood/affect Skin: + pertinent finding (multiple areas of ecchymosis, right forearm wrapped in kerlix) Assessment and Plan Pt is a very pleasant 61 yo female with a history of HLD, chronic diastolic CHF , DM II, anxiety/depression, and 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 With jyothi silent aspiration on Video Swallow, made strict NPO, but now on comfort feeds knowing risk of continued aspiration. After loss of IV access with great difficulty obtaining another PIV, painful sticks and inability to get labs, glucose checks, pt desired comfort care. Palliative Care Consultation appreciated dc all abx, is now on Comfort Measures Only Appreciate Palliative Care consultation O2 via NC for comfort Morphine po and IV prn -continue Lopez Acute/chronic hypoxic respiratory failure, LLL PNA -now on comfort measures, no further antibiotics Previously on BiPAP for support after had persistent intermittent hypoxia to the 70s. 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 Switch Duonebs to q4h prn SOB/wheezing instead of scheduled. 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 The echo and CT chest are both c/w lipomatous hypertrophy. -This is NOT a risk factor for stroke. 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 Parks on 12/17. 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 Plan was to re-evaluate as an outpt for possible EMG and nerve conduction studies -Neuro consulted: Outpt EMG recommended but now not necessary, repeat head CT neg for new CVA -B12, TSH, etc - normal Leukocytosis/UTI--improving -Relates to frailty and prolonged hospital stay, lopez -Abx held Poor urinary output, h/o chronic diastolic CHF -D/C Lasix due to hypotension. comfort measures DM II-- -D/C Lantus. Pt not eating and not hungry anymore -D/C BSG checks. Pt had to be stuck 3 times just to get 1 reading -HgbA1c 5.5 on 12/28 HLD, h/o CVA -D/C Lipitor and ASA DVT prophylaxis -D/C Lovenox, comfort measures only Code Status -Level V, DO NOT RESUSCITATE Dispo -Very poor prognosis. Palliative care consulted. Pt now on comfort measures. Not stable for transfer to [place]
[2017-01-03] MEDS: MoRPHine SULFATE 2 MG/ML CARP IV PRN ×6 (01:48→23:07)
[2017-01-03 02:16] LABS: ACETYLCHOLINE RECEP MODULATING <1; ACETYLCHOLINE RECEPT BLOCKING <15 % inhibit (<15); RECEPTOR BINDING AB <0.30 nmol/L (<=0.30)
[2017-01-03] MEDS: MoRPHine SULFATE 5 MG/0.25 ML UDP PO PRN ×4 (03:48→19:46)
[2017-01-03] MEDS: DICLOFENAC SOD 1% GEL 100 GM TUBE EXT SCH ×4 (07:42→21:21)
--- NOTE | 2017-01-03 11:20 | Hospitalist Progress Note ---
Hospitalist Progress Note Date of Service Jan 03, 2017. Subjective Pt evaluation today including: conversation w/ patient Pt c/o pain in chest and would like something for pain, says her breathing feels fine, no abd pain. RN reports increased secretions and requesting scopolamine patch All Other Systems: Reviewed and Negative Objective Vital Signs Date Time Temp Pulse Resp B/P (MAP) Pulse Ox O2 Delivery O2 Flow Rate FiO2 01/03/17 08:00 Nasal Cannula 2.0 01/03/17 00:00 Nasal Cannula 2.0 01/02/17 15:57 Nasal Cannula 2.0 Physical Exam General Appearance: no apparent distress, + thin (appears much older than age) Eyes: normal inspection, sclerae normal ENT: hearing grossly normal Neck: trachea midline Respiratory/Chest: no respiratory distress, no accessory muscle use, + pertinent finding (some coarse BS anteriorly, no labored breathing) Cardiovascular: regular rate, rhythm Abdomen: normal bowel sounds, non tender, soft Extremities: + swelling (1+ pitting edemaa arms and legs) Neurologic/Psychiatric: alert, normal mood/affect, + pertinent finding (wakes up easily and answers questions) Skin: + pertinent finding (multiple areas of ecchymosis, some mottling on arms) Assessment and Plan Pt is a very pleasant 61 yo female with a history of HLD, chronic diastolic CHF , DM II, anxiety/depression, and 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 With jyothi silent aspiration on Video Swallow, made strict NPO, but now on comfort feeds knowing risk of continued aspiration. After loss of IV access with great difficulty obtaining another PIV, painful sticks and inability to get labs, glucose checks, pt desired comfort care. Palliative Care Consultation appreciated dc'd all abx, is now on Comfort Measures Only Appreciate Palliative Care consultation O2 via NC for comfort Morphine po and IV prn -continue Lopez -add scopolamine patch today Acute/chronic hypoxic respiratory failure, LLL PNA -now on comfort measures, no further antibiotics Previously on BiPAP for support after had persistent intermittent hypoxia to the 70s. 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 Switch Duonebs to q4h prn SOB/wheezing instead of scheduled. 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 The echo and CT chest are both c/w lipomatous hypertrophy. -This is NOT a risk factor for stroke. 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 Parks on 12/17. 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 Plan was to re-evaluate as an outpt for possible EMG and nerve conduction studies -Neuro consulted: Outpt EMG recommended but now not necessary, repeat head CT neg for new CVA -B12, TSH, etc - normal Leukocytosis/UTI--improving -Relates to frailty and prolonged hospital stay, lopez -Abx held Poor urinary output, h/o chronic diastolic CHF -D/C Lasix due to hypotension. comfort measures DM II-- -D/C Lantus. Pt not eating and not hungry anymore -D/C BSG checks. Pt had to be stuck 3 times just to get 1 reading -HgbA1c 5.5 on 12/28 HLD, h/o CVA -D/C Lipitor and ASA DVT prophylaxis -D/C Lovenox, comfort measures only Code Status -Level V, DO NOT RESUSCITATE Dispo -Very poor prognosis. Palliative care consulted. Pt now on comfort measures. Not stable for transfer to [place]
[2017-01-03] MEDS ORDERED: SCOPOLAMINE 1.5 MG TDSY TD SCH (12:00)
[2017-01-03] MEDS: CHECK SCOPOLAMINE PATCH PLACEMENT SCH ×2 (16:00→23:57)
[2017-01-04] MEDS: MoRPHine SULFATE 5 MG/0.25 ML UDP PO PRN ×4 (02:07→18:58)
[2017-01-04] MEDS: MoRPHine SULFATE 2 MG/ML CARP IV PRN ×8 (04:44→16:37)
[2017-01-04] MEDS: DICLOFENAC SOD 1% GEL 100 GM TUBE EXT SCH ×4 (07:39→20:34)
[2017-01-04] MEDS: CHECK SCOPOLAMINE PATCH PLACEMENT SCH ×2 (07:39→15:37)
--- NOTE | 2017-01-04 12:12 | Hospitalist Progress Note ---
Hospitalist Progress Note Date of Service Jan 04, 2017. (Allison Partida ., DIANC) Subjective Pt evaluation today including: conversation w/ patient, conversation w/ family , physical exam, lab review, review of studies, review of inpatient medication list Voiding: lopez catheter in place (concentrated yellow urine ) Patient resting in bed. No signs of acute distress. Oriented- able to state name, location, year. Comfort eating. Lopez placed. Admits to neck discomfort secondary to position- repositioned, states relief. Admits to ongoing central chest discomfort. States breathing feels at baseline. Limited ROS secondary to MUSIC THERAPY SPECIALIST. (Allison Partida ., DIANC) Medications Current Inpatient Medications Medications (Trade) Dose Ordered Sig/Marcus Route Start Time Stop Time Status Last Admin Dose Admin Al Hydrox/Mg Hydrox/Simethicone (Maalox Max Susp) 15 ml Q4H PRN PO 12/25/16 11:45 01/24/17 11:44 Ondansetron HCl (Zofran Inj) 4 mg Q6H PRN IV 12/25/16 11:45 01/24/17 11:44 Diclofenac Sodium (Voltaren 1% Top Gel) 1 appln QID EXT 12/25/16 17:00 01/24/17 16:59 01/03/17 21:21 1 APPLN Glucose (Glucose 40% Gel) 15-30 GRAMS 15 GRAMS... UD PRN PO 12/25/16 13:00 01/24/17 12:59 Glucose (Glucose Chew Tab) 4-8 Tablets 4 Tabl... UD PRN PO 12/25/16 13:00 01/24/17 12:59 Dextrose (Dextrose 50% 50ML Syringe) 25-50ML OF 50% DW IV FOR... UD PRN IV 12/25/16 13:00 01/24/17 12:59 Glucagon (Glucagon Inj) 1 mg UD PRN SQ 12/25/16 13:00 01/24/17 12:59 Miscellaneous (Iv Fluids Completed) 1 ea PRN PRN N/A 12/25/16 14:15 12/25/17 14:14 Acetaminophen 650 mg/Empty Bag 65 ml @ 260 mls/hr Q6H PRN IV 12/29/16 16:00 01/28/17 15:59 Morphine Sulfate (MoRPHine SULFATE INJ) 2 mg Q3H PRN IV 12/31/16 11:45 01/14/17 11:44 01/04/17 10:34 2 MG Morphine Sulfate (Roxanol Oral Soln) 5 mg Q3H PRN PO 12/31/16 19:00 01/14/17 18:59 01/04/17 08:53 5 MG Albuterol/ Ipratropium (Duoneb) 3 ml Q4R PRN INH 01/01/17 16:00 01/25/17 11:59 Scopolamine (Transderm-Scop Patch) 1.5 mg Q72H TD 01/03/17 12:00 02/02/17 11:59 01/03/17 12:10 1.5 MG Miscellaneous (Remove Transderm-Scop Patch) 1 ea Q72H N/A 01/06/17 11:59 02/05/17 11:58 Miscellaneous Information (Check Scopolamine Patch Placement) 1 ea QS N/A 01/03/17 16:00 02/02/17 15:59 01/04/17 07:39 1 EA (Allison Partida ., PA-C) Objective Vital Signs Date Time Temp Pulse Resp B/P (MAP) Pulse Ox O2 Delivery O2 Flow Rate FiO2 01/04/17 08:00 Nasal Cannula 2.0 01/04/17 00:00 Nasal Cannula 2.0 01/03/17 16:01 Nasal Cannula 2.0 (Allison Partida, PA-C) Physical Exam General Appearance: no apparent distress, + thin, + pertinent finding (2L O2 NC ) Eyes: PERRL ENT: hearing grossly normal Neck: supple Respiratory/Chest: no respiratory distress, no accessory muscle use, + pertinent finding (Course breath sounds throughout ) Cardiovascular: regular rate, rhythm Abdomen: normal bowel sounds, non tender, soft Extremities: + pertinent finding (waffle boots on; multiple areas of bruising to bilateral upper/lower extremities, hands, and chest region ) Neurologic/Psychiatric: alert Skin: warm/dry, no rash (Allison Partida, SUNDAY-C) Assessment and Plan Patient is a very pleasant 61 yo female with a history of HLD, chronic diastolic CHF, DM II, anxiety/depression, and 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 With jyothi silent aspiration on Video Swallow, made strict NPO, but now on comfort feeds knowing risk of continued aspiration. After loss of IV access with great difficulty obtaining another PIV, painful sticks and inability to get labs, glucose checks, pt desired comfort care. Palliative Care Consultation appreciated COMFORT MEASURES ONLY as of 01/01- severe deconditioning/weakness- neuromuscular/ neurodegenerative disorder, respiratory failure- PNA, COPD, aspiration: - Palliative care consulted, appreciate recommendations - All antibiotics discontinued - Continue Lopez - Comfort feedings - O2, Scopolamine patch, DuoNebs PRN, Morphine IV/PO PRN Acute/chronic hypoxic respiratory failure, LLL PNA, recurrent aspiration from neuromuscular weakness: Treatment discontinued- MUSIC THERAPY SPECIALIST - Treated w/ BiPAP, O2 protocol, DuoNebs/inhalers, antibiotics, and steroids - ENT performed laryngoscopy due to concern of mass of video swallow- unremarkable Hypotension: Treatment discontinued- MUSIC THERAPY SPECIALIST - Nitro patch and Lasix discontinued - Does NOT desire central line or vasopressors- transitioned to MUSIC THERAPY SPECIALIST COPD, bilateral lung nodules: - DuoNebs PRN and O2 - No further follow-up- MUSIC THERAPY SPECIALIST Anemia secondary to folic acid deficiency: Treatment discontinued- MUSIC THERAPY SPECIALIST - Folic acid and iron supplement Pleuritic chest pain/rib pain: Roxanol 5 mg PO q3h PRN pain, IV morphine PRN Anxiety, depression: Treatment discontinued- MUSIC THERAPY SPECIALIST - Paxil 40 mg PO qd, Remeron 45 mg PO qd, Buspirone 5 mg PO TID and Risperdal 1 mg PO hs due to MUSIC THERAPY SPECIALIST Oral vs esophageal candidiasis: Treatment discontinued- MUSIC THERAPY SPECIALIST - Diflucan Severe deconditioning: MUSIC THERAPY SPECIALIST Atrial mass: Treatment/workup discontinued- MUSIC THERAPY SPECIALIST - The ECHO and CT chest are both c/w lipomatous hypertrophy- per cardiology NOT a risk factor for stroke ?myopathy +/- polyneuropathy: Treatment/workup discontinued- MUSIC THERAPY SPECIALIST Leukocytosis/UTI, poor UO: Antibiotics discontinued due to MUSIC THERAPY SPECIALIST h/o chronic diastolic CHF: Treatment discontinued- MUSIC THERAPY SPECIALIST - Lasix T2DM: Treatment discontinued- MUSIC THERAPY SPECIALIST HLD, h/o CVA: Treatment discontinued- MUSIC THERAPY SPECIALIST - Lipitor and ASA DVT prophylaxis: None- MUSIC THERAPY SPECIALIST Code Status: LEVEL V, DO NOT RESUSCITATE Dispo: MUSIC THERAPY SPECIALIST- ?transfer to SNF vs continued hospital stay- CM consulted (Allison Partida ., PA-C) I agree with PA assessment and plan and have seen and examined pt myself Resting comfortably in bed States pain controlled Daughter at bedside Comfort measures only at this time Continue morphine PRN pain Unstable for discharge to SNF at this time (Yvan Holland, D.O.)
[2017-01-04] MEDS ORDERED: NURSING VERBAL MED ORDER ONE ×2 (12:45→17:45)
[2017-01-04] MEDS ORDERED: MoRPHine SULFATE 2 MG/ML CARP IV ONE (13:00)
[2017-01-04] MEDS: CHECK FENTANYL PATCH PLACEMENT SCH (15:37)
[2017-01-04] MEDS: FENTANYL 12 MCG/HR TDSY TD SCH (15:41)
[2017-01-04] MEDS ORDERED: HYDROmorphone INJ 2 MG/ML SYR/VIAL ONE (17:45)
[2017-01-04] MEDS ORDERED: ATROPINE SULFATE 1% OP SOLN 5 ML BTL OP PRN (17:45)
[2017-01-04] MEDS: HYDROmorphone INJ 2 MG/ML SYR/VIAL IV PRN (17:47)
[2017-01-05] MEDS: CHECK FENTANYL PATCH PLACEMENT SCH ×4 (00:16→23:49)
[2017-01-05] MEDS: CHECK SCOPOLAMINE PATCH PLACEMENT SCH ×4 (00:17→23:49)
[2017-01-05 00:30] VITALS: BP 102/60; PULSE 54; TEMP 36.4; O2SAT 94
[2017-01-05] MEDS: HYDROmorphone INJ 2 MG/ML SYR/VIAL IV PRN (02:45)
[2017-01-05 08:00] VITALS: O2SAT 94
[2017-01-05] MEDS: DICLOFENAC SOD 1% GEL 100 GM TUBE EXT SCH ×4 (08:00→21:00)
--- NOTE | 2017-01-05 09:26 | Palliative Care Progress Note ---
Palliative Care Progress Note Date of Service Jan 05, 2017. Subjective Pt evaluation today including: conversation w/ patient, physical exam, chart review, conversation w/ jewelry consultant (Dr. Holland), review of inpatient medication list Pain: "needs to be better" PO Intake: none Voiding: lopez catheter in place -Patient has had marked decline since I saw her before the weekend. -Her breathing is more labored. Secretions are increased. -Pain is not controlled and is requiring increased medications and med changes. -Requiring frequent PRN dosing of IV pain meds. -Received fentanyl patch 12mcg/hr. -In last 24 hours, received: 12mg IV morphine, 4mg IV Dilaudid, 5mg PO Roxanol. -Limited ROS due to patient's condition/discomfort. Review of Systems ENT: + trouble swallowing Respiratory: + shortness of breath, + dyspnea at rest Cardiac: + chest pain, + edema Abdomen: No pain, No nausea, No vomiting Psychiatric: No anxiety Objective Physical Exam General Appearance: + mild distress (increased work of breathing), + pertinent finding (chronically ill-appearing, deconditioned) ENT: hearing grossly normal Neck: no JVD Respiratory/Chest: + rhonchi (extremely moist and coarse throughout all craw[place]) , + pertinent finding (increased secretions noted) Cardiovascular: regular rate, rhythm, no edema, + normal peripheral pulses Abdomen: normal bowel sounds, non tender, soft Neurologic/Psychiatric: alert, normal mood/affect, + pertinent finding ( orientatiaon difficult to assess, is answering questions appropriately) Skin: + pertinent finding (no mottling) Assessment and Plan Problem list: Pain, left rib/chest- uncontrolled Terminal secretions- worsened Dyspnea- uncontrolled Severe deconditioning/weakness Respiratory failure- pneumonia, neuromuscular disorder Aspiration Neuromuscular/neurodegenerative disorder- ?myopathy/polymyopathy COPD, severe Anemia Anxiety/depression Oral/esophageal candidiasis Goals of care (Z51.5) Palliative care recs: Discussed with patient and Dr. Holland -Discontinue Roxanol -Discontinue Dilaudid -Start continuous morphine infusion at 2mg/hr, titrate by 1mg/hr Q15 min as needed for pain/SOB/respiratory distress. Can also give bolus morphine dose of 1mg IV Q1h as needed for SOB/pain/respiratory distress. -Add second scopolamine patch 1.5mg TD Q72h. -Increase atropine drops to 4 drops Q1h PRN secretions. -Comfort measures continue. Unstable for transfer. To have [facility] evaluation [facility]. Thank you again for this consult. I will continue to follow as needed. Palliative Performance Scale: 10 % Continued [facility] stay due to: inadequate oral pain control, multiple IV medications needed, home environment unsafe for pt Discharge planning: uncertain
[2017-01-05] MEDS ORDERED: NURSING VERBAL MED ORDER ONE ×2 (09:30→13:30)
[2017-01-05] MEDS: MORPHINE SULF/NSS 250MG/250ML IV PRN ×2 (10:17→13:50)
[2017-01-05] MEDS: SCOPOLAMINE 1.5 MG TDSY TD SCH (10:17)
--- NOTE | 2017-01-05 12:44 | Progress Note ---
Subjective Date of Service: Jan 05, 2017. Subjective Pt evaluation today including: conversation w/ patient, physical exam, chart review, lab review, review of studies, review of inpatient medication list Pt resting comfortably in bed Looks to be in respiratory distress Speech is inaudible States chest pain is better controlled Problem List Medical Problems: (1) COPD exacerbation Status: Acute (2) Hypoxia Status: Acute Review of Systems Unable to obtain at this time Objective Vital Signs Date Time Temp Pulse Resp B/P (MAP) Pulse Ox O2 Delivery O2 Flow Rate FiO2 01/05/17 08:00 94 Nasal Cannula 2.0 01/05/17 00:30 36.4 54 18 102/60 (74) 94 2.0 01/05/17 00:00 Nasal Cannula 2.0 01/04/17 20:00 Nasal Cannula 2.0 01/04/17 16:00 Nasal Cannula 2.0 Physical Exam General Appearance: WD/WN, + mild distress Eyes: normal inspection, PERRL, EOMI, sclerae normal Neck: supple, no adenopathy, thyroid normal, no JVD Respiratory/Chest: chest non-tender, no accessory muscle use, + decreased breath sounds, + crackles Cardiovascular: no edema, no gallop, no JVD, no murmur, + bradycardia Abdomen: normal bowel sounds, non tender, soft, no organomegaly Extremities: normal range of motion, non-tender, normal inspection, no pedal edema Neurologic/Psychiatric: no motor/sensory deficits, alert Skin: normal color, warm/dry, no rash, + pertinent finding (significant diffuse bleeding) Assessment and Plan Patient is a very pleasant 61 yo female with a history of HLD, chronic diastolic CHF, DM II, anxiety/depression, and 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 With jyothi silent aspiration on Video Swallow, made strict NPO, but now on comfort feeds knowing risk of continued aspiration. After loss of IV access with great difficulty obtaining another PIV, painful sticks and inability to get labs, glucose checks, pt desired comfort care. Palliative Care Consultation appreciated COMFORT MEASURES ONLY as of 01/01- severe deconditioning/weakness- neuromuscular/ neurodegenerative disorder, respiratory failure- PNA, COPD, aspiration: - Palliative care consulted, appreciate recommendations, started on morphine drip in addition to atropine and scopalamine - All antibiotics discontinued - Continue Patricia - Comfort feedings only - O2, DuoNebs PRN - Pt reports pain controlled Acute/chronic hypoxic respiratory failure, LLL PNA, recurrent aspiration from neuromuscular weakness: Treatment discontinued- INFECTION PREVENTION COORDINATOR - Treated w/ BiPAP, O2 protocol, DuoNebs/inhalers, antibiotics, and steroids - ENT performed laryngoscopy due to concern of mass of video swallow- unremarkable Hypotension: Treatment discontinued- INFECTION PREVENTION COORDINATOR - Nitro patch and Lasix discontinued - Does NOT desire central line or vasopressors- transitioned to INFECTION PREVENTION COORDINATOR COPD, bilateral lung nodules: - DuoNebs PRN and O2 - No further follow-up- INFECTION PREVENTION COORDINATOR Anemia secondary to folic acid deficiency: Treatment discontinued- INFECTION PREVENTION COORDINATOR - Folic acid and iron supplement Pleuritic chest pain/rib pain: Roxanol 5 mg PO q3h PRN pain, IV morphine PRN Anxiety, depression: Treatment discontinued- INFECTION PREVENTION COORDINATOR - Paxil 40 mg PO qd, Remeron 45 mg PO qd, Buspirone 5 mg PO TID and Risperdal 1 mg PO hs due to INFECTION PREVENTION COORDINATOR Oral vs esophageal candidiasis: Treatment discontinued- INFECTION PREVENTION COORDINATOR - Diflucan Severe deconditioning: INFECTION PREVENTION COORDINATOR Atrial mass: Treatment/workup discontinued- INFECTION PREVENTION COORDINATOR - The ECHO and CT chest are both c/w lipomatous hypertrophy- per cardiology NOT a risk factor for stroke ?myopathy +/- polyneuropathy: Treatment/workup discontinued- INFECTION PREVENTION COORDINATOR Leukocytosis/UTI, poor UO: Antibiotics discontinued due to INFECTION PREVENTION COORDINATOR h/o chronic diastolic CHF: Treatment discontinued- INFECTION PREVENTION COORDINATOR - Lasix T2DM: Treatment discontinued- INFECTION PREVENTION COORDINATOR HLD, h/o CVA: Treatment discontinued- INFECTION PREVENTION COORDINATOR - Lipitor and ASA DVT prophylaxis: None- INFECTION PREVENTION COORDINATOR Code Status: LEVEL V, DO NOT RESUSCITATE Dispo: INFECTION PREVENTION COORDINATOR- ?transfer to SNF vs continued hospital stay- CM consulted Continued [facility] stay due to: inadequate oral pain control, multiple IV medications needed, home environment unsafe for pt Discharge planning: uncertain
[2017-01-05] MEDS: ATROPINE SULFATE 1% OP SOLN 5 ML BTL OP PRN ×2 (13:29→17:28)
[2017-01-05 16:00] VITALS: O2SAT 94
[2017-01-06] MEDS: DICLOFENAC SOD 1% GEL 100 GM TUBE EXT SCH ×4 (07:18→20:57)
[2017-01-06 08:00] VITALS: O2SAT 94
[2017-01-06] MEDS: CHECK SCOPOLAMINE PATCH PLACEMENT SCH ×2 (08:00→16:36)
[2017-01-06] MEDS: CHECK FENTANYL PATCH PLACEMENT SCH ×2 (08:00→16:36)
--- NOTE | 2017-01-06 11:46 | Palliative Care Progress Note ---
Palliative Care Progress Note Date of Service Jan 06, 2017. Subjective Pt evaluation today including: conversation w/ family (, Yoni), physical exam, chart review, review of inpatient medication list Pain: unable to assess PO Intake: none Voiding: lopez catheter in place -Patient is obtunded, resting peacefully in bed today. No moist respirations, no labored breathing. -Symptoms are controlled at this time with continuous morphine infusion. Review of Systems patient obtunded, unable to obtain ROS Objective Physical Exam General Appearance: no apparent distress Neck: no JVD Respiratory/Chest: lungs clear, no respiratory distress, no accessory muscle use, + pertinent finding (respirations shallow and slow) Cardiovascular: regular rate, rhythm, + pertinent finding (weak pedal pulses) Abdomen: normal bowel sounds, soft Extremities: + pertinent finding (toes and feet are cold today) Neurologic/Psychiatric: + pertinent finding (obtunded) Skin: + mottled (toes are beginning to mottle) Assessment and Plan Problem list: Pain, left rib/chest Terminal secretions Dyspnea Severe deconditioning/weakness Respiratory failure- pneumonia, neuromuscular disorder Aspiration Neuromuscular/neurodegenerative disorder- ?myopathy/polymyopathy COPD, severe Anemia Anxiety/depression Oral/esophageal candidiasis Goals of care (Z51.5) Palliative care recs: Discussed with patient and Dr. Holland -Discontinued Roxanol yesterday -Discontinued Dilaudid yesterday -Continuous morphine infusion currently at 3mg/hr, may titrate by 1mg/hr Q15 min as needed for pain/SOB/respiratory distress. Can also give bolus morphine dose of 1mg IV Q1h as needed for SOB/pain/respiratory distress. -Second scopolamine patch 1.5mg TD Q72h- working as secretions are no longer audible -Atropine drops to 4 drops Q1h PRN secretions. -Comfort measures continue. Unstable for transfer. -Patient will likely at any time. I called the patient's , Yoni, and made him aware. Support given. Yoni stated he would call the daughter, Lizy, and make her aware. Thank you again for this consult. Palliative Performance Scale: 10 % Continued [facility] stay due to: inadequate oral pain control, multiple IV medications needed, home environment unsafe for pt Discharge planning: uncertain
--- NOTE | 2017-01-06 12:01 | Hospitalist Progress Note ---
Hospitalist Progress Note Date of Service Jan 06, 2017. (Allison Partida ., PARehanaC) Subjective Pt evaluation today including: physical exam, review of inpatient medication list Voiding: lopez catheter in place (minimal concentrated urine ) Obtunded. Resting in bed. No signs of acute distress. ROS could not be obtained- CREATIVE DEVELOPER. UO continues to decline. IV Morphine gtt infusing. (Allison Partida ., DIANC) Medications Current Inpatient Medications Medications (Trade) Dose Ordered Sig/Marcus Route Start Time Stop Time Status Last Admin Dose Admin Al Hydrox/Mg Hydrox/Simethicone (Maalox Max Susp) 15 ml Q4H PRN PO 12/25/16 11:45 01/24/17 11:44 Ondansetron HCl (Zofran Inj) 4 mg Q6H PRN IV 12/25/16 11:45 01/24/17 11:44 Diclofenac Sodium (Voltaren 1% Top Gel) 1 appln QID EXT 12/25/16 17:00 01/24/17 16:59 01/03/17 21:21 1 APPLN Glucose (Glucose 40% Gel) 15-30 GRAMS 15 GRAMS... UD PRN PO 12/25/16 13:00 01/24/17 12:59 Glucose (Glucose Chew Tab) 4-8 Tablets 4 Tabl... UD PRN PO 12/25/16 13:00 01/24/17 12:59 Dextrose (Dextrose 50% 50ML Syringe) 25-50ML OF 50% DW IV FOR... UD PRN IV 12/25/16 13:00 01/24/17 12:59 Glucagon (Glucagon Inj) 1 mg UD PRN SQ 12/25/16 13:00 01/24/17 12:59 Miscellaneous (Iv Fluids Completed) 1 ea PRN PRN N/A 12/25/16 14:15 12/25/17 14:14 Acetaminophen 650 mg/Empty Bag 65 ml @ 260 mls/hr Q6H PRN IV 12/29/16 16:00 01/28/17 15:59 Albuterol/ Ipratropium (Duoneb) 3 ml Q4R PRN INH 01/01/17 16:00 01/25/17 11:59 Fentanyl (Duragesic Patch) 12 mcg Q3D@0900 TD 01/04/17 16:00 10/16/17 15:59 01/04/17 15:41 12 MCG Miscellaneous (Fentanyl Patch Remove & Waste) 1 ea Q3D@0859 N/A 01/07/17 08:59 02/06/17 08:58 Miscellaneous Information (Check Fentanyl Patch Placement) 1 ea QS N/A 01/04/17 16:00 02/03/17 15:59 01/06/17 08:00 1 EA Atropine Sulfate (Atropine Sulfate 1% Oph Soln) 4 drops Q1H PRN OP 01/05/17 09:45 02/03/17 17:44 01/05/17 17:28 4 DROPS Scopolamine (Transderm-Scop Patch) 3 mg Q72H TD 01/05/17 10:00 02/04/17 09:59 01/05/17 10:17 3 MG Miscellaneous (Remove Transderm-Scop Patch) 2 ea Q72H N/A 01/05/17 09:59 02/04/17 09:58 01/05/17 10:16 2 EA Miscellaneous Information (Check Scopolamine Patch Placement) 2 ea QS N/A 01/05/17 16:00 02/04/17 15:59 01/06/17 08:00 2 EA Morphine Sulfate/ Dextrose 250 ml @ 3 mls/hr Q24H PRN IV 01/05/17 10:15 01/19/17 10:14 01/05/17 13:50 3 MLS/HR Morphine Sulfate (MoRPHine SULFATE INJ) 1 mg Q1H PRN IV 01/05/17 10:15 01/19/17 10:14 (Allison Partida ., PA-C) Objective Vital Signs Date Time Temp Pulse Resp B/P (MAP) Pulse Ox O2 Delivery O2 Flow Rate FiO2 01/06/17 08:00 94 Nasal Cannula 3.0 01/06/17 00:00 Nasal Cannula 3.0 01/05/17 16:00 94 Nasal Cannula 2.0 (Allison Partida ., PA-C) Physical Exam General Appearance: no apparent distress Neck: supple, no JVD Respiratory/Chest: no respiratory distress, no accessory muscle use, + pertinent finding (course breath sounds throughout ) Cardiovascular: + bradycardia Abdomen: non tender, soft Extremities: + pertinent finding (cold extremities ) Neurologic/Psychiatric: + pertinent finding (obtunded ) Skin: + pertinent finding (diffuse bruising noted ) (Allison Partida, PARehanaC) Assessment and Plan Patient is a very pleasant 61 yo female with a history of HLD, chronic diastolic CHF, DM II, anxiety/depression, and 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 With jyothi silent aspiration on Video Swallow, made strict NPO, but now on comfort feeds knowing risk of continued aspiration. After loss of IV access with great difficulty obtaining another PIV, painful sticks and inability to get labs, glucose checks, pt desired comfort care. Palliative Care Consultation appreciated COMFORT MEASURES ONLY as of 01/01- severe deconditioning/weakness- neuromuscular/ neurodegenerative disorder, respiratory failure- PNA, COPD, aspiration: - Palliative care consulted, appreciate recommendations - All antibiotics discontinued - Continue Lopez - Comfort feedings - O2, Scopolamine patch, Atropine, DuoNebs PRN, Morphine IV drip Acute/chronic hypoxic respiratory failure, LLL PNA, recurrent aspiration from neuromuscular weakness: Treatment discontinued- CREATIVE DEVELOPER - Treated w/ BiPAP, O2 protocol, DuoNebs/inhalers, antibiotics, and steroids - ENT performed laryngoscopy due to concern of mass of video swallow- unremarkable Hypotension: Treatment discontinued- CREATIVE DEVELOPER - Nitro patch and Lasix discontinued - Does NOT desire central line or vasopressors- transitioned to CREATIVE DEVELOPER COPD, bilateral lung nodules: - DuoNebs PRN and O2 - No further follow-up- CREATIVE DEVELOPER Anemia secondary to folic acid deficiency: Treatment discontinued- CREATIVE DEVELOPER - Folic acid and iron supplement Pleuritic chest pain/rib pain: Roxanol 5 mg PO q3h PRN pain, IV morphine PRN Anxiety, depression: Treatment discontinued- CREATIVE DEVELOPER - Paxil 40 mg PO qd, Remeron 45 mg PO qd, Buspirone 5 mg PO TID and Risperdal 1 mg PO hs due to CREATIVE DEVELOPER Oral vs esophageal candidiasis: Treatment discontinued- CREATIVE DEVELOPER - Diflucan Severe deconditioning: CREATIVE DEVELOPER Atrial mass: Treatment/workup discontinued- CREATIVE DEVELOPER - The ECHO and CT chest are both c/w lipomatous hypertrophy- per cardiology NOT a risk factor for stroke ?myopathy +/- polyneuropathy: Treatment/workup discontinued- CREATIVE DEVELOPER Leukocytosis/UTI, poor UO: Antibiotics discontinued due to CREATIVE DEVELOPER h/o chronic diastolic CHF: Treatment discontinued- CREATIVE DEVELOPER - Lasix T2DM: Treatment discontinued- CREATIVE DEVELOPER HLD, h/o CVA: Treatment discontinued- CREATIVE DEVELOPER - Lipitor and ASA DVT prophylaxis: None- CREATIVE DEVELOPER Code Status: LEVEL V, DO NOT RESUSCITATE Dispo: CREATIVE DEVELOPER (Allison Partida, PA-C) I agree with PA assessment and plan and have seen and examined pt myself Pt nonarousable at this time COMFORT MEASURES ONLY Pt is actively dying Cont morphine drip, atropine and scopolamine No further recs at this time (Yvan Holland, D.O.)
[2017-01-06 16:00] VITALS: O2SAT 94
[2017-01-07] MEDS: CHECK FENTANYL PATCH PLACEMENT SCH ×3 (00:22→15:44)
[2017-01-07] MEDS: CHECK SCOPOLAMINE PATCH PLACEMENT SCH ×3 (00:23→15:44)
[2017-01-07] MEDS: DICLOFENAC SOD 1% GEL 100 GM TUBE EXT SCH ×4 (08:26→21:00)
[2017-01-07] MEDS ORDERED: FENTANYL PATCH REMOVE & WASTE SCH (08:59)
[2017-01-07] MEDS: FENTANYL 12 MCG/HR TDSY TD SCH (09:15)
--- NOTE | 2017-01-07 13:17 | Hospitalist Progress Note ---
Hospitalist Progress Note Date of Service Jan 07, 2017. (Allison Partida ., SWETHA) Subjective Pt evaluation today including: review of inpatient medication list Voiding: lopez catheter in place Patient resting in bed. No signs of acute distress. non-arousable. ROS not obtained- OPERATIONS MANAGER/COORDINATOR. (Allison Partida, SWETHA) Medications Current Inpatient Medications Medications (Trade) Dose Ordered Sig/Marcus Route Start Time Stop Time Status Last Admin Dose Admin Al Hydrox/Mg Hydrox/Simethicone (Maalox Max Susp) 15 ml Q4H PRN PO 12/25/16 11:45 01/24/17 11:44 Ondansetron HCl (Zofran Inj) 4 mg Q6H PRN IV 12/25/16 11:45 01/24/17 11:44 Diclofenac Sodium (Voltaren 1% Top Gel) 1 appln QID EXT 12/25/16 17:00 01/24/17 16:59 01/03/17 21:21 1 APPLN Glucose (Glucose 40% Gel) 15-30 GRAMS 15 GRAMS... UD PRN PO 12/25/16 13:00 01/24/17 12:59 Glucose (Glucose Chew Tab) 4-8 Tablets 4 Tabl... UD PRN PO 12/25/16 13:00 01/24/17 12:59 Dextrose (Dextrose 50% 50ML Syringe) 25-50ML OF 50% DW IV FOR... UD PRN IV 12/25/16 13:00 01/24/17 12:59 Glucagon (Glucagon Inj) 1 mg UD PRN SQ 12/25/16 13:00 01/24/17 12:59 Miscellaneous (Iv Fluids Completed) 1 ea PRN PRN N/A 12/25/16 14:15 12/25/17 14:14 Acetaminophen 650 mg/Empty Bag 65 ml @ 260 mls/hr Q6H PRN IV 12/29/16 16:00 01/28/17 15:59 Albuterol/ Ipratropium (Duoneb) 3 ml Q4R PRN INH 01/01/17 16:00 01/25/17 11:59 Fentanyl (Duragesic Patch) 12 mcg Q3D@0900 TD 01/04/17 16:00 01/18/17 15:59 01/07/17 09:15 12 MCG Miscellaneous (Fentanyl Patch Remove & Waste) 1 ea Q3D@0859 N/A 01/07/17 08:59 02/06/17 08:58 01/07/17 09:15 1 EA Miscellaneous Information (Check Fentanyl Patch Placement) 1 ea QS N/A 01/04/17 16:00 02/03/17 15:59 01/07/17 08:25 1 EA Atropine Sulfate (Atropine Sulfate 1% Oph Soln) 4 drops Q1H PRN OP 01/05/17 09:45 02/03/17 17:44 01/05/17 17:28 4 DROPS Scopolamine (Transderm-Scop Patch) 3 mg Q72H TD 01/05/17 10:00 02/04/17 09:59 01/05/17 10:17 3 MG Miscellaneous (Remove Transderm-Scop Patch) 2 ea Q72H N/A 01/05/17 09:59 02/04/17 09:58 01/05/17 10:16 2 EA Miscellaneous Information (Check Scopolamine Patch Placement) 2 ea QS N/A 01/05/17 16:00 02/04/17 15:59 01/07/17 08:25 2 EA Morphine Sulfate/ Dextrose 250 ml @ 3 mls/hr Q24H PRN IV 01/05/17 10:15 01/19/17 10:14 01/05/17 13:50 3 MLS/HR Morphine Sulfate (MoRPHine SULFATE INJ) 1 mg Q1H PRN IV 01/05/17 10:15 01/19/17 10:14 (Allison Partida ., PA-C) Objective Vital Signs Date Time Temp Pulse Resp B/P (MAP) Pulse Ox O2 Delivery O2 Flow Rate FiO2 01/07/17 08:00 Nasal Cannula 3.0 01/07/17 00:00 Nasal Cannula 3.0 01/06/17 16:00 94 Nasal Cannula 3.0 (Allison Partida ., PA-C) Physical Exam General Appearance: no apparent distress, + pertinent finding (O2 3L NC ) Neck: no JVD Respiratory/Chest: no respiratory distress, no accessory muscle use, + decreased breath sounds, + pertinent finding (course breath sounds throughout ) Cardiovascular: + bradycardia (distant heart sounds ) Abdomen: normal bowel sounds, soft Extremities: + pertinent finding (cold extremities ) Neurologic/Psychiatric: + pertinent finding (obtunded ) Skin: + pertinent finding (skin bruising noted diffusely ) (Allison Partida ., PARehanaC) Assessment and Plan Patient is a very pleasant 61 yo female with a history of HLD, chronic diastolic CHF, DM II, anxiety/depression, and 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 With jyothi silent aspiration on Video Swallow, made strict NPO, but now on comfort feeds knowing risk of continued aspiration. After loss of IV access with great difficulty obtaining another PIV, painful sticks and inability to get labs, glucose checks, pt desired comfort care. Palliative Care Consultation appreciated COMFORT MEASURES ONLY as of 01/01- severe deconditioning/weakness- neuromuscular/ neurodegenerative disorder, respiratory failure- PNA, COPD, aspiration: - Palliative care consulted, appreciate recommendations - All antibiotics discontinued - Continue Lopez - Comfort feedings - O2, Scopolamine patch, Atropine, DuoNebs PRN, Morphine IV drip Acute/chronic hypoxic respiratory failure, LLL PNA, recurrent aspiration from neuromuscular weakness: Treatment discontinued- OPERATIONS MANAGER/COORDINATOR - Treated w/ BiPAP, O2 protocol, DuoNebs/inhalers, antibiotics, and steroids - ENT performed laryngoscopy due to concern of mass of video swallow- unremarkable Hypotension: Treatment discontinued- OPERATIONS MANAGER/COORDINATOR - Nitro patch and Lasix discontinued - Does NOT desire central line or vasopressors- transitioned to OPERATIONS MANAGER/COORDINATOR COPD, bilateral lung nodules: - DuoNebs PRN and O2 - No further follow-up- OPERATIONS MANAGER/COORDINATOR Anemia secondary to folic acid deficiency: Treatment discontinued- OPERATIONS MANAGER/COORDINATOR - Folic acid and iron supplement Pleuritic chest pain/rib pain: Roxanol 5 mg PO q3h PRN pain, IV morphine PRN Anxiety, depression: Treatment discontinued- OPERATIONS MANAGER/COORDINATOR - Paxil 40 mg PO qd, Remeron 45 mg PO qd, Buspirone 5 mg PO TID and Risperdal 1 mg PO hs due to OPERATIONS MANAGER/COORDINATOR Oral vs esophageal candidiasis: Treatment discontinued- OPERATIONS MANAGER/COORDINATOR - Diflucan Severe deconditioning: OPERATIONS MANAGER/COORDINATOR Atrial mass: Treatment/workup discontinued- OPERATIONS MANAGER/COORDINATOR - The ECHO and CT chest are both c/w lipomatous hypertrophy- per cardiology NOT a risk factor for stroke ?myopathy +/- polyneuropathy: Treatment/workup discontinued- OPERATIONS MANAGER/COORDINATOR Leukocytosis/UTI, poor UO: Antibiotics discontinued due to OPERATIONS MANAGER/COORDINATOR h/o chronic diastolic CHF: Treatment discontinued- OPERATIONS MANAGER/COORDINATOR - Lasix T2DM: Treatment discontinued- OPERATIONS MANAGER/COORDINATOR HLD, h/o CVA: Treatment discontinued- OPERATIONS MANAGER/COORDINATOR - Lipitor and ASA DVT prophylaxis: None- OPERATIONS MANAGER/COORDINATOR Code Status: LEVEL V, DO NOT RESUSCITATE Dispo: OPERATIONS MANAGER/COORDINATOR (Allison Partida, PA-C) I agree with PA assessment and plan and have seen and examined pt myself Resting comfortably in bed Difficult to arouse No family at bedside No concerns per nursing staff Cont morphine drip, scopolamine and atropine at this time (Yvan Holland, D.O.)
[2017-01-08] MEDS: MoRPHine SULFATE 2 MG/ML CARP IV PRN ×2 (00:27→05:11)
[2017-01-08] MEDS: CHECK FENTANYL PATCH PLACEMENT SCH ×4 (00:27→23:36)
[2017-01-08] MEDS: CHECK SCOPOLAMINE PATCH PLACEMENT SCH ×4 (00:28→23:36)
[2017-01-08] MEDS: DICLOFENAC SOD 1% GEL 100 GM TUBE EXT SCH ×4 (08:33→20:29)
[2017-01-08] MEDS: SCOPOLAMINE 1.5 MG TDSY TD SCH (10:50)
--- NOTE | 2017-01-08 11:35 | Hospitalist Progress Note ---
Hospitalist Progress Note Date of Service Jan 08, 2017. Subjective Pt evaluation today including: conversation w/ patient, review of inpatient medication list Voiding: lopez catheter in place (concentrated yellow/clear urine ) Patient awake/alert when entering entering room. Laying in bed. Shakes head to "no" when assessing for pain. No family present. Complete ROS not obtained- RADIOGRAPHER MAMMOGRAPHER. Medications Current Inpatient Medications Medications (Trade) Dose Ordered Sig/Marcus Route Start Time Stop Time Status Last Admin Dose Admin Al Hydrox/Mg Hydrox/Simethicone (Maalox Max Susp) 15 ml Q4H PRN PO 12/25/16 11:45 01/24/17 11:44 Ondansetron HCl (Zofran Inj) 4 mg Q6H PRN IV 12/25/16 11:45 01/24/17 11:44 Diclofenac Sodium (Voltaren 1% Top Gel) 1 appln QID EXT 12/25/16 17:00 01/24/17 16:59 01/03/17 21:21 1 APPLN Glucose (Glucose 40% Gel) 15-30 GRAMS 15 GRAMS... UD PRN PO 12/25/16 13:00 01/24/17 12:59 Glucose (Glucose Chew Tab) 4-8 Tablets 4 Tabl... UD PRN PO 12/25/16 13:00 01/24/17 12:59 Dextrose (Dextrose 50% 50ML Syringe) 25-50ML OF 50% DW IV FOR... UD PRN IV 12/25/16 13:00 01/24/17 12:59 Glucagon (Glucagon Inj) 1 mg UD PRN SQ 12/25/16 13:00 01/24/17 12:59 Miscellaneous (Iv Fluids Completed) 1 ea PRN PRN N/A 12/25/16 14:15 12/25/17 14:14 Acetaminophen 650 mg/Empty Bag 65 ml @ 260 mls/hr Q6H PRN IV 12/29/16 16:00 01/28/17 15:59 Albuterol/ Ipratropium (Duoneb) 3 ml Q4R PRN INH 01/01/17 16:00 01/25/17 11:59 Fentanyl (Duragesic Patch) 12 mcg Q3D@0900 TD 01/04/17 16:00 01/18/17 15:59 01/07/17 09:15 12 MCG Miscellaneous (Fentanyl Patch Remove & Waste) 1 ea Q3D@0859 N/A 01/07/17 08:59 02/06/17 08:58 01/07/17 09:15 1 EA Miscellaneous Information (Check Fentanyl Patch Placement) 1 ea QS N/A 01/04/17 16:00 02/03/17 15:59 01/08/17 08:00 1 EA Atropine Sulfate (Atropine Sulfate 1% Oph Soln) 4 drops Q1H PRN OP 01/05/17 09:45 02/03/17 17:44 01/05/17 17:28 4 DROPS Scopolamine (Transderm-Scop Patch) 3 mg Q72H TD 01/05/17 10:00 02/04/17 09:59 01/08/17 10:50 3 MG Miscellaneous (Remove Transderm-Scop Patch) 2 ea Q72H N/A 01/05/17 09:59 02/04/17 09:58 01/08/17 09:59 2 EA Miscellaneous Information (Check Scopolamine Patch Placement) 2 ea QS N/A 01/05/17 16:00 02/04/17 15:59 01/08/17 08:00 2 EA Morphine Sulfate/ Dextrose 250 ml @ 3 mls/hr Q24H PRN IV 01/05/17 10:15 01/19/17 10:14 01/05/17 13:50 3 MLS/HR Morphine Sulfate (MoRPHine SULFATE INJ) 1 mg Q1H PRN IV 01/05/17 10:15 01/19/17 10:14 01/08/17 05:11 1 MG Objective Vital Signs Date Time Temp Pulse Resp B/P (MAP) Pulse Ox O2 Delivery O2 Flow Rate FiO2 01/08/17 08:00 Nasal Cannula 3.0 01/08/17 00:00 Nasal Cannula 3.0 01/07/17 16:00 Nasal Cannula 3.0 Physical Exam General Appearance: + mild distress Neck: no JVD Respiratory/Chest: + decreased breath sounds, + accessory muscle use, + pertinent finding (course breath sounds throughout ) Cardiovascular: + bradycardia Abdomen: soft Extremities: + pertinent finding (cool extremities ) Neurologic/Psychiatric: alert Skin: + pertinent finding (diffuse brusing noted ) Assessment and Plan Patient is a very pleasant 61 yo female with a history of HLD, chronic diastolic CHF, DM II, anxiety/depression, and 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 With jyothi silent aspiration on Video Swallow, made strict NPO, but now on comfort feeds knowing risk of continued aspiration. After loss of IV access with great difficulty obtaining another PIV, painful sticks and inability to get labs, glucose checks, pt desired comfort care. Palliative Care Consultation appreciated COMFORT MEASURES ONLY as of 01/01- severe deconditioning/weakness- neuromuscular/ neurodegenerative disorder, respiratory failure- PNA, COPD, aspiration: - Palliative care consulted, appreciate recommendations - All antibiotics discontinued - Continue Lopez - Comfort feedings - O2, Scopolamine patch, Atropine, DuoNebs PRN, Morphine IV drip, Fentanyl patch Acute/chronic hypoxic respiratory failure, LLL PNA, recurrent aspiration from neuromuscular weakness: Treatment discontinued- RADIOGRAPHER MAMMOGRAPHER - Treated w/ BiPAP, O2 protocol, DuoNebs/inhalers, antibiotics, and steroids - ENT performed laryngoscopy due to concern of mass of video swallow- unremarkable Hypotension: Treatment discontinued- RADIOGRAPHER MAMMOGRAPHER - Nitro patch and Lasix discontinued - Does NOT desire central line or vasopressors- transitioned to RADIOGRAPHER MAMMOGRAPHER COPD, bilateral lung nodules: - DuoNebs PRN and O2 - No further follow-up- RADIOGRAPHER MAMMOGRAPHER Anemia secondary to folic acid deficiency: Treatment discontinued- RADIOGRAPHER MAMMOGRAPHER - Folic acid and iron supplement Pleuritic chest pain/rib pain: Roxanol 5 mg PO q3h PRN pain, IV morphine PRN Anxiety, depression: Treatment discontinued- RADIOGRAPHER MAMMOGRAPHER - Paxil 40 mg PO qd, Remeron 45 mg PO qd, Buspirone 5 mg PO TID and Risperdal 1 mg PO hs due to RADIOGRAPHER MAMMOGRAPHER Oral vs esophageal candidiasis: Treatment discontinued- RADIOGRAPHER MAMMOGRAPHER - Diflucan Severe deconditioning: RADIOGRAPHER MAMMOGRAPHER Atrial mass: Treatment/workup discontinued- RADIOGRAPHER MAMMOGRAPHER - The ECHO and CT chest are both c/w lipomatous hypertrophy- per cardiology NOT a risk factor for stroke ?myopathy +/- polyneuropathy: Treatment/workup discontinued- RADIOGRAPHER MAMMOGRAPHER Leukocytosis/UTI, poor UO: Antibiotics discontinued due to RADIOGRAPHER MAMMOGRAPHER h/o chronic diastolic CHF: Treatment discontinued- RADIOGRAPHER MAMMOGRAPHER - Lasix T2DM: Treatment discontinued- RADIOGRAPHER MAMMOGRAPHER HLD, h/o CVA: Treatment discontinued- RADIOGRAPHER MAMMOGRAPHER - Lipitor and ASA DVT prophylaxis: None- RADIOGRAPHER MAMMOGRAPHER Code Status: LEVEL V, DO NOT RESUSCITATE Dispo: RADIOGRAPHER MAMMOGRAPHER
[2017-01-08] MEDS: MORPHINE SULF/NSS 250MG/250ML IV PRN (19:02)
[2017-01-09] MEDS: CHECK FENTANYL PATCH PLACEMENT SCH (07:49)
[2017-01-09] MEDS: DICLOFENAC SOD 1% GEL 100 GM TUBE EXT SCH ×2 (07:49→11:37)
[2017-01-09] MEDS: CHECK SCOPOLAMINE PATCH PLACEMENT SCH (07:49)
--- NOTE | 2017-01-09 16:13 | Death Pronouncement Note ---
Pronouncement Note Date & Time of Jan 09, 2017. 16:04 Pronouncement At time of pronouncement the patients pupils were fixed and dilated, there was no spontaneous respiratory effort, no palpable pulse, no audible heart tones, and no response to pain or voice.
--- NOTE | 2017-01-10 01:12 | Death Summary ---
Summary of Admission Date Dec 28, 2016 at 12:20 Date & Time of Jan 09, 2017. 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 Severe COPD Recurrent acute hypoxemic resp failure Recurrent aspiration PNA Severe oropharyngeal dysphagia Severe deconditioning/weakness Hypotension Bilateral lung nodules Anemia secondary to folic acid deficiency Pleuritic chest pain/rib pain Oral vs esophageal candidiasis Atrial mass c/w lipomatous hypertrophy Leukocytosis UTI H/o CVA Hospital Course Patient is a very pleasant 61 yo female with a history of HLD, chronic diastolic CHF, DM II, anxiety/depression, and 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 With jyothi silent aspiration on Video Swallow, made strict NPO, and given comfort feeds knowing risk of continued aspiration. After loss of IV access with great difficulty obtaining another PIV, painful sticks and inability to get labs, glucose checks, pt desired comfort care. Palliative Care Consultation appreciated COMFORT MEASURES ONLY as of 01/01- severe deconditioning/weakness- neuromuscular/ neurodegenerative disorder, respiratory failure- PNA, COPD, aspiration: - Palliative care consulted, appreciate recommendations - All antibiotics discontinued - Continue Patricia - Comfort feedings - O2, Scopolamine patch, Atropine, DuoNebs PRN, Morphine IV drip, Fentanyl patch -Pt peacefully on 01/10/17 Acute/chronic hypoxic respiratory failure, LLL PNA, recurrent aspiration from neuromuscular weakness: Treatment discontinued- CHECK EMBOSSER - Treated w/ BiPAP, O2 protocol, DuoNebs/inhalers, antibiotics, and steroids - ENT performed laryngoscopy due to concern of mass of video swallow- unremarkable Hypotension: Treatment discontinued- CHECK EMBOSSER - Nitro patch and Lasix discontinued - Does NOT desire central line or vasopressors- transitioned to CHECK EMBOSSER COPD, bilateral lung nodules: - DuoNebs PRN and O2 - No further follow-up- CHECK EMBOSSER Anemia secondary to folic acid deficiency: Treatment discontinued- CHECK EMBOSSER - Folic acid and iron supplement Pleuritic chest pain/rib pain: Roxanol 5 mg PO q3h PRN pain, IV morphine PRN Anxiety, depression: Treatment discontinued- CHECK EMBOSSER - Paxil 40 mg PO qd, Remeron 45 mg PO qd, Buspirone 5 mg PO TID and Risperdal 1 mg PO hs due to CHECK EMBOSSER Oral vs esophageal candidiasis: Treatment discontinued- CHECK EMBOSSER - Diflucan Severe deconditioning: CHECK EMBOSSER Atrial mass: Treatment/workup discontinued- CHECK EMBOSSER - The ECHO and CT chest are both c/w lipomatous hypertrophy- per cardiology NOT a risk factor for stroke ?myopathy +/- polyneuropathy: Treatment/workup discontinued- CHECK EMBOSSER Leukocytosis/UTI, poor UO: Antibiotics discontinued due to CHECK EMBOSSER h/o chronic diastolic CHF: Treatment discontinued- CHECK EMBOSSER - Lasix T2DM: Treatment discontinued- CHECK EMBOSSER HLD, h/o CVA: Treatment discontinued- CHECK EMBOSSER - Lipitor and ASA Copy To See Starr M.D.; Yanick Canales D.O.
== END 2017-01-09 19:00 | disposition expired | DRG 189 ==
LOC: C.2T 10:50 → INTOOBSV 10:50 → ENRESERV 12-26 11:59 → C.MS2W 12-26 12:35 → OBSVTOIN 12-28 12:20 → ENRESERV 12-29 08:03 → C.MSICU 12-29 10:00 → ENRESERV 12-31 12:22 → C.MS2W 12-31 12:46
PROVIDERS: ADMIT Family Medicine; ATTEND Family Medicine
DX: J96.21 Acute and chronic respiratory failure with hypoxia (principal); J69.0 Pneumonitis due to inhalation of food and vomit; G72.81 Critical illness myopathy; I50.32 Chronic diastolic (congestive) heart failure; N39.0 Urinary tract infection, site not specified; B37.0 Candidal stomatitis; B37.81 Candidal esophagitis; Z51.5 Encounter for palliative care; Z66 Do not resuscitate; J44.9 Chronic obstructive pulmonary disease, unspecified; I95.9 Hypotension, unspecified; R91.8 Other nonspecific abnormal finding of lung field; D52.9 Folate deficiency anemia, unspecified; R07.81 Pleurodynia; M99.08 Segmental and somatic dysfunction of rib cage; F32.9 Major depressive disorder, single episode, unspecified; E11.42 Type 2 diabetes mellitus with diabetic polyneuropathy; G70.9 Myoneural disorder, unspecified; R93.1 Abnormal findings on diagnostic imaging of heart and coronary circulation; K59.09 Other constipation; I48.0 Paroxysmal atrial fibrillation; E78.5 Hyperlipidemia, unspecified; Z86.73 Personal history of transient ischemic attack (TIA), and cerebral infarction without residual deficits; Z87.01 Personal history of pneumonia (recurrent); Z87.891 Personal history of nicotine dependence; Z99.81 Dependence on supplemental oxygen; Z79.4 Long term (current) use of insulin; Z79.51 Long term (current) use of inhaled steroids; Z79.82 Long term (current) use of aspirin; Z79.899 Other long term (current) drug therapy; Z82.49 Family history of ischemic heart disease and other diseases of the circulatory system; Z80.7 Family history of other malignant neoplasms of lymphoid, hematopoietic and related tissues